=== PATIENT | male | born 1955 | race Two or more races ===

== ENCOUNTER 2020-05-24 09:14 | Outpatient (REF) | payer MEDICARE, OTHER, SELFPAY | END 2020-05-24 09:15 | disposition home or self-care (01) | LOC: HO.LAB 09:14 | PROVIDERS: Visit Provider Internal Medicine | DX: Z20.822 Contact with and (suspected) exposure to COVID-19 (principal) | CPT/HCPCS: 36415; C9803; U0003 ==

== ENCOUNTER 2020-09-05 08:54 | Outpatient (REF) | payer MEDICARE, OTHER, SELFPAY ==
--- NOTE | ~2020-09-05 | XR_ITS ---
EXAMINATION: XR HAND, RIGHT XR HAND, LEFT CLINICAL INFORMATION: Right and left hand pain. COMPARISON: Left wrist radiographs dated 02/14/2017 TECHNIQUE: AP, oblique, and lateral views of the right and left hand. FINDINGS: Right hand: No acute fracture or dislocation. Normal carpal alignment. Mild joint space narrowing with tiny marginal osteophytes scattered throughout the metacarpophalangeal and interphalangeal joints. No osseous erosion. No abnormal soft tissue calcification. Left hand: No acute fracture or dislocation. Normal carpal alignment. Mild joint space narrowing with tiny marginal osteophytes scattered throughout the metacarpophalangeal and interphalangeal joints. No osseous erosion. No abnormal soft tissue calcification. XR/XR hand LT min 3V IMPRESSION: Right hand: Mild degenerative arthritis scattered throughout the metacarpophalangeal and interphalangeal joints. Left hand: Mild degenerative arthritis scattered throughout the metacarpophalangeal and interphalangeal joints.
--- NOTE | ~2020-09-05 | XR_ITS ---
EXAMINATION: XR HAND, RIGHT XR HAND, LEFT CLINICAL INFORMATION: Right and left hand pain. COMPARISON: Left wrist radiographs dated 02/14/2017 TECHNIQUE: AP, oblique, and lateral views of the right and left hand. FINDINGS: Right hand: No acute fracture or dislocation. Normal carpal alignment. Mild joint space narrowing with tiny marginal osteophytes scattered throughout the metacarpophalangeal and interphalangeal joints. No osseous erosion. No abnormal soft tissue calcification. Left hand: No acute fracture or dislocation. Normal carpal alignment. Mild joint space narrowing with tiny marginal osteophytes scattered throughout the metacarpophalangeal and interphalangeal joints. No osseous erosion. No abnormal soft tissue calcification. XR/XR hand RT min 3V IMPRESSION: Right hand: Mild degenerative arthritis scattered throughout the metacarpophalangeal and interphalangeal joints. Left hand: Mild degenerative arthritis scattered throughout the metacarpophalangeal and interphalangeal joints.
== END 2020-09-05 08:55 | disposition home or self-care (01) ==
LOC: HO.XRAY 08:54
PROVIDERS: PCP Family Medicine; Visit Provider Family Medicine
DX: M79.641 Pain in right hand (principal); M79.642 Pain in left hand
CPT/HCPCS: 73130

== ENCOUNTER 2021-05-08 10:24 | Outpatient (REF) | payer MEDICARE, OTHER, SELFPAY | END 2021-05-08 10:25 | disposition home or self-care (01) | LOC: HO.LAB 10:24 | PROVIDERS: Visit Provider Internal Medicine | DX: Z20.822 Contact with and (suspected) exposure to COVID-19 (principal) | CPT/HCPCS: C9803; U0003; U0005 ==

== ENCOUNTER 2021-05-15 08:57 | Outpatient (REF) | payer MEDICARE, OTHER, SELFPAY | END 2021-05-15 08:58 | disposition home or self-care (01) | LOC: HO.LAB 08:57 | PROVIDERS: Visit Provider Internal Medicine | DX: Z20.822 Contact with and (suspected) exposure to COVID-19 (principal) | CPT/HCPCS: C9803; U0003; U0005 ==

== ENCOUNTER 2021-05-30 08:48 | Outpatient (REF) | payer MEDICARE, OTHER, SELFPAY ==
[2021-05-30 10:24] LABS: Binax Internal Control QC Valid; Binax Now Covid-19 Ag Negative (Negative)
== END 2021-05-30 08:49 | disposition home or self-care (01) ==
LOC: HO.LAB 08:48
PROVIDERS: Visit Provider Internal Medicine
DX: Z20.822 Contact with and (suspected) exposure to COVID-19 (principal)
CPT/HCPCS: C9803

== ENCOUNTER 2021-09-12 15:10 | Outpatient (REF) | payer MEDICARE, OTHER, SELFPAY ==
[2021-09-12 17:16] LABS: Prostate Specific Antigen 6.73 ng/mL (<0.05-4.0)
== END 2021-09-12 15:11 | disposition home or self-care (01) ==
LOC: HO.LAB 15:10
PROVIDERS: PCP Family Medicine; Visit Provider Urology
DX: N40.1 Benign prostatic hyperplasia with lower urinary tract symptoms (principal); N42.31 Prostatic intraepithelial neoplasia; N13.8 Other obstructive and reflux uropathy; R97.20 Elevated prostate specific antigen [PSA]; Z12.5 Encounter for screening for malignant neoplasm of prostate
CPT/HCPCS: 36415; 84153; 99212

== ENCOUNTER 2021-10-26 12:38 | Outpatient (REF) | payer MEDICARE, OTHER, SELFPAY ==
[2021-10-26 13:11] LABS: COVID-19 Test Negative (Negative)
== END 2021-10-26 12:39 | disposition home or self-care (01) ==
LOC: HO.LAB 12:38
PROVIDERS: Visit Provider Internal Medicine
DX: Z20.822 Contact with and (suspected) exposure to COVID-19 (principal)
CPT/HCPCS: 87635; C9803

== ENCOUNTER 2022-01-08 09:13 | Outpatient (REF) | payer MEDICARE, OTHER, SELFPAY | END 2022-01-08 09:14 | disposition home or self-care (01) | LOC: HO.LAB 09:13 | PROVIDERS: PCP Family Medicine; Visit Provider Urology | DX: Z12.5 Encounter for screening for malignant neoplasm of prostate (principal); R97.20 Elevated prostate specific antigen [PSA] | CPT/HCPCS: 36415; 84153 ==

== ENCOUNTER → 2022-01-15 08:17 | Outpatient (BNVA) | payer MEDICARE, OTHER, SELFPAY | PROVIDERS: PCP Family Medicine; Visit Provider Urology | DX: R97.20 Elevated prostate specific antigen [PSA] (principal); N40.1 Benign prostatic hyperplasia with lower urinary tract symptoms; N13.8 Other obstructive and reflux uropathy | CPT/HCPCS: 51798; 99212 ==

== ENCOUNTER 2022-07-05 08:48 | Outpatient (REF) | payer MEDICARE, MEDICAID, SELFPAY ==
[2022-07-05 10:04] LABS: Prostate Specific Antigen 3.06 ng/mL (<0.05-4.0)
== END 2022-07-05 08:49 | disposition home or self-care (01) ==
LOC: HO.LAB 08:48
PROVIDERS: PCP Family Medicine; Visit Provider Urology
DX: Z12.5 Encounter for screening for malignant neoplasm of prostate (principal); N40.1 Benign prostatic hyperplasia with lower urinary tract symptoms; N13.8 Other obstructive and reflux uropathy
CPT/HCPCS: 36415; 84153

== ENCOUNTER → 2022-07-24 08:30 | Outpatient (BNVA) | payer MEDICARE, MEDICAID, SELFPAY | PROVIDERS: PCP Family Medicine; Visit Provider Urology | DX: R97.20 Elevated prostate specific antigen [PSA] (principal); N40.1 Benign prostatic hyperplasia with lower urinary tract symptoms; N13.8 Other obstructive and reflux uropathy; Z79.899 Other long term (current) drug therapy | CPT/HCPCS: 51798; 99212 ==

== ENCOUNTER 2022-11-11 11:43 | Outpatient (REF) | payer MEDICARE, MEDICAID, SELFPAY ==
--- NOTE | ~2022-11-11 | XR_ITS ---
EXAMINATION: XR KNEE, RIGHT CLINICAL INFORMATION: Pain of 6 days' duration, without injury. COMPARISON: None available. TECHNIQUE: AP, lateral, tunnel, and sunrise views of the right knee. FINDINGS: Bony alignment and mineralization are normal. The lateral, medial and patellofemoral joint space compartments are well-maintained. No fracture or dislocation is seen. There is a moderately large joint effusion. No foreign body is seen. XR/XR knee RT 4V IMPRESSION: 1. No fracture or dislocation is seen. 2. There is a moderately large joint effusion.
== END 2022-11-11 11:44 | disposition home or self-care (01) ==
LOC: HO.HHCX 11:43
PROVIDERS: Visit Provider Emergency Medicine
DX: M25.561 Pain in right knee (principal)
CPT/HCPCS: 73564

== ENCOUNTER 2022-12-25 07:50 | Outpatient (AMB) | payer MEDICARE, MEDICAID, SELFPAY ==
--- NOTE | 2022-12-25 08:13 | MHC.OFFVIS ---
Intake Vital Signs 12/25/22 08:17 Height 5 ft 6 in Weight 140 lb BMI 22.6 Handedness Right Intake Visit Reasons: New Patient - Right Knee Pain Intake Note: Andrew is a 67 year old male who presents today as a new patient for a evaluation for his right knee pain. The patient describes his pain as sharp in nature. He injured his knee several years ago. He twisted his knee and had acute onset of pain. Since that time his symptoms have gotten worse in spite of continued non operative treatments. He has done physical therapy which aggravated his pain. He has also tried Tylenol, Aleve and topical patches which gave him minimal relief. He has had injections in the past which gave him no relief. The patient states that his right knee will give out several times per day. The patient also reports similar symptoms in his left knee which are less severe. Allergies tamsulosin Allergy (Unknown, Verified 12/25/22 08:18) low B/P Medication List - Last Reconciled 12/25/22 by Ulisses Singh MD acetaminophen 500 - 1,000 mg PO Q8H PRN doxazosin 4 mg PO BEDTIME 30 days finasteride 5 mg PO DAILY 90 days lorazepam 0.5 mg PO DAILY PRN pravastatin 20 mg PO DAILY PFSH Medical History BPH loc w urin obs/LUTS Cognitive impairment Depression with anxiety Dyslipidemia Elevated blood pressure reading in office with diagnosis of hypertension Elevated PSA High grade prostatic intraepithelial neoplasia Impaired fasting glucose Leukopenia Prostate cancer Tremor Surgical History History of surgery Social History (Updated 01/14/22 @ 14:38 by ANA MARIA Trevizo) Alcohol intake: current Patient Tobacco Use Status: Former Tobacco user Current occupational status: retired Current occupation: right hand dominant Physical Exam Const Other: Well-nourished well-developed very friendly male awake alert and oriented x3 in no acute distress Extrem Other: Bilateral lower extremity examination shows good capillary refill, no skin lesions noted, normal sensation light touch Right knee examination shows a minimal effusion, minimal crepitus with range of motion, tenderness along his medial joint line, positive Jayla's test, no instability Results Reviewed Results Reviewed: X-rays of the patient's right knee taken on 11/11/2022 show mild diffuse joint space narrowing, no acute bony abnormalities Assessment & Plan Assessment & Plan (1) Right knee pain: Code(s): M25.561 - Pain in right knee Plan Mr. Houser presents with progressively worsening right knee pain and mechanical symptoms most likely due to a medial meniscus tear. Thus, I will send the patient for an MRI of his right knee for further evaluation. If he does have a significant meniscus tear I will recommend arthroscopic surgery to optimize his future functional level. I will see him back once the imaging study is completed. He will continue with his activity modifications in the meantime. Feel free to call me at any time should questions regarding his orthopedic management arise. Thank you very much for asking me to see this very friendly gentleman. I spent 22 minutes in reviewing the patient's records and imaging studies, seeing the patient and documenting in the medical record. Coding Level of Care Code New Pt Level 2 (25075) Diagnoses Right knee pain M25.561
[2022-12-25 08:17] VITALS: BMI 22.6
== END 2022-12-25 08:28 | disposition home or self-care (01) ==
PROVIDERS: PCP Family Medicine; Visit Provider Orthopaedic Surgery
DX: M25.561 Pain in right knee (principal)
CPT/HCPCS: 99202

== ENCOUNTER → 2022-12-25 07:50 | Outpatient (BNVA) | payer MEDICARE, MEDICAID, SELFPAY | PROVIDERS: PCP Family Medicine; Visit Provider Orthopaedic Surgery | DX: M25.561 Pain in right knee (principal) | CPT/HCPCS: 99202 ==

== ENCOUNTER 2023-02-18 17:50 | Outpatient (REF) | payer MEDICARE, MEDICAID, SELFPAY ==
--- NOTE | ~2023-02-18 | MR_ITS ---
EXAMINATION: MR KNEE WITHOUT CONTRAST, RIGHT CLINICAL INFORMATION: Right knee pain. COMPARISON: Radiographs 11/11/2022. TECHNIQUE: MRI of the knee without contrast was performed using routine sequences on a high-field scanner. FINDINGS: MENISCI: Medial Meniscus: Ill-defined inner margin and undersurface tearing of the posterior horn and body. A portion of the meniscal body undersurface is displaced into the meniscotibial recess. Lateral Meniscus: Ill-defined undersurface tearing at the root of the posterior horn. Otherwise intact. LIGAMENTS: Cruciate: Intact. Collateral: Intact. EXTENSOR MECHANISM: Intact. ARTICULAR CARTILAGE/BONE: Patellofemoral Compartment: Partial-thickness cartilage loss and surface irregularity of the central/medial trochlea and minimal surface irregularity along the median ridge and medial facet of the patella. Medial Compartment: Cartilage thinning throughout the weightbearing aspect with small marginal osteophytes. Lateral Compartment: Normal. JOINT FLUID AND BURSAE: Moderate joint effusion and mild diffuse synovitis. MR/MR knee RT wo con IMPRESSION: 1. Ill-defined inner margin/undersurface tearing of the posterior horn and body of the medial meniscus. 2. Ill-defined undersurface tearing at the root of the posterior horn of the lateral meniscus. 3. Mild patellofemoral and medial compartment osteoarthritis. Moderate joint effusion.
== END 2023-02-18 17:51 | disposition home or self-care (01) ==
LOC: HO.MRI 17:50
PROVIDERS: PCP Family Medicine; Visit Provider Orthopaedic Surgery
DX: S83.206A Unspecified tear of unspecified meniscus, current injury, right knee, initial encounter (principal)
CPT/HCPCS: 73721

== ENCOUNTER 2023-02-27 08:00 | Outpatient (AMB) | payer MEDICARE, MEDICAID, SELFPAY ==
--- NOTE | 2023-02-27 08:05 | A.OFFVIS_ITS ---
Intake Vital Signs 02/27/23 08:08 Height 5 ft 6 in Weight 140 lb BMI 22.6 Intake Visit Reasons: OV- MRI Review right knee pain Intake Note: Andrew is a 67 year old male who presents today for his right knee pain. The patient describes his pain as sharp in nature. He injured his knee several years ago. He twisted his knee and had acute onset of pain. Since that time his symptoms have gotten worse in spite of continued non operative treatments. He has done physical therapy which aggravated his pain. He has also tried Tylenol, Aleve and topical patches which gave him minimal relief. He has had injections in the past which gave him no relief. The patient states that his right knee will give out several times per day. Allergies tamsulosin Allergy (Unknown, Verified 02/27/23 08:08) low B/P Medication List - Last Reconciled 02/27/23 by Ulisses Singh MD acetaminophen 500 - 1,000 mg PO Q8H PRN doxazosin 4 mg PO BEDTIME 30 days finasteride 5 mg PO DAILY 90 days lorazepam 0.5 mg PO DAILY PRN pravastatin 20 mg PO DAILY PFSH Medical History BPH loc w urin obs/LUTS Cognitive impairment Depression with anxiety Dyslipidemia Elevated blood pressure reading in office with diagnosis of hypertension Elevated PSA High grade prostatic intraepithelial neoplasia Impaired fasting glucose Leukopenia Prostate cancer Tremor Surgical History History of surgery Social History Alcohol intake: current Patient Tobacco Use Status: Former Tobacco user Current occupational status: retired Current occupation: right hand dominant Physical Exam Vital Signs: BMI result Body Mass Index 22.6 Const Other: Well-nourished well-developed very friendly male awake alert and oriented x3 in no acute distress Extrem Other: Bilateral lower extremity examination shows good capillary refill, no skin lesions noted, normal sensation light touch Right knee examination shows a mild effusion, minimal crepitus with range of motion, tenderness along his medial joint line, positive Jayla's test, no instability Results Reviewed Results Reviewed: MRI of the patient's right knee shows mild diffuse degenerative changes as well as a tear of his medial meniscus, no acute bony abnormalities Assessment & Plan Assessment & Plan (1) Right knee pain: Code(s): M25.561 - Pain in right knee Plan Mr. Houser presents with right knee pain and mechanical symptoms due to early degenerative joint disease as well as a tear of his medial meniscus. I had a lengthy discussion with the patient regarding treatment options. He wishes to h old off on surgery for as long as possible. I agree with this plan. I did have the patient fitted for a knee brace. I do find that the knee brace is a medical necessity to help with his instability to prevent falls and further injury. The patient will follow up me on an as-needed basis should his symptoms not plateau at an unacceptable level. Feel free to call me at any time her questions reg arding his orthopedic management arise. I spent 22 minutes in reviewing the patient's records and imaging studies, seeing the patient and documenting in the medical record. Coding Level of Care Code Est Pt Level 2 (24389) Diagnoses Right knee pain M25.561
[2023-02-27 08:08] VITALS: BMI 22.6
== END 2023-02-27 08:34 | disposition home or self-care (01) ==
PROVIDERS: PCP Family Medicine; Visit Provider Orthopaedic Surgery
DX: M25.561 Pain in right knee (principal)
CPT/HCPCS: 99212

== ENCOUNTER → 2023-02-27 08:00 | Outpatient (BNVA) | payer MEDICARE, MEDICAID, SELFPAY | PROVIDERS: PCP Family Medicine; Visit Provider Orthopaedic Surgery | DX: M25.561 Pain in right knee (principal) | CPT/HCPCS: 99212 ==

== ENCOUNTER 2023-04-22 07:54 | Outpatient (AMB) | payer MEDICARE, MEDICAID, SELFPAY ==
--- NOTE | 2023-04-22 07:59 | MHC.OFFVIS ---
Intake Intake Visit Reasons: Pre-Rt Knee Intake Note: Andrew is a 67 year old male who presents today for his right knee pain and giving way. The patient describes his pain as sharp in nature. He injured his knee several years ago. He twisted his knee and had acute onset of pain. Since that time his symptoms have gotten worse in spite of continued non operative treatments. He has done physical therapy which aggravated his pain. He has also tried Tylenol, Aleve and topical patches which gave him minimal relief. He has had injections in the past which gave him no relief. The patient states that his right knee will give out several times per day. Allergies tamsulosin Allergy (Unknown, Verified 04/22/23 08:00) low B/P Medication List - Last Reconciled 04/22/23 by Ulisses Singh MD acetaminophen 500 - 1,000 mg PO Q8H PRN doxazosin 4 mg PO BEDTIME 30 days finasteride 5 mg PO DAILY 90 days lorazepam 0.5 mg PO DAILY PRN oxycodone 5 mg PO Q6H PRN pravastatin 20 mg PO DAILY PFSH Medical History Depression with anxiety Dyslipidemia Cognitive impairment Tremor High grade prostatic intraepithelial neoplasia Leukopenia Impaired fasting glucose Prostate cancer Elevated blood pressure reading in office with diagnosis of hypertension BPH loc w urin obs/LUTS Elevated PSA Surgical History History of surgery Social History Alcohol intake: current Patient Tobacco Use Status: Former Tobacco user Current occupational status: retired Current occupation: right hand dominant Physical Exam Const Other: Well-nourished well-developed very friendly male awake alert and oriented x3 in no acute distress Lungs - clear to auscultation bilaterally with symmetric expansion Cardiovascular exam - regular rate and rhythm Abdominal exam - soft nontender nondistended Extrem Other: Bilateral lower extremity examination shows good capillary refill, no skin lesions noted, normal sensation light touch The right knee examination shows a minimal effusion, minimal crepitus with range of motion, tenderness along his medial joint line, positive Jayla's test, no instability Results Reviewed Results Reviewed: Standing full weight-bearing x-rays of the patient's right knee show minimal joint space narrowing, no acute bony abnormalities The MRI of the patient's right knee shows minimal diffuse degenerative changes, a tear of the medial meniscus, no acute bony abnormalities Assessment & Plan Assessment & Plan (1) Tear of medial meniscus of right knee: Code(s): S83.241A - Other tear of medial meniscus, current injury, right knee, initial encounter Plan Mr. Houser presents with progressively worsening right knee pain and mechanical symptoms due to a tear of his medial meniscus. Had a lengthy discussion with regarding the treatment options. The risks and benefits of right knee arthroscopic surgery were discussed at length with the patient. The patient wishes to proceed with surgery. He does understand that he may not get 100% relief of his symptoms the pending on the severity of his degenerative changes. Surgery will most likely involve right knee diagnostic arthroscopy with arthroscopic partial medial meniscectomy. The patient was given a prescription for oxycodone at his preoperative appointment. I will see him back 2-3 weeks following his surgery for his 1st postoperative appointment. The patient will follow-up as instructed. Feel free to call me at any time should questions regarding his orthopedic management arise. I spent 22 minutes in reviewing the patient's records and imaging studies, seeing the patient and documenting in the medical record. Medications: New oxycodone Partial Fill upon patient request. 5 mg PO Q6H PRN 20 tabs 0RF pain Coding Level of Care Code Est Pt Level 2 (28716) Diagnoses Tear of medial meniscus of right knee S83.241A
== END 2023-04-22 08:22 | disposition home or self-care (01) ==
PROVIDERS: PCP Family Medicine; Visit Provider Orthopaedic Surgery
DX: S83.241A Other tear of medial meniscus, current injury, right knee, initial encounter (principal)
CPT/HCPCS: 99212

== ENCOUNTER → 2023-04-22 07:54 | Outpatient (BNVA) | payer MEDICARE, MEDICAID, SELFPAY | PROVIDERS: PCP Family Medicine; Visit Provider Orthopaedic Surgery | DX: S83.241A Other tear of medial meniscus, current injury, right knee, initial encounter (principal) | CPT/HCPCS: 99212 ==

== ENCOUNTER 2023-05-09 07:49 | Day surgery (SDC) | payer MEDICARE, MEDICAID, SELFPAY ==
--- NOTE | 2023-05-08 12:02 | P.CONAN_ITS ---
Documented by User: Casandra Ramon NP 05/08/23 12:02 HPI - Anesthesia Eval Consult details Narrative: 67yo M for Right Knee Arthroscopy, partial medial meniscectomy, possible lateral meniscectomy PMFSH Active Problems Active Problems: All Active Problems (Updated 04/22/23 @ 08:20 by Ulisses Singh MD) Tear of medial meniscus of right knee (Acute) Right knee pain (Acute) BPH w urinary obs/LUTS (Acute) Elevated PSA (Acute) Past Medical History Medical History Depression with anxiety Dyslipidemia Cognitive impairment Tremor High grade prostatic intraepithelial neoplasia Leukopenia Impaired fasting glucose Prostate cancer Elevated blood pressure reading in office with diagnosis of hypertension BPH loc w urin obs/LUTS Elevated PSA Surgical History Surgical History History of surgery Social History Social History Alcohol intake: current Patient Tobacco Use Status: Former Tobacco user Advance Directives: No Advance Directives Information Provided: Yes Current occupational status: retired Current occupation: right hand dominant Meds Allergies Allergy/AdvReac Type Severity Reaction Status Date / Time tamsulosin Allergy Unknown low B/P Verified 04/22/23 08:00 Active Medications: Current Medications Cefazolin Sodium/Dextrose (Ancef) 2 gm in 50 mls @ 100 mls/hr IV PREOP ONE Stop: 05/09/23 05:30 Home Medications Medication Instructions Recorded Confirmed Last Taken Type acetaminophen 500 mg tablet 500 - 1,000 mg PO Q8H PRN severe 01/14/22 04/22/23 Unknown History pain pravastatin 20 mg tablet 20 mg PO DAILY 01/14/22 04/22/23 Unknown History lorazepam 0.5 mg tablet 0.5 mg PO DAILY PRN 07/24/22 04/22/23 Unknown History Assessment and Plan Assessment Anesthesia Assessment: Chart Reviewed Documented by User: Mert Bravo MD 05/09/23 08:18 [facility] Past Medical History Medical History Depression with anxiety Dyslipidemia Cognitive impairment Tremor High grade prostatic intraepithelial neoplasia Leukopenia Impaired fasting glucose Prostate cancer Elevated blood pressure reading in office with diagnosis of hypertension BPH loc w urin obs/LUTS Elevated PSA Family History Family history of problems with anesthesia: No Surgical History Surgical History History of surgery History of Problems with Anesthesia: No Social History Social History Alcohol intake: current Patient Tobacco Use Status: Former Tobacco user Advance Directives: No Advance Directives Information Provided: Yes Current occupational status: retired Current occupation: right hand dominant Meds Allergies Allergy/AdvReac Type Severity Reaction Status Date / Time tamsulosin Allergy Unknown low B/P Verified 04/22/23 08:00 Home Medications Medication Instructions Recorded Confirmed Last Taken Type acetaminophen 500 mg tablet 500 - 1,000 mg PO Q8H PRN severe 01/14/22 04/22/23 Unknown History pain pravastatin 20 mg tablet 20 mg PO DAILY 01/14/22 04/22/23 Unknown History lorazepam 0.5 mg tablet 0.5 mg PO DAILY PRN 07/24/22 04/22/23 Unknown History Exam Airway Mallampati Class: II TM Dist: >3cm Neck ROM: Full Heart: rrr Lungs: cta Assessment and Plan Assessment Anesthesia Assessment: Anesthesia Plan Discussed Final Anesthetic Review Family History of Problems with Anesthesia: No History of Problems with Anesthesia: No NPO: Yes ASA Class: III Final Preanesthetic Review: No Changes in Pt Med Stat, Meds/Allgs Chart Reviewed, Consent Obtained/Reviewed and Anes Risks/Benef Reviewed Patient Risk: Intermediate Procedure Risk: Intermediate Anesthetic Plan Anesthetic Plan: GA and Agree w/ Assess. and Plan Disposition: Standard PACU
[2023-05-09] VITALS (13 sets, daily range): BP systolic 111–152; BP diastolic 59–81; PULSE 48–70; RESP 16; TEMP 36.4–36.8; O2SAT 98–100; BMI 31.1
[2023-05-09] MEDS: Lactated Ringers 1,000 ML 100 ML IVCONT (08:42)
--- NOTE | 2023-05-09 10:09 | PC.NURSE ---
heart rate dropped to 48 asymptomatic. pulanita aware. no new oders
--- NOTE | 2023-05-09 11:26 | P.BOP_ITS ---
Brief Operative Note Date of Service: 05/09/23 Pre-op diagnosis: Right knee medial meniscus tear Post-op diagnosis: other (Right knee medial meniscus tear, right knee lateral meniscus tear) Procedure: Right knee diagnostic arthroscopy with arthroscopic partial medial and lateral meniscectomies Implants: none Surgeon: Ulisses Singh MD Anesthesia: GLMA Was an Service Counter Cashier used for this Procedure?: No Estimated blood loss (mL): 10 Pathology: none sent Condition: stable Disposition: PACU
--- NOTE | 2023-05-09 11:27 | W.PM.OPN ---
Operative Note Operative Note Date of Service: 05/09/23 Narrative: After the patient was identified as Andrew Houser and his right knee was initialed by myself they were brought to the operating room where general anesthesia was induced by the anesthesiologist in routine fashion. The patient was given 2 g of IV Ancef for infection prophylaxis. A formal time-out was completed. The patient's right lower extremity was prepped and draped in sterile fashion. Marcaine with epinephrine was injected into the planned incision sites as well as their right knee joint. A # 11 scalpel blade was used to make an anterolateral portal 1 cm proximal to the joint line and 1 cm lateral to the patellar tendon. Blunt trocar technique was used into the suprapatellar pouch with the knee in extension. Diagnostic arthroscopy showed multiple bands of thickened plica which would be excised at the end of the procedure. There were no loose bodies or abnormalities found in either the medial or lateral gutters. There were diffuse grade 2 degenerative changes of the undersurface of the patella as well as grades 1 and 2 degenerative changes of the trochlear groove. The patient's knee was flexed to 45 degrees and a valgus force was placed upon it. The medial compartment was entered. An anteromedial portal was made 1 cm proximal to the joint line and 1 cm medial to the patellar tendon. Probing of the medial meniscus showed a radial tear of the posterior horn. A partial medial meniscectomy was performed using the arthroscopic shaver. Following the partial meniscectomy the remainder of the meniscus tissue was stable. There were diffuse grades 1 and 2 degenerative changes of the medial femoral condyle as well as diffuse grade 1 degenerative changes of the medial tibial plateau. The articular surfaces of the medial tibial plateau and medial femoral condyle were already smooth so no chondroplasty was indicated. The patient's knee was then placed into a neutral position. There was no injury to the anterior cruciate ligament. The patient's knee was then placed into the figure of 4 position and the lateral compartment was entered. There were minimal degenerative changes of the lateral femoral condyle and lateral tibial plateau. There was a radial tear of the anterior horn of the lateral meniscus. Thus, a partial lateral meniscectomy was performed using the arthroscopic shaver. Following the partial meniscectomy the remainder of the meniscus tissue was stable. The patient's knee was once again brought into extension and the suprapatellar pouch was entered. The arthroscopic shaver and the ArthroCare Wand were used to excise the thickened bands of plica. The undersurface of the patella was then made smooth using the arthroscopic shaver. The articular surface of the trochlear groove was already smooth so no chondroplasty was indicated. The knee joint was irrigated and then drained. All arthroscopic instruments were removed. The 2 portals were closed with 3-0 nylon interrupted suture. The knee joint was injected with Marcaine. Dry sterile dressing and Ryan bandages were placed over the patient's knee. The patient was woken and expand the operating room. They were transferred to the recovery room in stable condition.
[2023-05-09] MEDS: fentaNYL citrate/PF 100 MCG/2 ML VIAL 25 MCG IVPUSH ×3 (11:29→12:20)
[2023-05-09] MEDS: cefTRIAXone sodium 1 GM in 0.9 % Sodium Chloride 50 ML IV (11:44)
[2023-05-09] MEDS: oxyCODONE HCl Immed Release 5 MG TABLET PO (12:23)
== END 2023-05-09 12:58 | disposition home or self-care (01) ==
PROVIDERS: PCP Family Medicine; Visit Provider Orthopaedic Surgery
PROC: (CPT 29870; principal; 2023-05-09 09:50)
DX: S83.241A Other tear of medial meniscus, current injury, right knee, initial encounter (principal); S83.281A Other tear of lateral meniscus, current injury, right knee, initial encounter; M23.51 Chronic instability of knee, right knee; M17.11 Unilateral primary osteoarthritis, right knee; M67.51 Plica syndrome, right knee; X50.1XXA Overexertion from prolonged static or awkward postures, initial encounter; Y93.9 Activity, unspecified; Y92.9 Unspecified place or not applicable; Y99.9 Unspecified external cause status; E78.5 Hyperlipidemia, unspecified; I10 Essential (primary) hypertension; R73.01 Impaired fasting glucose; C61 Malignant neoplasm of prostate; N42.31 Prostatic intraepithelial neoplasia; D72.819 Decreased white blood cell count, unspecified; R25.1 Tremor, unspecified; R41.9 Unspecified symptoms and signs involving cognitive functions and awareness; F41.8 Other specified anxiety disorders; Z79.899 Other long term (current) drug therapy; Z88.8 Allergy status to other drugs, medicaments and biological substances; Z87.891 Personal history of nicotine dependence
CPT/HCPCS: 29880; J0131; J0171; J0690; J0696; J1100; J1885; J2405; J2704; J2795; J3010

== ENCOUNTER → 2023-05-09 07:49 | Outpatient (BNV) | payer MEDICARE, MEDICAID, SELFPAY | PROVIDERS: PCP Family Medicine; Visit Provider Orthopaedic Surgery | DX: S83.241A Other tear of medial meniscus, current injury, right knee, initial encounter (principal) | CPT/HCPCS: 29880 ==

== ENCOUNTER 2023-05-22 13:19 | Outpatient (AMB) | payer MEDICARE, MEDICAID, SELFPAY ==
--- NOTE | 2023-05-22 13:22 | MHC.OFFVIS ---
Intake Intake Visit Reasons: PO-Rt Knee 05/09/23 Intake Note: Andrew is a 67 yr old male, He is here today with a walker he states he has been having dizzy spells since the surgery. Still having a lot of pain and states that he has been taking Tylenol to get through the pain. The patient recently ran out of Percocet. He states that he did twist his right knee when he tried to jump getting out of the shower. He denies any fevers or chills. Allergies tamsulosin Allergy (Unknown, Verified 05/22/23 13:26) low B/P ibuprofen Allergy (Mild, Uncoded 05/22/23 13:26) Swelling Medication List - Last Reconciled 05/22/23 by Ulisses Singh MD acetaminophen 500 - 1,000 mg PO Q8H PRN doxazosin 4 mg PO BEDTIME 30 days finasteride 5 mg PO DAILY 90 days lorazepam 0.5 mg PO DAILY PRN oxycodone 5 mg PO Q6H PRN pravastatin 20 mg PO DAILY PFSH Medical History Depression with anxiety Dyslipidemia Cognitive impairment Tremor High grade prostatic intraepithelial neoplasia Leukopenia Impaired fasting glucose Prostate cancer Elevated blood pressure reading in office with diagnosis of hypertension BPH loc w urin obs/LUTS Elevated PSA Surgical History (Updated 05/22/23 @ 13:28 by ANA MARIA Rodriguez) Hx of right knee surgery History of surgery Social History Alcohol intake: current Patient Tobacco Use Status: Former Tobacco user Current occupational status: retired Current occupation: right hand dominant Physical Exam Extrem Other: Physical examination of the patient's right knee shows that the surgical incisions are healing well, no erythema, range of motion from -3 degrees to 110 degrees, no instability Assessment & Plan Assessment & Plan (1) Right knee pain: Code(s): M25.561 - Pain in right knee Plan: Mr. Houser is doing fairly well after undergoing right knee arthroscopic surgery on 05/09/2023. His sutures were removed and Steri-Strips placed over his incisions. Activity modifications were discussed at length with the patient. I did refill his prescription for Percocet. He will contact me prior to his follow-up appointment in 4-6 weeks should any questions or concerns arise. Feel free to call me at any time should questions regarding his orthopedic management arise. Medications: Refilled oxycodone Partial Fill upon patient request. 5 mg PO Q6H PRN 20 tabs 0RF pain Coding Level of Care Code Global (01475) Diagnoses Right knee pain M25.561
== END 2023-05-22 13:48 | disposition home or self-care (01) ==
PROVIDERS: PCP Family Medicine; Visit Provider Orthopaedic Surgery
DX: M25.561 Pain in right knee (principal)
CPT/HCPCS: 99024

== ENCOUNTER → 2023-05-22 13:19 | Outpatient (BNVA) | payer MEDICARE, MEDICAID, SELFPAY | PROVIDERS: PCP Family Medicine; Visit Provider Orthopaedic Surgery | DX: Z47.89 Encounter for other orthopedic aftercare (principal); M25.561 Pain in right knee | CPT/HCPCS: 99212 ==

== ENCOUNTER 2023-07-03 09:01 | Outpatient (AMB) | payer MEDICARE, MEDICAID, SELFPAY ==
--- NOTE | 2023-07-03 09:14 | A.OFFVIS_ITS ---
Intake Vital Signs 07/03/23 09:21 Height 5 ft 6 in Weight 180 lb BMI 29.0 Intake Visit Reasons: PO-Rt Knee 05/09/23-follow up Intake Note: * Andrew is a 67 year old male who presents for a post operative appointment s/p his Right knee on 05/09/2023. He reports continued mild to moderate discomfort in his knee. He denies any fevers or chills. He would like to go to formal physical therapy. Allergies tamsulosin Allergy (Unknown, Verified 07/03/23 09:25) low B/P ibuprofen Allergy (Mild, Uncoded 05/22/23 13:26) Swelling Medication List - Last Reconciled 07/03/23 by Ulisses Singh MD acetaminophen 500 - 1,000 mg PO Q8H PRN doxazosin 4 mg PO BEDTIME 30 days finasteride 5 mg PO DAILY 90 days lorazepam 0.5 mg PO DAILY PRN oxycodone 5 mg PO Q6H PRN pravastatin 20 mg PO DAILY PFSH Medical History Depression with anxiety Dyslipidemia Cognitive impairment Tremor High grade prostatic intraepithelial neoplasia Leukopenia Impaired fasting glucose Prostate cancer Elevated blood pressure reading in office with diagnosis of hypertension BPH loc w urin obs/LUTS Elevated PSA Surgical History Hx of right knee surgery History of surgery Social History Alcohol intake: current Patient Tobacco Use Status: Former Tobacco user Current occupational status: retired Current occupation: right hand dominant Physical Exam Vital Signs: BMI result Body Mass Index 29.0 Const Other: Well-nourished well-developed very friendly male awake alert and oriented x3 in no acute distress Extrem Other: Bilateral lower extremity examination shows good capillary refill, no skin lesions noted, normal sensation light touch Right knee examination shows that the surgical incisions are well healed, no erythema, range of motion from -3 degrees to 115 degrees with minimal discomfort, minimal crepitus with range of motion Assessment & Plan Assessment & Plan (1) Right knee pain: Code(s): M25.561 - Pain in right knee Plan Mr. Houser continues to do fairly well after undergoing right knee arthroscopic surgery on 05/09/2023. He does have residual discomfort due to degenerative joint disease. I had a lengthy discussion with the patient regarding the treatment options. We will hold off on a cortisone injection at this time. I did give him a prescription to go to formal physical therapy. Will contact me prior to his follow-up appointment in 2 months should any questions or concerns arise. Feel free to call me at any time should questions regarding his orthopedic management arise. I spent 22 minutes in reviewing the patient's records and imaging studies, seeing the patient and documenting in the medical record. Orders: Orders PT Evaluation and Treatment Today M25.561 - Pain in right knee Coding Level of Care Code Est Pt Level 2 (88868) Diagnoses Right knee pain M25.561
[2023-07-03 09:21] VITALS: BMI 29.0
== END 2023-07-03 09:49 | disposition home or self-care (01) ==
PROVIDERS: PCP Family Medicine; Visit Provider Orthopaedic Surgery
DX: M25.561 Pain in right knee (principal)
CPT/HCPCS: 99024

== ENCOUNTER → 2023-07-03 09:01 | Outpatient (BNVA) | payer MEDICARE, MEDICAID, SELFPAY | PROVIDERS: PCP Family Medicine; Visit Provider Orthopaedic Surgery | DX: M25.561 Pain in right knee (principal) | CPT/HCPCS: 99212 ==

== ENCOUNTER 2023-08-20 09:27 | Outpatient (REF) | payer MEDICARE, MEDICAID, SELFPAY ==
[2023-08-20 11:35] LABS: Estimated Average Glucose 117 mg/dL; Hemoglobin A1c % 5.7 % (<6.0)
[2023-08-20 12:10] LABS: Alanine Aminotransferase 24 U/L (0-40); Albumin Level 4.1 g/dL (3.5-5.0); Alkaline Phosphatase 56 U/L (39-117); Anion Gap 9 (12-20); Aspartate Amino Transferase 17 U/L (5-37); Bilirubin Total 0.3 mg/dL (0.0-1.0); Blood Urea Nitrogen 12 mg/dL (9-16); Calcium 9.2 mg/dL (8.4-10.2); Carbon Dioxide 27 mmol/L (22-29); Chloride 109 mmol/L (96-108); Cholesterol 192 mg/dL (<200); Estimated Glomerular Filt Rate > 60; Glucose Random 115 mg/dL (60-115); HDL Cholesterol 57 mg/dL (>40); LDL Cholesterol Calculated 124 mg/dL (<100); Potassium 3.9 mmol/L (3.3-5.1); Sodium 141 mmol/L (135-145); Total Protein 7.2 g/dL (6.5-8.0); Triglycerides 58 mg/dL (<150)
[2023-08-20 12:16] LABS: TSH reflex Free T4 0.61 uIU/mL (0.32-4.0)
[2023-08-20 12:19] LABS: Prostate Specific Antigen 4.24 ng/mL (<0.05-4.0)
[2023-08-20 12:47] LABS: Reflex LDLD? No
== END 2023-08-20 09:28 | disposition home or self-care (01) ==
LOC: HO.HHCL 09:27
PROVIDERS: Visit Provider Family Medicine
DX: N42.31 Prostatic intraepithelial neoplasia (principal); C61 Malignant neoplasm of prostate; I10 Essential (primary) hypertension; E78.5 Hyperlipidemia, unspecified; R73.01 Impaired fasting glucose; Z12.5 Encounter for screening for malignant neoplasm of prostate
CPT/HCPCS: 36415; 80053; 80061; 83036; 84153; 84443

== ENCOUNTER 2024-02-04 09:47 | Outpatient (REF) | payer MEDICARE, MEDICAID, SELFPAY ==
--- NOTE | ~2024-02-04 | XR_ITS ---
EXAMINATION: XR CHEST CLINICAL INFORMATION: Shortness of breath. COMPARISON: None available. TECHNIQUE: 2 views of the chest were obtained. FINDINGS: Lungs clear. No pleural effusions. Heart and pulmonary vessels normal. Spondylitic changes in the thoracic spine. XR/XR chest 2V IMPRESSION: No active disease. Electronically signed by: Vlad Bourgeois MD 02/04/2024 10:57 AM EDT
== END 2024-02-04 09:48 | disposition home or self-care (01) ==
LOC: HO.HHCX 09:47
PROVIDERS: Visit Provider Internal Medicine
DX: U07.1 COVID-19 (principal); R06.02 Shortness of breath
CPT/HCPCS: 71046

== ENCOUNTER 2024-02-04 10:47 | Emergency (ER) | payer MEDICARE, MEDICAID, SELFPAY ==
[2024-02-04 11:25] VITALS: BP 124/77; PULSE 98; RESP 20; TEMP 37.2; O2SAT 97; BMI 31.3
--- NOTE | 2024-02-04 11:25 | ED.GENADULT ---
HPI - General Adult General Chief complaint: Upper Respiratory Symptoms Stated complaint: Covid+ Time Seen by Provider: 02/04/24 11:28 Source: patient Mode of arrival: ambulatory Limitations: no limitations History of Present Illness ED Provider: cristi PHELAN narrative: Patient is a 68-year-old male presenting to the emergency department from [facility]. He was seen there this morning for 2 days of cough/shortness of breath. He was diagnosed with Covid, had a chest x-ray, and was prescribed Paxlovid and Tylenol. He states he was advised to come to the ED for further evaluation. He has been taking Tylenol at home for fevers. Denies any abdominal pain, nausea, vomiting, diarrhea. MD complaint: cough Onset (ago): day(s) Associated symptoms: fever/chills Treatments prior to arrival: other Related Data Home Medications ?Medication ?Instructions ?Recorded ?Confirmed acetaminophen 500 mg tablet 500 - 1,000 mg PO Q8H PRN severe 01/14/22 07/03/23 pain pravastatin 20 mg tablet 20 mg PO DAILY 01/14/22 07/03/23 lorazepam 0.5 mg tablet 0.5 mg PO DAILY PRN 07/24/22 07/03/23 Previous Rx's ?Medication ?Instructions ?Recorded finasteride 5 mg tablet 5 mg PO DAILY 90 days #90 tabs 07/24/22 doxazosin 4 mg tablet 4 mg PO BEDTIME 30 days #30 tabs 09/18/22 oxycodone 5 mg tablet 5 mg PO DAILY PRN pain #7 tabs 08/08/23 albuterol sulfate 90 mcg/actuation 2 puff inhalation Q4-6H PRN 02/04/24 aerosol inhaler shortness of breath or wheezing #6.7 grams benzonatate 100 mg capsule 100 mg PO TID PRN cough #20 caps 02/04/24 Allergies Allergy/AdvReac Type Severity Reaction Status Date / Time tamsulosin Allergy Unknown low B/P Verified 02/04/24 11:29 ibuprofen Allergy Mild Swelling Uncoded 02/04/24 11:29 Review of Systems Review of Systems: As per HPI. Yes all other systems are reviewed and are negative Constitutional: Constitutional: Reports as per HPI [facility] Past Medical History Medical History Depression with anxiety Dyslipidemia Cognitive impairment Tremor High grade prostatic intraepithelial neoplasia Leukopenia Impaired fasting glucose Prostate cancer Elevated blood pressure reading in office with diagnosis of hypertension BPH loc w urin obs/LUTS Elevated PSA Surgical History Hx of right knee surgery History of surgery Social History Social History Alcohol intake: current Patient Tobacco Use Status: Former Tobacco user Current occupational status: retired Current occupation: right hand dominant Physical Exam ED Vital Signs: Vital signs have been reviewed and appear to be correct. Blood pressure normal. Heart rate normal. Respiratory rate normal. Temperature normal. Oxygen saturation normal. Const General: cooperative, healthy appearing and no acute distress Orientation/consciousness: oriented to person, oriented to place, oriented to time and patient oriented x3 Limitations: no limitations HENMT Head: Yes normocephalic and Yes atraumatic Ears: external ears normal General nose exam: Normal external nose present Face and sinus: Yes face symmetric Mouth: oropharynx normal and moist mucous membranes Throat: Yes uvula midline Eyes Pupils: Equal, round and reactive pupils present Neck Neck: Yes normal visual inspection and Yes supple Resp Effort & Inspection: normal respiratory effort and able to speak in complete sentences Auscultation: clear to auscultation bilaterally Cardio Rate: regular rate Rhythm: regular rhythm Heart sounds: S1 normal heart sound present and S2 normal heart sound present GI Palpation (GI): Soft to palpation and nontender Auscultation: normoactive bowel sounds General: Yes no CVA tenderness Back/Spine/Pelvis Back: no CVA tenderness Skin General skin exam: elasticity normal and turgor normal Neuro General: oriented to person, oriented to place, oriented to time, patient oriented x3, moves all extremities, no focal motor deficits and CN's II-XI intact bilaterally Cranial nerves: Yes Equal, round and reactive pupils present Cognition (Neuro): normal cognition Extrem General: Yes full ROM, Yes no pedal edema and Yes no calf tenderness Psych Mental Status: mental status grossly normal Affect: normal affect Thought process: Normal thought process present Medical Decision Making Medical Decision Making MDM Narrative: Patient is a 68-year-old male presenting to the emergency department from [facility]. On exam patient is awake, A+Ox3, VS WNL, afebrile, normal neurological exam without focal deficits, physical exam findings as above. Given reported symptoms and physical exam findings, initial differential includes Covid, bronchitis, pneumonia. No evidence of pneumonia on CXR obtained at [facility]. My interpretation is in agreement with the radiologist's interpretation. Lungs clear on exam, patient in no distress and speaking easily in full sentences. Discussed with patient how he should be taking the Paxlovid, Tylenol, and will send prescriptions for benzonatate and albuterol inhaler. Discussed return and isolation precautions. Follow up with PCP. Patient verbalized understanding of and agreement with plan. Differential Diagnosis Differential Diagnoses: The differential diagnosis associated with the presentation includes As per MDM Independent Interpretation I performed an independent interpretation of an: Plain X-Ray Interpretation: No evidence of pneumonia on chest xray. Radiology Impression Discussion of test interpretation with radiology: I have reviewed the radiologist's reading. Radiologist Impression: FINDINGS: Lungs clear. No pleural effusions. Heart and pulmonary vessels normal. Spondylitic changes in the thoracic spine. XR/XR chest 2V IMPRESSION: No active disease. External Record Review External record reviewed: Inpatient record, Office record and Outpatient record Prescription Management I considered prescription management with: Other Discharge Plan Discharge Clinical Impression: COVID-19 Patient Disposition: Home, Self-Care Instructions: COVID-19 (Coronavirus Disease 2019) (ED) Additional Instructions: You were evaluated in the emergency department today for shortness of breath, cough, fever. Your COVID test was resulted as positive at [facility] this morning You should continue to isolate at home for another 4 days. You should continue to wear mask for 5 days after that. You were prescribed Paxlovid at [facility] today, please take that as prescribed. You are being prescribed a cough medication and inhaler here, use these as prescribed. Return to the emergency department with worsening shortness of breath, chest pain, fever that does not improve with Tylenol or ibuprofen, persistent vomiting, or any other concerning symptoms. You should follow-up with your primary care provider. Prescriptions: New albuterol sulfate 90 mcg/actuation HFA aerosol inhaler 2 puff inhalation Q4-6H PRN (Reason: shortness of breath or wheezing) Qty: 6.7 0RF benzonatate 100 mg capsule 100 mg PO TID PRN (Reason: cough) Qty: 20 0RF No Action doxazosin 4 mg tablet 4 mg PO BEDTIME 30 Days Qty: 30 1RF oxycodone 5 mg tablet 5 mg PO DAILY PRN (Reason: pain) Qty: 7 0RF Rx Instructions: Partial Fill upon patient request. pravastatin 20 mg tablet 20 mg PO DAILY acetaminophen 500 mg tablet 500 - 1,000 mg PO Q8H PRN (Reason: severe pain) lorazepam 0.5 mg tablet 0.5 mg PO DAILY PRN finasteride 5 mg tablet 5 mg PO DAILY 90 Days Qty: 90 1RF Print Language: Prydeinig
[2024-02-04 11:49] VITALS: BP 124/77; PULSE 98; RESP 20; TEMP 37.2; O2SAT 97
== END 2024-02-04 11:50 | disposition home or self-care (01) ==
PROVIDERS: Emergency Provider Emergency Medicine; PCP Family Medicine
DX: U07.1 COVID-19 (principal); R05.9 Cough, unspecified; Z79.899 Other long term (current) drug therapy
CPT/HCPCS: 71046; 99282; 99283

== ENCOUNTER 2024-02-09 08:47 | Emergency (ER) | payer MEDICARE, MEDICAID, SELFPAY ==
--- NOTE | ~2024-02-09 | CT_ITS ---
EXAMINATION: CT ABDOMEN AND PELVIS WITHOUT AND WITH CONTRAST CLINICAL INFORMATION: positive OBS COMPARISON: None available. TECHNIQUE: Multidetector volumetric imaging was performed of the abdomen and pelvis before and after the IV administration of 85 mL of Omnipaque 350 intravenous contrast. Sagittal and coronal reformatted images were obtained on the technologist's workstation. Maximum intensity projections were generated. This CT examination was performed using dose optimization techniques as appropriate, variously including the following: *Automated exposure control *Adjustment of mA and/or kV according to patient size (this includes techniques or standardized protocols for targeted exams where dose is matched to indication/reason for exam; i.e. extremities or head) *Use of iterative reconstruction technique DLP: 1567 mGy-cm FINDINGS: LUNG BASES: There is a hiatal hernia. Small fat-containing posteromedial right diaphragmatic hernia. There may be a smaller similar lesion at the posterior dome of the left hemidiaphragm. No bowel content. LIVER, GALLBLADDER, AND BILIARY TREE: There are multiple sharply circumscribed varying sized low attenuating liver lesions. No suspicious features. I suspect cysts. No suspicious focal liver lesion. No opaque gallstone. The gallbladder is mildly distended. There is no definite biliary dilation. PANCREAS: No suspicious abnormality. SPLEEN: Within normal limits ADRENAL GLANDS: Normal KIDNEYS AND URETERS: There is no dilation of the urinary collecting system on either side. The nephrograms are symmetric. There are some small circumscribed low attenuating renal masses which are too small to fully characterize but likely represent cysts. These do not require specific imaging follow-up. BLADDER: No suspicious focal lesion GASTROINTESTINAL TRACT: There is no evidence of active GI tract bleeding. No localized bowel wall thickening. There is a small hiatal hernia. There is a diverticulum involving the second portion of the duodenum. ABDOMINAL WALL: Fat protrudes into the umbilicus. There is fat protruding into the inguinal canal bilaterally. LYMPH NODES: There are no measurably enlarged abdominal or pelvic lymph nodes. VASCULAR: There is no abdominal aortic aneurysm. There is arterial calcification. The portal vein enhances. PELVIC VISCERA: The prostate is enlarged. The prostate indents the bladder. OSSEOUS STRUCTURES: No suspicious focal lesion CT/CT gi bleed abd pel wo/w IVcon IMPRESSION: No evidence of active GI tract bleeding. Hiatal hernia. Diverticula involving the medial aspect of the second portion of the duodenum. Fleischner guidelines were followed. Electronically signed by: Deejay Pineda MD 02/09/2024 05:58 PM EDT RP
[2024-02-09 09:14] VITALS: BP 140/80; PULSE 82; RESP 18; TEMP 37.2; O2SAT 99; BMI 31.2
[2024-02-09 09:34] LABS: MANUAL DIFF FLAG NO
[2024-02-09 09:39] LABS: Basophils Percent Auto 0.4 % (0-2); Eosinophils Absolute Auto 0.2 X10*3/uL (0.0-0.4); Eosinophils Percent Auto 2.8 % (0-4); Hematocrit 40.7 % (42.0-52.0); Hemoglobin 13.6 g/dl (14.0-18.0); Imm Gran Abs Auto 0.07 X10*3/uL (0.00-0.03); Lymphocytes Absolute Auto 1.8 X10*3/uL (1.2-4.9); Lymphocytes Percent Auto 25.8 % (20-40); Mean Corpuscular HGB Conc 33.4 g/dl (31.0-36.0); Mean Corpuscular Hemoglobin 28.8 pg (27.0-33.0); Mean Corpuscular Volume 86.2 fL (80.0-98.0); Mean Platelet Volume 9.8 fL (9.4-12.4); Monocytes Absolute Auto 0.5 X10*3/uL (0.1-1.2); Monocytes Percent Auto 7.4 % (2-11); Neutrophils Absolute Auto 4.3 x10*3/uL (2.0-8.3); Neutrophils Percent Auto 62.6 % (45-73); Platelet Count 228 X10*3/uL (160-400); Red Blood Count 4.72 X10*6/uL (4.60-5.80); Red Cell Distribution Width 14.6 % (11.0-16.0); White Blood Count 6.9 X10*3/uL (4.8-10.8)
[2024-02-09 09:48] LABS: Alanine Aminotransferase 19 U/L (0-40); Albumin Level 4.3 g/dL (3.5-5.0); Alkaline Phosphatase 63 U/L (39-117); Anion Gap 11 (12-20); Aspartate Amino Transferase 14 U/L (5-37); Bilirubin Total 0.3 mg/dL (0.0-1.0); Blood Urea Nitrogen 12 mg/dL (9-16); Calcium 9.8 mg/dL (8.4-10.2); Carbon Dioxide 27 mmol/L (22-29); Chloride 108 mmol/L (96-108); Estimated Glomerular Filt Rate > 60; Glucose Random 109 mg/dL (60-115); Lipase 28 U/L (8-78); Potassium 4.8 mmol/L (3.3-5.1); Sodium 141 mmol/L (135-145); Total Protein 7.7 g/dL (6.5-8.0)
--- NOTE | 2024-02-09 11:22 | ED_ITS ---
HPI - General Adult General Chief complaint: Abdominal Pain Stated complaint: covid + blood in stools Time Seen by Provider: 02/09/24 13:43 Source: patient Mode of arrival: ambulatory Limitations: no limitations History of Present Illness ED Provider: MARGOT STARK PA-C HPI narrative: 68 year old male past medical history significant for BPH presents to the ED today for evaluation bright red blood per rectum x 24 hours. Patient reports passing bowel movement yesterday with noted bright red blood in the toilet bowl and on toilet paper. Had another episode this morning, prompting him to come to the ED for further evaluation. Not on anticoagulation. No rectal pain. Patient reports testing positive for COVID approximately 1 week ago. He was prescribed Paxlovid for this by his PCP. Finished this yesterday. Reports continued headaches and myalgias. Admits to recent loose stools secondary to consuming primarily soup this last week. Admits to history of hemorrhoids requiring surgery over 10 years ago. Denies nausea, vomiting, constipation, melena, flank pain, abdominal pain, nausea or vomiting, dysuria, hematuria, fatigue. Related Data Home Medications ?Medication ?Instructions ?Recorded ?Confirmed acetaminophen 500 mg tablet 500 - 1,000 mg PO Q8H PRN severe 01/14/22 07/03/23 pain pravastatin 20 mg tablet 20 mg PO DAILY 01/14/22 07/03/23 lorazepam 0.5 mg tablet 0.5 mg PO DAILY PRN 07/24/22 07/03/23 Previous Rx's ?Medication ?Instructions ?Recorded finasteride 5 mg tablet 5 mg PO DAILY 90 days #90 tabs 07/24/22 doxazosin 4 mg tablet 4 mg PO BEDTIME 30 days #30 tabs 09/18/22 oxycodone 5 mg tablet 5 mg PO DAILY PRN pain #7 tabs 08/08/23 albuterol sulfate 90 mcg/actuation 2 puff inhalation Q4-6H PRN 02/04/24 aerosol inhaler shortness of breath or wheezing #6.7 grams benzonatate 100 mg capsule 100 mg PO TID PRN cough #20 caps 02/04/24 Allergies Allergy/AdvReac Type Severity Reaction Status Date / Time tamsulosin Allergy Unknown low B/P Verified 02/09/24 09:18 ibuprofen Allergy Mild Swelling Uncoded 02/09/24 09:18 Review of Systems 2 Review of Systems: Constitutional: No fever, chills, fatigue, night sweats, weight changes ENT/Mouth: No ear pain, hearing loss, nasal congestion, sinus pain, rhinorrhea, sore throat Eyes: No eye pain, swelling, redness, vision changes, discharge Cardio: No chest pain, palpitations, ZAIDI, orthopnea, peripheral edema Pulm: No SOB, cough, sputum, wheezing, dyspnea, hemoptysis GI: No nausea, vomiting, hematemesis, abdominal pain, diarrhea, constipation, hematochezia, melena, +BRBPR : No irregular bleeding, dysuria, frequency, urgency, hesitancy, hematuria, flank pain, urinary flow changes, urinary incontinence or retention MSK: No back pain, neck pain, joint pain, myalgias Skin: No lesions, rashes Neuro: No weakness, numbness, paresthesias, LOC, dizziness, headache Psych: No anxiety/panic, depression, SI/HI, AH/VH All other systems reviewed and are negative. [facility] Past Medical History Attestation statement: The following information was validated with the patient. Source: old records reviewed and nursing notes reviewed Medical History Depression with anxiety Dyslipidemia Cognitive impairment Tremor High grade prostatic intraepithelial neoplasia Leukopenia Impaired fasting glucose Prostate cancer Elevated blood pressure reading in office with diagnosis of hypertension BPH loc w urin obs/LUTS Elevated PSA Surgical History Hx of right knee surgery History of surgery Social History Social History Alcohol intake: current Patient Tobacco Use Status: Former Tobacco user Advance Directives: No Advance Directives Information Provided: No Current occupational status: retired Current occupation: right hand dominant Physical Exam ED Vital Signs: Vital Signs - 24 hr 02/09/24 09:14 02/09/24 11:23 Temperature 98.9 F 98.4 F Pulse Rate 82 93 Respiratory Rate 18 18 Blood Pressure 140/80 H 134/86 Pulse Oximetry 99 99 Oxygen Delivery Method Room Air Room Air BMI result Body Mass Index 31.2 Patient initially hypertensive, now resolved. Vitals otherwise WNL General: Well appearing, in no acute distress. Skin: Warm, dry, intact. No rashes or lesions. Head: Normocephalic, atraumatic. EENT: Hearing is intact b/l. Conjunctiva clear. Sclera is anicteric. PERRLA. EOM intact. Moist mucous membranes.? Neck: Supple without LAD. FROM. Trachea midline.? Cardiac: Chest wall symmetric. RRR. Lungs: Normal respiratory effort without accessory muscle use Abdomen: Soft, non-tender, non-distended. No rebound tenderness or guarding. Positive BS x4. 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 Normal rectal sphincter tone. No external masses or lesions. No external hemorrhoids. No palpable internal hemorrhoids. Palpable soft stool in rectal vault. Stool is normal in appearance. Guac positive. Back: No midline spinous or paraspinal tenderness. No step off deformity. Ext: Upper and lower extremities atraumatic, without tenderness, deformity, swelling or erythema. Full ROM throughout Neuro: AOx3. Normal speech. Ambulating with steady gait. Course Course Course Narrative: RME performed by Za Little PA-C. Patient is a 68 year old assigned male at presenting to the emergency department with bright red blood in his stool. Patient states that he was COVID-19 positive last week, took Paxlovid, and is now having bright red blood in his stool with tissue in his stool. Detailed physical exam and review of systems are deferred to the emergency room clinician. Labs, EKG, and swabs ordered. Patient placed back in the waiting room pending room availability and results. Reevaluation(s) Reevaluation #1: 1426 -- CBC without leukocytosis or left shift. Normocytic anemia, H&H improved when compared to priors. Chemistry without acute electrolyte abnormality requiring intervention. No MI. Normal liver function. Lipase WNL, pancreatitis unlikely. He has tested negative for COVID. OBS pending. 1451 -- OBS positive. I do not appreciate any external internal hemorrhoids on HEATHER. Will obtain CT abdomen/pelvis with and without con to assess for etiology of bleed. 1820 -- CTA in hiatal hernia. There is also diverticula involving the medial aspect of the 2nd portion of the duodenum, likely etiology of the patient's symptoms. No active GI bleed. Discussed all workup results with patient advised to stick to a bland diet this week. Will provide referral to GI. Patient has remained stable throughout ED visit today. Discussed worrisome signs and symptoms and when to return to the ED. All questions answered at this time. Patient is agreeable with disposition and stable for discharge. Medications Administered Discontinued Medications Generic Name Dose Route Start Last Admin Trade Name Michele PRN Reason Stop Dose Admin Sodium Chloride 1,000 mls @ 999 mls/hr 02/09/24 15:30 02/09/24 17:50 Ns IV 02/09/24 16:30 Infused .Q1H1M HENNA Infusion Iohexol 100 ml 02/09/24 16:14 02/09/24 16:15 Iohexol 350 Mg/Ml 100 Ml Infus..Btl IV 02/09/24 16:15 85 ml ONCE ONE Administration Medical Decision Making Medical Decision Making [facility] Narrative: 68 year old male past medical history significant for BPH presents to the ED today for evaluation bright red blood per rectum times 24 hours. Patient initially hypertensive to 140/80, now normotensive. Vitals otherwise WNL He is nontoxic-appearing and in no acute distress. Abdomen is soft, nondistended, nontender to palpation, normoactive bowel sounds x4. On HEATHER, no external hemorrhoids. No overlying skin changes. palpable soft stool in the rectal vault with normal rectal sphincter tone. No palpable internal hemorrhoid. No mariely blood. Guiac positive. Differential diagnosis includes viral syndrome/ covid, gastroenteritis, diverticulosis, external vs internal hemorrhoids. Basic labs and covid test ordered from triage. Will add on OBS. Plan for re- evaluation. Differential Diagnosis Differential Diagnoses: The differential diagnosis associated with the presentation includes as above. Admission/Observation Not indicated Lab Data [facility] Lab Attestation statement: I reviewed the patient's lab results. as above. 02/09/24 09:30 02/09/24 09:30 Labs: Lab Results 02/09/24 02/09/24 02/09/24 Range/Units 09:30 11:43 14:26 WBC 6.9 (4.8-10.8) X10*3/uL RBC 4.72 (4.60-5.80) X10*6/uL Hgb 13.6 L (14.0-18.0) g/dl Hct 40.7 L (42.0-52.0) % MCV 86.2 (80.0-98.0) fL MCH 28.8 (27.0-33.0) pg MCHC 33.4 (31.0-36.0) g/dl RDW 14.6 (11.0-16.0) % Plt Count 228 (160-400) X10*3/uL MPV 9.8 (9.4-12.4) fL Immature Gran % (Auto) 1.0 H (0.0-0.4) % Neut % (Auto) 62.6 (45-73) % Lymph % (Auto) 25.8 (20-40) % [place] % (Auto) 7.4 (2-11) % Eos % (Auto) 2.8 (0-4) % Baso % (Auto) 0.4 (0-2) % Lymph # (Auto) 1.8 (1.2-4.9) X10*3/uL [place] # (Auto) 0.5 (0.1-1.2) X10*3/uL Eos # (Auto) 0.2 (0.0-0.4) X10*3/uL Baso # (Auto) 0.0 (0.0-0.2) X10*3/uL Abs Immat Gran (auto) 0.07 H (0.00-0.03) X10*3/uL Absolute Neuts (auto) 4.3 (2.0-8.3) x10*3/uL Absolute Nucleated RBC 0.000 (0.0-0.012) X10*3/uL Nucleated RBC % (auto) 0.0 (0.0-0.2) /100WBC Sodium 141 (135-145) mmol/L Potassium 4.8 D (3.3-5.1) mmol/L Chloride 108 (96-108) mmol/L Carbon Dioxide 27 (22-29) mmol/L Anion Gap 11 L (12-20) BUN 12 (9-16) mg/dL Creatinine 0.84 (0.5-1.4) mg/dL Estim Creat Clear Calc 86.0 Estimated GFR > 60 Random Glucose 109 (60-115) mg/dL Calcium 9.8 D (8.4-10.2) mg/dL Total Bilirubin 0.3 (0.0-1.0) mg/dL AST 14 (5-37) U/L ALT 19 (0-40) U/L Alkaline Phosphatase 63 (39-117) U/L Total Protein 7.7 (6.5-8.0) g/dL Albumin 4.3 (3.5-5.0) g/dL Lipase 28 (8-78) U/L Stool Occult Blood POSITIVE (NEGATIVE) COVID-19 (AZUL) Negative (Negative) COVID-19 Clin Com See Note Independent Interpretation I performed an independent interpretation of an: CT Scan Interpretation: CT abdomen/ pelvis without obvious extravazation, agree with radiologist's interpretation. Radiology Impression Discussion of test interpretation with radiology: I have reviewed the radiologist's reading. Radiologist Impression: EXAMINATION: CT ABDOMEN AND PELVIS WITHOUT AND WITH CONTRAST CLINICAL INFORMATION: positive OBS COMPARISON: None available. TECHNIQUE: Multidetector volumetric imaging was performed of the abdomen and pelvis before and after the IV administration of 85 mL of Omnipaque 350 intravenous contrast. Sagittal and coronal reformatted images were obtained on the technologist's workstation. Maximum intensity projections were generated. This CT examination was performed using dose optimization techniques as appropriate, variously including the following: *Automated exposure control *Adjustment of mA and/or kV according to patient size (this includes techniques or standardized protocols for targeted exams where dose is matched to indication/reason for exam; i.e. extremities or head) *Use of iterative reconstruction technique DLP: 1567 mGy-cm FINDINGS: LUNG BASES: There is a hiatal hernia. Small fat-containing posteromedial right diaphragmatic hernia. There may be a smaller similar lesion at the posterior dome of the left hemidiaphragm. No bowel content. LIVER, GALLBLADDER, AND BILIARY TREE: There are multiple sharply circumscribed varying sized low attenuating liver lesions. No suspicious features. I suspect cysts. No suspicious focal liver lesion. No opaque gallstone. The gallbladder is mildly distended. There is no definite biliary dilation. PANCREAS: No suspicious abnormality. SPLEEN: Within normal limits ADRENAL GLANDS: Normal KIDNEYS AND URETERS: There is no dilation of the urinary collecting system on either side. The nephrograms are symmetric. There are some small circumscribed low attenuating renal masses which are too small to fully characterize but likely represent cysts. These do not require specific imaging follow-up. BLADDER: No suspicious focal lesion GASTROINTESTINAL TRACT: There is no evidence of active GI tract bleeding. No localized bowel wall thickening. There is a small hiatal hernia. There is a diverticulum involving the second portion of the duodenum. ABDOMINAL WALL: Fat protrudes into the umbilicus. There is fat protruding into the inguinal canal bilaterally. LYMPH NODES: There are no measurably enlarged abdominal or pelvic lymph nodes. VASCULAR: There is no abdominal aortic aneurysm. There is arterial calcification. The portal vein enhances. PELVIC VISCERA: The prostate is enlarged. The prostate indents the bladder. OSSEOUS STRUCTURES: No suspicious focal lesion CT/CT gi bleed abd pel wo/w IVcon IMPRESSION: No evidence of active GI tract bleeding. Hiatal hernia. Diverticula involving the medial aspect of the second portion of the duodenum. Fleischner guidelines were followed. Electronically signed by: Deejay Pineda MD 02/09/2024 05:58 PM EDT External Record Review External record reviewed: Inpatient record Social Determinants Patient?s care significantly limited by Social Determinants of Health including: Other Social Determinant of Health Critical Care Time Critical Care Time Critical Care Time: No Discharge Plan Discharge Clinical Impression: Duodenal diverticulum Patient Disposition: Home, Self-Care Instructions: Rectal Bleeding (ED), Diverticulitis Diet (ED) Additional Instructions: Your blood work today is reassuring. You tested negative for COVID. The CT scan of your abdomen does not reveal evidence of acute GI bleed. As discussed, there are findings of a hiatal hernia and diverticula (likely the cause of your bloody stool). Trying stick to a bland diet over the next week. Follow up with your primary care provider. You have also been provided with a referral to a gastrointestinal doctor. Call them to establish care. They will not call you. Return with new or worsening symptoms. In the case of an emergency call 911. Prescriptions: No Action doxazosin 4 mg tablet 4 mg PO BEDTIME 30 Days Qty: 30 1RF oxycodone 5 mg tablet 5 mg PO DAILY PRN (Reason: pain) Qty: 7 0RF Rx Instructions: Partial Fill upon patient request. albuterol sulfate 90 mcg/actuation HFA aerosol inhaler 2 puff inhalation Q4-6H PRN (Reason: shortness of breath or wheezing) Qty: 6.7 0RF benzonatate 100 mg capsule 100 mg PO TID PRN (Reason: cough) Qty: 20 0RF pravastatin 20 mg tablet 20 mg PO DAILY acetaminophen 500 mg tablet 500 - 1,000 mg PO Q8H PRN (Reason: severe pain) lorazepam 0.5 mg tablet 0.5 mg PO DAILY PRN finasteride 5 mg tablet 5 mg PO DAILY 90 Days Qty: 90 1RF Referrals: Jennifer Sanchez MD [Primary Care Provider] - Discharge Date/Time: 02/09/24 18:26 Print Language: Belarusian
[2024-02-09 11:23] VITALS: BP 134/86; PULSE 93; RESP 18; TEMP 36.9; O2SAT 99
--- NOTE | 2024-02-09 11:26 | ECG_ITS ---
Test Reason : irreg heart rate Blood Pressure : / mmHG Vent. Rate : 070 BPM Atrial Rate : 070 BPM P-R Int : 162 ms QRS Dur : 080 ms QT Int : 360 ms P-R-T Axes : 053 020 067 degrees QTc Int : 388 ms Normal sinus rhythm Normal ECG When compared with ECG of 31-DEC-2004 10:19, Heart rate has increased Referred By: Za Little Electronically Signed By:MARVIN MERCADO
[2024-02-09 12:15] LABS: COVID-19 Test Negative (Negative); IDNOW Serial# 152EDE1D
[2024-02-09 14:34] LABS: OBS Int Ctl Valid YES; OBS1 POSITIVE (NEGATIVE)
[2024-02-09] MEDS: 0.9 % Sodium Chloride 1,000 ML 999 ML IV (15:21)
[2024-02-09] MEDS: iohexoL 350 MG/ML 100 ML INFUS..BTL IV (16:15)
--- NOTE | 2024-02-09 16:25 | PC.NURSE ---
Delay in fluids due to pt going to CT scan at 1350
[2024-02-09 18:26] VITALS: BP 134/86; PULSE 93; RESP 18; TEMP 36.9; O2SAT 99
== END 2024-02-09 18:26 | disposition home or self-care (01) ==
PROVIDERS: Physician Assistant Medical; Emergency Provider Emergency Medicine Emergency Medical Services; PCP Family Medicine
DX: K57.10 Diverticulosis of small intestine without perforation or abscess without bleeding (principal); R51.9 Headache, unspecified; Z79.899 Other long term (current) drug therapy; Z85.46 Personal history of malignant neoplasm of prostate
CPT/HCPCS: 36415; 74178; 80053; 82272; 83690; 85025; 87635; 93005; 99284; Q9967

== ENCOUNTER 2024-02-20 11:43 | Outpatient (REF) | payer MEDICARE, MEDICAID, SELFPAY ==
[2024-02-20 12:59] LABS: MANUAL DIFF FLAG NO
[2024-02-20 13:13] LABS: Basophils Percent Auto 0.5 % (0-2); Eosinophils Absolute Auto 0.1 X10*3/uL (0.0-0.4); Eosinophils Percent Auto 1.9 % (0-4); Hematocrit 37.7 % (42.0-52.0); Hemoglobin 12.7 g/dl (14.0-18.0); Imm Gran Abs Auto 0.03 X10*3/uL (0.00-0.03); Imm Gran Pct Auto 0.5 % (0.0-0.4); Lymphocytes Absolute Auto 1.4 X10*3/uL (1.2-4.9); Lymphocytes Percent Auto 24.6 % (20-40); Mean Corpuscular HGB Conc 33.7 g/dl (31.0-36.0); Mean Corpuscular Hemoglobin 28.4 pg (27.0-33.0); Mean Corpuscular Volume 84.3 fL (80.0-98.0); Mean Platelet Volume 10.6 fL (9.4-12.4); Monocytes Absolute Auto 0.5 X10*3/uL (0.1-1.2); Monocytes Percent Auto 8.2 % (2-11); Neutrophils Absolute Auto 3.7 x10*3/uL (2.0-8.3); Neutrophils Percent Auto 64.3 % (45-73); Platelet Count 259 X10*3/uL (160-400); Red Blood Count 4.47 X10*6/uL (4.60-5.80); Red Cell Distribution Width 14.4 % (11.0-16.0); White Blood Count 5.7 X10*3/uL (4.8-10.8)
== END 2024-02-20 11:44 | disposition home or self-care (01) ==
LOC: HO.HHCL 11:43
PROVIDERS: Visit Provider Nurse Practitioner Family
DX: K62.5 Hemorrhage of anus and rectum (principal)
CPT/HCPCS: 36415; 85025

== ENCOUNTER → 2024-06-03 19:00 | Outpatient (BNV) | payer MEDICARE, MEDICAID, SELFPAY | PROVIDERS: PCP Family Medicine; Visit Provider Internal Medicine | DX: G47.33 Obstructive sleep apnea (adult) (pediatric) (principal); G47.61 Periodic limb movement disorder | CPT/HCPCS: 95810 ==

== ENCOUNTER → 2024-06-03 19:30 | Outpatient (REF) | payer MEDICARE, MEDICAID, SELFPAY | LOC: HO.SL 19:30 | PROVIDERS: PCP Family Medicine; Visit Provider Family Medicine | DX: I10 Essential (primary) hypertension (principal); G47.9 Sleep disorder, unspecified | CPT/HCPCS: 95810 ==

== ENCOUNTER 2024-06-08 09:12 | Outpatient (AMB) | payer MEDICARE, MEDICAID, SELFPAY ==
--- NOTE | 2024-06-08 09:15 | A.OFFVIS_ITS ---
Intake Visit Reasons: elevated PSA/BPH(Last Seen 2021) Intake Note: Patient is present for ELEVATED PS/BPH Urology Medication:FINASTERIDE Antibiotic Allergy:TAMSULOSIN Blood Thinner:NONE TODAY'S PVR:22ML'S [employer] Required: No Allergies tamsulosin Allergy (Unknown, Verified 06/08/24 09:16) low B/P ibuprofen Allergy (Mild, Uncoded 06/08/24 09:16) Swelling HPI Comments Details: Andrew is a pleasant male. He is a patient of . Seen for the following urologic conditions - lower urinary tract symptoms - elevated PSA Variable PSA Prior PIN on biopsy PSA 09/07 6.7, 01/07 3.1, 08/08 3.1, 09/09 4.2 Repeat PSA and prostate MRI in 2-4 months Prior negative biopsy HEATHER 1+ prostate Noticing feeling of urgency Refill on finasteride and doxazosin 4 mg Lower urinary tract symptoms Initial symptoms Longstanding weakness of stream Prior medication includes doxazosin 2 mg PSA historically in range around 4 - 07/08 5.0 Prostate biopsy previously negative x2 have demonstrated PIN PFSH Medical History (Updated 06/08/24 @ 10:08 by Mars Baeza MD) Depression with anxiety Dyslipidemia Cognitive impairment Tremor High grade prostatic intraepithelial neoplasia Leukopenia Impaired fasting glucose Prostate cancer Elevated blood pressure reading in office with diagnosis of hypertension BPH loc w urin obs/LUTS Elevated PSA Surgical History Hx of right knee surgery History of surgery Social History Alcohol intake: current Patient Tobacco Use Status: Former Tobacco user Current occupational status: retired Current occupation: right hand dominant Review of Systems Const Denies chills and Denies fever(s) Card Reports no additional complaints and Denies syncope Resp Denies cough GI Denies abdominal pain and Denies heartburn Reports as per HPI and Denies change in libido Neuro Denies syncope Psych Denies change in libido Endo Denies change in libido Physical Exam Const General: cooperative, healthy appearing, comfortable and no acute distress Orientation/consciousness: patient oriented x3 HEENT Face and sinus: Yes normal facial exam Mouth: moist mucous membranes Neck Neck: Yes normal visual inspection, Yes full ROM and Yes trachea midline Chest Chest palpation & inspection: normal inspection of the chest Resp Effort & Inspection: normal respiratory effort, able to speak in complete sentences and no respiratory distress GI Inspection: Yes normal to inspection Rectal Exam - Male: Yes normal sphincter tone and Yes prostate normal Male General Exam: Yes normal external exam Penis: normal penis and circumcised Meatus: meatus normal Scrotum: scrotum normal Testes: Testes normal Back/Spine/Pelvis Cervical Spine: normal cervical lordosis Thoracic/Lumbar Spine: thoracic and lumbar spine normal to inspection Skin General skin exam: no rashes or lesions noted Neuro General: patient oriented x3, gait normal, tone normal and moves all extremities Extrem General: Yes normal to inspection and Yes capillary refill normal Office Procedures Post Void Residual Post Residual Void Post Void Residual (PVR): 22 [id number]-Piip Void Residual by ultrasound Results AMB Urinalysis, Automated UA Leukoctes 0 Priscilla/uL Last Edit by EVELIA Wellington on 06/08/24 09:48 UA Nitrite Negative Last Edit by EVELIA Wellington on 06/08/24 09:48 UA Urobilinogen 0.2 mg/dL Last Edit by EVELIA Wellington on 06/08/24 09:4 8 UA Protein 0 mg/dL Last Edit by EVELIA Wellington on 06/08/24 09:48 UA pH 6.0 Last Edit by EVELIA Wellington on 06/08/24 09:48 UA Blood 0 Hua/uL Last Edit by EVELIA Wellington on 06/08/24 09:48 UA Specific Floweree 1.020 Last Edit by EVELIA Wellington on 06/08/24 09: 48 UA Ketone Negative Last Edit by EVELIA Wellington on 06/08/24 09:48 UA Bilirubin 0 mg/dL Last Edit by EVELIA Wellington on 06/08/24 09:48 UA Glucose 0 mg/dL Last Edit by EVELIA Wellington on 06/08/24 09:48 Results Reviewed Results Reviewed: Laboratory Last Values Urine pH (Auto) 6.0 06/08/24 09:47 Specific Floweree (Auto) 1.020 06/08/24 09:47 Urine Protein (Auto) 0 mg/dL 06/08/24 09:47 Glucose (UA)(Auto) 0 mg/dL 06/08/24 09:47 Urine Ketones (Auto) Negative 06/08/24 09:47 Urine Blood (Auto) 0 Hua/uL 06/08/24 09:47 Urine Nitrite (Auto) Negative 06/08/24 09:47 Urine Bilirubin (Auto) 0 mg/dL 06/08/24 09:47 Urine Urobilinogen (Auto) 0.2 mg/dL 06/08/24 09:47 Leukocyte Esterase (Auto) 0 Priscilla/uL 06/08/24 09:47 Assessment & Plan Assessment & Plan (1) Elevated PSA: Code(s): R97.20 - Elevated prostate specific antigen [PSA] Category: Medical (2) BPH w urinary obs/LUTS: Code(s): N40.1 - Benign prostatic hyperplasia with lower urinary tract symptoms; N13.8 - Other obstructive and reflux uropathy Category: Medical (3) High grade prostatic intraepithelial neoplasia: Code(s): N42.31 - Prostatic intraepithelial neoplasia Category: Medical Plan Four month follow-up imaging Orders: Orders Prostate Specific Antigen 4 Months R97.20 - Elevated prostate specific antigen [PSA] MR Prostate wo/w con 2 Months R97.20 - Elevated prostate specific antigen [PSA] AMB Urinalysis Automated Today Z13.9 - Encounter for screening, unspecified Patient Instructions: Imaging studies, laboratory and physical exam results were discussed and reviewed in detail. No major barriers to patient understanding were identified. An opportunity to ask questions regarding the treatment plan was provided. All questions were answered. The patient expressed understanding and agreement with the above treatment plan. The patient is aware they should contact our office by phone for worsening of their current condition or the appearance of new urologic symptoms. Compliance is encouraged with any medications and followup testing that is ordered. It is a privilege to participate in the urologic care of your patient. If you have any questions or concerns regarding treatment for the above conditions, or other urologic issues, please do not hesitate to contact me. The office telephone contact is [phone]. This note is constructed using voice recognition software. While every effort has been made to ensure accuracy instrument maintenance supervisor errors may have been included. Yours sincerely, Dr Mars Baeza MD, [facility] - Urology Providers of Expert, Compassionate Care for the Genitourinary System Coding Level of Care Code Est Pt Level 4 (08692) Diagnoses Elevated PSA R97.20 BPH w urinary obs/LUTS N40.1; N13.8 High grade prostatic intraepithelial neoplasia N42.31 CPT Codes Post Residual Void - PVR CPT Code: 71043-Xuia Void Residual by ultrasound ([id number])
== END 2024-06-08 10:17 | disposition home or self-care (01) ==
PROVIDERS: PCP Family Medicine; Visit Provider Urology
DX: R97.20 Elevated prostate specific antigen [PSA] (principal); N40.1 Benign prostatic hyperplasia with lower urinary tract symptoms; N13.8 Other obstructive and reflux uropathy; N42.31 Prostatic intraepithelial neoplasia; Z13.9 Encounter for screening, unspecified
CPT/HCPCS: 99214

== ENCOUNTER → 2024-06-08 09:12 | Outpatient (BNVA) | payer MEDICARE, MEDICAID, SELFPAY | PROVIDERS: PCP Family Medicine; Visit Provider Urology | DX: N40.1 Benign prostatic hyperplasia with lower urinary tract symptoms (principal); N13.8 Other obstructive and reflux uropathy; R97.20 Elevated prostate specific antigen [PSA]; N42.31 Prostatic intraepithelial neoplasia | CPT/HCPCS: 51798; 81003; 99212 ==

== ENCOUNTER 2024-06-09 10:44 | Outpatient (REF) | payer MEDICARE, MEDICAID, SELFPAY ==
--- OUTSIDE RECORDS SUMMARY | 2024-06-09 11:59 | XMS_ITS | Clinical Summary ---
Author Organization [employer] Address [address] [facility] 7[address] [place] [address] Care Team Providers Care Emt P Name Role Phone Jennifer Sanchez MD Primary Care Provider [phone] Allergies Active Allergy Reactions Criticality Noted Date Comments Tamsulosin 03/15/2016 Other reaction(s): low blood pressure Medications cyclobenzaprin e (Flexeril) 10 MG tablet TAKE 1 TABLET BY MOUTH ONCE DAILY NEEDED FOR MUSCLE SPASMS 15 tablet 3 Active naproxen (Naprosyn) 500 MG tablet TAKE 1 TABLET BY MOUTH TWICE DAILY NEEDED MILD PAIN 40 tablet 1 3 Active finasteride (Proscar) 5 MG tablet TAKE 1 TABLET BY MOUTH ONCE DAILY IN THE MORNING 90 tablet 1 4 Active Acetaminophen Extra Strength 500 MG tabletIndicati ons:COVID-19 Take 1,000 mg by mouth every 8 (eight) hours if needed (take 2 tablets q 8hrs as needed). 30 tablet 4 Active doxazosin (Cardura) 4 MG tablet TAKE 1 TABLET BY MOUTH EVERY DAY AT BEDTIME 90 tablet 1 4 Active pravastatin (Pravachol) 20 MG tablet TAKE 1 TABLET BY MOUTH ONCE DAILY 90 tablet 3 4 Active cetirizine (ZyrTEC) 10 MG tablet Take 1 tablet (10 mg) by mouth Once per day. 90 tablet 3 4 03/23/20 25 Active LORazepam (Ativan) 0.5 MG tabletIndicati ons:Depression with anxiety TAKE 1 TABLET BY MOUTH EVERY DAY NEEDED 30 tablet 12/30/202 4 Active LORazepam (Ativan) 0.5 MG tabletIndicati ons:Depression with anxiety TAKE 1 TABLET BY MOUTH EVERY DAY NEEDED 30 tablet 4 05/17/20 24 Discontinued Active Problems Problem Noted Date Diagnosed Date Sensorineural hearing loss (SNHL) of both ears 1 05/28/2023 Allergic rhinitis 03/28/2024 Assessment & Plan (03/28/2024 7:07 PM EST): - start cetirizine - consider adding nasal spray Enlarged prostate 02/20/2024 Assessment & Plan (03/13/2024 9:25 AM EDT): Referral to urology Bright red blood per rectum 02/19/2024 Assessment & Plan (03/13/2024 9:25 AM EDT): Referral to GI Asymptomatic, trend cbc Avoid nsaids Encouraged fiber and hydration Duodenal diverticulum 02/17/2024 Tear of medial meniscus of right knee 02/17/2024 Assessment & Plan (03/28/2024 7:12 PM EST): - s/p arthroscopic repair in Apr 2023 Right knee pain 04/15/2023 Assessment & Plan (05/02/2023 1:22 PM EST): - tear of posterior horn of medial and lateral menisci - upcoming knee surgery - follow recommendation per ortho Benign prostatic hyperplasia with urinary obstru ction 10/03/2022 Assessment & Plan (10/03/2022 11:03 AM EDT): Seen by Urologist on 07/24/22 -Increased Doxazosin to 4mg daily -Continue Finasteride -f/u as scheduled, if insurance is accepted; If insurance is not accepted, will refer back to previous Urologist at [facility] Elevated PSA 10/03/2022 Assessment & Plan (05/02/2023 1:20 PM EST): - 07/05/22 PSA 3.06 Assessment & Plan (10/09/2022 6:35 PM EDT): - 07/05/22 PSA 3.06 Essential hypertension 06/13/2022 Assessment & Plan (03/28/2024 7:10 PM EST): -Goal BP < 150/90 per JNC-8 and < 130 per ACC/AHA guideline (Treatment threshold >= 130/80) -Treatment Hx: previously on tamsulosin for BPH, which caused hypotension and was switched to doxazosin only -Continue working on lifestyle modifications -Continue Doxazosin 4 mg daily -Follow up in 3-6 mo, sooner if any problem arises Assessment & Plan (08/19/2023 5:24 PM EDT): -Goal BP < 150/90 per JNC-8 and < 130 per ACC/AHA guideline (Treatment threshold >= 130/80) -Treatment Hx: previously on tamsulosin for BPH, which caused hypotension and was switched to doxazosin only -Continue working on lifestyle modifications -Continue Doxazosin 4 mg daily -Follow up in 3-6 mo, sooner if any problem arises Assessment & Plan (05/02/2023 1:19 PM EST): -Goal BP < 150/90 per JNC-8 and < 130 per ACC/AHA guideline (Treatment threshold >= 130/80) -Treatment Hx: previously on tamsulosin for BPH, which caused hypotension and was switched to doxazosin only -Continue working on lifestyle modifications -Continue Doxazosin 4 mg daily -Follow up in 3-6 mo, sooner if any problem arises Assessment & Plan (10/09/2022 6:32 PM EDT): -Goal BP < 150/90 per JNC-8 and < 130 per ACC/AHA guideline (Treatment threshold >= 130/80) -Treatment Hx: previously on tamsulosin for BPH, which caused hypotension and was switched to doxazosin only -Continue working on lifestyle modifications -Continue Doxazosin 4 mg daily -Follow up in 3-6 mo, sooner if any problem arises Assessment & Plan (06/13/2022 4:40 AM EST): -Goal BP < 150/90 per JNC-8 and < 130 per ACC/AHA guideline (Treatment threshold >= 130/80) -Treatment Hx: previously on tamsulosin for BPH, which caused hypotension and was switched to doxazosin only -Continue working on lifestyle modifications -Continue current medications: Doxazosin 2 mg daily -Follow up in 3-6 mo, sooner if any problem arises Gait instability 06/13/2022 Assessment & Plan (10/03/2022 1:11 PM EDT): Pt reports he did not receive walker in February 2022 or August 2022. -Will Rx Walker with wheels + seat again Assessment & Plan (06/13/2022 9:38 AM EST): Pt reports he did not receive walker in February 2022. -Will Rx Walker with wheels + seat again Mild cognitive disorder 03/21/2016 Tremor 03/21/2016 Assessment & Plan (06/13/2022 4:43 AM EST): -Possibly due to his anxiety and chronic dependence of Ativan. -labs on 09/20/21 - TSH 1.07 [nml] -Characteristics of tremor is not classified for Parkingsons Disease -Will monitor at this time Dyslipidemia 12/26/2015 Assessment & Plan (03/28/2024 7:14 PM EST): - current medication: pravastatin 20 mg qhs - last lipid profile: August 2023 - continue working on lifestyle modification - consider intensifying treatment Assessment & Plan (05/02/2023 1:23 PM EST): - current medication: pravastatin 20 mg qhs - last lipid profile: 10/03/22 TC 190; TG 76; HDL 56; LDL 117 - continue working on lifestyle modification - consider intensifying treatment High grade prostatic intraepithelial neoplasia 0 07/04/2015 Assessment & Plan (03/28/2024 7:10 PM EST): - Seen by new Urologist, Dr. Baeza on 07/24/22. - s/p Prostate biopsy in Feb 2015-> High-grade PIN - s/p KARY volumetric and prostate Bx in October 2015 -> High-grade PIN - PSA 3.06 on 07/05/22 - continue Doxazosin 4mg daily. - continue Finasteride 5mg daily. - he was referred back to [facility] urology; advised to call the office and ask about next appt Assessment & Plan (08/19/2023 5:23 PM EDT): - Seen by j[facility] UrologistDr. Baeza on 07/24/22. - s/p Prostate biopsy in Feb 2015-> High-grade PIN - s/p KARY volumetric and prostate Bx in October 2015 -> High-grade PIN - PSA 3.06 on 07/05/22 - continue Doxazosin 4mg daily. - continue Finasteride 5mg daily. - he was referred back to [facility] urology; advised to call the office and ask about next appt Assessment & Plan (05/02/2023 1:20 PM EST): - Seen by jada UrologistDr. Baeza on 07/24/22. - s/p Prostate biopsy in Feb 2015-> High-grade PIN - s/p KARY volumetric and prostate Bx in October 2015 -> High-grade PIN - PSA 3.06 on 07/05/22 - continue Doxazosin 4mg daily. - continue Finasteride 5mg daily. - he was referred back to [facility] urology; advised to call the office and ask about next appt Assessment & Plan (10/09/2022 6:34 PM EDT): - Seen by jada UrologDr. Aryan liu on 07/24/22. - s/p Prostate biopsy in Feb 2015-> High-grade PIN - s/p KARY volumetric and prostate Bx in October 2015 -> High-grade PIN - PSA 3.06 on 07/05/22 - continue Doxazosin 4mg daily. - continue Finasteride 5mg daily. - due to his insurance coverage, will refer to a provider within his insurance network. Assessment & Plan (06/13/2022 4:42 AM EST): - Seen by jada UrologDr. Aryan liu on 01/14/22. - s/p Prostate biopsy in Feb 2015-> High-grade PIN - s/p KARY volumetric and prostate Bx in October 2015 -> High-grade PIN - PSA 3.10 on 01/08/22 - continue Doxazosin 2mg daily. - continue Finasteride 5mg daily. - continue following treatment plan by Dr. Baeza Depression with anxiety 07/04/2015 Assessment & Plan (03/28/2024 7:14 PM EST): -continue judicious use of Lorazepam. Assessment & Plan (05/02/2023 1:23 PM EST): -continue judicious use of Lorazepam. -continue Trazadone. Assessment & Plan (06/13/2022 4:44 AM EST): -continue judicious use of Lorazepam. -continue Trazadone. Chronic low back pain 12/15/2014 Assessment & Plan (03/28/2024 7:14 PM EST): -MRI in 06/2015 showed Lumbar Spinal Stenosis w/ nerve impengment. -Pt is currently taking Naprosyn and Tylenol, as needed -Pt is also Rx Flexeril -Cont judicious use of medications -Rx walker with wheels + seat Assessment & Plan (05/02/2023 1:24 PM EST): -MRI in 06/2015 showed Lumbar Spinal Stenosis w/ nerve impengment. -Pt is currently taking Naprosyn and Tylenol, as needed -Pt is also Rx Flexeril -Cont judicious use of medications -Rx walker with wheels + seat Assessment & Plan (10/09/2022 6:36 PM EDT): -MRI in 06/2015 showed Lumbar Spinal Stenosis w/ nerve impengment. -Pt is currently taking Naprosyn and Tylenol, as needed -Pt is also Rx Flexeril -Cont judicious use of medications -Rx walker with wheels + seat Assessment & Plan (06/13/2022 4:44 AM EST): -MRI in 06/2015 showed Lumbar Spinal Stenosis w/ nerve impengment. -Pt is currently taking Naprosyn and Tylenol, as needed -Pt is also Rx Flexeril -Cont judicious use of medications -Rx walker with wheels + seat Impaired fasting glucose 08/12/2012 Assessment & Plan (03/28/2024 7:13 PM EST): A1C 5.7% in August 2023 Continue working on life modifications Assessment & Plan (08/19/2023 5:24 PM EDT): 10/03/22 A1C 5.8% Continue working on life modifications Assessment & Plan (05/02/2023 1:24 PM EST): 10/03/22 A1C 5.8% Continue working on life modifications Assessment & Plan (10/03/2022 1:09 PM EDT): Continue working on life modifications Leukopenia 08/12/2012 Resolved Problems Problem Noted Date Diagnosed Date Resolved Date COVID-19 02/04/2024 03/23/2024 Assessment & Plan (02/04/2024 10:25 AM EDT): Drink plenty of fluids and rest Quarantine as per CDC guidelines Paxlovid prescribed today medication interactions where reviewed with pharmacy and patient Nurse will call him for follow up check up CXR ordered today I decided to refer patient to the emergency room, case presented to [facility] Encounters Date Type Department Care Team Description 06/09/2024 10:00 AM EST Immunization [facility] [address] [place] [id number] Caterina Allen, RN Encounter for immunization 06/09/2024 Travel 06/03/2024 Telephone [facility] [address] [place] [address] Laura Shields NP 05/17/2024 Refill [facility] [address] [place] [address] Jennifer Sanchez MD Depression with anxiety 03/23/2024 3:00 PM EST Office Visit [address] [address] Jennifer Sanchez MD Essential hypertension (Primary Dx); High grade prostatic intraepithelial neoplasia; Chronic pain of right knee; Tear of medial meniscus of right knee, unspecified tear type, unspecified whether old or current tear, sequela; Impaired fasting glucose; Dyslipidemia; Depression with anxiety; Chronic low back pain, unspecified back pain laterality, unspecified whether sciatica present; Encounter for immunization; Sleep disturbance; Sensorineural hearing loss (SNHL) of both ears; Allergic rhinitis, unspecified seasonality, unspecified trigger; Dietary counseling; Exercise counseling; Class 1 obesity due to excess calories with serious comorbidity and body mass index (BMI) of 30.0 to 30.9 in adult 03/23/2024 Travel 03/11/2024 Refill [facility] [address] [place], [place] [phone] Dorota Maxwell MD Depression with anxiety 03/11/2024 Refill [facility] [address] [place], [place] [phone] Jennifer Sanchez MD from Last 3 Months Immunizations Name Administration Dates Next Due Hep B, adult 09/19/2010,11/24/2008,10/20/2008 Influenza High-dose Quadriva lent Preservative Free 04/15/2023,02/19/2022,03/15/2021,03/16 Influenza injectable quadriv alent IIV4 with preservative 03/30/2018,02/12/2017,03/21/2016,03/29 Influenza injectable quadriv alent preservative free 03/22/2019,07/14/2014 Influenza, High Dose Seasona l, Preservative Free 03/23/2024 Moderna Covid-19 Vaccine 6+ Bivalent 06/13/2022 Pfizer Covid-19 Vaccine 12+ 06/09/2024, Pneumococcal Conjugate PCV 13 03/16/2020 Pneumococcal Polysaccharide PPSV23 02/19/2022, TD (adult), 2 Lf tetanus tox oid, preservative free, adsorbed 03/15/2021,01/30/2000 Tdap 01/17/2010 Zoster, Recombinant 12/07/2019,07/22/2019 Social History Tobacco Use Types Packs/Day Years Used Date Smoking Tobacco: Never Passive Smoke Exposure: Never Smokeless Tobacco: Never Tobacco Cessation:Counseling Given: Not Answered Alcohol Use Standard Drinks/Week Comments Never 0 (1 standard drink = 0.6 oz pur e alcohol) Depression Answer Date Recorded Patient Health Questionnaire-9 Score 0 06/13/2022 Housing Stability Answer Date Recorded What is your housing situation today? I have loki ruth 03/24/[address] you li ve. Do you have problems with any of the following? None of the above 03/24/2023 Food Insecurity Answer Date Recorded Within the past 12 months, y ou worried that your food would run out before you got money to buy more: Never True 03/24/2023 Within the past 12 months,th e food you bought just didn't last and you didn't have enough money to get more: Never True 10/2022 Transportation Answer Date Recorded In the past 12 months, has l ack of transportation kept you from medical appts, meetings, work or from getting things needed for daily living? No 03/24/2023 Utilities Answer Date Recorded In the past 12 months, has t he electric, gas, oil or water company threatened to shut off services in your home? No 03/24/2023 Depression Answer Date Recorded Patient Health Questionnaire-2 Score 0 06/13/2022 Sex and Gender Information Value Date Recorded Sex Assigned at Male 03/18/2022 10:15 AM EDT Legal Sex Male 10:15 AM EDT Gender Identity Male 03/18/2022 10:15 AM EDT Sexual Orientation Choose not to disclose 2021 10:15 AM EDT Last Filed Vital Signs Vital Sign Reading Time Taken Comments Blood Pressure 127/76 03/23/2024 2:50 PM EST Pulse 88 03/23/2024 2:50 PM EST Temperature 36.4 ??C (97.5 ??F) 03/23/2024 2:50 PM ES T Respiratory Rate 28 03/23/2024 2:50 PM EST Oxygen Saturation 98% 03/23/2024 2:50 PM EST Inhaled Oxygen Concentration - - Weight 91.3 kg (201 lb 6 oz) 03/23/2024 2:50 PM EST Height 172.7 cm (5' 8 ) 03/23/2024 2:50 PM EST Body Mass Index 30.62 03/23/2024 2:50 PM EST Plan of Treatment Health Maintenance Due Date Last Done Comments CT Colonography 1954 FIT DNA/Cologuard 1954 FIT 1954 FOBT 1954 Sigmoidoscopy 1954 Alcohol/Substance Use Screening 1966 Depression Screening 06/13/2023 06/13/2022, 06/13/19 23 SDOH Screening 08/10/2024 08/11/2023 Diabetes: Hemoglobin A1C 08/19/2024 024, 10/03/2022, 09/20/2021, Additional history exists Colonoscopy 02/03/2025 02/04/2020 Colorectal Cancer Screening 02/03/2025 Tobacco Screening 03/23/2025 03/23/2024 Lipid Panel 08/19/2028 08/20/2023, 09/16, 09/20/2021, Additional history exists RSV Patients and Patients Aged 60 years or older (1 - 1-dose 75+ series) 2029 DTaP/Tdap/Td Vaccines (3 - Td or Tdap) 03/15/2031 03/15/2021, 01/17/2010, 01/30/2000 Hepatitis B Vaccines Completed 09/19/2010, 11/24/2008, 10/20/2008 Hepatitis C Screening Completed 07/13/2019 Zoster Vaccines Completed 12/07/2019, 07/22/2019 Pneumococcal Vaccine: 65+ Years Completed 02/19/2022, 03/16/2020, 09/21/2015 Influenza Vaccine Completed 03/23/2024, , 02/19/2022, Additional history exists COVID-19 Vaccine Completed 06/09/2024, 07/2023, 06/13/2022, Additional history exists HIB Vaccines Aged Out No longer eligi ble based on patient's age to complete this topic HPV Vaccines Aged Out No longer eligi ble based on patient's age to complete this topic Hepatitis A Vaccines Aged Out No long er eligible based on patient's age to complete this topic IPV Vaccines Aged Out No longer eligi ble based on patient's age to complete this topic Meningococcal Vaccine Aged Out No mark leonard eligible based on patient's age to complete this topic RSV under 20 months Aged Out No longe r eligible based on patient's age to complete this topic Rotavirus Vaccines Aged Out No longer eligible based on patient's age to complete this topic Procedures Procedure Name Priority Date/Time Associated Diagnosis Comments HEMOGLOBIN A1C Routine 08/20/2023 9:30 AM EDT Impaired fasting glucose LIPID PANEL WITH REFLEX TO DIRECT LDL Routine 08/20/2023 9:30 AM EDT Dyslipidemia HM COLONOSCOPY Routine 02/04/2020 ZZZ HISTORICAL HEPATITIS C ANTIBODY RFLX Routine 07/13/2019 10:35 AM EST from Last 3 Months or Most Recently Relevant to Health Maintenance Results * (ABNORMAL) Lipid Panel with Reflex to Direct LDL (08/20/2023 9:30 AM EDT) Triglycerides 58 <150 mg/dL [facility] Comment:Desirable Triglyceri de: less than 150 mg/dLBorderline High Triglyceride 150-199 mg/dLHigh Triglyceride: 200-499 mg/dLVery High Triglyceride: greater than or equal to 5OO mg/dL Cholesterol 192 <200 mg/dL [facility] Comment:Desirable Cholestero l: less than 200 mg/dLBorderline High Cholesterol: 200-239 mg/dLHigh Cholesterol: greater than 239 mg/dL LDL Cholesterol Calculated 124(H) <100 mg/dL [facility] Comment:Desirable LDL: less than 100 mg/dLNear Optimal/Above Optimal LDL: 110- 129 mg/dLBorderline High LDL: 130-159 mg/dLHigh LDL: 160-189 mg/dLVery High LDL: greater than or equal to 190 mg/dL HDL Cholesterol 57 >40 mg/dL [facility] Comment:Desirable HDL: great er than 40 mg/dL Note: This HDL assay may give artificially low results in patients with liver disease. Blood 08/20/2023 9:30 AM EDT 08/20/2023 11:17 AM EDT us Jennifer Sakurai MD LAB BLOOD ORDERABLES Final Resul t Performing Organization Address [facility] [address]/ZIP Co de Phone Number [facility] [address] [place] [phone] * Hemoglobin A1c (08/20/2023 9:30 AM EDT) Hemoglobin A1c 5.7 <6.0 % [facility] Comment:Hemoglobin A1C Refer ence Range Adults: 4.8 - 6.0 % Non diabetic: < 6.0 % Goal: < 7.0 %Additional Action Suggested: > 8.0 %Note: Hemoglobin A1c results are invalid for patients with abnormal amounts of HbF. Blood transfusions may impact the HbA1c concentration in the patient sample. Estimated Average Glucose 117 mg/dL [facility] Comment:eAG = Estimated ave rage glucose which is %A1C expressed asaverage glucose, using the formula of the Y1R-SwuytdoWbuwyhi Glucose study (ADAG), Diabetes Care, Vol.31,#8,Dec. 2007 Blood Venous blood specimen / Unknown 08/20/2023 9:30 AM EDT 08/20/2023 11:17 AM EDT Jennifer Sanchez MD LAB BLOOD ORDERABLES Final Resul t Performing Organization Address [facility] [address]/[facility] Co de Phone Number [facility] [address] [place] [phone] * Hm Colonoscopy (02/04/2020) Pathologist [facility] Colonoscopy Normal Normal 02/04/2020 [facility] HEALTH MAINTENANCE Edited Result - Final * HEPATITIS C ANTIBODY RFLX (07/13/2019 10:35 AM EST) Pathologist [facility] HEPATITIS C ANTIBODY NONREACTIVE NONREACTIVE [facility] Comment: Antibodies to HCV not detected; does not exclude early acute HCV infection. 07/13/2019 10:3 5 AM EST us Jennifer Sanchez MD HISTORICAL/NON ORDERABLE LABS Fi nal Result [facility] [address] from Last 3 Months or Most Recently Relevant to Health Maintenance Insurance [facility] MEDICARE Care Teams Emt P Relationship Specialty Start Date End Date Jennifer Sanchez MD [address] [place] [address] PCP - General Family Medicine 12/03/13
--- OUTSIDE RECORDS SUMMARY | 2024-06-09 11:59 | XMS_ITS | Encounter Summary ---
Author Organization [employer] Address [address] [facility] [address] [place] [address] Care Team Providers Care Asset Protection Officer Name Role Phone Jennifer Sanchez MD Primary Care Provider [phone] Encounter Details Date Type Department Care Team (Latest Contact Info) Description 06/09/2024 Travel Social History Tobacco Use Types Packs/Day Years Used Date Smoking Tobacco: Never Passive Smoke Exposure: Never Smokeless Tobacco: Never Alcohol Use Standard Drinks/Week Comments Never 0 [...] not to disclose 2021 10:15 AM EDT documented as of this encounter Plan of Treatment Not on file documented as of this encounter Visit Diagnoses Not on filedocumented in this encounter Additional Health Concerns Assessment Noted Time PHQ-9 Depression Total Score: 0 06/13/19 23 9:11 AM EST documented as of this encounter Care Teams Asset Protection Officer Relationship Specialty Start Date End Date Jennifer Sanchez MD [address] [place] [address] PCP - General Family Medicine 12/03/13 documented as of this encounter
--- OUTSIDE RECORDS SUMMARY | 2024-06-09 11:59 | XMS_ITS | Encounter Summary ---
Author Organization [employer] Address [address] [facility] 7t [place] [address] Care Team Providers Care Industrial Ecology Technician Name Role Phone Jennifer Sanchez MD Primary Care Provider [phone] Reason for Visit * Reason Comments Med Refill Encounter Details Date Type Department Care Team ([facility] st Contact Info) Description 05/17/[address] [facility] [address] [place], [place] [phone] Jennifer Sanchez MD [address] [place], [place] [phone] Depression with anxiety Social History Tobacco Use Types Packs/Day Years [...] documented as of this encounter Visit Diagnoses Diagnosis Depression with anxiety Dysthymic disorder documented in this encounter Additional Health Concerns Assessment Noted Time PHQ-9 Depression Total Score: 0 06/13/19 23 9:11 AM EST documented as of this encounter Care Teams Industrial Ecology Technician Relationship Specialty Start Date End Date Jennifer Sanchez MD [address] [place] [phone] PCP - General Family Medicine 12/03/13 documented as of this encounter
--- OUTSIDE RECORDS SUMMARY | 2024-06-09 11:59 | XMS_ITS | Encounter Summary ---
Author Organization [employer] Address [address] [facility] 7[address] [place] [address] Care Team Providers Care Department Store Door Greeter Name Role Phone Jennifer Sanchez MD Primary Care Provider [phone] Encounter Details Date Type Department Care Team (Late st Contact Info) Description 06/03/2024 Telephone [facility] [address] [place], [place] [phone] Laura Shields NP [address] [place], [place] [phone] Social History Tobacco Use Types Packs/Day Years [...] documented as of this encounter Care Teams Department Store Door Greeter Relationship Specialty Start Date End Date Jennifer Sanchez MD [address] [place] [address] PCP - General Family Medicine 12/03/13 documented as of this encounter
--- OUTSIDE RECORDS SUMMARY | 2024-06-09 11:59 | XMS_ITS | Encounter Summary ---
Author Organization [employer] Address [address] [facility] [address] [place] [address] Care Team Providers Care Hide And Skin Colerer Name Role Phone Jennifer Sanchez MD Primary Care Provider [phone] Encounter Details Date Type Department Care Team (Late st Contact Info) Description 06/09/2024 10:00 AM EST Immunization [facility] MED[facility]INE [address] [place], [place] [phone] Caterina Allen RN Encounter for immunization Social History Tobacco Use Types Packs/Day Years [...] AM EDT documented as of this encounter Progress Notes * Caterina Allen RN - 06/09/2024 10:00 AM EST Subjective Patient ID: Andrew Houser is a 68 y.o. male who presents for COVID19 Vaccine. Pt here for COVID19 Vaccine. Per record and patient reporting indicate that patient has no allergies that contraindicate today's vaccinations. Vaccine administered in [facility]. Pt tolerated well, pt will stay for observation for 15minutes post vaccination for observation by nurse. documented in this encounter Plan of Treatment Not on file documented as of this encounter Visit Diagnoses Diagnosis Encounter for immunization documented in this encounter Additional Health Concerns Assessment Noted Time PHQ-9 Depression Total Score: 0 06/13/19 23 9:11 AM EST documented as of this encounter Care Teams Hide And Skin Colerer Relationship Specialty Start Date End Date Jennifer Sanchez MD [address] [place] [phone] PCP - General Family Medicine 12/03/13 documented as of this encounter
[2024-06-09 12:36] LABS: Estimated Average Glucose 126 mg/dL; Hemoglobin A1C 138.9858 umol/L; Total Hemoglobin (HGBA1C) 3334.5958 umol/L
[2024-06-09 13:32] LABS: Alanine Aminotransferase 27 U/L (0-40); Albumin Level 4.2 g/dL (3.5-5.0); Alkaline Phosphatase 58 U/L (39-117); Anion Gap 8 (12-20); Aspartate Amino Transferase 23 U/L (5-37); Bilirubin Total 0.3 mg/dL (0.0-1.0); Blood Urea Nitrogen 13 mg/dL (9-16); Calcium 9.5 mg/dL (8.4-10.2); Carbon Dioxide 25 mmol/L (22-29); Chloride 111 mmol/L (96-108); Cholesterol 175 mg/dL (<200); Estimated Glomerular Filt Rate > 60; Glucose Random 97 mg/dL (60-115); HDL Cholesterol 51 mg/dL (>40); LDL Cholesterol Calculated 111 mg/dL (<100); Sodium 140 mmol/L (135-145); Total Protein 7.3 g/dL (6.5-8.0); Triglycerides 68 mg/dL (<150)
[2024-06-09 13:40] LABS: TSH reflex Free T4 0.54 uIU/mL (0.32-4.0)
[2024-06-09 14:19] LABS: Reflex LDLD? No
== END 2024-06-09 10:45 | disposition home or self-care (01) ==
LOC: HO.LAB 10:44
PROVIDERS: Family Medicine; Visit Provider Urology
DX: I10 Essential (primary) hypertension (principal); E78.5 Hyperlipidemia, unspecified; R73.01 Impaired fasting glucose
CPT/HCPCS: 36415; 80053; 80061; 83036; 84443

== ENCOUNTER 2024-07-02 09:21 | Outpatient (REF) | payer MEDICARE, MEDICAID, SELFPAY ==
--- OUTSIDE RECORDS SUMMARY | 2024-07-02 09:46 | XMS_ITS | Encounter Summary ---
Author Organization [employer] Address 75 [facility] [address] 7t [place] [address] Care Team Providers Care House Builder Name Role Phone Jennifer Sanchez MD Primary Care Provider [phone] Encounter Details Date Type Department Care Team (Late st Contact Info) Description 06/03/2024 Telephone [facility] MEDICINE [address] [place], [place] [phone] Laura Shields NP [address] [place], [place] [phone] Social History Tobacco Use Types Packs/Day Years [...] documented as of this encounter Care Teams House Builder Relationship Specialty Start Date End Date Jennifer Sanchez MD [address] [place] [address] PCP - General Family Medicine 12/03/13 documented as of this encounter
--- OUTSIDE RECORDS SUMMARY | 2024-07-02 09:46 | XMS_ITS | Encounter Summary ---
Author Organization [employer] Address [address] [facility] [address] [place] [address] Care Team Providers Care Operations Intern Name Role Phone Jennifer Sanchez MD Primary Care Provider [phone] Encounter Details Date Type Department Care Team (Late st Contact Info) Description 06/09/2024 10:00 AM EST Immunization [facility] [address] [place], [place] [phone] Caterina Allen RN Encounter for immunization Social [...] that contraindicate today's vaccinations. Vaccine administered in [facility]. Pt tolerated well, pt will [...] documented as of this encounter Care Teams Operations Intern Relationship Specialty Start Date End Date Jennifer Sanchez MD [address] [place] [phone] PCP - General Family Medicine 12/03/13 documented as of this encounter
--- OUTSIDE RECORDS SUMMARY | 2024-07-02 09:46 | XMS_ITS | Clinical Summary ---
Author Organization [email or web address] Address 75 [facility] 7t [place] [address] Care Team Providers Care Jump Roll Operator Name Role Phone Jennifer Sanchez MD Primary Care Provider [phone] Allergies Active Allergy Reactions Criticality Noted Date Comments Tamsulosin 03/15/2016 Other reaction(s): low blood pressure Medications cyclobenzaprine (Flexeril) 10 MG tablet TAKE 1 TABLET BY MOUTH ONCE DAILY NEEDED FOR MUSCLE SPASMS 15 tablet 01/07/2023 Active naproxen (Naprosyn) 500 MG tablet TAKE 1 TABLET BY MOUTH TWICE DAILY NEEDED MILD PAIN 40 tablet 1 04/03/2023 Active finasteride (Proscar) 5 MG tablet TAKE 1 TABLET BY MOUTH ONCE DAILY IN THE MORNING 90 tablet 1 10/06/2023 Active Acetaminophen Extra Strength 500 MG tabletIndicatio ns:COVID-19 Take 1,000 mg by mouth every 8 (eight) hours if needed (take 2 tablets q 8hrs as needed). 30 tablet 02/04/2024 Active doxazosin (Cardura) 4 MG tablet TAKE 1 TABLET BY MOUTH EVERY DAY AT BEDTIME 90 tablet 1 02/12/2024 Active pravastatin (Pravachol) 20 MG tablet TAKE 1 TABLET BY MOUTH ONCE DAILY 90 tablet 3 03/11/2024 Active cetirizine (ZyrTEC) 10 MG tablet Take 1 tablet (10 mg) by mouth Once per day. 90 tablet 3 03/23/2024 Active LORazepam (Ativan) 0.5 MG tabletIndicatio ns:Depression with anxiety TAKE 1 TABLET BY MOUTH EVERY DAY NEEDED 30 tablet 05/17/2024 Active Active Problems Problem Noted Date Diagnosed Date [...] will refer back to previous Urologist at [facility] Elevated PSA 10/03/2022 Assessment & Plan (05/02/2023 [...] daily. - he was referred back to [facility] urology; advised to call the office [...] daily. - he was referred back to [facility] urology; advised to call the office [...] daily. - he was referred back to [facility] urology; advised to call the office and ask about next appt Assessment & Plan (10/09/2022 6:34 PM EDT): - Seen by jada UrologistDr. [...] 4:42 AM EST): - Seen by jada UrologistDr. Baeza on 01/14/22. - s/p Prostate biopsy in [...] to the emergency room, case presented to [facility] emergency room Encounters Date Type Department Care Team Description 06/10/2024 Telephone [facility] [address] [place] [phone] Jennifer Sanchez MD Results 06/09/2024 10:00 AM EST Immunization [facility] [address] [place] [address] Caterina Allen, KATTY Encounter for immunization 06/09/2024 Travel 06/03/2024 Telephone [facility] [address] [place], [place] [phone] Laura Shields NP 05/17/2024 Refill [facility] [address] [place] [address] [phone] Jennifer Sanchez MD Depression with anxiety from Last 3 Months Immunizations Name Administration Dates Next Due Hep B, adult 09/19/2010,11/24/2008,10/20/2008 Influenza High-dose Quadriva lent Preservative Free 04/15/2023,02/19/2022,03/15/2021,03/16 Influenza injectable quadriv alent IIV4 with preservative 03/30/2018,02/12/2017,03/21/2016,03/29 Influenza injectable quadriv alent preservative free 03/22/2019,07/14/2014 Influenza, High Dose Seasona l, Preservative Free 03/23/2024 Moderna Covid-19 Vaccine 6+ Bivalent 06/13/2022 Pfizer Covid-19 Vaccine 12+ 06/09/2024, 4 Pneumococcal Conjugate PCV 13 03/16/2020 Pneumococcal Polysaccharide [...] is your housing situation today? I have lokistella ruth 03/24/[address] you [...] 06/13/2022, 06/13/19 23 SDOH Screening 08/10/2024 08/11/2023 Colonoscopy 02/03/2025 02/04/2020 Colorectal Cancer Screening 02/03/2025 Tobacco Screening 03/23/2025 03/23/2024 Diabetes: Hemoglobin A1C 06/09/2025 025, 08/20/2023, 10/03/2022, Additional history exists Lipid Panel 06/09/2029 06/09/2024, 04/0 07/2023, 10/03/2022, Additional history exists RSV Patients and Patients Aged 60 years or older (1 - 1-dose 75+ series) 2029 DTaP/Tdap/Td Vaccines (3 - Td or Tdap) 03/15/2031 03/15/2021, 01/17/2010, 01/30/2000 Hepatitis B Vaccines Completed 09/19/2010, 11/24/2008, 10/20/2008 Hepatitis C Screening Completed 07/13/2019 Zoster Vaccines Completed 12/07/2019, 07/22/2019 Pneumococcal Vaccine: 50+ Years Completed 02/19/2022, 03/16/2020, 09/21/2015 Influenza Vaccine [...] Procedure Name Priority Date/Time Associated Diagnosis Comments LIPID PANEL WITH REFLEX TO DIRECT LDL Routine 06/09/2024 11:00 AM EST Dyslipidemia COMPREHENSIVE METABOLIC PANEL Routine 06/09/2024 11:00 AM EST Essential hypertension Dyslipidemia HEMOGLOBIN A1C Routine 06/09/2024 11:00 AM EST Impaired fasting glucose TSH W/REFLEX TO FT4 Routine 06/09/2024 1 1:00 AM EST Essential hypertension HM COLONOSCOPY Routine 02/04/2020 ZZZ HISTORICAL HEPATITIS C ANTIBODY RFLX Routine 07/13/2019 10:35 AM EST from Last 3 Months or Most Recently Relevant to Health Maintenance Results * TSH with Reflex to Free T4 (06/09/2024 11:00 AM EST) TSH reflex Free T4 0.54 0.32 - 4.0 uIU/mL [facility] Blood 06/09/2024 11:0 0 AM EST 06/09/2024 11:05 AM EST Jennifer Sanchez MD LAB BLOOD ORDERABLES Final Resul t Performing Organization Address [facility] Co de Phone Number [facility] [address] [place] [phone] * (ABNORMAL) Lipid Panel with Reflex to Direct LDL (06/09/2024 11:00 AM EST) Triglycerides 68 <150 mg/dL [facility] Comment:Desirable Triglyceri de: less than 150 mg/dLBorderline High Triglyceride 150-199 mg/dLHigh Triglyceride: 200-499 mg/dLVery High Triglyceride: greater than or equal to 5OO mg/dL Cholesterol 175 <200 mg/dL [facility] Comment:Desirable Cholestero l: less than 200 mg/dLBorderline High Cholesterol: 200-239 mg/dLHigh Cholesterol: greater than 239 mg/dL LDL Cholesterol Calculated 111(H) <100 mg/dL [facility] Comment:Desirable LDL: less than 100 mg/dLNear Optimal/Above Optimal LDL: 110- 129 mg/dLBorderline High LDL: 130-159 mg/dLHigh LDL: 160-189 mg/dLVery High LDL: greater than or equal to 190 mg/dL HDL Cholesterol 51 >40 mg/dL [facility] Comment:Desirable HDL: great er than 40 mg/dL Note: This HDL assay may give artificially low results in patients with liver disease. Blood 06/09/2024 11:0 0 AM EST 06/09/2024 11:05 AM EST us Jennifer Sanchez MD LAB BLOOD ORDERABLES Final Resul t Performing Organization Address [facility]/ZIP Co de Phone Number [facility] [address] [place] [phone] * Hemoglobin A1c (06/09/2024 11:00 AM EST) Hemoglobin A1c 6.0 <6.0 % [facility] Comment:Hemoglobin A1C Refer ence Range Adults: 4.8 - 6.0 % Non diabetic: < 6.0 % Goal: < 7.0 %Additional Action Suggested: > 8.0 %Note: Hemoglobin A1c results are invalid for patients with abnormal amounts of HbF. Blood transfusions may impact the HbA1c concentration in the patient sample. Estimated Average Glucose 126 mg/dL [facility] Comment:eAG = Estimated ave rage glucose which is %A1C expressed asaverage glucose, using the formula of the [id number] Glucose study (ADAG), Diabetes Care, Vol.31,#8,Dec. 2007 Blood Venous blood specimen / Unknown 06/09/2024 11:00 AM EST 06/09/2024 11:05 AM EST us Jennifer Sanchez MD LAB BLOOD ORDERABLES Final Resul t [facility] [address] [place] [phone] * (ABNORMAL) Comprehensive Metabolic Panel (06/09/2024 11:00 AM EST) Sodium 140 135 - 145 mmol/L [facility] Potassium 4.0 3.3 - 5.1 mmol/L [facility] Chloride 111(H) 96 - 108 mmol/L [facility] Carbon Dioxide 25 22 - 29 mmol/L [facility] Anion Gap 8(L) 12 - 20 [facility] Urea Nitrogen (BUN) 13 9 - 16 mg/dL [facility] Creatinine, Serum 0.80 0.5 - 1.4 mg/dL [facility] Estimated Glomerular Filt Rate >60 [facility] Comment:Chronic Kidney Disea se: Estimated GFR < 60 mL/min/[id number] Kidney Disease: Estimated GFR < 15 mL/min/1.73m2 Glucose 97 60 - 115 mg/dL [facility] Calcium 9.5 8.4 - 10.2 mg/dL [facility] Bilirubin, Total 0.3 0.0 - 1.0 mg/dL [facility] Aspartate Amino Transferase 23 5 - 37 U/L [facility] Alanine Aminotransferase 27 0 - 40 U/L [facility] Total Protein 7.3 6.5 - 8.0 g/dL [facility] Albumin Level 4.2 3.5 - 5.0 g/dL [facility] Alkaline Phosphatase 58 39 - 117 U/L [facility] Blood Venous blood specimen / Unknown 06/09/2024 11:00 AM EST 06/09/2024 11:05 AM EST Jennifer Sanchez MD LAB BLOOD ORDERABLES Final Resul t Performing Organization Address City/[facility] Co de Phone Number [facility] [address] [place] [phone] * Hm Colonoscopy (02/04/2020) Colonoscopy Normal Normal 02/04/2020 [facility] HEALTH MAINTENANCE Edited Result - Final * HEPATITIS C ANTIBODY RFLX (07/13/2019 10:35 AM EST) HEPATITIS C ANTIBODY NONREACTIVE NONREACTIVE [facility] Comment: Antibodies to HCV not detected; does not exclude early acute HCV infection. 07/13/2019 10:3 5 AM EST Jennifer Sanchez MD HISTORICAL/NON ORDERABLE LABS Fi nal Result Performing Organization Address City/[facility]/ZIP Co de Phone Number [facility] [address] [place] [address], from Last 3 Months or Most Recently Relevant to Health Maintenance Insurance [employer] [employer] Care Teams Jump Roll Operator Relationship Specialty Start Date End Date Jennifer Sanchez MD [address] [place] [phone] PCP - General Family Medicine 12/03/13
--- OUTSIDE RECORDS SUMMARY | 2024-07-02 09:46 | XMS_ITS | Encounter Summary ---
Author Organization [employer] Address 75 [facility] 7t [place] [address] Care Team Providers Care Tooth Cutter Spur Name Role Phone Jennifer Sanchez MD Primary Care Provider [phone] Encounter Details Date Type Department Care Team [...] documented as of this encounter Care Teams Tooth Cutter Spur Relationship Specialty Start Date End Date Jennifer Sanchez MD [address] [place] [address] PCP - General Family Medicine 12/03/13 documented as of this encounter
--- OUTSIDE RECORDS SUMMARY | 2024-07-02 09:46 | XMS_ITS | Encounter Summary ---
Author Organization [employer] Address 75 [facility] [address]t [place] [address] Care Team Providers Care Hearings Reporter Name Role Phone Jennifer Sanchez MD Primary Care Provider [phone] Reason for Visit * Reason Onset Date Comments Results 06/10/2024 Encounter Details Date Type Department Care Team ([facility] st Contact Info) Description 06/10/2024 Telephone [facility] [address] [place], [place] [phone] Jennifer Sanchez MD [address] [place], [place] [phone] Results Social History Tobacco Use Types Packs/Day Years [...] AM EDT documented as of this encounter Miscellaneous Notes * Telephone Encounter - Idalmis Sandoval - 06/10/2024 9:09 AM EST Stable lab test sent out on 06/10/2024. documented in this encounter Plan of Treatment Not on file documented as of this encounter Visit Diagnoses Not on filedocumented in this encounter Additional Health Concerns Assessment Noted Time PHQ-9 Depression Total Score: 0 06/13/19 9:11 AM EST documented as of this encounter Care Teams Hearings Reporter Relationship Specialty Start Date End Date Jennifer Sanchez MD [address] [place] [address] PCP - General Family Medicine 12/03/13 documented as of this encounter
== END 2024-07-02 09:22 | disposition home or self-care (01) ==
LOC: HO.LAB 09:21
PROVIDERS: PCP Family Medicine; Visit Provider Urology
DX: R97.20 Elevated prostate specific antigen [PSA] (principal); Z12.5 Encounter for screening for malignant neoplasm of prostate
CPT/HCPCS: 36415; 84153

== ENCOUNTER 2024-07-21 14:36 | Outpatient (AMB) | payer MEDICARE, MEDICAID, SELFPAY ==
--- NOTE | 2024-07-21 14:49 | A.OFFVIS_ITS ---
Vital Signs 07/21/24 15:06 Height 5 ft 6 in Weight 209 lb 14.081 oz BMI 33.9 BP 138/78 Blood Pressure Location Rt brachial Position Sitting Pulse 90 Pulse Source Pulse Oximeter Pulse Oximetry (%) 98 Oxygen Delivery Method Room Air Intake Visit Reasons: Duodenal Diverticulum, BRB per rectum Intake Note: NEW PATIENT for hematochezia initial eval. Seen in [facility] ED. Prior hx of colo/egd? 2004 + 2012 via [facility]. Chief Complaint; Pt denies any concerns currently. Pt and PCP were theorizing that the sx could have been a result of a possible medication interaction (paxlovid + pravastatin). Pt states that cessation of medication administration and sx occurred at approx. the same time. Earth Science Technical Officer Required: No Accompanied by: Self / Same As Patient Allergies ibuprofen Allergy (Unknown, Verified 07/21/24 14:50) Swelling tamsulosin Allergy (Unknown, Verified 07/21/24 14:50) low B/P HPI HPI Duodenal Diverticulum, BRB per rectum: Details: 68-year-old male will past medical history of BPH, hyperlipidemia is here today for initial consultation. Patient was seen in the ER back in January of 2024. Patient reported 2 days of bright red blood in his stool after bowel movement. Patient reports that he was moving his bowels normally, however he was diagnosed with COVID was put on paxlovid, at that time was eating only soups. Patient s tates that he was having diarrhea then constipation. No abnormal finding seen, diverticular disease in sigmoid colon without diverticulitis. Patient reports that he had no symptoms since. Patient had hemorrhoidectomy more than 10 years ago. Last colonoscopy was done at [facility] over 10 years ago. Patient denies any abdominal pain or discomfort. Reports that he is moving his bowels without any issues. No history of sleep apnea, however he does report that he needs to repeat that test. Sent for testing and inconclusive. Patient reports that when he was going for surgery last year he has a result of bradycardia, however he was asymptomatic that. Patient reports shortness of breath with and without exertion. Denies any chest pain, presyncope, syncope, edema. Never had seen foreign agent before. Patient reports that the shortness of breath is getting worse. Patient denies any family history of CRC. [facility] Medical History Depression with anxiety Dyslipidemia Cognitive impairment Tremor High grade prostatic intraepithelial neoplasia Leukopenia Impaired fasting glucose Prostate cancer Elevated blood pressure reading in office with diagnosis of hypertension BPH loc w urin obs/LUTS Elevated PSA Surgical History Hx of right knee surgery History of surgery Social History Alcohol intake: current Patient Tobacco Use Status: Former Tobacco user Current occupational status: retired Current occupation: right hand dominant Review of Systems Const Denies weight gain and Denies weight loss ENT Reports no additional complaints, Denies dysphagia and Denies odynophagia Card Reports no additional complaints Resp Reports no additional complaints GI Denies abdominal pain, Denies belching, Denies melena, Denies bloating, Denies change in bowel habits, Denies dysphagia, Denies excessive flatus, Denies dyspepsia, Denies heartburn, Denies diarrhea, Denies loose stools, Denies nausea, Denies odynophagia and Denies vomiting Reports no additional complaints Musc Reports no additional complaints Neuro Reports no additional complaints Psych Reports no additional complaints Endo Reports no additional complaints Physical Exam Vital Signs: Last Vital Signs Pulse 90 07/21/24 15:06 BP 138/78 07/21/24 15:06 Pulse Ox 98 07/21/24 15:06 Oxygen Delivery Method Room Air 07/21/24 15:06 BMI result Body Mass Index 33.9 Const General: healthy appearing, no acute distress and well developed Nutritional Appearance: well nourished Orientation/consciousness: patient oriented x3 Resp Effort & Inspection: normal respiratory effort, able to speak in complete sentences, no tracheal deviation and symmetric chest movement Auscultation: clear to auscultation bilaterally Cardio Rate: regular rate GI Inspection: Yes normal to inspection and No distended Palpation (GI): Soft to palpation, not firm, nontender and No hepatosplenomegaly present Auscultation: normal bowel sounds General: Yes no CVA tenderness Back/Spine/Pelvis Back: no CVA tenderness Skin General skin exam: elasticity normal, turgor normal and dry skin Neuro General: patient oriented x3 Psych Appearance: grossly normal Mental Status: mental status grossly normal Assessment & Plan Assessment & Plan (1) Bright red blood per rectum: Code(s): K62.5 - Hemorrhage of anus and rectum (2) Screen for colon cancer: Code(s): Z12.11 - Encounter for screening for malignant neoplasm of colon Plan Patient reports recent worsening shortness of breath. We will send him for evaluation before going for procedure. Patient reports previously bradycardia before going for his knee surgery in 2022. No presyncope or syncope. Shortness of breath happens with and without exertion. Patient does not know if he truly is constipated are not states that he is moving his bowels does not know if he feels like he empties them completely. He will call our office and pay closer attention to that. I will see patient in 3 months, sooner on as needed basis we will discuss going for procedure then. Patient denies any epigastric pain or discomfort. He is agreeable to this plan and verbalizes understanding of ins tructions. He was given the opportunity to ask questions and all questions answered. Thank you for allowing me to participate in his care Orders: Referrals Cardiology Referral R00.1 - Bradycardia, unspecified, R06.02 - Shortness of breath, Z01.810 - Encounter for preprocedural cardiovascular examination Coding Level of Care Code New Pt Level 3 (65352) Diagnoses Bright red blood per rectum K62.5 Screen for colon cancer Z12.11 Time Spent (min) 40 Comment 30 minutes spent with patient and additional 10 minute spent reviewing his records
[2024-07-21 15:06] VITALS: BP 138/78; PULSE 90; O2SAT 98; BMI 33.9
--- OUTSIDE RECORDS SUMMARY | 2024-07-21 17:36 | XMS_ITS | Encounter Summary ---
Author Organization [employer] Address [address] [facility] [address] [place] [address] Care Team Providers Care Frame Fixer Name Role Phone Jennifer Sanchez MD Primary Care Provider [phone] Reason for Visit * Reason Onset Date Comments arsenio recall 07/02/2024 Encounter Details Date Type Department Care Team (Late st Contact Info) Description 07/02/2024 Telephone [facility] [address] [place], [place] [phone] Purnima Michael MA august recall Social History Tobacco Use Types Packs/Day Years [...] the past 12 months, has t he [email or web address], gas, oil or water [employer] threatened to shut off services in your [...] encounter Miscellaneous Notes * Telephone Encounter - Purnima Michael MA - 07/02/2024 10:01 AM EST ..T/C- Pill Coater Left Voice Mail to return call to schedule an appointment. Recall letter sent. Appointment: Office Visit Note:RV prostate BP. Month: August With: Daniel Please schedule appointment if Patient calls Back. documented in this encounter Plan of Treatment Upcoming Encounters Date Type Department Care Team (Late st Contact Info) Description 09/16/2024 10:30 AM EDT Office Visit [facility] [address] [place] [address] Jennifer Sanchez MD [address] [place] [address] documented as of this encounter Visit Diagnoses Not on filedocumented in this encounter Additional Health Concerns Assessment Noted Time PHQ-9 Depression Total Score: 0 06/13/19 23 9:11 AM EST documented as of this encounter Care Teams Frame Fixer Relationship Specialty Start Date End Date Jennifer Sanchez MD [address] [place] [address] PCP - General Family Medicine 12/03/13 documented as of this encounter
--- OUTSIDE RECORDS SUMMARY | 2024-07-21 17:36 | XMS_ITS | Clinical Summary ---
Author Organization [employer] Address [address] [facility] 7[address] [place] [address] Care Team Providers Care Associate Theatre Professor Name Role Phone Jennifer Sanchez MD Primary Care Provider [phone] Allergies Active Allergy Reactions Criticality Noted Date [...] will refer back to previous Urologist at [facility] Elevated PSA 10/03/2022 Assessment & [...] daily. - he was referred back to [facility] urology; advised to call the office [...] daily. - he was referred back to [facility] urology; advised to call the office [...] daily. - he was referred back to [facility] urology; advised to call the office [...] to the emergency room, case presented to [facility] emergency room Encounters Date Type Department Care Team Description 07/02/2024 Telephone [facility] [address] [place] [address] Purnima Michael [place] august06/10/2024 Telephone [facility] [address] [place] [address] Jennifer Sanchez MD Results 06/09/2024 10:00 AM EST Immunization [facility] [place] [address] Caterina Allen RN Encounter for immunization 06/09/2024 Travel 06/03/[address] [facility] [place] [address] Laura Shields NP 05/17/2024 Refill [facility] [address] [place] [address] Jennifer Sanchez MD Depression with anxiety from [...] 03/23/2024 2:50 PM EST Plan of Treatment Upcoming Encounters Date Type Department Care Team (Late st Contact Info) Description 09/16/2024 10:30 AM EDT Office Visit [facility] [address] [place] [address] Jennifer Sanchez MD [address] [place] [address] Health Maintenance Due Date Last Done Comments [...] Procedure Name Priority Date/Time Associated Diagnosis Comments PSA, TOTAL Routine 07/02/2024 9:33 AM EST LIPID PANEL WITH REFLEX TO DIRECT LDL [...] Relevant to Health Maintenance Results * (ABNORMAL) PSA,Total (07/02/2024 9:33 AM EST) Prostate Specific Antigen 7.20(H) <0.05 - 4.0 ng/mL [facility] Comment:PSA methodology: Erwin Sullivan i ChemiluminescentMicroparticle Immunoassay (CMIA) 07/02/2024 9:33 AM EST 07/02/2024 9:33 AM EST us Generic External Data Provider LAB BLOOD ORDERAB LES Final Result Performing Organization Address City/[facility]/ZIP Co de Phone Number [facility] [address] [place] [phone] * TSH with Reflex to Free T4 (06/09/2024 11:00 AM EST) TSH reflex Free T4 0.54 0.32 - 4.0 uIU/mL [facility] Blood 06/09/2024 11:0 0 AM EST 06/09/2024 11:05 AM EST us Jennifer Sanchez MD LAB BLOOD ORDERABLES Final Resul t Performing Organization Address City/[facility]/ZIP Co de Phone Number [facility] [address] [place] [phone] * (ABNORMAL) Lipid Panel with Reflex to Direct LDL (06/09/2024 11:00 AM EST) Triglycerides 68 <150 mg/dL [facility] Comment:Desirable Triglyceri de: less than 150 mg/dLBorderline High Triglyceride 150-199 mg/dLHigh Triglyceride: 200-499 mg/dLVery High Triglyceride: greater than or equal to 5OO mg/dL Cholesterol 175 <200 mg/dL [facility] Comment:Desirable Cholestero l: less than 200 mg/dLBorderline High Cholesterol: 200-239 mg/dLHigh Cholesterol: greater than 239 mg/dL LDL Cholesterol Calculated 111(H) <100 mg/dL [facility] Comment:Desirable LDL: less than 100 mg/dLNear Optimal/Above Optimal LDL: 110- 129 mg/dLBorderline High LDL: 130-159 mg/dLHigh LDL: 160-189 mg/dLVery High LDL: greater than or equal to 190 mg/dL HDL Cholesterol 51 >40 mg/dL [facility] Comment:Desirable HDL: great er than 40 mg/dL Note: This HDL assay may give artificially low results in patients with liver disease. Blood 06/09/2024 11:0 0 AM EST 06/09/2024 11:05 AM EST us Jennifer Sanchez MD LAB BLOOD ORDERABLES Final Resul t [facility] [address] [place] [phone] * Hemoglobin A1c (06/09/2024 11:00 AM EST) Hemoglobin A1c 6.0 <6.0 % [facility] Comment:Hemoglobin A1C Refer ence Range Adults: 4.8 - 6.0 % Non diabetic: < 6.0 % Goal: < 7.0 %Additional Action Suggested: > 8.0 %Note: Hemoglobin A1c results are invalid for patients with abnormal amounts of HbF. Blood transfusions may impact the HbA1c concentration in the patient sample. Estimated Average Glucose 126 mg/dL [facility] Comment:eAG = Estimated ave rage glucose which is %A1C expressed asaverage glucose, using the formula of the Z3Q-IyqxiunXbjimsi Glucose study (ADAG), Diabetes Care, Vol.31,#8,Dec. 2007 Blood Venous blood specimen / Unknown 06/09/2024 11:00 AM EST 06/09/2024 11:05 AM EST us Jennifer Sanchez MD LAB BLOOD ORDERABLES Final Resul t [facility] [address] [place] [phone] * (ABNORMAL) Comprehensive Metabolic Panel (06/09/2024 11:00 AM EST) Sodium 140 135 - 145 mmol/L [facility] Potassium 4.0 3.3 - 5.1 mmol/L [facility] Chloride 111(H) 96 - 108 mmol/L [facility] Carbon Dioxide 25 22 - 29 mmol/L [facility] Anion Gap 8(L) 12 - 20 [facility] Urea Nitrogen (BUN) 13 9 - 16 mg/dL [facility] Creatinine, Serum 0.80 0.5 - 1.4 mg/dL [facility] Estimated Glomerular Filt Rate >60 [facility] Comment:Chronic Kidney Disea se: Estimated GFR < 60 mL/min/[id number] Kidney Disease: Estimated GFR < 15 mL/min/1.73m2 Glucose 97 60 - 115 mg/dL [facility] Calcium 9.5 8.4 - 10.2 mg/dL [facility] Bilirubin, Total 0.3 0.0 - 1.0 mg/dL [facility] Aspartate Amino Transferase 23 5 - 37 U/L [facility] Alanine Aminotransferase 27 0 - 40 U/L [facility] Total Protein 7.3 6.5 - 8.0 g/dL [facility] Albumin Level 4.2 3.5 - 5.0 g/dL [facility] Alkaline Phosphatase 58 39 - 117 U/L [facility] Blood Venous blood specimen / Unknown 06/09/2024 11:00 AM EST 06/09/2024 11:05 AM EST Jennifer Sanchez MD LAB BLOOD ORDERABLES Final Resul t Performing Organization Address [facility]/ZIP Co de Phone Number [facility] [address] [place] [phone] * Hm Colonoscopy (02/04/2020) Colonoscopy Normal Normal 02/04/2020 [facility] HEALTH MAINTENANCE Edited Result - Final * HEPATITIS C ANTIBODY RFLX (07/13/2019 10:35 AM EST) HEPATITIS C ANTIBODY NONREACTIVE NONREACTIVE [facility] Comment: Antibodies to HCV not detected; does not exclude early acute HCV infection. 07/13/2019 10:3 5 AM EST Jennifer Sanchez MD HISTORICAL/NON ORDERABLE LABS Fi nal Result [facility] [address] from Last 3 Months or Most Recently Relevant to Health Maintenance Insurance [facility] MEDICARE Care Teams Associate Theatre Professor Relationship Specialty Start Date End Date Jennifer Sanchez MD [address] [place] [phone] PCP - General Family Medicine 12/03/13
== END 2024-07-21 15:28 | disposition home or self-care (01) ==
PROVIDERS: PCP Family Medicine; Visit Provider Nurse Practitioner Family
DX: K62.5 Hemorrhage of anus and rectum (principal)
CPT/HCPCS: 99203

== ENCOUNTER → 2024-07-21 14:36 | Outpatient (BNVA) | payer MEDICARE, MEDICAID, SELFPAY | PROVIDERS: PCP Family Medicine; Visit Provider Nurse Practitioner Family | DX: K62.5 Hemorrhage of anus and rectum (principal); E78.5 Hyperlipidemia, unspecified; R00.1 Bradycardia, unspecified; R06.02 Shortness of breath; N40.0 Benign prostatic hyperplasia without lower urinary tract symptoms | CPT/HCPCS: 99202 ==

== ENCOUNTER → 2024-08-06 08:03 | Outpatient (BNV) | payer MEDICARE, MEDICAID, SELFPAY | PROVIDERS: PCP Family Medicine; Visit Provider Radiology Diagnostic Radiology | DX: R97.20 Elevated prostate specific antigen [PSA] (principal) | CPT/HCPCS: 72197 ==

== ENCOUNTER 2024-08-06 08:36 | Outpatient (REF) | payer MEDICARE, MEDICAID, SELFPAY ==
--- NOTE | ~2024-08-06 | MR_ITS ---
EXAMINATION: MR PROSTATE WITHOUT THEN WITH IV CONTRAST HISTORY: R97.20 - Elevated prostate specific antigen [PSA] TECHNIQUE: 1.5T body coil survey of the pelvis was performed. Phase array coil imaging of the prostate was performed in multiplanar high resolution axial, coronal, sagittal fast spin echo T2 and axial T1 weighted imaging sequences. Axial diffusion imaging at intermediate and high field performed with ADC mapping. Next, 9 mL Gadavist was given by intravenous infusion, and dynamic axial imaging performed. COMPARISON: There are no prior studies for comparison. CLINICAL DATA: Most recent PSA: 7.20 ng/mL on 07/02/2024 PSA Density: 0.11 ng/mL squared Prostate Biopsy: None reported, but the medical record describes a history of high-grade prostatic intraepithelial neoplasia. FINDINGS: Prostate size: 5.7 x 5.5 x 4.0 cm. Calculated prostate volume is 65.2 mL. Hemorrhage: None. Transitional Zone: There is moderate heterogeneous nodular hypertrophy of the transitional zone. Peripheral Zone: There is an 11 mm area of interest in the left posteromedial peripheral zone in the mid gland to apex (series 7, images 18-20 and series 9/10, images 14-16) with imaging characteristics as follows: Lesion #1: DWI PI-RADS v2.1 score: 4 T2 PI-RADS v2.1 score: 4 DCE PI-RADS v2.1 score: + Overall PI-RADS v2.1 score: 4 Capsular contact: None Extracapsular extension: None Seminal vesicle invasion: None Neurovascular bundle involvement: None Seminal Vesicles/Ejaculatory Ducts: Symmetric and normal in signal and caliber. Pelvic Lymph Nodes: No obturator or internal iliac lymph nodes meeting size criteria for adenopathy. Marrow Signal: Normal marrow signal and enhancement without focal lesion identified. MR/MR Prostate wo/w con IMPRESSION: Focus of abnormal signal intensity in the left posteromedial peripheral zone in the mid gland to apex as described, highly suspicious for clinically significant prostate carcinoma. PI-RADS 4: High (clinically significant cancer is likely to be present) PI-RADS Assessment Categories PI-RADS 1: Very low (clinically significant cancer is highly unlikely to be present) PI-RADS 2: Low (clinically significant cancer is unlikely to be present) PI-RADS 3: Intermediate (the presence of clinically significant cancer is equivocal) PI-RADS 4: High (clinically significant cancer is likely to be present) PI-RADS 5: Very high (clinically significant cancer is highly likely to be present) [employer]. MR Prostate Imaging Reporting and Data System version 2.1. [email or web address] Electronically signed by: Vern Alcocer MD 08/06/2024 10:52 AM EDT
--- OUTSIDE RECORDS SUMMARY | 2024-08-06 08:52 | XMS_ITS | Encounter Summary ---
Author Organization [employer] Address [address] [facility] 7t [place] [address] Care Team Providers Care Project Control Manager Name Role Phone Jennifer Sanchez MD Primary Care Provider [phone] Encounter Details Date Type Department Care Team ([facility] st Contact Info) Description 07/30/2024 Population Health Risk Score [facility] () Department [address] [phone] Provider, Population Health Generic Social History Tobacco Use Types Packs/Day Years [...] as of this encounter Plan of Treatment Upcoming Encounters Date Type Department Care Team (Late st Contact Info) Description 09/16/2024 10:30 AM EDT Office Visit [facility] [address] [place] [address] Jennifer Sanchez MD [address] [place] [address] documented as of this encounter Visit Diagnoses Not on filedocumented in this encounter Additional Health Concerns Assessment Noted Time PHQ-9 Depression Total Score: 0 06/13/19 23 9:11 AM EST documented as of this encounter Care Teams Project Control Manager Relationship Specialty Start Date End Date Jennifer Sanchez MD [address] [place] [address] PCP - General Family Medicine 12/03/13 documented as of this encounter
--- OUTSIDE RECORDS SUMMARY | 2024-08-06 08:52 | XMS_ITS | Clinical Summary ---
Author Organization [employer] Address [address] [facility] 7t [place] [address] Care Team Providers Care Water Pumping Station Engineer Name Role Phone Jennifer Sanchez MD Primary Care Provider [phone] Allergies Active Allergy Reactions Criticality Noted Date [...] will refer back to previous Urologist at [facility] Elevated PSA 10/03/2022 Assessment & Plan [...] daily. - he was referred back to [facility] urology; advised to call the office [...] daily. - he was referred back to [facility] urology; advised to call the office [...] daily. - he was referred back to [facility] urology; advised to call the office [...] to the emergency room, case presented to [facility] [place] room Encounters Date Type Department Care Team Description 07/30/2024 Population Health Risk Score [facility] () Department [address] [place] [phone] Provider, Population Health Generic 07/02/2024 Telephone [facility] [address] [place] [address] Purnima Michael [place] august recall 06/10/2024 Telephone [facility] [address] [place] [address] Jennifer Sanchez MD Results 06/09/2024 10:00 AM EST Immunization [facility] [address] [facility] [place] [address] Caterina Allen RN Encounter for immunization 06/09/2024 Travel 06/03/2024 Telephone [facility] [address] [facility] [address] Laura Shields NP 05/17/2024 Refill [facility] [address] [facility] [place] [address] Jennifer Sanchez MD Depression with anxiety from [...] Description 09/16/2024 10:30 AM EDT Office Visit [facility] [address] [place] [address] Jennifer Sanchez MD [address] [place] [address] Health Maintenance Due Date Last Done Comments [...] Specific Antigen 7.20(H) <0.05 - 4.0 ng/mL [facility] Comment:PSA methodology: Erwin Sullivan i ChemiluminescentMicroparticle Immunoassay (CMIA) 07/02/2024 9:33 AM EST 07/02/2024 9:33 AM EST us Generic External Data Provider LAB BLOOD ORDERAB LES Final Result Performing Organization Address [facility] Co de Phone Number [facility] [address] [place] [address] [phone] * TSH with Reflex to Free T4 (06/09/2024 11:00 AM EST) TSH reflex Free T4 0.54 0.32 - 4.0 uIU/mL [facility] Blood 06/09/2024 11:0 0 AM EST 06/09/2024 11:05 AM EST us Jennifer Sanchez MD LAB BLOOD ORDERABLES Final Resul t Performing Organization Address City/[facility]/ZIP Co de Phone Number [facility] [address] [place] [phone] * (ABNORMAL) Lipid Panel with Reflex to Direct LDL (06/09/2024 11:00 AM EST) Triglycerides 68 <150 mg/dL [facility] Comment:Desirable Triglyceri de: less than 150 mg/dLBorderline High Triglyceride 150-199 mg/dLHigh Triglyceride: 200-499 mg/dLVery High Triglyceride: greater than or equal to 5OO mg/dL Cholesterol 175 <200 mg/dL [facility] Comment:Desirable Cholestero l: less than 200 mg/dLBorderline High Cholesterol: 200-239 mg/dLHigh Cholesterol: greater than 239 mg/dL LDL Cholesterol Calculated 111(H) <100 mg/dL [facility] Comment:Desirable LDL: less than 100 mg/dLNear Optimal/Above Optimal LDL: 110- 129 mg/dLBorderline High LDL: 130-159 mg/dLHigh LDL: 160-189 mg/dLVery High LDL: greater than or equal to 190 mg/dL HDL Cholesterol 51 >40 mg/dL [facility] Comment:Desirable HDL: great er than 40 mg/dL Note: This HDL assay may give artificially low results in patients with liver disease. Blood 06/09/2024 11:0 0 AM EST 06/09/2024 11:05 AM EST us Jennifer Sanchez MD LAB BLOOD ORDERABLES Final Resul t [facility] [address] [place] [phone] * Hemoglobin A1c (06/09/2024 11:00 AM EST) Hemoglobin A1c 6.0 <6.0 % [facility] Comment:Hemoglobin A1C Refer ence Range Adults: 4.8 - 6.0 % Non diabetic: < 6.0 % Goal: < 7.0 %Additional Action Suggested: > 8.0 %Note: Hemoglobin A1c results are invalid for patients with abnormal amounts of HbF. Blood transfusions may impact the HbA1c concentration in the patient sample. Estimated Average Glucose 126 mg/dL [facility] Comment:eAG = Estimated ave rage glucose which is %A1C expressed asaverage glucose, using the formula of the U2D-UobzycrXfequop Glucose study (ADAG), Diabetes Care, Vol.31,#8,Dec. 2007 Blood Venous blood specimen / Unknown 06/09/2024 11:00 AM EST 06/09/2024 11:05 AM EST us Jennifer Sanchez MD LAB BLOOD ORDERABLES Final Resul t [facility] [address] [place] [phone] [phone] * (ABNORMAL) Comprehensive Metabolic Panel (06/09/2024 11:00 AM EST) Sodium 140 135 - 145 mmol/L [facility] Potassium 4.0 3.3 - 5.1 mmol/L [facility] Chloride 111(H) 96 - 108 mmol/L [facility] Carbon Dioxide 25 22 - 29 mmol/L [facility] Anion Gap 8(L) 12 - 20 [facility] Urea Nitrogen (BUN) 13 9 - 16 mg/dL [facility] Creatinine, Serum 0.80 0.5 - 1.4 mg/dL [facility] Estimated Glomerular Filt Rate >60 [facility] Comment:Chronic Kidney Disea se: Estimated GFR < 60 mL/min/1.13i1Bdydee Kidney Disease: Estimated GFR < 15 mL/min/1.73m2 Glucose 97 60 - 115 mg/dL [facility] Calcium 9.5 8.4 - 10.2 mg/dL [facility] Bilirubin, Total 0.3 0.0 - 1.0 mg/dL [facility] Aspartate Amino Transferase 23 5 - 37 U/L [facility] Alanine Aminotransferase 27 0 - 40 U/L [facility] Total Protein 7.3 6.5 - 8.0 g/dL [facility] Albumin Level 4.2 3.5 - 5.0 g/dL [facility] Alkaline Phosphatase 58 39 - 117 U/L [facility] Blood Venous blood specimen / Unknown 06/09/2024 11:00 AM EST 06/09/2024 11:05 AM EST Jennifer Sanchez MD LAB BLOOD ORDERABLES Final Resul t Performing Organization Address [facility]/ZIP Co de Phone Number [facility] [address] [place] [phone] * Hm Colonoscopy (02/04/2020) Colonoscopy Normal Normal 02/04/2020 [facility] HEALTH MAINTENANCE Edited Result - Final * HEPATITIS C ANTIBODY RFLX (07/13/2019 10:35 AM EST) HEPATITIS C ANTIBODY NONREACTIVE NONREACTIVE [facility] Comment: Antibodies to HCV not detected; does not exclude early acute HCV infection. 07/13/2019 10:3 5 AM EST Jennifer Sanchez MD HISTORICAL/NON ORDERABLE LABS Fi nal Result Performing Organization Address City/[facility]/ZIP Co de Phone Number [facility] [address] [place] [address], from Last 3 Months or Most Recently Relevant to Health Maintenance Insurance [address] [place] [id number] [facility] MEDICARE Care Teams Water Pumping Station Engineer Relationship Specialty Start Date End Date Jennifer Sanchez MD [address] [place] [phone] PCP - General Family Medicine 12/03/13
[2024-08-06] MEDS: gadobutroL 10 ML VIAL IVPUSH (09:54)
== END 2024-08-06 08:37 | disposition home or self-care (01) ==
LOC: HO.MRI 08:36
PROVIDERS: PCP Family Medicine; Visit Provider Urology
DX: R97.20 Elevated prostate specific antigen [PSA] (principal)
CPT/HCPCS: 72197; A9585

== ENCOUNTER 2024-09-07 08:10 | Outpatient (AMB) | payer MEDICARE, MEDICAID, SELFPAY ==
[2024-09-07 08:16] VITALS: BP 128/80; PULSE 70; O2SAT 98; BMI 34.1
--- NOTE | 2024-09-07 08:16 | MHC.OFFVIS ---
Vital Signs 09/07/24 08:16 Height 5 ft 6 in Weight 211 lb BMI 34.1 BP 128/80 Blood Pressure Location Rt brachial Position Sitting Pulse 70 Pulse Source Pulse Oximeter Pulse Oximetry (%) 98 Oxygen Delivery Method Room Air Intake Visit Reasons: Lower Abdomen pain & Red blood rectum Intake Note: ESTABLISHED PATIENT for mgmt of chronic abd pain and rectal bleeding. Chief Complaint; C/O bloating, abd pain B/L LQ, rectal pain with episode of BRB per rectum, dysphagia also reported. Pt denies any heartburn/reflux but does report that certain foods give him problems. No additional sx or concerns at this time. Head Of Measurement & Insights Required: No Accompanied by: Self / Same As Patient Allergies ibuprofen Allergy (Unknown, Verified 09/07/24 08:16) Swelling tamsulosin Allergy (Unknown, Verified 09/07/24 08:16) low B/P HPI HPI Lower Abdomen pain & Red blood rectum: Details: LAST VISIT: Office Visit (Signed) - 07/21/24 14:49 Bright red blood per rectum Screen for colon cancer Plan Patient reports recent worsening shortness of breath. We will send him for evaluation before going for procedure. Patient reports previously bradycardia before going for his knee surgery in 2022. No presyncope or syncope. Shortness of breath happens with and without exertion. Patient does not know if he truly is constipated are not states that he is moving his bowels does not know if he feels like he empties them completely. He will call our office and pay closer attention to that. I will see patient in 3 months, sooner on as needed basis we will discuss going for procedure then. Patient denies any epigastric pain or discomfort. He is agreeable to this plan and verbalizes understanding of instructions. He was given the opportunity to ask questions and all questions answered. ? Thank you for allowing me to participate in his care Orders Referrals Cardiology Referral R00.1, R06.02, Z01.810 TODAY'S VISIT Patient is here today for requested visit. Patient reports that he has not paying more attention to his bowels and feels like he does not pay them completely. He reports that he goes, however after bowel movement he feels like he did not emptying his bowels well. Denies any melena, hematochezia. Does report occasional rectal burning and sometimes pain. Urge to go with bowel movement, however sometimes only gas. No cardiology appointment scheduled yet we will inquire about that and send patient over to make 1. Patient denies any nausea or vomiting. Denies any dyspepsia, dysphagia or odynophagia. [facility] Medical History Depression with anxiety Dyslipidemia Cognitive impairment Tremor High grade prostatic intraepithelial neoplasia Leukopenia Impaired fasting glucose Prostate cancer Elevated blood pressure reading in office with diagnosis of hypertension BPH loc w urin obs/LUTS Elevated PSA Surgical History Hx of right knee surgery History of surgery Social History Alcohol intake: current Patient Tobacco Use Status: Former Tobacco user Current occupational status: retired Current occupation: right hand dominant Review of Systems Const Denies weight gain and Denies weight loss ENT Reports no additional complaints, Denies dysphagia and Denies odynophagia Card Reports no additional complaints Resp Reports no additional complaints GI Denies abdominal pain, Denies belching, Denies melena, Reports bloating, Denies change in bowel habits, Reports constipation, Denies dysphagia, Denies excessive flatus, Denies dyspepsia, Denies heartburn, Denies diarrhea, Denies loose stools, Denies nausea, Denies odynophagia and Denies vomiting Reports no additional complaints Musc Reports no additional complaints Neuro Reports no additional complaints Psych Reports no additional complaints Endo Reports no additional complaints Physical Exam Vital Signs: Last Vital Signs Pulse 70 09/07/24 08:16 BP 128/80 09/07/24 08:16 Pulse Ox 98 09/07/24 08:16 Oxygen Delivery Method Room Air 09/07/24 08:16 BMI result Body Mass Index 34.1 Const General: healthy appearing, no acute distress and well developed Nutritional Appearance: well nourished Orientation/consciousness: patient oriented x3 Resp Effort & Inspection: normal respiratory effort, able to speak in complete sentences, no tracheal deviation and symmetric chest movement Auscultation: clear to auscultation bilaterally Cardio Rate: regular rate GI Inspection: Yes normal to inspection and No distended Palpation (GI): Soft to palpation, not firm, nontender and No hepatosplenomegaly present Auscultation: normal bowel sounds General: Yes no CVA tenderness Back/Spine/Pelvis Back: no CVA tenderness Skin General skin exam: elasticity normal, turgor normal and dry skin Neuro General: patient oriented x3 Psych Appearance: grossly normal Mental Status: mental status grossly normal Assessment & Plan Assessment & Plan (1) Bright red blood per rectum: Code(s): K62.5 - Hemorrhage of anus and rectum (2) Constipation: Code(s): K59.00 - Constipation, unspecified Qualifiers: Constipation type: slow transit constipation Qualified Code(s): K59.01 - Slow transit constipation (3) Hemorrhoid: Code(s): K64.9 - Unspecified hemorrhoids Qualifiers: Hemorrhoid type: unspecified Qualified Code(s): K64.9 - Unspecified hemorrhoids Plan Patient will increase fluid intake and activity to promote better bowel motility. Continue taking fiber. Patient will start taking senna daily. Sitz baths with Epsom salts recommended to help with rectal itch and discomfort. Patient may use Proctosol as needed. Follow-up in 3 months. Patient will be walked over to Cardiology to schedule appointment with them. Patient was told by his urologist that he will not have a procedure until he was cleared by the Cardiology Department. Patient is agreeable to current plan of care and verbalizes understanding of instructions. He was given the opportunity to ask questions and all questions answered. Thank you for allowing me to participate in his care Medications: New hydrocortisone 2.5% (Proctosol HC) 1 appl FL BID-QID PRN 30 grams 2RF hemorrhoids K64.9 - Unspecified hemorrhoids sennosides (Natural Senna Laxative) 17.2 mg (2 x 8.6 mg) PO BEDTIME 60 tabs 3RF constipation K59.00 - Constipation, unspecified Coding Level of Care Code Est Pt Level 3 (56646) Diagnoses Bright red blood per rectum K62.5 Slow transit constipation K59.01 Constipation type: slow transit constipation Hemorrhoids, unspecified hemorrhoid type K64.9 Hemorrhoid type: unspecified Time Spent (min) 25 Comment 15 minutes spent with patient and additional 10 minutes spent reviewing his records
--- OUTSIDE RECORDS SUMMARY | 2024-09-07 08:22 | XMS_ITS | Clinical Summary ---
Author Organization [employer] Address [address] [place] [address] Care Team Providers Care Raveler Name Role Phone Jennifer Sanchez MD Primary Care Provider [phone] Allergies Active Allergy Reactions Criticality Noted Date Comments Tamsulosin 03/15/2016 Other reaction(s): low blood pressure Medications cyclobenzaprin e (Flexeril) 10 MG tablet TAKE 1 TABLET BY MOUTH ONCE DAILY NEEDED FOR MUSCLE SPASMS 15 tablet 3 Active naproxen (Naprosyn) 500 MG tablet TAKE 1 TABLET BY MOUTH TWICE DAILY NEEDED MILD PAIN 40 tablet 1 3 Active Acetaminophen Extra Strength 500 MG tabletIndicati ons:COVID-19 Take 1,000 mg by mouth every 8 (eight) hours if needed (take 2 tablets q 8hrs as needed). 30 tablet 4 Active pravastatin (Pravachol) 20 MG tablet TAKE 1 TABLET BY MOUTH ONCE DAILY 90 tablet 3 4 Active cetirizine (ZyrTEC) 10 MG tablet Take 1 tablet (10 mg) by mouth Once per day. 90 tablet 3 4 03/23/20 25 Active LORazepam (Ativan) 0.5 MG tabletIndicati ons:Depression with anxiety TAKE 1 TABLET BY MOUTH EVERY DAY NEEDED 30 tablet 4 Active finasteride (Proscar) 5 MG tablet TAKE 1 TABLET BY MOUTH ONCE DAILY IN THE MORNING 90 tablet 1 5 Active doxazosin (Cardura) 4 MG tablet TAKE 1 TABLET BY MOUTH AT BEDTIME 90 tablet 5 Active finasteride (Proscar) 5 MG tablet TAKE 1 TABLET BY MOUTH ONCE DAILY IN THE MORNING 90 tablet 1 4 08/10/19 25 Discontinued doxazosin (Cardura) 4 MG tablet TAKE 1 TABLET BY MOUTH EVERY DAY AT BEDTIME 90 tablet 1 4 09/01/19 25 Discontinued Active Problems Problem Noted Date Diagnosed [...] will refer back to previous Urologist at [facility] Elevated PSA 10/03/2022 Assessment & Plan [...] daily. - he was referred back to [facility] urology; advised to call the office and ask about next appt Assessment & Plan (08/19/2023 5:23 PM EDT): - Seen by new Urologist, Dr. Baeza on 07/24/22. - s/p Prostate biopsy in Feb 2015-> High-grade PIN - s/p KARY volumetric and prostate Bx in October 2015 -> High-grade PIN - PSA 3.06 on 07/05/22 - continue Doxazosin 4mg daily. - continue Finasteride 5mg daily. - he was referred back to [facility] urology; advised to call the office and ask about next appt Assessment & Plan (05/02/2023 1:20 PM EST): - Seen by new UrologistDr. Baeza on 07/24/22. - s/p Prostate biopsy in Feb 2015-> High-grade PIN - s/p KARY volumetric and prostate Bx in October 2015 -> High-grade PIN - PSA 3.06 on 07/05/22 - continue Doxazosin 4mg daily. - continue Finasteride 5mg daily. - he was referred back to [facility] urology; advised to call the office and ask about next appt Assessment & Plan (10/09/2022 6:34 PM EDT): - Seen by new UrologistDr. Baeza on 07/24/22. - s/p Prostate [...] (06/13/2022 4:42 AM EST): - Seen by new Urologist, Dr. Baeza on 01/14/22. - s/p Prostate biopsy [...] to the emergency room, case presented to [facility] emergency room Encounters Date Type Department Care Team Description 09/03/2024 Patient Outreach [facility] [address] [place] [address] Jennifer Sanchez MD Pre-visit Planning (SDOH unable to reach LVM ) 08/31/2024 Refill [facility] [address] [place] [address] Jennifer Sanchez MD 08/08/2024 Refill [facility] [address] [place] [address] Jennifer Sanchez MD 08/06/2024 Orders Only [facility] External Provider, [facility] 07/30/2024 Population Health Risk Score [facility] ([facility]) Department [address] [place] [address] [phone] Provider, Population Health Generic 07/02/2024 Telephone [facility] [address] [place], [place] [phone] Purnima Michael [place] august recall 06/10/2024 Telephone [facility] [address] [place] [address] Jennifer Sanchez MD Results 06/09/2024 10:00 AM EST Immunization [facility] [address] [place], [place] [phone] Caterina Allen RN Encounter for immunization 06/09/2024 Travel from Last 3 Months Immunizations Name Administration [...] Description 09/16/2024 10:30 AM EDT Office Visit [facility] [address] [facility] [place] [address] Jennifer Sanchez MD [address] [facility] [place] [address] Health Maintenance Due Date Last Done Comments [...] Procedure Name Priority Date/Time Associated Diagnosis Comments MR PROSTATE W AND WO CONTRAST Routine 08/06/2024 9:00 AM EDT PSA, TOTAL Routine 07/02/2024 9:33 AM EST [...] Recently Relevant to Health Maintenance Results * MR Prostate w and w/o Contrast (08/06/2024 9:00 AM EDT) Anatomical Region Laterality Modality Magnetic Resonan ce 08/06/2024 9:00 AM EDT Narrative 08/06/2024 10:55 AM EDT ? [facility] ?[address] ?[place] [address] ? Magnetic Resonance Report ? Signed ? Patient: Houser,Akil ?MR#: [id number] ? : 1955 ?Acct:[id number] ? Age/Sex: 68 / M ?ADM Date: 03/21/25 ? Loc: HO.MRI ? Attending Dr: Mars Baeza MD ? Ordering Physician: Mars Baeza MD ?? Date of Service: 08/06/24 ?? Procedure(s): MR Prostate wo/w con ?? Accession Number(s): [id number] ? cc: Mars Baeza MD; Jennifer Sanchez MD ? EXAMINATION: ??MR PROSTATE WITHOUT THEN WITH IV CONTRAST ? HISTORY: ?? R97.20 - Elevated prostate specific antigen [PSA] ? TECHNIQUE: ?? 1.5T body coil survey of the pelvis was performed. Phase ?? array coil imaging of the prostate was performed in multiplanar high ?? resolution axial, coronal, sagittal fast spin echo T2 and axial T1 ?? weighted imaging sequences. Axial diffusion imaging at intermediate and ?? high field performed with ADC mapping. ??Next, 9 mL Gadavist was given ?? by intravenous infusion, and dynamic axial imaging performed. ? COMPARISON: There are no prior studies for comparison. ? CLINICAL DATA: ? Most recent PSA: ??7.20 ng/mL on 07/02/2024 ?? PSA Density: 0.11 ng/mL squared ? Prostate Biopsy: ??None reported, but the medical record describes a ?? history of high-grade prostatic intraepithelial neoplasia. ? FINDINGS: ?? Prostate size: 5.7 x 5.5 x 4.0 cm. Calculated prostate volume is 65.2 ?? mL. ? Hemorrhage: ??None. ? Transitional Zone: ? There is moderate heterogeneous nodular hypertrophy of the transitional ?? zone. ? Peripheral Zone: ?? There is an 11 mm area of interest in the left posteromedial peripheral ?? zone in the mid gland to apex (series 7, images 18-20 and series 9/10, ?? images 14-16) with imaging characteristics as follows: ? Lesion #1: ?? DWI PI-RADS v2.1 score: ??4 ?? T2 PI-RADS v2.1 score: ??4 ?? DCE PI-RADS v2.1 score: ??+ ?? Overall PI-RADS v2.1 score: ??4 ?? Capsular contact: ??None ?? Extracapsular extension: ??None ?? Seminal vesicle invasion: ??None ?? Neurovascular bundle involvement: ??None ? Seminal Vesicles/Ejaculatory Ducts: ??Symmetric and normal in signal and ?? caliber. ? Pelvic Lymph Nodes: ??No obturator or internal iliac lymph nodes meeting ?? size criteria for adenopathy. ? Marrow Signal: ??Normal marrow signal and enhancement without focal ?? lesion identified. ? MR/MR Prostate wo/w con ?? IMPRESSION: ?? Focus of abnormal signal intensity in the left posteromedial peripheral ?? zone in the mid gland to apex as described, highly suspicious for ?? clinically significant prostate carcinoma. ? PI-RADS 4: High (clinically significant cancer is likely to be present) ? PI-RADS Assessment Categories ?? PI-RADS 1: ??Very low (clinically significant cancer is highly unlikely ?? to be present) ?? PI-RADS 2: ??Low (clinically significant cancer is unlikely to be ?? present) ?? PI-RADS 3: ??Intermediate (the presence of clinically significant cancer ?? is equivocal) ?? PI-RADS 4: ??High (clinically significant cancer is likely to be present) ?? PI-RADS 5: ??Very high (clinically significant cancer is highly likely ?? to be present) ? [employer]. MR Prostate Imaging Reporting and Data ?? System version 2.1. http://www.acr.org/Quality-Safety/Resources/PIRADS/ ? Electronically signed by: ??Vern Alcocer MD ??08/06/2024 10:52 AM EDT ? Dictated By: ?Vern Alcocer MD ? Signed By: ?<Electronically signed by Vern Alcocer MD in OV> ?08/06/24 1052 ? DD/ 0900 ? TD/TT: 08/06/24 0936 ? Skein Mercerizing Machine Operator: ? Procedure Note Main Esp[facility] - 08/06/[address] [address] Magnetic Resonance Report Signed Patient: Andrew Houser AMR#: [id number] : 5Acct:[id number] Age/Sex: 68 / MADM Date: 08/06/24 Loc: HO.MRI Attending Dr: Mars Baeza MD Ordering Physician: Mars Baeza MD Date of Service: 08/06/24 Procedure(s): MR Prostate wo/w con Accession Number(s): [id number] cc: Mars Baeza MD; Jennifer Sanchez MD EXAMINATION: MR PROSTATE WITHOUT THEN WITH IV CONTRAST HISTORY: R97.20 - Elevated prostate specific antigen [PSA] TECHNIQUE: 1.5T body coil survey of the pelvis was performed. Phase array coil imaging of the prostate was performed in multiplanar high resolution axial, coronal, sagittal fast spin echo T2 and axial T1 weighted imaging sequences. Axial diffusion imaging at intermediate and high field performed with ADC mapping. Next, 9 mL Gadavist was given by intravenous infusion, and dynamic axial imaging performed. COMPARISON: There are no prior studies for comparison. CLINICAL DATA: Most recent PSA: 7.20 ng/mL on 07/02/2024 PSA Density: 0.11 ng/mL squared Prostate Biopsy: None reported, but the medical record describes a history of high-grade prostatic intraepithelial neoplasia. FINDINGS: Prostate size: 5.7 x 5.5 x 4.0 cm. Calculated prostate volume is 65.2 mL. Hemorrhage: None. Transitional Zone: There is moderate heterogeneous nodular hypertrophy of the transitional zone. Peripheral Zone: There is an 11 mm area of interest in the left posteromedial peripheral zone in the mid gland to apex (series 7, images 18-20 and series 9/10, images 14-16) with imaging characteristics as follows: Lesion #1: DWI PI-RADS v2.1 score: 4 T2 PI-RADS v2.1 score: 4 DCE PI-RADS v2.1 score: + Overall PI-RADS v2.1 score: 4 Capsular contact: None Extracapsular extension: None Seminal vesicle invasion: None Neurovascular bundle involvement: None Seminal Vesicles/Ejaculatory Ducts: Symmetric and normal in signal and caliber. Pelvic Lymph Nodes: No obturator or internal iliac lymph nodes meeting size criteria for adenopathy. Marrow Signal: Normal marrow signal and enhancement without focal lesion identified. MR/MR Prostate wo/w con IMPRESSION: Focus of abnormal signal intensity in the left posteromedial peripheral zone in the mid gland to apex as described, highly suspicious for clinically significant prostate carcinoma. PI-RADS 4: High (clinically significant cancer is likely to be present) PI-RADS Assessment Categories PI-RADS 1: Very low (clinically significant cancer is highly unlikely to be present) PI-RADS 2: Low (clinically significant cancer is unlikely to be present) PI-RADS 3: Intermediate (the presence of clinically significant cancer is equivocal) PI-RADS 4: High (clinically significant cancer is likely to be present) PI-RADS 5: Very high (clinically significant cancer is highly likely to be present) [employer]. MR Prostate Imaging Reporting and Data System version 2.1. http://www.acr.org/Quality-Safety/Resources/PIRADS/ Electronically signed by: Vern Alcocer MD 08/06/2024 10:52 AM EDT Dictated By: Vern Alcocer MD Signed By: <Electronically signed by Vern Alcocer MD in OV> 08/06/24 1052 DD/ 0900 TD/TT: 08/06/24 0936 Skein Mercerizing Machine Operator: [facility] External Provider IMG MRI PROCEDURES Final Result * (ABNORMAL) PSA,Total (07/02/2024 9:33 AM EST) Prostate Specific Antigen 7.20(H) <0.05 - 4.0 ng/mL [facility] Comment:PSA methodology: Erwin Sullivan i ChemiluminescentMicroparticle Immunoassay (CMIA) 07/02/2024 9:33 AM EST 07/02/2024 9:33 AM EST Generic External Data Provider LAB BLOOD ORDERAB LES Final Result [facility] [address] [place] [phone] * TSH with Reflex to Free T4 (06/09/2024 11:00 AM EST) TSH reflex Free T4 0.54 0.32 - 4.0 uIU/mL [facility] Blood 06/09/2024 11:0 0 AM EST 06/09/2024 11:05 AM EST us Jennifer Sanchez MD LAB BLOOD ORDERABLES Final Resul t Performing Organization Address [facility] Co de Phone Number [facility] [address] [place] [phone] * (ABNORMAL) Lipid Panel with Reflex to Direct LDL (06/09/2024 11:00 AM EST) Triglycerides 68 <150 mg/dL [facility] Comment:Desirable Triglyceri de: less than 150 mg/dLBorderline High Triglyceride 150-199 mg/dLHigh Triglyceride: 200-499 mg/dLVery High Triglyceride: greater than or equal to 5OO mg/dL Cholesterol 175 <200 mg/dL [facility] Comment:Desirable Cholestero l: less than 200 mg/dLBorderline High Cholesterol: 200-239 mg/dLHigh Cholesterol: greater than 239 mg/dL LDL Cholesterol Calculated 111(H) <100 mg/dL [facility] Comment:Desirable LDL: less than 100 mg/dLNear Optimal/Above Optimal LDL: 110- 129 mg/dLBorderline High LDL: 130-159 mg/dLHigh LDL: 160-189 mg/dLVery High LDL: greater than or equal to 190 mg/dL HDL Cholesterol 51 >40 mg/dL [facility] Comment:Desirable HDL: great er than 40 mg/dL Note: This HDL assay may give artificially low results in patients with liver disease. Blood 06/09/2024 11:0 0 AM EST 06/09/2024 11:05 AM EST us Jennifer Sanchez MD LAB BLOOD ORDERABLES Final Resul t Performing Organization Address [facility]/ZIP Co de Phone Number [facility] [address] [place] [address] [phone] * Hemoglobin A1c (06/09/2024 11:00 AM EST) Hemoglobin A1c 6.0 <6.0 % [facility] Comment:Hemoglobin A1C Refer ence Range Adults: 4.8 - 6.0 % Non diabetic: < 6.0 % Goal: < 7.0 %Additional Action Suggested: > 8.0 %Note: Hemoglobin A1c results are invalid for patients with abnormal amounts of HbF. Blood transfusions may impact the HbA1c concentration in the patient sample. Estimated Average Glucose 126 mg/dL [facility] Comment:eAG = Estimated ave rage glucose which is %A1C expressed asaverage glucose, using the formula of the T8Y-EfvxzmfOaqjwwo Glucose study (ADAG), Diabetes Care, Vol.31,#8,Dec. 2007 Blood Venous blood specimen / Unknown 06/09/2024 11:00 AM EST 06/09/2024 11:05 AM EST us Jennifer Sanchez MD LAB BLOOD ORDERABLES Final Resul t [facility] [address] [place] [address] [phone] * (ABNORMAL) Comprehensive Metabolic Panel (06/09/2024 11:00 AM EST) Sodium 140 135 - 145 mmol/L [facility] Potassium 4.0 3.3 - 5.1 mmol/L [facility] Chloride 111(H) 96 - 108 mmol/L [facility] Carbon Dioxide 25 22 - 29 mmol/L [facility] Anion Gap 8(L) 12 - 20 [facility] Urea Nitrogen (BUN) 13 9 - 16 mg/dL [facility] Creatinine, Serum 0.80 0.5 - 1.4 mg/dL [facility] Estimated Glomerular Filt Rate >60 [facility] Comment:Chronic Kidney Disea se: Estimated GFR < 60 mL/min/1.42s8Uwexry Kidney Disease: Estimated GFR < 15 mL/min/1.73m2 Glucose 97 60 - 115 mg/dL [facility] Calcium 9.5 8.4 - 10.2 mg/dL [facility] Bilirubin, Total 0.3 0.0 - 1.0 mg/dL [facility] Aspartate Amino Transferase 23 5 - 37 U/L [facility] Alanine Aminotransferase 27 0 - 40 U/L [facility] Total Protein 7.3 6.5 - 8.0 g/dL [facility] Albumin Level 4.2 3.5 - 5.0 g/dL [facility] Alkaline Phosphatase 58 39 - 117 U/L [facility] Blood Venous blood specimen / Unknown 06/09/2024 11:00 AM EST 06/09/2024 11:05 AM EST Jennifer Sanchez MD LAB BLOOD ORDERABLES Final Resul t Performing Organization Address [facility]/ZIP Co de Phone Number [facility] [address] [place] [address] [phone] * Hm Colonoscopy (02/04/2020) Colonoscopy Normal Normal 02/04/2020 [facility] HEALTH MAINTENANCE Edited Result - Final * HEPATITIS C ANTIBODY RFLX (07/13/2019 10:35 AM EST) HEPATITIS C ANTIBODY NONREACTIVE NONREACTIVE [facility] Comment: Antibodies to HCV not detected; does not exclude early acute HCV infection. 07/13/2019 10:3 5 AM EST Jennifer Sanchez MD HISTORICAL/NON ORDERABLE LABS Fi nal Result [facility] [address] from Last 3 Months or Most Recently Relevant to Health Maintenance Insurance [address] [place] [id number] [facility] Care Teams Raveler Relationship Specialty Start Date End Date Jennifer Sanchez MD [address] [place] [phone] PCP - General Family Medicine 12/03/13
--- OUTSIDE RECORDS SUMMARY | 2024-09-07 08:22 | XMS_ITS | Encounter Summary ---
Author Organization [employer] Address [address] [place] [address] Care Team Providers Care Artistic Associate Name Role Phone Jennifer Sanchez MD Primary Care Provider [phone] Reason for Visit * Reason Comments Pre-visit Planning SDOH unable to reach LVM Encounter Details Date Type Department Care Team (Late st Contact Info) Description 09/03/2024 Patient Outreach [facility] [address] [place], [place] [phone] Jennifer Sanchez MD [address] [place], [place] [phone] Pre-visit Planning (SDOH unable to reach LVM ) Social History Tobacco Use Types Packs/Day Years Used Date Smoking Tobacco: Never Passive Smoke Exposure: Never Smokeless Tobacco: Never Alcohol Use Standard Drinks/Week Comments Never 0 (1 standard drink = 0.6 oz pur e alcohol) Depression Answer Date Recorded Patient Health Questionnaire-9 Score 0 06/13/2022 Housing Stability Answer Date Recorded What is your housing situation today? I have lkoi ruth 03/24/[address] you [...] as of this encounter Progress Notes * Neli Dias - 09/03/2024 2:48 PM EDT CC Neli Arrieta placed outbound call to patient to complete pre-visit planning. No answer at this time. Patient name and were not confirmed. CC left voicemail requesting return call. Direct contactinformation provided. documented in this encounter Plan of Treatment Upcoming Encounters Date Type Department Care Team (Late st Contact Info) Description 09/16/2024 10:30 AM EDT Office Visit [facility] [address] [place] [phone] Jennifer Sanchez MD [address] [place] [address] documented as of this encounter Visit Diagnoses Not on filedocumented in this encounter Additional Health Concerns Assessment Noted Time PHQ-9 Depression Total Score: 0 06/13/19 23 9:11 AM EST documented as of this encounter Care Teams Artistic Associate Relationship Specialty Start Date End Date Jennifer Sanchez MD [address] [place] [phone] PCP - General Family Medicine 12/03/13 documented as of this encounter
== END 2024-09-07 08:44 | disposition home or self-care (01) ==
LOC: HO.HGI 08:11
PROVIDERS: PCP Family Medicine; Visit Provider Nurse Practitioner Family
DX: K62.5 Hemorrhage of anus and rectum (principal); K59.01 Slow transit constipation; K64.9 Unspecified hemorrhoids
CPT/HCPCS: 99213

== ENCOUNTER → 2024-09-07 08:10 | Outpatient (BNVA) | payer MEDICARE, MEDICAID, SELFPAY | PROVIDERS: PCP Family Medicine; Visit Provider Nurse Practitioner Family | DX: K62.5 Hemorrhage of anus and rectum (principal); K64.9 Unspecified hemorrhoids; K59.01 Slow transit constipation | CPT/HCPCS: 99212 ==

== ENCOUNTER 2024-09-20 14:07 | Outpatient (AMB) | payer MEDICARE, MEDICAID, SELFPAY ==
[2024-09-20 14:22] VITALS: BP 120/72; PULSE 81; BMI 33.3
--- NOTE | 2024-09-20 14:22 | MHC.OFFVIS ---
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 Setup Operator Required: No Allergies ibuprofen Allergy (Unknown, Verified 09/20/24 14:24) Swelling tamsulosin Allergy (Unknown, Verified 09/20/24 14:24) low B/P Medication List - Last Reconciled 09/20/24 by ALEXANDR IslasC doxazosin 4 mg PO BEDTIME 30 days finasteride 5 mg PO DAILY 90 days hydrocortisone 2.5% (Proctosol HC) 1 appl NJ BID-QID PRN lorazepam 0.5 mg PO DAILY PRN pravastatin 20 mg PO DAILY sennosides (Natural Senna Laxative) 17.2 mg (2 x 8.6 mg) PO BEDTIME HPI HPI 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 He is now in need of colonoscopy and was referred to cardiology for preop clearance. Today he presents for cardiology consultation. He has not had any prior cardiac evaluation. He tells me on the day of his orthopedic surgery that they almost canceled the surgery because they said his heart rate was slow. They monitored it for awhile and were able to proceed. He has never had any known heart problems otherwise. He has no chest discomfort at rest or with activity. He denies any shortness of breath, PND, orthopnea or edema. He has no heart palpitations, lightheadedness, presyncope, syncope, falls. He reports good activity tolerance. He smokes marijuana on the weekends. He has social alcohol user. He does not smoke tobacco. He believes his cholesterol is mildly elevated. His paternal aunt had an NH in her 40s. Otherwise no family history of heart disease. He reports longevity in his family with several members reaching over 100 years. [facility] Medical History (Updated 09/20/24 @ 14:57 by Stacy Ayers, [employer]PARER-[employer]) Depression with anxiety Dyslipidemia Cognitive impairment Tremor High grade prostatic intraepithelial neoplasia Leukopenia Impaired fasting glucose Prostate cancer Elevated blood pressure reading in office with diagnosis of hypertension BPH loc w urin obs/LUTS Elevated PSA Surgical History Hx of right knee surgery History of surgery Social History Alcohol intake: current Patient Tobacco Use Status: Former Tobacco user Current occupational status: retired Current occupation: right hand dominant Review of Systems Const All systems reviewed & are unremarkable except as noted in HPI and below ENT Denies dizziness Card Details: slow heart at time of knee surgery Denies chest pain, Denies chest pain at rest, Denies chest pain with activity, Denies rapid heart rate, Denies pedal edema, Denies edema, Denies leg edema, Denies lightheadedness, Denies palpitations, Denies dyspnea, Denies dyspnea on exertion and Denies orthopnea Resp Denies cough, Denies dyspnea and Denies dyspnea on exertion GI Denies hematochezia and Denies change in stool character Musc Denies abnormal gait, Denies limited range of motion, Denies muscle cramps, Denies muscle weakness, Denies numbness, Denies radiating pain into limb, Denies stiffness and Denies tingling Neuro Denies abnormal gait, Denies dizziness, Denies numbness and Denies tingling Endo Denies palpitations Physical Exam Vital Signs: Last Vital Signs Pulse 81 09/20/24 14:22 BP 120/72 09/20/24 14:22 BMI result Body Mass Index 33.3 Const General: cooperative, healthy appearing, comfortable and no acute distress Orientation/consciousness: patient oriented x3 Neck Neck: Yes normal visual inspection and Yes no JVD Resp Effort & Inspection: normal respiratory effort Auscultation: clear to auscultation bilaterally, no rales, no rhonchi and no wheezes Cardio Rate: regular rate Rhythm: regular rhythm Heart sounds: S1 normal heart sound present, S2 normal heart sound present, no gallops, no murmurs and no rubs Neuro General: patient oriented x3 Extrem General: Yes normal to inspection, No no pedal edema and No calf tenderness Psych Appearance: grossly normal Mental Status: mental status grossly normal Speech and movement: Normal speech and movement present Office Procedures EKG Details: Today, read by me, normal sinus rhythm, rate 81, Qtc 408ms [id number], Complete Assessment & Plan Assessment & Plan (1) Sinus bradycardia: Code(s): R00.1 - Bradycardia, unspecified Category: Medical Plan: Sinus bradycardia noted prior to orthopedic surgery 04/2023. He has no history of presyncope, syncope and reports good activity tolerance. EKG done today shows normal sinus rhythm, normal NJ, QRS and QTC intervals, rate 81. Will check Holter monitor to assess average heart rates and for any significant bradycardia or pauses. Will check echocardiogram to assess for any structural heart disease. (2) Preop cardiovascular exam: Code(s): Z01.810 - Encounter for preprocedural cardiovascular examination Category: Medical Plan: Preop for colonoscopy. Holter and echocardiogram ordered. This note will be updated once results are available. Plan Time spent on chart review, documentation, interview and assessment Orders: Orders ECG 3 day holter monitor Today R00.1 - Bradycardia, unspecified, Z01.810 - Encounter for preprocedural cardiovascular examination CA echo transthoracic complete Today R00.1 - Bradycardia, unspecified, Z01.810 - Encounter for preprocedural cardiovascular examination Coding Level of Care Code New Pt Level 4 (40575) Complex EM visit Add On G2211 Diagnoses Sinus bradycardia R00.1 Preop cardiovascular exam Z01.810 CPT Codes EKG - CPT: 96131-[id number], Complete ([id number]) Time Spent (min) 30
--- OUTSIDE RECORDS SUMMARY | 2024-09-20 15:41 | XMS_ITS | Clinical Summary ---
Author Organization [employer] Address [address] [facility] [address] [place] [address] Care Team Providers Care Management Coordinator Name Role Phone Jennifer Sanchez MD Primary Care Provider [phone] Allergies Active Allergy Reactions Criticality Noted Date Comments Tamsulosin 03/15/2016 Other reaction(s): low blood pressure Medications cyclobenzaprin e (Flexeril) 10 MG tablet TAKE 1 TABLET BY MOUTH ONCE DAILY NEEDED FOR MUSCLE SPASMS 15 tablet 01/08/20 23 Active naproxen (Naprosyn) 500 MG tablet TAKE 1 TABLET BY MOUTH TWICE DAILY NEEDED MILD PAIN 40 tablet 1 04/03/20 23 Active Acetaminophen Extra Strength 500 MG tabletIndicati ons:COVID-19 Take 1,000 mg by mouth every 8 (eight) hours if needed (take 2 tablets q 8hrs as needed). 30 tablet 02/04/20 24 Active cetirizine (ZyrTEC) 10 MG tablet Take 1 tablet (10 mg) by mouth Once per day. 90 tablet 3 03/23/20 24 025 Active LORazepam (Ativan) 0.5 MG tabletIndicati ons:Depression with anxiety TAKE 1 TABLET BY MOUTH EVERY DAY NEEDED 30 tablet 05/17/20 24 Active finasteride (Proscar) 5 MG tablet TAKE 1 TABLET BY MOUTH ONCE DAILY IN THE MORNING 90 tablet 1 08/10/19 25 Active doxazosin (Cardura) 4 MG tablet TAKE 1 TABLET BY MOUTH AT BEDTIME 90 tablet 09/01/19 25 Active pravastatin (Pravachol) 40 MG tablet Take 1 tablet (40 mg) by mouth Once per day. 90 tablet 3 09/17/19 Active doxazosin (Cardura) 4 MG tablet TAKE 1 TABLET BY MOUTH EVERY DAY AT BEDTIME 90 tablet 1 02/12/20 24 025 Discontinued pravastatin (Pravachol) 20 MG tablet TAKE 1 TABLET BY MOUTH ONCE DAILY 90 tablet 3 03/11/20 24 025 Discontinued(Re order (will not trigger notification to Pharmacy)) Active Problems Problem Noted Date Diagnosed Date Health care maintenance 09/15/2024 Assessment & Plan (09/15/2024 5:24 PM EDT): - physical exam on 09/16/24 - cancer screening: --Colonoscopy --Prostate: Dx prostate cancer -IZ up to date -Bone health: continue weight-bearing exercise Sensorineural hearing loss (SNHL) of both ears 1 05/28/2023 Allergic rhinitis 03/28/2024 Assessment & Plan (09/17/2024 1:50 AM EDT): - start cetirizine - consider adding nasal spray Assessment & Plan (03/28/2024 7:07 PM EST): - start cetirizine - consider adding nasal spray Enlarged prostate 02/20/2024 Assessment & Plan (03/13/2024 9:25 AM EDT): Referral to urology Bright red blood per rectum 02/19/2024 Assessment & Plan (09/19/2024 10:21 PM EDT): Following with [facility], last seen on 09/07/24. Dx hemorrhoids. Rx hydrocortisone suppository and senna. Having preop by chain machine operator prior to scheduling colonoscopy Assessment & Plan (03/13/2024 9:25 AM EDT): Referral to GI Asymptomatic, trend cbc Avoid nsaids Encouraged fiber and hydration Duodenal diverticulum 02/17/2024 Tear of medial meniscus of right knee 02/17/2024 Assessment & Plan (09/17/2024 1:48 AM EDT): - s/p arthroscopic repair in Apr 2023 Assessment & Plan (03/28/2024 7:12 PM EST): - s/p arthroscopic repair in Apr 2023 Right knee pain 04/15/2023 Assessment & Plan (09/17/2024 1:48 AM EDT): - tear of posterior horn of medial and lateral menisci - upcoming knee surgery - follow recommendation per ortho Assessment & Plan (05/02/2023 1:22 PM EST): [...] will refer back to previous Urologist at [facility] Elevated PSA 10/03/2022 Assessment & Plan (05/02/2023 1:20 PM EST): - 07/05/22 PSA 3.06 Assessment & Plan (10/09/2022 6:35 PM EDT): - 07/05/22 PSA 3.06 Essential hypertension 06/13/2022 Assessment & Plan (09/17/2024 1:47 AM EDT): -Goal BP < 150/90 per JNC-8 and < 130 per ACC/AHA guideline (Treatment threshold >= 130/80) -Treatment Hx: previously on tamsulosin for BPH, which caused hypotension and was switched to doxazosin only -Continue working on lifestyle modifications -Continue Doxazosin 4 mg daily -Follow up in 3-6 mo, sooner if any problem arises Assessment & Plan (03/28/2024 7:10 PM EST): [...] arises Gait instability 06/13/2022 Assessment & Plan (09/17/2024 1:50 AM EDT): Pt reports he did not receive walker in February 2022 or August 2022. -Will Rx Walker with wheels + seat again Assessment & Plan (10/03/2022 1:11 PM EDT): Pt reports he did not receive walker in February 2022 or August 2022. -Will Rx Walker with wheels + seat again Assessment & Plan (06/13/2022 9:38 AM EST): Pt reports he did not receive walker in February 2022. -Will Rx Walker with wheels + seat again Mild cognitive disorder 03/21/2016 Tremor 03/21/2016 Assessment & Plan (09/17/2024 1:49 AM EDT): -Possibly due to his anxiety and chronic dependence of Ativan. -labs on 09/20/21 - TSH 1.07 [nml] -Characteristics of tremor is not classified for Parkingsons Disease -Will monitor at this time Assessment & Plan (06/13/2022 4:43 AM EST): -Possibly due to his anxiety and chronic dependence of Ativan. -labs on 09/20/21 - TSH 1.07 [nml] -Characteristics of tremor is not classified for Parkingsons Disease -Will monitor at this time Dyslipidemia 12/26/2015 Assessment & Plan (09/19/2024 10:22 PM EDT): - current medication: pravastatin 20 mg at bedtime, increase to 40 mg qhs - last lipid profile: 06/09/2024 TRIG 68; CHOL 175; LDL 111; HDL 51 - continue working on lifestyle modification - consider intensifying treatment Assessment & Plan (03/28/2024 7:14 PM EST): [...] intraepithelial neoplasia 0 07/04/2015 Assessment & Plan (09/19/2024 10:20 PM EDT): - Currently following with [facility]rologist, Dr. Baeza, last seen on 06/08/24 - Previously following with [facility] - s/p Prostate biopsy in Feb 2015-> High-grade PIN - s/p KARY volumetric and prostate Bx in October 2015 -> High-grade PIN - continue Doxazosin 4mg daily. - continue Finasteride 5mg daily. - having pre-op evaluation by chain machine operator for both colonoscopy and urology procedure Assessment & Plan (03/28/2024 7:10 PM EST): - Seen by new Urologist, Dr. Baeza on 07/24/22. - s/p Prostate biopsy in Feb 2015-> High-grade PIN - s/p KARY volumetric and prostate Bx in October 2015 -> High-grade PIN - PSA 3.06 on 07/05/22 - continue Doxazosin 4mg daily. - continue Finasteride 5mg daily. - he was referred back to [facility] urology; advised to call the office and ask about next appt Assessment & Plan (08/19/2023 5:23 PM EDT): - Seen by new UrologistDr. Baeza on 07/24/22. - s/p Prostate biopsy in Feb 2015-> High-grade PIN - s/p KARY volumetric and prostate Bx in October 2015 -> High-grade PIN - PSA 3.06 on 07/05/22 - continue Doxazosin 4mg daily. - continue Finasteride 5mg daily. - he was referred back to [facility] urology; advised to call the office and ask about next appt Assessment & Plan (05/02/2023 1:20 PM EST): - Seen by new Urologist, Dr. Baeza on 07/24/22. - s/p Prostate biopsy in Feb 2015-> High-grade PIN - s/p KARY volumetric and prostate Bx in October 2015 -> High-grade PIN - PSA 3.06 on 07/05/22 - continue Doxazosin 4mg daily. - continue Finasteride 5mg daily. - he was referred back to [facility] urology; advised to call the office and ask about next appt Assessment & Plan (10/09/2022 6:34 PM EDT): - Seen by new Urologist, [...] Depression with anxiety 07/04/2015 Assessment & Plan (09/17/2024 1:49 AM EDT): -continue judicious use of Lorazepam. Assessment & Plan (03/28/2024 7:14 PM EST): -continue judicious use of Lorazepam. Assessment & Plan (05/02/2023 1:23 PM EST): -continue judicious use of Lorazepam. -continue Trazadone. Assessment & Plan (06/13/2022 4:44 AM EST): -continue judicious use of Lorazepam. -continue Trazadone. Chronic low back pain 12/15/2014 Assessment & Plan (09/17/2024 1:48 AM EDT): -MRI in 06/2015 showed Lumbar Spinal Stenosis w/ nerve impengment. -Pt is currently taking Naprosyn and Tylenol, as needed -Pt is also Rx Flexeril -Cont judicious use of medications -Rx walker with wheels + seat Assessment & Plan (03/28/2024 7:14 PM EST): [...] medications -Rx walker with wheels + seat Prediabetes 08/12/2012 Assessment & Plan (09/19/2024 10:23 PM EDT): A1C 6.0% in 06/09/2024 Continue working on life modifications Consider starting metformin Assessment & Plan (03/28/2024 7:13 PM EST): A1C 5.7% in August 2023 Continue working on life modifications Assessment & Plan (08/19/2023 5:24 PM EDT): 10/03/22 A1C 5.8% Continue working on life modifications Assessment & Plan (05/02/2023 1:24 PM EST): 10/03/22 A1C 5.8% Continue working on life modifications Assessment & Plan (10/03/2022 1:09 PM EDT): Continue working on life modifications Resolved Problems Problem Noted Date Diagnosed Date [...] to the emergency room, case presented to [facility] emergency room Leukopenia 08/12/2012 09/15/2024 Encounters Date Type Department Care Team Description 09/16/2024 10:30 AM EDT Office Visit [facility] [address] [place] [phone] Jennifer Sanchez MD Health care maintenance (Primary Dx); Sensorineural hearing loss (SNHL) of both ears; Mild cognitive disorder; Essential hypertension; Bright red blood per rectum; Duodenal diverticulum; High grade prostatic intraepithelial neoplasia; Tear of medial meniscus of right knee, unspecified tear type, unspecified whether old or current tear, sequela; Chronic pain of right knee; Prediabetes; Allergic rhinitis, unspecified seasonality, unspecified trigger; Chronic low back pain, unspecified back pain laterality, unspecified whether sciatica present; Depression with anxiety; Dyslipidemia; Gait instability; Tremor; Anemia, unspecified type; Impacted cerumen of left ear; Dietary counseling; Exercise counseling; Class 1 obesity due to excess calories with serious comorbidity and body mass index (BMI) of 31.0 to 31.9 in adult; Poor vision 09/16/2024 Travel 09/14/2024 Telephone [facility] [address] [place] [address] Jacquelyn Lang MA CHART PREP 09/03/2024 Patient Outreach [facility] [address] [place] [address] Jennifer Sanchez MD Pre-visit Planning (SDOH unable to reach LVM ) 08/31/2024 Refill [facility] [address] [place], [place] [phone] Jennifer Sanchez MD 08/08/2024 Refill [facility] [address] [place] [address] Jennifre Sanchez MD 08/06/2024 Orders Only [facility] External Provider, [facility] 07/30/2024 Population Health Risk Score Community [facility] () Department [address] [place] [phone] Provider, Population Health Generic 07/02/2024 Telephone [facility] [address] [place], [place] [phone] Purnima Michael [place] august recall from Last 3 Months Immunizations Name Administration [...] Date Recorded Patient Health Questionnaire-9 Score 0 09/16/2024 Patient Health Questionnaire-9 Score 0 09/16/2024 Last PHQ-9: Questionnaire Data Not on file 0 09/16/2024 Housing Stability Answer Date Recorded What is your housing situation today? I have loki ruth 09/16/[address] you li ve. Do you have problems with any of the following? None of the above 09/16/2024 Food Insecurity Answer Date Recorded Within the past 12 months, y ou worried that your food would run out before you got money to buy more: Never True 09/16/2024 Within the past 12 months,th e food you bought just didn't last and you didn't have enough money to get more: Never True 05/2024 Transportation Answer Date Recorded In the past 12 months, has l ack of transportation kept you from medical appts, meetings, work or from getting things needed for daily living? No 09/16/2024 Utilities Answer Date Recorded In the past 12 months, has t he electric, gas, oil or water company threatened to shut off services in your home? No 09/16/2024 Depression Answer Date Recorded Patient Health Questionnaire-2 Score 0 09/16/2024 Internet Access Answer Date Recorded Internet Access Q1 Yes 09/16/2024 Internet Access Q2 Not on file 09/16/2024 Sex and Gender Information Value Date Recorded Sex Assigned at Male 03/18/2022 10:15 AM EDT Legal Sex Male 10:15 AM EDT Gender Identity Male 03/18/2022 10:15 AM EDT Sexual Orientation Choose not to disclose 2021 10:15 AM EDT Last Filed Vital Signs Vital Sign Reading Time Taken Comments Blood Pressure 124/79 09/16/2024 10:26 AM EDT Pulse 76 09/16/2024 10:26 AM EDT Temperature 35.9 ??C (96.6 ??F) 09/16/2024 10:26 AM E DT Respiratory Rate 17 09/16/2024 10:26 AM EDT Oxygen Saturation 98% 09/16/2024 10:26 AM EDT Inhaled Oxygen Concentration - - Weight 95.4 kg (210 lb 6.4 oz) 09/16/2024 10:26 AM EDT Height 172.7 cm (5' 8 ) 09/16/2024 10:26 AM EDT Body Mass Index 31.99 09/16/2024 10:26 AM EDT Plan of Treatment Health Maintenance Due Date Last Done Comments CT Colonography 1955 FIT DNA/Cologuard 1955 FIT 1955 FOBT 1955 Sigmoidoscopy 1955 Colonoscopy 02/03/2025 02/04/2020 Colorectal Cancer Screening 02/03/2025 Diabetes: Hemoglobin A1C 06/09/2025 025, 08/20/2023, 10/03/2022, Additional history exists Alcohol/Substance Use Screening 09/16/2025 09/16/2024 Depression Screening 09/16/2025 09/16/2024, 09/17/19 25 SDOH Screening 09/16/2025 09/16/2024 Tobacco Screening 09/19/2025 09/19/2024 Lipid Panel 06/09/2029 06/09/2024, 04/0 07/2023, 10/03/2022, [...] Procedure Name Priority Date/Time Associated Diagnosis Comments ID REMOVAL IMPACTED CERUMEN INSTRUMENTATION UNILAT Routine 09/16/2024 11:22 AM EDT Impacted cerumen of left ear MR PROSTATE W AND WO CONTRAST Routine 08/06/2024 9:00 AM EDT PSA, TOTAL Routine 07/02/2024 9:33 AM EST HEMOGLOBIN A1C Routine 06/09/2024 11:00 AM EST Impaired fasting glucose LIPID PANEL WITH REFLEX TO DIRECT LDL Routine 06/09/2024 11:00 AM EST Dyslipidemia HM COLONOSCOPY Routine 02/04/2020 ZZZ HISTORICAL HEPATITIS C ANTIBODY RFLX Routine 07/13/2019 10:35 AM EST from Last 3 Months or Most Recently Relevant to Health Maintenance Results * ID REMOVAL IMPACTED CERUMEN INSTRUMENTATION UNILAT (09/16/2024 11:22 AM EDT) Narrative Jennifer Sanchez MD - 09/16/2024 11:22 AM EDT Jennifer Sanchez MD ? 09/19/2024 10:27 PM Ear Cerumen Removal Date/Time: 09/16/2024 11:22 AM Performed by: Fany Winters RN Authorized by: Jennifer Sanchez MD ?? Consent: ??Consent obtained: ??Verbal ??Consent given by: ??Patient ??Risks, benefits, and alternatives were discussed: yes ?Risks discussed: ??Pain, dizziness and incomplete removal ??Alternatives discussed: ??No treatment Procedure details: ??Location: ??L ear ??Procedure type: curette ?Procedure outcomes: cerumen removed ?? Post-procedure details: ??Inspection: ??Some cerumen remaining and TM intact ??Hearing quality: ??Normal ??Procedure completion: ??Tolerated well, no immediate complications us Jennifer Sanchez MD IN CLINIC/BEDSIDE ORDERABLES Fin al Result * MR Prostate w and w/o Contrast (08/06/2024 9:00 AM EDT) Anatomical Region Laterality Modality Magnetic Resonan ce 08/06/2024 9:00 AM EDT Narrative 08/06/2024 10:55 AM EDT ? [facility] ?[address] ?[place] [address] ? Magnetic Resonance Report ? Signed ? Patient: Andrew Houser ?MR#: [id number] ? : 1955 ?Acct:[id number] ? Age/Sex: 68 / M ?ADM Date: 08/06/24 ? Loc: HO.MRI ? Attending Dr: Mars Baeza MD ? Ordering Physician: Mars Baeza MD ?? Date of Service: 08/06/24 ?? Procedure(s): MR Prostate wo/w con ?? Accession Number(s): [id number] ? cc: Mars Baeza MD; Jennifer Sanchez [...] highly likely ?? to be present) ? [employer]. MR Prostate Imaging Reporting and Data ?? System version 2.1. http://www.acr.org/Quality-Safety/Resources/PIRADS/ ? Electronically signed by: ??Vern Alcocer MD ??08/06/2024 10:52 AM EDT ? Dictated By: ?Vern Alcocer MD ? Signed By: ?<Electronically signed by Vern Alcocer MD in OV> ?08/06/24 1052 ? DD/ 0900 ? TD/TT: 08/06/24 0936 ? Deep Fryer Assembler: ? Procedure Note Main Espinal - 08/06/2024 [place] [address] Magnetic Resonance Report Signed Patient: Andrew Houser [facility]#: [id number] : 5Acct:[id number] Age/Sex: 68 / MADM Date: 08/06/24 Loc: .MRI Attending Dr: Mars Baeza MD Ordering Physician: Mars Baeza MD Date of Service: 08/06/24 Procedure(s): MR Prostate wo/w con Accession Number(s): [id number] cc: Mars Baeza MD; Jennifer Sanchez MD [...] cancer is highly likely to be present) [employer]. MR Prostate Imaging Reporting and Data System version 2.1. http://www.acr.org/Quality-Safety/Resources/PIRADS/ Electronically signed by: Vern Alcocer MD 08/06/2024 10:52 AM EDT Dictated By: Vern Alcocer MD Signed By: <Electronically signed by Vern Alcocer MD in OV> 08/06/24 1052 DD/ 0900 TD/TT: 08/06/24 0936 Deep Fryer Assembler: us [facility] External Provider IMG MRI PROCEDURES Final Result * (ABNORMAL) PSA,Total (07/02/2024 9:33 AM EST) Prostate Specific Antigen 7.20(H) <0.05 - 4.0 ng/mL [facility] Comment:PSA methodology: Erwin joe Alirubity i ChemiluminescentMicroparticle Immunoassay (CMIA) 07/02/2024 9:33 AM EST 07/02/2024 9:33 AM EST Generic External Data Provider LAB BLOOD ORDERAB LES Final Result [facility] [address] [place] [phone] * (ABNORMAL) Lipid Panel with Reflex to Direct LDL (06/09/2024 11:00 AM EST) Triglycerides 68 <150 mg/dL [facility] Comment:Desirable Triglyceri de: less than 150 mg/dLBorderline High Triglyceride 150-199 mg/dLHigh Triglyceride: 200-499 mg/dLVery High Triglyceride: greater than or equal to 5OO mg/dL Cholesterol 175 <200 mg/dL [facility] Comment:Desirable Cholestero l: less than 200 mg/dLBorderline High Cholesterol: 200-239 mg/dLHigh Cholesterol: greater than 239 mg/dL LDL Cholesterol Calculated 111(H) <100 mg/dL [facility] Comment:Desirable LDL: less than 100 mg/dLNear Optimal/Above Optimal LDL: 110- 129 mg/dLBorderline High LDL: 130-159 mg/dLHigh LDL: 160-189 mg/dLVery High LDL: greater than or equal to 190 mg/dL HDL Cholesterol 51 >40 mg/dL [facility] Comment:Desirable HDL: great er than 40 mg/dL Note: This HDL assay may give artificially low results in patients with liver disease. Blood 06/09/2024 11:0 0 AM EST 06/09/2024 11:05 AM EST Jennifer Sanchez MD LAB BLOOD ORDERABLES Final Resul t Performing Organization Address [facility] de Phone Number [facility] [address] [place] [phone] * Hemoglobin A1c (06/09/2024 11:00 AM EST) Hemoglobin A1c 6.0 <6.0 % [facility] Comment:Hemoglobin A1C Refer ence Range Adults: 4.8 - 6.0 % Non diabetic: < 6.0 % Goal: < 7.0 %Additional Action Suggested: > 8.0 %Note: Hemoglobin A1c results are invalid for patients with abnormal amounts of HbF. Blood transfusions may impact the HbA1c concentration in the patient sample. Estimated Average Glucose 126 mg/dL [facility] Comment:eAG = Estimated ave rage glucose which is %A1C expressed asaverage glucose, using the formula of the [id number] Glucose study (ADAG), Diabetes Care, Vol.31,#8,Dec. 2007 Blood Venous blood specimen / Unknown 06/09/2024 11:00 AM EST 06/09/2024 11:05 AM EST Jennifer Sanchez MD LAB BLOOD ORDERABLES Final Resul t Performing Organization Address [facility] Co de Phone Number [facility] [address] [place] [phone] * Hm Colonoscopy (02/04/2020) Colonoscopy Normal Normal 02/04/2020 [facility] HEALTH MAINTENANCE Edited Result - Final * HEPATITIS C ANTIBODY RFLX (07/13/2019 10:35 AM EST) HEPATITIS C ANTIBODY NONREACTIVE NONREACTIVE [facility] Comment: Antibodies to HCV not detected; does not exclude early acute HCV infection. 07/13/2019 10:3 5 AM EST us Jennifer Sanchez MD HISTORICAL/NON ORDERABLE LABS Fi nal Result [facility] [address] from Last 3 Months or Most Recently Relevant to Health Maintenance Insurance [facility] [place] [address] [phone] Care Teams Management Coordinator Relationship Specialty Start Date End Date Jennifer Sanchez MD [address] [place] [address] PCP - General Family Medicine 12/03/13
--- OUTSIDE RECORDS SUMMARY | 2024-09-20 15:41 | XMS_ITS | Encounter Summary ---
Author Organization [employer] Address [address] [facility] [place] [address] Care Team Providers Care Topography Technician Name Role Phone Jennifer Sanchez MD Primary Care Provider [phone] Encounter Details Date Type Department Care Team (Latest Contact Info) Description 09/16/2024 Travel Social History Tobacco Use Types Packs/Day [...] Noted Time PHQ-9 Depression Total Score: 0 09/17/19 25 10:25 AM EDT documented as of this encounter Care Teams Topography Technician Relationship Specialty Start Date End Date Jennifer Sanchez MD [address] [place] [address] PCP - General Family Medicine 12/03/13 documented as of this encounter
--- OUTSIDE RECORDS SUMMARY | 2024-09-20 15:41 | XMS_ITS | Encounter Summary ---
Author Organization [employer] Address [address] [place] [address] Care Team Providers Care [place] Supervisor Name Role Phone Jennifer Sanchez MD Primary Care Provider [phone] Reason for Referral * Consultation (Routine) - Pending Review Specialty Diagnoses / Procedures Referred By Matthew travis Referred To Contact Audiology Diagnoses Sensorineural hearing loss (SNHL) of both ears Jennifer Sanchez MD [address] [place] [address] Phone: tel: fax: Referral ID Status Reason Start Date Expiration Date Visits Requested Visits Authorized [id number] Pending Review Specialty Services Required 09/19/2024 09/19/2025 1 1 * Consultation (Routine) - Authorized Specialty Diagnoses / Procedures Referred By Matthew travis Referred To Contact Optometry Diagnoses Poor vision Jennifer Sanchez MD [address] [place] [address] Phone: tel: fax: [facility] OPTOMETRY [address] [place] [address] Phone: tel: fax: Referral ID Status Reason Start Date Expiration Date Visits Requested Visits Authorized [id number] Authorized Consult and Treat 09/19/2024 09/19/2025 1 1 Encounter Details Date Type Department Care Team (Latest Contact Info) Description 09/16/2024 10:30 AM EDT Office Visit [facility] MEDICINE [address] [place] [address] Jennifer Sanchez MD [address] [place] [address] Health care maintenance (Primary Dx); Sensorineural hearing [...] 31.0 to 31.9 in adult; Poor vision Social History Tobacco Use Types Packs/Day Years [...] AM EDT documented as of this encounter Last Filed Vital Signs Vital Sign Reading [...] Mass Index 31.99 09/16/2024 10:26 AM EDT documented in this encounter Progress Notes * Jennifer Sanchez MD - 09/16/2024 10:30 AM EDT Andrew Houser is a 68 y.o. male who has prostate cancer, hypertension, and prediabetes, and patient presents for physical exam. Subjective Our last encounter was on 03/23/2024 Today: Pt states he believes he has gained weight because he spent most of the winter at home. Pt notes hecooks everything in the oven and believes his high BP is due to eating cookies. Pt reports, while his hemorrhoids make sitting for too long uncomfortable, he does not experience constipation and defecates regularly without issue. Pt confirms he has an appointment in two weeks with his urologist and he notes he does have a difficult time urinating due to his prostate. Pt notes he still has pain around his rectum which is why he wants to see Dr. Baeza because he believes it might have something to do with his prostate. He notes he has been having a difficult time putting on his shoes and socks. Pt states he has not been to the [facility] in some time but would like an appointment. Pt declines to see a dentist. Pt notes he is having trouble hearing and would like to have his hearing tested but in November after he returns from [place]. Pt notes he wakes up at night frequently, and he takes Ativan to help him fall asleep. Pt agrees to increase his pravastatin. Past medical history: Patient Active Problem List Diagnosis Date Noted Health care maintenance 09/15/2024 Sensorineural hearing loss (SNHL) of both ears 03/28/2024 Allergic rhinitis 03/28/2024 Enlarged prostate 02/20/2024 Bright red blood per rectum 02/19/2024 Duodenal diverticulum 02/17/2024 Tear of medial meniscus of right knee 02/17/2024 Right knee pain 04/15/2023 Benign prostatic hyperplasia with urinary obstruction 10/03/2022 Elevated PSA 10/03/2022 Essential hypertension 06/13/2022 Mild cognitive disorder 03/21/2016 Tremor 03/21/2016 Dyslipidemia 12/26/2015 High grade prostatic intraepithelial neoplasia 07/04/2015 Depression with anxiety 07/04/2015 Chronic low back pain 12/15/2014 Prediabetes 08/12/2012 Gait instability 06/13/2022 Past surgical history: History reviewed. No pertinent surgical history. Hospitalizations / major illness: Medications: Current Outpatient Medications Medication Instructions Acetaminophen Extra Strength 1,000 mg, Oral, Every 8 hours PRN cetirizine (ZYRTEC) 10 mg, Oral, Daily cyclobenzaprine (Flexeril) 10 MG tablet TAKE 1 TABLET BY MOUTH ONCE DAILY NEEDED FOR MUSCLE SPASMS doxazosin (CARDURA) 4 mg, Oral, Nightly finasteride (PROSCAR) 5 mg, Oral, Every morning LORazepam (Ativan) 0.5 MG tablet TAKE 1 TABLET BY MOUTH EVERY DAY NEEDED naproxen (Naprosyn) 500 MG tablet TAKE 1 TABLET BY MOUTH TWICE DAILY NEEDED MILD PAIN pravastatin (PRAVACHOL) 40 mg, Oral, Daily Allergy: Allergies Allergen Reactions Tamsulosin Other reaction(s): low blood pressure Family history: No family history on file. Social history: Social History Social History Narrative Not on file Social History Socioeconomic History Marital status: Legally Spouse name: Not on file Number of children: Not on file Years of education: Not on file Highest education level: Not on file Occupational History Not on file Tobacco Use Smoking status: Never Passive exposure: Never Smokeless tobacco: Never Vaping Use Vaping status: Never Used Substance and Sexual Activity Alcohol use: Never Drug use: Not Currently Types: Marijuana Sexual activity: Not on file Other Topics Concern Not on file Social History Narrative Not on file Social Drivers of Health Food Insecurity: Low Risk (09/16/2024) Food Insecurity Within the past 12 months, you worried that your food would run out before you got money to buy more:: Never True Within the past 12 months,the food you bought just didn't last and you didn't have enough money to get more: : Never True Transportation Needs: Low Risk (09/16/2024) Transportation In the past 12 months, has lack of transportation kept you from medical appts, meetings, work or from getting things needed for daily living? : No Intimate Partner Violence: Not on file Housing Stability: Low Risk (09/16/2024) Housing Stability What is your housing situation today?: I have housing Think about the place you live. Do you have problems with any of the following? : None of the above Social History Tobacco Use Smoking status: Never Passive exposure: Never Smokeless tobacco: Never Vaping Use Vaping status: Never Used Substance Use Topics Alcohol use: Never Drug use: Not Currently Types: Marijuana - Occupation / school - Housing - Household members: - Tobacco - Alcohol - Drugs - Sexual history: Safety - Driving - Firearm Immunizations: Dental Care: Cancer screening: Lung Breast Colon Prostate Skin Health Care Proxy MOLST Review of Systems Constitutional: Negative for activity change, appetite change and fever. Respiratory: Negative for shortness of breath. Cardiovascular: Negative for chest pain. Objective Vitals: 09/16/24 1026 BP: 124/79 Pulse: 76 Resp: 17 Temp: 96.6 ??F (35.9 ??C) TempSrc: Temporal SpO2: 98% Weight: 210 lb 6.4 oz (95.4 kg) Height: 5' 8 (1.727 m) Physical Exam Constitutional: General: He is not in acute distress. Appearance: Normal appearance. He is not ill-appearing. HENT: Head: Normocephalic and atraumatic. Mouth/Throat: Mouth: Mucous membranes are moist. Eyes: Extraocular Movements: Extraocular movements intact. Pupils: Pupils are equal, round, and reactive to light. Cardiovascular: Rate and Rhythm: Normal rate and regular rhythm. Heart sounds: No murmur heard. Pulmonary: Effort: Pulmonary effort is normal. No respiratory distress. Breath sounds: Normal breath sounds. No wheezing or rhonchi. Skin: General: Skin is warm. Neurological: Mental Status: He is alert. Mental status is at baseline. Psychiatric: Mood and Affect: Mood normal. Results: Lab Results Component Value Date NA 140 06/09/2024 K 4.0 06/09/2024 CL 111 (H) 06/09/2024 CO2 25 06/09/2024 BUN 13 06/09/2024 CREATININE 0.80 06/09/2024 CRCLCALCPH 86.0 02/09/2024 EGFR >60 06/09/2024 GLUCOSE 97 06/09/2024 TOTALBILIRUB 0.3 06/09/2024 AST 23 06/09/2024 ALT 27 06/09/2024 TOTPROTEIN 7.3 06/09/2024 ALB 4.2 06/09/2024 ALP 58 06/09/2024 Lab Results Component Value Date TRIG 68 06/09/2024 CHOL 175 06/09/2024 LDLCHOLCAL 111 (H) 06/09/2024 HDL 51 06/09/2024 Lab Results Component Value Date HGBA1C 6.0 06/09/2024 Lab Results Component Value Date WBC 5.7 02/20/2024 HGB 12.7 (L) 02/20/2024 HCT 37.7 (L) 02/20/2024 PLT 259 02/20/2024 MCV 84.3 02/20/2024 The 10-year ASCVD risk score (Chari TURNER, et al., 2019) is: 17.2% Values used to calculate the score: Age: 68 years Sex: Male Is Non- : No Diabetic: No Tobacco smoker: No Systolic Blood Pressure: 124 mmHg Is BP treated: Yes HDL Cholesterol: 51 mg/dL Total Cholesterol: 175 mg/dL FIB-4 Calculation: 0.86 at 02/20/2024 11:47 AM Calculated from: SGOT/AST: 14 U/L at 02/09/2024 9:30 AM SGPT/ALT: 19 U/L at 02/09/2024 9:30 AM Platelets: 259 X10*3/uL at 02/20/2024 11:47 AM Age: 68 years Screening and Health Care Maintenance: PHQ-2/9 Score: Patient Health Questionnaire-9 Score: 0 (09/16/2024 10:25 AM) Patient Health Questionnaire-2 Score: 0 (09/16/2024 10:25 AM) Thoughts that you would be better off or hurting yourself in some way: Not at all (09/16/2024 10:25 AM) FAITH-7 Score: FAITH-7 Total Score: 6 (09/16/2024 10:25 AM) Health Maintenance Due Topic Date Due Colorectal Cancer Screening 02/03/2025 Assessment/Plan 1. Health care maintenance (Primary) Assessment & Plan: - physical exam on 09/16/24 - cancer screening: --Colonoscopy --Prostate: Dx prostate cancer -IZ up to date -Bone health: continue weight-bearing exercise 2. Sensorineural hearing loss (SNHL) of both ears - Referral to Audiology; Future - Referral to Audiology 3. Mild cognitive disorder 4. Essential hypertension Assessment & Plan: -Goal BP < 150/90 per JNC-8 and < 130 per ACC/AHA guideline (Treatment threshold >= 130/80) -Treatment Hx: previously on tamsulosin for BPH, which caused hypotension and was switched to doxazosin only -Continue working on lifestyle modifications -Continue Doxazosin 4 mg daily -Follow up in 3-6 mo, sooner if any problem arises Orders: - Albumin, Random Urine W/Creatinine; Future - Albumin, Random Urine W/Creatinine 5. Bright red blood per rectum Assessment & Plan: Following with [facility], last seen on 09/07/24. Dx hemorrhoids. Rx hydrocortisone suppository and senna. Having preop by superintendent prior to scheduling colonoscopy 6. Duodenal diverticulum 7. High grade prostatic intraepithelial neoplasia Assessment & Plan: - Currently following with [facility] Urologist, Dr. Baeza, last seen on 06/08/24 - Previously following with [facility] - s/p Prostate biopsy in Feb 2015-> High-grade PIN - s/p KARY volumetric and prostate Bx in October 2015 -> High-grade PIN - continue Doxazosin 4mg daily. - continue Finasteride 5mg daily. - having pre-op evaluation by superintendent for both colonoscopy and urology procedure 8. Tear of medial meniscus of right knee, unspecified tear type, unspecified whether old or currenttear, sequela Assessment & Plan: - s/p arthroscopic repair in Apr 2023 9. Chronic pain of right knee Assessment & Plan: - tear of posterior horn of medial and lateral menisci - upcoming knee surgery - follow recommendation per ortho 10. Prediabetes Assessment & Plan: A1C 6.0% in 06/09/2024 Continue working on life modifications Consider starting metformin Orders: - Hemoglobin A1c; Future - Hemoglobin A1c 11. Allergic rhinitis, unspecified seasonality, unspecified trigger Assessment & Plan: - start cetirizine - consider adding nasal spray 12. Chronic low back pain, unspecified back pain laterality, unspecified whether sciatica present Assessment & Plan: -MRI in 06/2015 showed Lumbar Spinal Stenosis w/ nerve impengment. -Pt is currently taking Naprosyn and Tylenol, as needed -Pt is also Rx Flexeril -Cont judicious use of medications -Rx walker with wheels + seat 13. Depression with anxiety Assessment & Plan: -continue judicious use of Lorazepam. 14. Dyslipidemia Assessment & Plan: - current medication: pravastatin 20 mg at bedtime, increase to 40 mg qhs - last lipid profile: 06/09/2024 TRIG 68; CHOL 175; LDL 111; HDL 51 - continue working on lifestyle modification - consider intensifying treatment Orders: - Comprehensive Metabolic Panel; Future - Lipid Panel with Reflex to Direct LDL; Future - Comprehensive Metabolic Panel - Lipid Panel with Reflex to Direct LDL 15. Gait instability Assessment & Plan: Pt reports he did not receive walker in February 2022 or August 2022. -Will Rx Walker with wheels + seat again 16. Tremor Assessment & Plan: -Possibly due to his anxiety and chronic dependence of Ativan. -labs on 09/20/21 - TSH 1.07 [nml] -Characteristics of tremor is not classified for Parkingsons Disease -Will monitor at this time 17. Anemia, unspecified type - CBC auto differential; Future - TSH with Reflex to Free T4; Future - Vitamin B12 (Cobalamin) and Folate Panel, Serum; Future - Ferritin; Future - Iron And Total Iron Binding Capacity; Future - Reticulocyte Count; Future - CBC auto differential - TSH with Reflex to Free T4 - Vitamin B12 (Cobalamin) and Folate Panel, Serum - Ferritin - Iron And Total Iron Binding Capacity - Reticulocyte Count 18. Impacted cerumen of left ear - Ear Cerumen Removal 19. Dietary counseling 20. Exercise counseling 21. Class 1 obesity due to excess calories with serious comorbidity and body mass index (BMI) of 31.0 to 31.9 in adult 22. Poor vision - Referral to [facility]; Future Other orders - pravastatin (Pravachol) 40 MG tablet; Take 1 tablet (40 mg) by mouth Once per day. Follow-up: 3 months or sooner if any problem arises. Scribe Attestation: Amaya Goel, am serving as a scribe to document services personally performed by Jennifer Sanchez MD, based on the patient's response to questions by provider and provides statements to me. * Jennifer Sanchez MD - 09/16/2024 10:30 AM EDTAssociated Order(s): Ear Cerumen Removal Post-Procedure Diagnose(s): Impacted cerumen of left ear Patient ID: Andrew Houser is a 68 y.o. male. Ear Cerumen Removal Date/Time: 09/16/2024 11:22 AM Performed by: Fany Winters RN Authorized by: Jennifer Sanchez MD Consent: Consent obtained: Verbal Consent given by: Patient Risks, benefits, and alternatives were discussed: yes Risks discussed: Pain, dizziness and incomplete removal Alternatives discussed: No treatment Procedure details: Location: L ear Procedure type: curette Procedure outcomes: cerumen removed Post-procedure details: Inspection: Some cerumen remaining and TM intact Hearing quality: Normal Procedure completion: Tolerated well, no immediate complications documented in this encounter Miscellaneous Notes * Assessment & Plan Note - Amaya Torres MA - 09/17/2024 1:50 AM EDTAssociated Problem(s): Gait instability Pt reports he did not receive walker in February 2022 or August 2022. -Will Rx Walker with wheels + seat again * Assessment & Plan Note - Amaya Torres MA - 09/17/2024 1:50 AM EDTAssociated Problem(s): Allergic rhinitis - start cetirizine - consider adding nasal spray * Assessment & Plan Note - Amaya Torres MA - 09/17/2024 1:49 AM EDTAssociated Problem(s): Tremor -Possibly due to his anxiety and chronic dependence of Ativan. -labs on 09/20/21 - TSH 1.07 [nml] -Characteristics of tremor is not classified for Parkingsons Disease -Will monitor at this time * Assessment & Plan Note - Amaya Torres MA - 09/17/2024 1:49 AM EDTAssociated Problem(s): Depression with anxiety -continue judicious use of Lorazepam. * Assessment & Plan Note - Amaya Torres MA - 09/17/2024 1:49 AM EDTAssociated Problem(s): Dyslipidemia - current medication: pravastatin 20 mg at bedtime, increase to 40 mg qhs - last lipid profile: 06/09/2024 TRIG 68; CHOL 175; LDL 111; HDL 51 - continue working on lifestyle modification - consider intensifying treatment * Assessment & Plan Note - Amaya Torres MA - 09/17/2024 1:48 AM EDTAssociated Problem(s): Chronic low back pain -MRI in 06/2015 showed Lumbar Spinal Stenosis w/ nerve impengment. -Pt is currently taking Naprosyn and Tylenol, as needed -Pt is also Rx Flexeril -Cont judicious use of medications -Rx walker with wheels + seat * Assessment & Plan Note - Amaya Torres MA - 09/17/2024 1:48 AM EDTAssociated Problem(s): Prediabetes A1C 6.0% in 06/09/2024 Continue working on life modifications Consider starting metformin * Assessment & Plan Note - Amaya Torres MA - 09/17/2024 1:48 AM EDTAssociated Problem(s): Tear of medial meniscus of right knee - s/p arthroscopic repair in Apr 2023 * Assessment & Plan Note - Amaya Torres MA - 09/17/2024 1:48 AM EDTAssociated Problem(s): Right knee pain - tear of posterior horn of medial and lateral menisci - upcoming knee surgery - follow recommendation per ortho * Assessment & Plan Note - Amaya Torres MA - 09/17/2024 1:47 AM EDTAssociated Problem(s): High grade prostatic intraepithelial neoplasia - Currently following with [facility] Urologist, Dr. Baeza, last seen on 06/08/24 - Previously following with [facility] - s/p Prostate biopsy in Feb 2015-> High-grade PIN - s/p KARY volumetric and prostate Bx in October 2015 -> High-grade PIN - continue Doxazosin 4mg daily. - continue Finasteride 5mg daily. - having pre-op evaluation by superintendent for both colonoscopy and urology procedure * Assessment & Plan Note - Amaya Torres MA - 09/17/2024 1:47 AM EDTAssociated Problem(s): Bright red blood per rectum Following with [facility], last seen on 09/07/24. Dx hemorrhoids. Rx hydrocortisone suppository and senna. Having preop by superintendent prior to scheduling colonoscopy * Assessment & Plan Note - Amaya Torres MA - 09/17/2024 1:47 AM EDTAssociated Problem(s): Essential hypertension -Goal BP < 150/90 per JNC-8 and < 130 per ACC/AHA guideline (Treatment threshold >= 130/80) -Treatment Hx: previously on tamsulosin for BPH, which caused hypotension and was switched to doxazosin only -Continue working on lifestyle modifications -Continue Doxazosin 4 mg daily -Follow up in 3-6 mo, sooner if any problem arises * Assessment & Plan Note - Jennifer Sanchez MD - 09/15/2024 5:24 PM EDTAssociated Problem(s): Health care maintenance - physical exam on 09/16/24 - cancer screening: --Colonoscopy --Prostate: Dx prostate cancer -IZ up to date -Bone health: continue weight-bearing exercise documented in this encounter Plan of Treatment Scheduled Orders Name Type Priority Associated Diagnoses Orde r Schedule CBC auto differential Lab Routine Anemia, unspecified type Expected: 09/16/2024 (Approximate), Expires: 09/16/2025 Comprehensive Metabolic Panel Lab Routine Dyslipidemia Expected: 09/16/2024 (Approximate), Expires: 09/16/2025 Lipid Panel with Reflex to Direct LDL Lab Routine Dyslipidemia Expected: 09/16/2024 (Approximate), Expires: 09/16/2025 Hemoglobin A1c Lab Routine Prediabetes Expected: 09/16/2024 (Approximate), Expires: 09/16/2025 TSH with Reflex to Free T4 Lab Routine Anemia, unspecified type Expected: 09/16/2024 (Approximate), Expires: 09/16/2025 Vitamin B12 (Cobalamin) and Folate Panel, Serum Lab Routine Anemia, unspecified type Expected: 09/16/2024 (Approximate), Expires: 09/16/2025 Albumin, Random Urine W/Creatinine Lab Routine Essential hypertension Expected: 09/16/2024 (Approximate), Expires: 09/16/2025 Ferritin Lab Routine Anemia, unspecified type Expected: 09/16/2024 (Approximate), Expires: 09/16/2025 Iron And Total Iron Binding Capacity Lab Routine Anemia, unspecified type Expected: 09/16/2024, Expires: 09/16/2025 Reticulocyte Count Lab Routine Anemia, unspecified type Expected: 09/16/2024, Expires: 09/16/2025 Scheduled Referrals Name Type Priority Associated Diagnoses Orde r Schedule Referral to [facility] Outpatient Referral Routine Poor vision Expected: 09/19/2024 (Approximate), Expires: 09/19/2025 Referral to Audiology Outpatient Referral Routine Sensorineural hearing loss (SNHL) of both ears Expected: 09/19/2024 (Approximate), Expires: 09/19/2025 documented as of this encounter Procedures Procedure Name Priority Date/Time Associated Diagnosis Comments AL REMOVAL IMPACTED CERUMEN INSTRUMENTATION UNILAT Routine 09/16/2024 11:22 AM EDT Impacted cerumen of left ear documented in this encounter Results * AL REMOVAL IMPACTED CERUMEN INSTRUMENTATION UNILAT (09/16/2024 11:22 [...] ??Procedure completion: ??Tolerated well, no immediate complications Jennifer Sanchez MD IN CLINIC/BEDSIDE ORDERABLES Fin al Result documented in this encounter Visit Diagnoses Diagnosis Health care maintenance- Primary Sensorineural hearing loss (SNHL) of both ears Mild cognitive disorder Unspecified persistent mental disorders due to conditions classified elsewhere Essential hypertension Unspecified essential hypertension Bright red blood per rectum Hemorrhage of rectum and anus Duodenal diverticulum High grade prostatic intraepithelial neoplasia Tear of medial meniscus of right knee, unspecified tear type, unspecified whether old or current tear, sequela Chronic pain of right knee Prediabetes Other abnormal glucose Allergic rhinitis, unspecified seasonality, unspecified trigger Chronic low back pain, unspecified back pain laterality, unspecified whether sciatica present Depression with anxiety Dysthymic disorder Dyslipidemia Other and unspecified hyperlipidemia Gait instability Abnormality of gait Tremor Abnormal involuntary movements Anemia, unspecified type Impacted cerumen of left ear Impacted cerumen Dietary counseling Dietary surveillance and counseling Exercise counseling Class 1 obesity due to excess calories with serious comorbidity and body mass index (BMI) of 31.0 to 31.9 in adult Poor vision Unspecified visual loss documented in this encounter Additional Health Concerns Assessment Noted Time PHQ-9 Depression Total Score: 0 09/17/19 25 10:25 AM EDT documented as of this encounter Care Teams [place] Supervisor Relationship Specialty Start Date End Date Jennifer Sanchez MD [address] [place] [address] PCP - General Family Medicine 12/03/13 documented as of this encounter
== END 2024-09-20 14:55 | disposition home or self-care (01) ==
LOC: HO.HCS 14:07
PROVIDERS: PCP Family Medicine; Visit Provider Nurse Practitioner Family
DX: R00.1 Bradycardia, unspecified (principal); Z01.810 Encounter for preprocedural cardiovascular examination
CPT/HCPCS: 93010; 99204; G2211

== ENCOUNTER → 2024-09-20 14:07 | Outpatient (BNVA) | payer MEDICARE, MEDICAID, SELFPAY | PROVIDERS: PCP Family Medicine; Visit Provider Nurse Practitioner Family | DX: Z01.810 Encounter for preprocedural cardiovascular examination (principal); R00.1 Bradycardia, unspecified | CPT/HCPCS: 93005; 99202 ==

== ENCOUNTER 2024-09-30 08:27 | Outpatient (AMB) | payer MEDICARE, MEDICAID, SELFPAY ==
--- NOTE | 2024-09-30 08:43 | MHC.OFFVIS ---
Intake Visit Reasons: 4m/MRI/PSA Intake Note: Pt presents to the office today for a 4 month follow up/MRI/PSA. Urology meds: Doxazosin, finasteride. PVR:0ml Allergies ibuprofen Allergy (Unknown, Verified 09/30/24 08:44) Swelling tamsulosin Allergy (Unknown, Verified 09/30/24 08:44) low B/P HPI Comments Details: Andrew is a pleasant male. He is a patient of . Seen for the following urologic conditions - lower urinary tract symptoms - elevated PSA Variable PSA Prior PIN on biopsy PSA 09/07 6.7, 01/07 3.1, 08/08 3.1, 09/09 4.2, 07/13 7.2 MRI - There is an 11 mm area of interest in the left posteromedial peripheral zone in the mid gland to apex (series 7, images 18-20 and series 9/10, images 14-16) with imaging characteristics as follows PI-RADS 4 Prior negative biopsy HEATHER 1+ prostate Noticing feeling of urgency Refill on finasteride and doxazosin 4 mg Lower urinary tract symptoms Initial symptoms Longstanding weakness of stream Prior medication includes doxazosin 2 mg PSA historically in range around 4 - 07/08 5.0 Prostate biopsy previously negative x2 have demonstrated PIN PFSH Medical History Depression with anxiety Dyslipidemia Cognitive impairment Tremor High grade prostatic intraepithelial neoplasia Leukopenia Impaired fasting glucose Prostate cancer Elevated blood pressure reading in office with diagnosis of hypertension BPH loc w urin obs/LUTS Elevated PSA Surgical History Hx of right knee surgery History of surgery Social History Alcohol intake: current Patient Tobacco Use Status: Former Tobacco user Current occupational status: retired Current occupation: right hand dominant Review of Systems Const Denies chills and Denies fever(s) Card Reports no additional complaints and Denies syncope Resp Denies cough GI Denies abdominal pain and Denies heartburn Reports as per HPI and Denies change in libido Neuro Denies syncope Psych Denies change in libido Endo Denies change in libido Physical Exam Const General: cooperative, healthy appearing, comfortable and no acute distress Orientation/consciousness: patient oriented x3 HEENT Face and sinus: Yes normal facial exam Mouth: moist mucous membranes Neck Neck: Yes normal visual inspection, Yes full ROM and Yes trachea midline Chest Chest palpation & inspection: normal inspection of the chest Resp Effort & Inspection: normal respiratory effort, able to speak in complete sentences and no respiratory distress GI Inspection: Yes normal to inspection Back/Spine/Pelvis Cervical Spine: normal cervical lordosis Thoracic/Lumbar Spine: thoracic and lumbar spine normal to inspection Skin General skin exam: no rashes or lesions noted Neuro General: patient oriented x3, gait normal, tone normal and moves all extremities Extrem General: Yes normal to inspection and Yes capillary refill normal Office Procedures Post Void Residual Post Residual Void Post Void Residual (PVR): 0 [id number]-[id number] Void Residual by ultrasound Results AMB Urinalysis, Automated UA Leukoctes 0 Priscilla/uL Last Edit by Yamile Payton CMA on 09/30/24 08:48 UA Nitrite Negative Last Edit by Yamile Payton CMA on 09/30/24 08:48 UA Urobilinogen 0.2 mg/dL Last Edit by Yaimle Payton CMA on 09/30/24 08:48 UA Protein 0 mg/dL Last Edit by Yamile Payton CMA on 09/30/24 08:48 UA pH 6.0 Last Edit by Yamile Payton CMA on 09/30/24 08:48 UA Blood 0 Hua/uL Last Edit by Yamile Payton CMA on 09/30/24 08:48 UA Specific [place] 1.025 Last Edit by Yamile Payton CMA on 09/30/24 08:48 UA Ketone Negative Last Edit by Yamile Payton CMA on 09/30/24 08:48 UA Bilirubin 1 mg/dL Last Edit by Yamile Payton CMA on 09/30/24 08:48 UA Glucose 0 mg/dL Last Edit by Yamile Payton CMA on 09/30/24 08:48 Results Reviewed Results Reviewed: Laboratory Last Values Urine pH (Auto) 6.0 09/30/24 08:47 Specific [place] (Auto) 1.025 09/30/24 08:47 Urine Protein (Auto) 0 mg/dL 09/30/24 08:47 Glucose (UA)(Auto) 0 mg/dL 09/30/24 08:47 Urine Ketones (Auto) Negative 09/30/24 08:47 Urine Blood (Auto) 0 Hua/uL 09/30/24 08:47 Urine Nitrite (Auto) Negative 09/30/24 08:47 Urine Bilirubin (Auto) 1 mg/dL 09/30/24 08:47 Urine Urobilinogen (Auto) 0.2 mg/dL 09/30/24 08:47 Leukocyte Esterase (Auto) 0 Priscilla/uL 09/30/24 08:47 Assessment & Plan Assessment & Plan (1) Elevated PSA: Code(s): R97.20 - Elevated prostate specific antigen [PSA] Category: Medical Plan Risks, benefits and alternatives to therapy were discussed. These include but are not limited to infection, bleeding, damage to local organs and tissues, need for further interventions. Anesthetic risks regarding cardiac arrhythmia, blood clots, and potential mortality were discussed. The patient understands the typical recovery time and the outpatient nature of the procedure. After consideration of these risks the patient gives full informed consent and they wish to move ahead with the procedure. Targeted prostate biopsy Orders: Orders AMB Urinalysis Automated Today Z13.9 - Encounter for screening, unspecified AMB Post Void Residual by ultrasound Today N13.8 - Other obstructive and reflux uropathy, N40.1 - Benign prostatic hyperplasia with lower urinary tract symptoms Medications: Changed From doxazosin 4 mg PO BEDTIME 30 days 30 tabs 1RF N13.8 - Other obstructive and reflux uropathy, N40.1 - Benign prostatic hyperplasia with lower urinary tract symptoms To doxazosin 4 mg PO BEDTIME 90 days 90 tabs 1RF N13.8 - Other obstructive and reflux uropathy, N40.1 - Benign prostatic hyperplasia with lower urinary tract symptoms Refilled finasteride 5 mg PO DAILY 90 days 90 tabs 1RF N13.8 - Other obstructive and reflux uropathy, N40.1 - Benign prostatic hyperplasia with lower urinary tract symptoms, R33.9 - Retention of urine, unspecified, R97.20 - Elevated prostate specific antigen [PSA] Coding Level of Care Code Est Pt Level 4 (59791) Complex EM visit Add On G2211 Diagnoses Elevated PSA R97.20 CPT Codes Post Residual Void - PVR CPT Code: 62776-Abii Void Residual by ultrasound ([id number])
--- OUTSIDE RECORDS SUMMARY | 2024-09-30 08:46 | XMS_ITS | Clinical Summary ---
Author Organization [employer] Address [address] [facility] [address] [place] [address] Care Team Providers Care Telephone Solicitor Name Role Phone Jennifer Sanchez MD Primary Care Provider [phone] Allergies Active Allergy Reactions Criticality Noted Date [...] Once per day. 90 tablet 3 09/17/19 25 Active pravastatin (Pravachol) 20 MG tablet TAKE [...] Plan (09/19/2024 10:21 PM EDT): Following with [facility], last seen on 09/07/24. Dx hemorrhoids. Rx hydrocortisone suppository and senna. Having preop by hydroelectric station operator prior to scheduling colonoscopy Assessment & [...] [facility] Elevated PSA 10/03/2022 Assessment & Plan (05/02/2023 [...] 10:20 PM EDT): - Currently following with [facility], Dr. Baeza, last seen on 06/08/24 - Previously following with [facility] - s/p Prostate biopsy in Feb 2015-> High-grade PIN - s/p KARY volumetric and prostate Bx in October 2015 -> High-grade PIN - continue Doxazosin 4mg daily. - continue Finasteride 5mg daily. - having pre-op evaluation by hydroelectric station operator for both colonoscopy and urology procedure Assessment & Plan (03/28/2024 7:10 PM EST): - Seen by new UrologistDr. Baeza on 07/24/22. - s/p Prostate biopsy in Feb 2015-> High-grade PIN - s/p KARY volumetric and prostate Bx in October 2015 -> High-grade PIN - PSA 3.06 on 07/05/22 - continue Doxazosin 4mg daily. - continue Finasteride 5mg daily. - he was referred back to [facility] urology; advised to call the office [...] - he was referred back to [facility] urology; advised to call the office [...] - he was referred back to [facility] urology; advised to call the office [...] to the emergency room, case presented to [facility] emergency room Leukopenia 08/12/2012 09/15/2024 Encounters Date Type Department Care Team Description 09/16/2024 10:30 AM EDT Office Visit [address] [address] Jennifer Sanchez MD Health care maintenance (Primary [...] adult; Poor vision 09/16/2024 Travel 09/14/2024 Telephone [facility] [address] [place] [address], [place] [address] Jacquelyn Lang MA CHART PREP 09/03/2024 Patient Outreach [facility] [address] [place] [address] Jennifer Sanchez MD Pre-visit Planning (UTOH unable to reach LVM ) 08/31/2024 Refill [facility] [address] [facility] [place] [address] Jennifer Sanchez MD 08/08/2024 Refill [facility] [address] [place] [address] Jennifer Sanchez MD 08/06/2024 Orders Only [facility] External Provider, [facility] 07/30/2024 Population Health Risk Score [facility] () Department [address] [place] [phone] Provider, Population Health Generic from Last 3 Months Immunizations Immunization Administration Dates Next Due Hep B, adult [...] 09/16/2024 10:26 AM EDT Plan of Treatment Upcoming Encounters Date Type Department Care Team (Late st Contact Info) Description 01/27/2025 1:00 PM EDT Office Visit [facility] OPTOMETRY [address] [place] [address] Adelfo, [place], OD [address] [place] [address] Health Maintenance Due Date Last Done Comments CT Colonography 1955 FIT DNA/Cologuard 1955 FIT 1955 FOBT 1955 Sigmoidoscopy 1955 COVID-19 Vaccine ( season) 2024 06/09/2024, 08/20/2023, 06/13/2022, Additional history exists Colonoscopy 02/03/2025 02/04/2020 Colorectal [...] Completed 03/23/2024, , 02/19/2022, Additional history exists HIB Vaccines Aged Out [...] patient's age to complete this topic Meningococcal B Vaccine Aged Out No l onger eligible based on patient's age to complete [...] Procedure Name Priority Date/Time Associated Diagnosis Comments DE REMOVAL IMPACTED CERUMEN INSTRUMENTATION UNILAT Routine 09/16/2024 11:22 AM EDT Impacted cerumen of left ear MR PROSTATE W AND WO CONTRAST Routine 08/06/2024 9:00 AM EDT HEMOGLOBIN A1C Routine 06/09/2024 11:00 AM EST Impaired fasting glucose LIPID PANEL WITH REFLEX TO DIRECT LDL Routine 06/09/2024 11:00 AM EST Dyslipidemia HM COLONOSCOPY Routine 02/04/2020 ZZZ HISTORICAL HEPATITIS C ANTIBODY RFLX Routine 07/13/2019 10:35 AM EST from Last 3 Months or Most Recently Relevant to Health Maintenance Results * DE REMOVAL IMPACTED CERUMEN INSTRUMENTATION UNILAT (09/16/2024 11:22 [...] EDT Narrative 08/06/2024 10:55 AM EDT ? [facility] ?[address] ?[place] [address] ? Magnetic Resonance Report ? Signed ? Patient: Andrew Houser ?MR#: [id number] ? : 1955 ?Acct:[id number] ? Age/Sex: 68 / M ?ADM Date: 08/06/24 ? Loc: HO.MRI ? Attending Dr: Mars Baeza MD ? Ordering Physician: Mars Baeza MD ?? Date of Service: 08/06/24 ?? Procedure(s): MR Prostate wo/w con ?? Accession Number(s): [id number] ? cc: Mars Baeza MD; Jennifer Sanchez [...] highly likely ?? to be present) ? [employer]. MR Prostate Imaging Reporting and Data ?? System version 2.1. http://www.acr.org/Quality-Safety/Resources/PIRADS/ ? Electronically signed by: ??Vern Alcocer MD ??08/06/2024 10:52 AM EDT ? Dictated By: ?Vern Alcocer MD ? Signed By: ?<Electronically signed by Vern Alcocer MD in OV> ?08/06/24 1052 ? DD/ 0900 ? TD/TT: 08/06/24 0936 ? Salsa Dance Instructor: ? Procedure Note Dongerater, Image - 08/06/2024 [place] [address] Magnetic Resonance Report Signed Patient: Andrew Houser#: [id number] : 5Acct:[id number] Age/Sex: 68 / MADM Date: 08/06/24 Loc: HO.MRI Attending Dr: Mars Baeza MD Ordering Physician: Mars Baeza MD Date of Service: 08/06/24 Procedure(s): MR Prostate wo/w con Accession Number(s): [id number] cc: Mars Baeza MD; Jennifer Sanchez MD [...] cancer is highly likely to be present) [employer]. MR Prostate Imaging Reporting and Data System version 2.1. http://www.acr.org/Quality-Safety/Resources/PIRADS/ Electronically signed by: Vern Alcocer MD 08/06/2024 10:52 AM EDT RP Dictated By: Vern Alcocer MD Signed By: <Electronically signed by Vern Alcocer MD in OV> 08/06/24 1052 DD/ 0900 TD/TT: 08/06/24 0936 Salsa Dance Instructor: [facility] External Provider IMG MRI PROCEDURES Final Result * (ABNORMAL) Lipid Panel with Reflex to Direct LDL (06/09/2024 11:00 AM EST) Triglycerides 68 <150 mg/dL [facility] Comment:Desirable Triglyceri de: less than 150 mg/dLBorderline High Triglyceride 150-199 mg/dLHigh Triglyceride: 200-499 mg/dLVery High Triglyceride: greater than or equal to 5OO mg/dL Cholesterol 175 <200 mg/dL [facility] Comment:Desirable Cholestero l: less than 200 mg/dLBorderline High Cholesterol: 200-239 mg/dLHigh Cholesterol: greater than 239 mg/dL LDL Cholesterol Calculated 111(H) <100 mg/dL [facility] Comment:Desirable LDL: less than 100 mg/dLNear Optimal/Above Optimal LDL: 110- 129 mg/dLBorderline High LDL: 130-159 mg/dLHigh LDL: 160-189 mg/dLVery High LDL: greater than or equal to 190 mg/dL HDL Cholesterol 51 >40 mg/dL [facility] Comment:Desirable HDL: great er than 40 mg/dL Note: This HDL assay may give artificially low results in patients with liver disease. Blood 06/09/2024 11:0 0 AM EST 06/09/2024 11:05 AM EST Jennifer Sanchez MD LAB BLOOD ORDERABLES Final Resul t [facility] [address] [place] [phone] * Hemoglobin A1c (06/09/2024 11:00 AM EST) Hemoglobin A1c 6.0 <6.0 % [facility] Comment:Hemoglobin A1C Refer ence Range Adults: 4.8 - 6.0 % Non diabetic: < 6.0 % Goal: < 7.0 %Additional Action Suggested: > 8.0 %Note: Hemoglobin A1c results are invalid for patients with abnormal amounts of HbF. Blood transfusions may impact the HbA1c concentration in the patient sample. Estimated Average Glucose 126 mg/dL [facility] Comment:eAG = Estimated ave rage glucose which is %A1C expressed asaverage glucose, using the formula of the G1R-OlnuqxbNjgdbxh Glucose study (ADAG), Diabetes Care, Vol.31,#8,Dec. 2007 Blood Venous blood specimen / Unknown 06/09/2024 11:00 AM EST 06/09/2024 11:05 AM EST Jennifer Sanchez MD LAB BLOOD ORDERABLES Final Resul t Performing Organization Address [facility] Co de Phone Number [facility] [address] [place] [address] [phone] * Hm Colonoscopy (02/04/2020) Colonoscopy Normal Normal 02/04/2020 [facility] Endocr[facility]ology [facility] Infertility HEALTH MAINTENANCE Edited Result - Final * HEPATITIS C ANTIBODY RFLX (07/13/2019 10:35 AM EST) HEPATITIS C ANTIBODY NONREACTIVE NONREACTIVE [facility] Comment: Antibodies to HCV not detected; does not exclude early acute HCV infection. 07/13/2019 10:3 5 AM EST Jennifer Sanchez MD HISTORICAL/NON ORDERABLE LABS Fi nal Result Performing Organization Address City/[facility] Co de Phone Number [facility] [address] from Last 3 Months or Most Recently Relevant to Health Maintenance Insurance [facility] [employer] MEDICARE [address] [place] [id number] Care Teams Telephone Solicitor Relationship Specialty Start Date End Date Jennifer Sanchez MD [address] [place] [phone] PCP - General Family Medicine 12/03/13
== END 2024-09-30 09:19 | disposition home or self-care (01) ==
LOC: HO.HUSH 08:27
PROVIDERS: PCP Family Medicine; Visit Provider Urology
DX: R97.20 Elevated prostate specific antigen [PSA] (principal); Z13.9 Encounter for screening, unspecified
CPT/HCPCS: 99214; G2211

== ENCOUNTER → 2024-09-30 08:27 | Outpatient (BNVA) | payer MEDICARE, MEDICAID, SELFPAY | PROVIDERS: PCP Family Medicine; Visit Provider Urology | DX: N40.1 Benign prostatic hyperplasia with lower urinary tract symptoms (principal); N13.8 Other obstructive and reflux uropathy; R33.8 Other retention of urine; R97.20 Elevated prostate specific antigen [PSA] | CPT/HCPCS: 51798; 81003; 99212 ==

== ENCOUNTER → 2024-10-08 13:17 | Outpatient (REF) | payer MEDICARE, MEDICAID, SELFPAY ==
--- OUTSIDE RECORDS SUMMARY | 2024-10-08 13:20 | XMS_ITS | Clinical Summary ---
Author Organization [employer] Address [address] [facility] [address] [place] [address] Care Team Providers Care Box Spring Frame Builder Name Role Phone Jennifer Sanchez MD Primary Care Provider [phone] Allergies Active Allergy Reactions Criticality Noted Date [...] Plan (09/19/2024 10:21 PM EDT): Following with [facility], last seen on 09/07/24. Dx hemorrhoids. Rx hydrocortisone suppository and senna. Having preop by ice house supervisor prior to scheduling colonoscopy Assessment & Plan [...] will refer back to previous Urologist at [facility] Elevated PSA 10/03/2022 Assessment & Plan [...] 10:20 PM EDT): - Currently following with [facility] Urologist, Dr. Baeza, last seen on 06/08/24 - Previously following with [facility] - s/p Prostate biopsy in Feb 2015-> High-grade PIN - s/p KARY volumetric and prostate Bx in October 2015 -> High-grade PIN - continue Doxazosin 4mg daily. - continue Finasteride 5mg daily. - having pre-op evaluation by ice house supervisor for both colonoscopy and urology procedure Assessment [...] daily. - he was referred back to [facility] urology; advised to call the office [...] daily. - he was referred back to [facility] urology; advised to call the office [...] daily. - he was referred back to [facility] urology; advised to call the office [...] to the emergency room, case presented to [facility] emergency room Leukopenia 08/12/2012 09/15/2024 Encounters Date Type Department Care Team Description 09/16/2024 10:30 AM EDT Office Visit [address] [address] Jennifer Sanchez MD Health care maintenance (Primary [...] adult; Poor vision 09/16/2024 Travel 09/14/2024 Telephone [facility] [address] [place] [address] Jacquelyn Lang [place] CHART PREP 09/03/2024 Patient Outreach [facility] [address] [place] [address] Jennifer Sanchez MD Pre-visit Planning (SDOH unable to reach LVM ) 08/31/2024 Refill [facility] [address] [place], [place] [phone] Jennifer Sanchez MD 08/08/2024 Refill [facility] [address] [place] [address] Jennifer Sanchez MD 08/06/2024 Orders Only [facility] External Provider, [facility] 07/30/2024 Population Health Risk Score [facility] () Department [address] [place] [phone] Provider, Population Health Generic from Last 3 [...] Description 01/27/2025 1:00 PM EDT Office Visit [facility] OPTOMETRY [address] [place], [place] [phone] Adelfo, [place], OD [address] [place] [address] Health Maintenance Due Date Last Done Comments [...] Procedure Name Priority Date/Time Associated Diagnosis Comments [place] REMOVAL IMPACTED CERUMEN INSTRUMENTATION UNILAT Routine 09/16/2024 [...] Recently Relevant to Health Maintenance Results * [place] REMOVAL IMPACTED CERUMEN INSTRUMENTATION UNILAT (09/16/2024 11:22 [...] EDT Narrative 08/06/2024 10:55 AM EDT ? [facility] ?[address] ?[place] [address] ? Magnetic Resonance Report ? Signed ? Patient: Andrew Houser ?MR#: [id number] ? : 1955 ?Acct:[id number] ? Age/Sex: 68 / M ?ADM Date: 08/06/24 ? Loc: HO.MRI ? Attending Dr: Mars Baeza MD ? Ordering Physician: Mars Baeza MD ?? Date of Service: 08/06/24 ?? Procedure(s): MR Prostate wo/w con ?? Accession Number(s): [id number] ? cc: Mars Baeza MD; Jennifer Sanchez [...] highly likely ?? to be present) ? [employer]. MR Prostate Imaging Reporting and Data ?? System version 2.1. http://www.acr.org/Quality-Safety/Resources/PIRADS/ ? Electronically signed by: ??Vern Alcocer MD ??08/06/2024 10:52 AM EDT ? Dictated By: ?Vern Alcocer MD ? Signed By: ?<Electronically signed by Vern Alcocer MD in OV> ?08/06/24 1052 ? DD/ 0900 ? TD/TT: 08/06/24 0936 ? Bending Machine Operator: ? Procedure Note Dongerater, Image - 08/06/2024 [place] [address] Magnetic Resonance Report Signed Patient: Andrew Houser#: [id number] : 5Acct:[id number] Age/Sex: 68 / MADM Date: 08/06/24 Loc: .MRI Attending Dr: Mars Baeza MD Ordering Physician: Mars Baeza MD Date of Service: 08/06/24 Procedure(s): MR Prostate wo/w con Accession Number(s): [id number] cc: Mars Baeza MD; Jennifer Sanchez MD [...] cancer is highly likely to be present) [employer]. MR Prostate Imaging Reporting and Data System version 2.1. http://www.acr.org/Quality-Safety/Resources/PIRADS/ Electronically signed by: Vern Alcocer MD 08/06/2024 10:52 AM EDT RP Dictated By: Vern Alcocer MD Signed By: <Electronically signed by Vern Alcocer MD in OV> 08/06/24 1052 DD/ 0900 TD/TT: 08/06/24 0936 Bending Machine Operator: [facility] External Provider IMG MRI PROCEDURES Final [...] 190 mg/dL HDL Cholesterol 51 >40 mg/dL [facility] Comment:Desirable HDL: great er than 40 mg/dL Note: This HDL assay may give artificially low results in patients with liver disease. Blood 06/09/2024 11:0 0 AM EST 06/09/2024 11:05 AM EST Jennifer Sanchez MD LAB BLOOD ORDERABLES Final Resul t [facility] [address] [place] [phone] * Hemoglobin A1c (06/09/2024 11:00 AM [...] asaverage glucose, using the formula of the Y2L-QvcskocNichozc Glucose study (ADAG), Diabetes Care, Vol.31,#8,Aug. 2007 Blood Venous blood specimen / Unknown 06/09/2024 11:00 AM EST 06/09/2024 11:05 AM EST Jennifer Sanchez MD LAB BLOOD ORDERABLES Final Resul t Performing Organization Address City/[facility] Co de Phone Number [facility] [address] [place] [address] [phone] * Hm Colonoscopy (02/04/2020) Colonoscopy Normal Normal 02/04/2020 [facility] HEALTH MAINTENANCE Edited Result - Final * HEPATITIS C ANTIBODY RFLX (07/13/2019 10:35 AM EST) HEPATITIS C ANTIBODY NONREACTIVE NONREACTIVE [facility] Comment: Antibodies to HCV not detected; does not exclude early acute HCV infection. 07/13/2019 10:3 5 AM EST Jennifer Sanchez MD HISTORICAL/NON ORDERABLE LABS Fi nal Result Performing Organization Address City/[facility]/ZIP Co de Phone Number [facility] [address] [place] [address], from Last 3 Months or Most Recently Relevant to Health Maintenance Insurance [facility] COMMONHE[employer] MEDICARE Care Teams Box Spring Frame Builder Relationship Specialty Start Date End Date Jennifer Sanchez MD [address] [place] [phone] PCP - General Family Medicine 12/03/13
--- NOTE | 2024-10-18 14:22 | HM_ITS ---
* Total monitoring time 3 days. * Underlying rhythm is sinus with an average rate of 76/Min. * Rare supraventricular ectopy. * Rare ventricular ectopy. * No significant pauses or high-grade AV blocks. * No patient markers or diary events. MTDD
== END ==
LOC: HO.CARD 13:17
PROVIDERS: PCP Family Medicine; Visit Provider Nurse Practitioner Family
DX: Z01.810 Encounter for preprocedural cardiovascular examination (principal); R00.1 Bradycardia, unspecified
CPT/HCPCS: 93242

== ENCOUNTER → 2024-10-15 07:45 | Outpatient (REF) | payer MEDICARE, MEDICAID, SELFPAY ==
--- NOTE | 2024-10-15 07:54 | CA_ITS ---
Transthoracic Echocardiogram Amended Patient (Last, First, Middle): Andrew Houser A Gender: Male Date of : 1955 Age: 68 Procedure Date: 10/15/2024 Procedure Type: Transthoracic Echocardiogram Location: OP Height: 165.1 cm Weight: 95.26 kg BSA: 2.02 m2 Heart Rate: bpm BP: 110 / 70 mmHg Production Technologist: TO Referring MD: Stacy SORIANO [employer] Head Inspector: Ilir Mckeon MD Symptoms: R00.1 - Bradycardia, unspecified Study Quality: Adequate ECG Rhythm: Sinus Conclusions: - 1. Normal LV ejection fraction of 60 65% 2. Normal cardiac valvular Dopplers with mild mitral calcific changes noted 3. Upper limits of normal ascending aortic size 4. No gross pericardial effusion Findings Left Ventricle Normal left ventricular size, thickness, and systolic function. The visually estimated ejection fraction is between 60-65%. Spectral Doppler is indicative of a normal filling pattern. Peak GLS is -19.7%, within normal limits. Right Ventricle Normal right ventricular cavity size and systolic function. Atria The left atrium is likely dilated. There is no evidence of interatrial shunt. The right atrium is normal in size. Aortic Valve Normal aortic valve structure and function. There is no aortic valve stenosis. There is no aortic valve regurgitation. Mitral Valve Normal mitral valve structure and function. There is mild mitral annular calcification. There is trace mitral valve regurgitation. There is no mitral valve stenosis. Tricuspid Valve Likely normal tricuspid valve structure and function. Tricuspid regurgitation envelope is inadequate for calculation of right ventricular systolic pressure. Normal right atrial pressure. Great Vessels There is no dilatation of the ascending aorta measuring 3.60 cm. Venous The inferior vena cava is normal in size and collapses greater than 50% with inspiration. Pericardium/Pleural There is no evidence of pericardial effusion. Prior Study Comparison No prior study available for comparison. Measurements 2D Linear Measurements IVSd: 1.10 0.6-0.9/0.6-1.0 cm LVIDd: 4.41 3.9-5.3/4.2-5.9 cm LVIDd Index: 2.18 2.4-3.2/2.2-3.1 cm/m2 LVIDs: 2.92 2.0-3.6 cm LVPWd: 0.94 0.7-1.1 cm LA Diam: 4.00 2.7-3.8/3.0-4.0 cm LAIDs Index: 1.98 1.5-2.3 cm/m2 LV Mass: 189.22 67-162/88-224 g LV Mass Index: 93.68 43-95/49-115 g/m2 LVOT Diam: 2.20 3.0+(-)1.3 cm 2D Volumes LA Vol: 27.20 2D Systolic Function EF 4C: 58.10 >55% EF 2C: 63.10 >55% EF BiP: 60.30 >55% Mitral Valve MV Pk E: 0.46 MV PK A: 0.64 MV Decel Time: 286.00 E/A: 0.70 E'Lateral: 8.16 E'Medial: 4.90 E/E' Med: 9.40 E/E' Lat: 5.70 PHT: 84.00 MVA PHT: 2.62 Decel Moore: 1.62 Aortic Valve AoV Pk Bari: 1.39 AoV Mn Bari: 0.85 AoV VTI: 0.27 AoV Pk Grad: 8.00 Aov Mn Grad: 4.00 NIK Cont.VTI: 3.05 LVOT LVOT Pk Bari: 1.16 LVOT Mn Bari: 0.75 LVOT VTI: 0.22 LVOT Pk Grad: 5.00 LVOT Mn Grad: 3.00 LVOT Diam: 2.20 LVOT Area: 3.80 Diastolic Function MV Pk E: 0.46 MV Pk A: 0.64 E/A: 0.70 E'Medial: 4.90 E/E' Med: 9.40 E' Laterial: 8.16 E/E' Lat: 5.70 Right Ventricle TAPSE (mm): 20.80 TVS' Bari: 16.00 Tricuspid Valve RA Press: 3.00 Great Vessels Aorta Sinus of Valsalva: 3.58 2.0-3.[address] Ridge: 3.16 1.7-3.4 cm Ao Asc: 3.60 2.1-3.4 cm Updated in Other Vendor System with Status of Final Ilir Mckeon MD electronically signed on 10/18/2024 3:03:19 PM with status of Final
== END ==
LOC: HO.CARD 07:45
PROVIDERS: PCP Family Medicine; Visit Provider Nurse Practitioner Family
DX: Z01.810 Encounter for preprocedural cardiovascular examination (principal); R00.1 Bradycardia, unspecified
CPT/HCPCS: 93306

== ENCOUNTER → 2024-10-15 07:54 | Outpatient (BNV) | payer MEDICARE, MEDICAID, SELFPAY | PROVIDERS: PCP Family Medicine; Visit Provider Internal Medicine Cardiovascular Disease | DX: I34.81 Nonrheumatic mitral (valve) annulus calcification (principal); R94.31 Abnormal electrocardiogram [ECG] [EKG] | CPT/HCPCS: 93306; 93356 ==

== ENCOUNTER 2024-10-19 13:36 | Outpatient (AMB) | payer MEDICARE, MEDICAID, SELFPAY ==
[2024-10-19 14:06] VITALS: BP 132/60; PULSE 93; BMI 33.3
--- NOTE | 2024-10-19 14:06 | MHC.OFFVIS ---
Vital Signs 10/19/24 14:06 Height 5 ft 6 in Weight 206 lb 5.643 oz BMI 33.3 BP 132/60 Blood Pressure Location Lt brachial Position Sitting Pulse 93 Pulse Source Pulse Oximeter Intake Visit Reasons: 4-6 wk fu after echo/holter Station Captain Required: No Allergies ibuprofen Allergy (Unknown, Verified 10/19/24 14:08) Swelling tamsulosin Allergy (Unknown, Verified 10/19/24 14:08) low B/P Medication List - Last Reconciled 10/19/24 by Stacy Ayers NP-C doxazosin 4 mg PO BEDTIME 90 days finasteride 5 mg PO DAILY 90 days hydrocortisone 2.5% (Proctosol HC) 1 appl ND BID-QID PRN lorazepam 0.5 mg PO DAILY PRN pravastatin 40 mg PO DAILY sennosides (Natural Senna Laxative) 17.2 mg (2 x 8.6 mg) PO BEDTIME HPI HPI 4-6 wk fu after echo/holter: Details: Andrew is a 68-year-old male with reports of sinus bradycardia prior to having orthopedic surgery 04/2023. He is now in need of colonoscopy and was referred to cardiology for preop clearance. Last visit an echocardiogram and Holter monitor were ordered. He knows presents for follow-up. Today he reports he has been doing well overall. He tells me an MRI did show something on his prostate and he will need a biopsy. He is also waiting for the colonoscopy date pending are clearance. He has no chest discomfort at rest or with activity. He denies any shortness of breath, PND, orthopnea or edema. He has no heart palpitations, lightheadedness, presyncope, syncope, falls. He reports good activity tolerance. He smokes marijuana on the weekends. He has social alcohol user. [facility] Medical History Depression with anxiety Dyslipidemia Cognitive impairment Tremor High grade prostatic intraepithelial neoplasia Leukopenia Impaired fasting glucose Prostate cancer Elevated blood pressure reading in office with diagnosis of hypertension BPH loc w urin obs/LUTS Elevated PSA Surgical History Hx of right knee surgery History of surgery Social History Alcohol intake: current Patient Tobacco Use Status: Former Tobacco user Current occupational status: retired Current occupation: right hand dominant Review of Systems Const All systems reviewed & are unremarkable except as noted in HPI and below Card Denies chest pain, Denies chest pain at rest, Denies chest pain with activity, Denies rapid heart rate, Denies irregular heart rhythm, Denies leg edema, Denies lightheadedness, Denies dyspnea, Denies dyspnea on exertion and Denies orthopnea Resp Denies no additional complaints, Denies dyspnea and Denies dyspnea on exertion Musc Denies no additional complaints Physical Exam Vital Signs: Last Vital Signs Pulse 93 10/19/24 14:06 BP 132/60 10/19/24 14:06 BMI result Body Mass Index 33.3 Const General: cooperative, healthy appearing, comfortable and no acute distress Orientation/consciousness: patient oriented x3 Resp Effort & Inspection: normal respiratory effort Auscultation: clear to auscultation bilaterally, no rales, no rhonchi and no wheezes Cardio Rate: regular rate Rhythm: regular rhythm Heart sounds: S1 normal heart sound present, S2 normal heart sound present, no gallops, no murmurs and no rubs Neuro General: patient oriented x3 Psych Appearance: grossly normal Mental Status: mental status grossly normal Speech and movement: Normal speech and movement present Assessment & Plan Assessment & Plan (1) Sinus bradycardia: Code(s): R00.1 - Bradycardia, unspecified Category: Medical Plan: Sinus bradycardia noted prior to orthopedic surgery 04/2023. He has no history of presyncope, syncope and he reports good activity tolerance. EKG done today shows normal sinus rhythm, normal ND, QRS and QTC intervals, rate 81. Holter monitor done 10/18/2024 for 3 days shows sinus rhythm with average heart rate 76, rare SVE and VE. Echocardiogram completed, results are pending. Plan to call him with results. If echocardiogram is normal then no further testing is needed at this time. He has cardiology follow-up can then be p.r.n.. If echocardiogram does show abnormalities then further testing and follow-up will be determined at that time. (2) Preop cardiovascular exam: Code(s): Z01.810 - Encounter for preprocedural cardiovascular examination Category: Medical Plan: Preop for colonoscopy. Holter monitor shows no concerning abnormalities. Echocardiogram result is pending.. This note will be updated once results are available. Plan I discussed the normal results of the EKG and Holter monitor with the patient, providing reassurance regarding his bradycardia history. The importance of the pending echocardiogram was highlighted, with its results being pivotal for determining cardiac fitness for the planned colonscopy and prostate biopsy, possibly requiring further testing if abnormalities are found. I explained that no immediate cardiac concerns were found, and encouraged the patient's use of corrective measures for hypoglycemic events, advising continued vigilance and promptness in addressing symptoms. I emphasized the plan to communicate echocardiogram findings promptly to align with the upcoming diagnostic procedures, particularly focusing on avoiding unnecessary delays. I encouraged lifestyle adjustments regarding weight management and ensured understanding of the necessary precautions during his two-week [place] visit. Patient Instructions: - Await call with echocardiogram results. - Continue carrying sugar or candy for hypoglycemia management. - Maintain awareness of any new cardiovascular symptoms. - Work on weight management and consider increasing physical activity. - Seek medical attention if experiencing unexplained dizziness or fainting. Patient was informed and verbally consented to the use of an ambient scribe for clinic note documentation during this visit. Visit time spent on chart review, interview, assessment, orders, documentation. Coding Level of Care Code Est Pt Level 3 (84317) Complex EM visit Add On G2211 Diagnoses Sinus bradycardia R00.1 Preop cardiovascular exam Z01.810 Time Spent (min) 24
--- OUTSIDE RECORDS SUMMARY | 2024-10-19 15:16 | XMS_ITS | Clinical Summary ---
Author Organization [employer] Address [address] [place] [address] Care Team Providers Care Combatant Diver Qualified Name Role Phone Jennifer Sanchez MD Primary Care Provider [phone] Allergies Active Allergy Reactions Criticality Noted Date Comments Tamsulosin 03/15/2016 Other reaction(s): low blood pressure Medications cyclobenzaprine (Flexeril) 10 MG tablet TAKE 1 TABLET BY MOUTH ONCE DAILY NEEDED FOR MUSCLE SPASMS 15 tablet 01/07/2023 Active naproxen (Naprosyn) 500 MG tablet TAKE 1 TABLET BY MOUTH TWICE DAILY NEEDED MILD PAIN 40 tablet 1 04/03/2023 Active Acetaminophen Extra Strength 500 MG tabletIndicatio ns:COVID-19 Take 1,000 mg by mouth every 8 (eight) hours if needed (take 2 tablets q 8hrs as needed). 30 tablet 02/04/2024 Active cetirizine (ZyrTEC) 10 MG tablet Take 1 tablet (10 mg) by mouth Once per day. 90 tablet 3 03/23/2024 Active LORazepam (Ativan) 0.5 MG tabletIndicatio ns:Depression with anxiety TAKE 1 TABLET BY MOUTH EVERY DAY NEEDED 30 tablet 05/17/2024 Active finasteride (Proscar) 5 MG tablet TAKE 1 TABLET BY MOUTH ONCE DAILY IN THE MORNING 90 tablet 1 08/09/2024 Active doxazosin (Cardura) 4 MG tablet TAKE 1 TABLET BY MOUTH AT BEDTIME 90 tablet 08/31/2024 Active pravastatin (Pravachol) 40 MG tablet Take 1 tablet (40 mg) by mouth Once per day. 90 tablet 3 09/16/2024 Active Active Problems Problem Noted Date Diagnosed [...] Plan (09/19/2024 10:21 PM EDT): Following with [facility], last seen on 09/07/24. Dx hemorrhoids. Rx hydrocortisone suppository and senna. Having preop by park maintainer prior to scheduling colonoscopy Assessment & Plan [...] 10:20 PM EDT): - Currently following with [facility] Urologist, Dr. Baeza, last seen on 06/08/24 - Previously following with [facility] - s/p Prostate biopsy in Feb 2015-> High-grade PIN - s/p KARY volumetric and prostate Bx in October 2015 -> High-grade PIN - continue Doxazosin 4mg daily. - continue Finasteride 5mg daily. - having pre-op evaluation by park maintainer for both colonoscopy and urology procedure Assessment [...] daily. - he was referred back to [facility] urology; advised to call the office [...] daily. - he was referred back to [facility] urology; advised to call the office [...] daily. - he was referred back to [facility] urology; advised to call the office [...] to the emergency room, case presented to [facility] emergency room Leukopenia 08/12/2012 09/15/2024 Encounters Date Type Department Care Team Description 09/16/2024 10:30 AM EDT Office Visit [facility] [address] [place] [id number] Jennifer Sanchez MD Health care maintenance (Primary [...] adult; Poor vision 09/16/2024 Travel 09/14/2024 Telephone [facility] [address] [place] [address] Jacquelyn Lang MA CHART PREP 09/03/2024 Patient Outreach [facility] [address] [facility] [place] [address] Jennifer Sanchez MD Pre-visit Planning (SDOH unable to reach LVM ) 08/31/2024 Refill [facility] [address] [place] [address] Jennifer Sanchez MD 08/08/2024 Refill [facility] [address] [place] [address] Jennifer Sanchez MD 08/06/2024 Orders Only [facility] External Provider, [facility] 07/30/2024 Population Health Risk Score [facility] () Department [address] [place] [phone] Provider, Population Health Generic from Last 3 [...] Description 01/27/2025 1:00 PM EDT Office Visit [facility] [address] [place] [address] Adelf[place], [place], OD [address] [place] [address] Health Maintenance Due Date Last Done Comments [...] Procedure Name Priority Date/Time Associated Diagnosis Comments RI REMOVAL IMPACTED CERUMEN INSTRUMENTATION UNILAT Routine 09/16/2024 [...] Recently Relevant to Health Maintenance Results * RI REMOVAL IMPACTED CERUMEN INSTRUMENTATION UNILAT (09/16/2024 11:22 [...] EDT Narrative 08/06/2024 10:55 AM EDT ? [facility] ?[address] ?[place] [address] ? Magnetic Resonance Report ? Signed ? Patient: Andrew Houser ?MR#: [id number] ? : 1955 ?Acct:[id number] ? Age/Sex: 68 / M ?ADM Date: 08/06/24 ? Loc: HO.MRI ? Attending Dr: Mars Baeza MD ? Ordering Physician: Mars Baeza MD ?? Date of Service: 08/06/24 ?? Procedure(s): MR Prostate wo/w con ?? Accession Number(s): [id number] ? cc: Mars Baeza MD; Jennifer Sanchez [...] highly likely ?? to be present) ? [employer]. MR Prostate Imaging Reporting and Data ?? System version 2.1. [email or web address]://[email or web address].org/Quality-Safety/Resources/PIRADS/ ? Electronically signed by: ??Vern Alcocer MD ??08/06/2024 10:52 AM EDT ?? RP ? Dictated By: ?Vern Alcocer MD ? Signed By: ?<Electronically signed by Vern Alcocer MD in OV> ?08/06/24 105 ? DD/ 0900 ? TD/TT: 08/06/24 0936 ? Solar Sales Representative And Assessor: ? Procedure Note Donotuseinterpreter, Image - 08/06/2024 [place] [id number] Magnetic Resonance Report Signed Patient: Andrew Houser AMR#: [id number] : 5Acct:[id number] Age/Sex: 68 / MADM Date: 08/06/24 Loc: HO.MRI Attending Dr: Mars Baeza MD Ordering Physician: Mars Baeza MD Date of Service: 08/06/24 Procedure(s): MR Prostate wo/w con Accession Number(s): [id number] cc: Mars Baeza MD; Jennifer Sanchez MD [...] cancer is highly likely to be present) [employer]. MR Prostate Imaging Reporting and Data System version 2.1. http://www.acr.org/Quality-Safety/Resources/PIRADS/ Electronically signed by: Vern Alcocer MD 08/06/2024 10:52 AM EDT RP Dictated By: Vern Alcocer MD Signed By: <Electronically signed by Vern Alcocer MD in OV> 08/06/24 1052 DD/ 0900 TD/TT: 08/06/24 0936 Solar Sales Representative And Assessor: [facility] External Provider IMG MRI PROCEDURES Final Result * (ABNORMAL) Lipid Panel with Reflex to Direct LDL (06/09/2024 11:00 AM EST) Triglycerides 68 <150 mg/dL [facility] Comment:Desirable Triglyceri de: less than 150 mg/dLBorderline High Triglyceride 150-199 mg/dLHigh Triglyceride: 200-499 mg/dLVery High Triglyceride: greater than or equal to 5OO mg/dL Cholesterol 175 <200 mg/dL [facility] Comment:Desirable Cholestero l: less than 200 mg/dLBorderline High Cholesterol: 200-239 mg/dLHigh Cholesterol: greater than 239 mg/dL LDL Cholesterol Calculated 111(H) <100 mg/dL [facility] Comment:Desirable LDL: less than 100 mg/dLNear Optimal/Above Optimal LDL: 110- 129 mg/dLBorderline High LDL: 130-159 mg/dLHigh LDL: 160-189 mg/dLVery High LDL: greater than or equal to 190 mg/dL HDL Cholesterol 51 >40 mg/dL [facility] Comment:Desirable HDL: great er than 40 mg/dL Note: This HDL assay may give artificially low results in patients with liver disease. Blood 06/09/2024 11:0 0 AM EST 06/09/2024 11:05 AM EST Jennifer Sanchez MD LAB BLOOD ORDERABLES Final Resul t [facility] [address] [place] [address] [phone] * Hemoglobin A1c (06/09/2024 11:00 AM EST) Hemoglobin A1c 6.0 <6.0 % [facility] Comment:Hemoglobin A1C Refer ence Range Adults: 4.8 - 6.0 % Non diabetic: < 6.0 % Goal: < 7.0 %Additional Action Suggested: > 8.0 %Note: Hemoglobin A1c results are invalid for patients with abnormal amounts of HbF. Blood transfusions may impact the HbA1c concentration in the patient sample. Estimated Average Glucose 126 mg/dL [facility] Comment:eAG = Estimated ave rage glucose which is %A1C expressed asaverage glucose, using the formula of the A1R-WnhlnryGiscbeg Glucose study (ADAG), Diabetes Care, Vol.31,#8,Dec. 2007 Blood Venous blood specimen / Unknown 06/09/2024 11:00 AM EST 06/09/2024 11:05 AM EST Jennifer Sanchez MD LAB BLOOD ORDERABLES Final Resul t Performing Organization Address [facility] Co de Phone Number [facility] [address], [place] [phone] * Hm Colonoscopy (02/04/2020) Colonoscopy Normal Normal 02/04/2020 [facility] HEALTH MAINTENANCE Edited Result - Final * HEPATITIS C ANTIBODY RFLX (07/13/2019 10:35 AM EST) HEPATITIS C ANTIBODY NONREACTIVE NONREACTIVE [facility] Comment: Antibodies to HCV not detected; does not exclude early acute HCV infection. 07/13/2019 10:3 5 AM EST Jennifer Sanchez MD HISTORICAL/NON ORDERABLE LABS Fi nal Result Performing Organization Address City/[facility]/ZIP Co de Phone Number [facility] [address] from Last 3 Months or Most Recently Relevant to Health Maintenance Insurance [address] [place] [id number] [facility] [place] [phone] Care Teams Combatant Diver Qualified Relationship Specialty Start Date End Date Jennifer Sanchez MD [address] [place] [phone] PCP - General Family Medicine 12/03/13
== END 2024-10-19 14:33 | disposition home or self-care (01) ==
LOC: HO.HCS 13:36
PROVIDERS: PCP Family Medicine; Visit Provider Nurse Practitioner Family
DX: R00.1 Bradycardia, unspecified (principal); Z01.810 Encounter for preprocedural cardiovascular examination
CPT/HCPCS: 99213; G2211

== ENCOUNTER → 2024-10-19 13:36 | Outpatient (BNVA) | payer MEDICARE, MEDICAID, SELFPAY | PROVIDERS: PCP Family Medicine; Visit Provider Nurse Practitioner Family | DX: Z01.810 Encounter for preprocedural cardiovascular examination (principal); R00.1 Bradycardia, unspecified | CPT/HCPCS: 99212 ==

== ENCOUNTER 2024-12-01 08:31 | Outpatient (AMB) | payer MEDICARE, MEDICAID, SELFPAY ==
--- OUTSIDE RECORDS SUMMARY | 2024-12-01 08:36 | XMS_ITS | Clinical Summary ---
Author Organization [employer] Address [address] [facility] [address] [place] [address] Care Team Providers Care Stone Dresser Name Role Phone Jennifer Sanchez MD Primary Care Provider [phone] Allergies Active Allergy Reactions Criticality Noted Date [...] 8hrs as needed). 30 tablet 4 Active cetirizine (ZyrTEC) 10 MG tablet Take 1 tablet (10 mg) by mouth Once per day. 90 tablet 3 4 03/23/20 25 Active finasteride (Proscar) 5 MG tablet TAKE 1 TABLET BY MOUTH ONCE DAILY IN THE MORNING 90 tablet 1 5 Active doxazosin (Cardura) 4 MG tablet TAKE 1 TABLET BY MOUTH AT BEDTIME 90 tablet 5 Active pravastatin (Pravachol) 40 MG tablet Take 1 tablet (40 mg) by mouth Once per day. 90 tablet 3 5 Active LORazepam (Ativan) 0.5 MG tabletIndicati ons:Depression with anxiety TAKE 1 TABLET BY MOUTH EVERY DAY NEEDED 30 tablet 5 Active LORazepam (Ativan) 0.5 MG tabletIndicati ons:Depression with anxiety TAKE 1 TABLET BY MOUTH EVERY DAY NEEDED 30 tablet 4 11/26/19 25 Discontinued Active Problems Problem Noted Date [...] Plan (09/19/2024 10:21 PM EDT): Following with [facility] GI, last seen on 09/07/24. Dx hemorrhoids. Rx hydrocortisone suppository and senna. Having preop by pulp bleacher prior to scheduling colonoscopy Assessment & Plan [...] will refer back to previous Urologist at [facility] Elevated PSA 10/03/2022 Assessment & Plan [...] 10:20 PM EDT): - Currently following with [facility] Urologist, Dr. 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 - continue Finasteride 5mg daily. - having pre-op evaluation by pulp bleacher for both colonoscopy and urology procedure Assessment [...] daily. - he was referred back to [facility] urology; advised to call the office and ask about next appt Assessment & Plan (08/19/2023 5:23 PM EDT): - Seen by new UrologistDr. aBeza on 07/24/22. - s/p Prostate biopsy in Feb 2015-> High-grade PIN - s/p KARY volumetric and prostate Bx in October 2015 -> High-grade PIN - PSA 3.06 on 07/05/22 - continue Doxazosin 4mg daily. - continue Finasteride 5mg daily. - he was referred back to [facility] urology; advised to call the [...] daily. - he was referred back to [facility] urology; advised to call the [...] to the emergency room, case presented to [facility] emergency room Leukopenia 08/12/2012 09/15/2024 Encounters Date Type Department Care Team Description 11/24/2024 Refill [facility] [address] [place] [phone] Jennifer Sanchez MD Depression with anxiety 10/27/2024 Telephone [facility] [address] [place] [phone] Jennifer Sanchez MD december09/16/2024 10:30 AM EDT Office Visit [facility] [address] [place] [phone] Jennifer Sanchez MD Health care maintenance (Primary [...] adult; Poor vision 09/16/2024 Travel 09/14/2024 Telephone [facility] [address] [place] [phone] Jacquelyn Lang MA CHART PREP 09/03/2024 Patient Outreach [facility] [address] [place] [address] Jennifer Sanchez MD Pre-visit Planning ([facility] unable to reach [facility] ) from Last 3 Months Immunizations Immunization Administration [...] 76 09/16/2024 10:26 AM EDT Temperature 35.9 C (96.6 F) 09/16/2024 10:26 AM EDT Respiratory Rate 17 09/16/2024 10:26 AM EDT Oxygen Saturation 98% 09/16/2024 10:26 AM EDT Inhaled Oxygen Concentration - - Weight 95.4 kg (210 lb 6.4 oz) 09/16/2024 10:26 AM EDT Height 172.7 cm (5' 8 ) 09/16/2024 10:26 AM EDT Body Mass Index 31.99 09/16/2024 10:26 AM EDT Plan of Treatment Upcoming Encounters Date Type Department Care Team (Late st Contact Info) Description 12/13/2024 10:15 AM EDT Office Visit [facility] [address] [place] [phone] Jennifer Sanchez MD [address] [place] [phone] 01/27/2025 1:00 PM EDT Office Visit [facility] [address] [place] [address] Adelfo, [place], OD [address] [place] [address] Health Maintenance Due Date Last Done Comments CT Colonography 1954 FIT DNA/Cologuard 1954 FIT 1954 FOBT 1955 Sigmoidoscopy 1954 COVID-19 Vaccine ( season) 2024 06/09/2024, 08/20/2023, 06/13/2022, Additional history exists Influenza Vaccine (#1) 2025 , 04/15/2023, 02/19/2022, Additional history exists Colonoscopy 02/03/2025 02/04/2020 Colorectal [...] Vaccine: 50+ Years Completed 02/19/2022, 03/16/2020, 09/21/2015 HIB Vaccines Aged Out No longer eligi [...] Procedure Name Priority Date/Time Associated Diagnosis Comments PA REMOVAL IMPACTED CERUMEN INSTRUMENTATION UNILAT Routine 09/16/2024 11:22 AM EDT Impacted cerumen of left ear HEMOGLOBIN A1C Routine 06/09/2024 11:00 AM EST Impaired fasting glucose LIPID PANEL WITH REFLEX TO DIRECT LDL Routine 06/09/2024 11:00 AM EST Dyslipidemia HM COLONOSCOPY Routine 02/04/2020 ZZZ HISTORICAL HEPATITIS C ANTIBODY RFLX Routine 07/13/2019 10:35 AM EST from Last 3 Months or Most Recently Relevant to Health Maintenance Results * PA REMOVAL IMPACTED CERUMEN INSTRUMENTATION UNILAT (09/16/2024 11:22 AM EDT) Narrative Jennifer Sanchez MD - 09/16/2024 11:22 AM EDT Jennifer Sanchez MD 09/19/2024 10:27 PM Ear Cerumen Removal Date/Time: [...] Procedure completion: Tolerated well, no immediate complications Jennifer Sanchez MD IN CLINIC/BEDSIDE ORDERABLES Fin al Result * (ABNORMAL) Lipid Panel with Reflex to Direct LDL (06/09/2024 11:00 AM EST) Triglycerides 68 <150 mg/dL [facility] Comment:Desirable Triglyceri de: less than 150 mg/dLBorderline High Triglyceride 150-199 mg/dLHigh Triglyceride: 200-499 mg/dLVery High Triglyceride: greater than or equal to 5OO mg/dL Cholesterol 175 <200 mg/dL [facility] Comment:Desirable Cholestero l: less than 200 mg/dLBorderline High Cholesterol: 200-239 mg/dLHigh Cholesterol: greater than 239 mg/dL LDL Cholesterol Calculated 111(H) <100 mg/dL [facility] Comment:Desirable LDL: less than 100 mg/dLNear Optimal/Above Optimal LDL: 110- 129 mg/dLBorderline High LDL: 130-159 mg/dLHigh LDL: 160-189 mg/dLVery High LDL: greater than or equal to 190 mg/dL HDL Cholesterol 51 >40 mg/dL [facility] Comment:Desirable HDL: great er than 40 mg/dL Note: This HDL assay may give artificially low results in patients with liver disease. Blood 06/09/2024 11:0 0 AM EST 06/09/2024 11:05 AM EST Jennifer Sanchez MD LAB BLOOD ORDERABLES Final Resul t [facility] [address] [place] [address] [phone] * Hemoglobin A1c (06/09/2024 11:00 AM EST) Hemoglobin A1c 6.0 <6.0 % [facility] Comment:Hemoglobin A1C Refer ence Range Adults: 4.8 - 6.0 % Non diabetic: < 6.0 % Goal: < 7.0 %Additional Action Suggested: > 8.0 %Note: Hemoglobin A1c results are invalid for patients with abnormal amounts of HbF. Blood transfusions may impact the HbA1c concentration in the patient sample. Estimated Average Glucose 126 mg/dL [facility] Comment:eAG = Estimated ave rage glucose which is %A1C expressed asaverage glucose, using the formula of the P5D-ColuywlUnnclay Glucose study (ADAG), Diabetes Care, Vol.31,#8,Dec. 2007 Blood Venous blood specimen / Unknown 06/09/2024 11:00 AM EST 06/09/2024 11:05 AM EST Jennifer Sanchez MD LAB BLOOD ORDERABLES Final Resul t Performing Organization Address City/[facility]/ZIP Co de Phone Number [facility] [address] [place] [address] [phone] * Hm Colonoscopy (02/04/2020) Pathologist [facility] Colonoscopy Normal Normal 02/04/2020 [facility] HEALTH MAINTENANCE Edited Result - Final * HEPATITIS C ANTIBODY RFLX (07/13/2019 10:35 AM EST) Pathologist [facility] HEPATITIS C ANTIBODY [facility] Comment: Antibodies to HCV not detected; does not exclude early acute HCV infection. 07/13/2019 10:3 5 AM EST Jennifer Sanchez MD HISTORICAL/NON ORDERABLE LABS Fi nal Result [facility] [address] [place] [address], from Last 3 Months or Most Recently Relevant to Health Maintenance Insurance [facility] Care Teams Stone Dresser Relationship Specialty Start Date End Date Jennifer Sanchez MD [address] [place] [phone] PCP - General Family Medicine 12/03/13
--- NOTE | 2024-12-01 08:43 | MHC.OFFVIS ---
Vital Signs 12/01/24 08:44 Height 5 ft 6 in Weight 203 lb BMI 32.8 BP 118/66 Blood Pressure Location Lt brachial Position Sitting Pulse 72 Pulse Oximetry (%) 97 Oxygen Delivery Method Room Air Intake Visit Reasons: 3 mos FUV. CIC. Discuss colo Intake Note: Patient 3 month follow up for CIC and pre Colonoscopy screening. Patient denies any GI issues for today. 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 CIC. Discuss colo: Details: LAST VISIT: Bright red blood per rectum Constipation Hemorrhoid Plan Patient will increase fluid intake and activity to promote better bowel motility. Continue taking fiber. Patient will start taking senna daily. Sitz baths with Epsom salts recommended to help with rectal itch and discomfort. Patient may use Proctosol as needed. Follow-up in 3 months. Patient will be walked over to Cardiology to schedule appointment with them. Patient was told by his urologist that he will not have a procedure until he was cleared by the Cardiology Department. Patient is agreeable to current plan of care and verbalizes understanding of instructions. He was given the opportunity to ask questions and all questions answered. ? Thank you for allowing me to participate in his care New hydrocortisone 2.5% (Proctosol HC) 1 appl NC BID-QID PRN 30 grams 2RF hemorrhoids K64.9 sennosides (Natural Senna Laxative) 17.2 mg (2 x 8.6 mg) PO BEDTIME 60 tabs 3RF constipation K59.00 TODAY'S VISIT: Patient is here today for follow-up and to discuss going for colonoscopy. Patient reports that he is moving his bowels better now. He is taking senna daily. Patient also changed his diet. Drinking fluids. Denies any blood in his stools at this time. Denies melena, hematochezia, unintentional weight loss or ribbon like stools. Denies any issues with anesthesia in the past. No history of sleep apnea. Patient is not on any anticoagulation medication. [facility] Medical History Depression with anxiety Dyslipidemia Cognitive impairment Tremor High grade prostatic intraepithelial neoplasia Leukopenia Impaired fasting glucose Prostate cancer Elevated blood pressure reading in office with diagnosis of hypertension BPH loc w urin obs/LUTS Elevated PSA Surgical History Hx of right knee surgery History of surgery Social History Alcohol intake: current Patient Tobacco Use Status: Former Tobacco user Current occupational status: retired Current occupation: right hand dominant Review of Systems Const Denies weight gain and Denies weight loss ENT Reports no additional complaints, Denies dysphagia and Denies odynophagia Card Reports no additional complaints Resp Reports no additional complaints GI Denies abdominal pain, Denies belching, Denies melena, Reports bloating (Occasional), Denies change in bowel habits, Denies constipation, Denies dysphagia, Denies excessive flatus, Denies dyspepsia, Denies heartburn, Denies diarrhea, Denies loose stools, Denies nausea, Denies odynophagia and Denies vomiting Reports no additional complaints Musc Reports no additional complaints Neuro Reports no additional complaints Psych Reports no additional complaints Endo Reports no additional complaints Physical Exam Vital Signs: Last Vital Signs Pulse 72 12/01/24 08:44 BP 118/66 12/01/24 08:44 Pulse Ox 97 12/01/24 08:44 Oxygen Delivery Method Room Air 12/01/24 08:44 BMI result Body Mass Index 32.8 Const General: healthy appearing, no acute distress and well developed Nutritional Appearance: well nourished Orientation/consciousness: patient oriented x3 Resp Effort & Inspection: normal respiratory effort, able to speak in complete sentences, no tracheal deviation and symmetric chest movement Auscultation: clear to auscultation bilaterally Cardio Rate: regular rate GI Inspection: Yes normal to inspection and No distended Palpation (GI): Soft to palpation, not firm, nontender and No hepatosplenomegaly present Auscultation: normal bowel sounds General: Yes no CVA tenderness Back/Spine/Pelvis Back: no CVA tenderness Skin General skin exam: elasticity normal, turgor normal and dry skin Neuro General: patient oriented x3 Psych Appearance: grossly normal Mental Status: mental status grossly normal Assessment & Plan Assessment & Plan (1) Bright red blood per rectum: Code(s): K62.5 - Hemorrhage of anus and rectum (2) Constipation: Code(s): K59.00 - Constipation, unspecified Qualifiers: Constipation type: slow transit constipation Qualified Code(s): K59.01 - Slow transit constipation (3) Hemorrhoids: Code(s): K64.9 - Unspecified hemorrhoids Qualifiers: Hemorrhoid type: unspecified Qualified Code(s): K64.9 - Unspecified hemorrhoids (4) Encounter for screening for malignant neoplasm of colon: Code(s): Z12.11 - Encounter for screening for malignant neoplasm of colon Plan Patient will continue taking senna. Increase fluid intake and activity to promote better bowel motility. What to expect before during and after procedure discussed with patient. Stressed the importance of good bowel prep and clear liquid diet day before procedure. Denies any trouble with anesthesia in the past. No history of sleep apnea. Not on any anticoagulation medication. Denies any cardiac or respiratory symptoms. I will see him after the procedure, sooner on as needed basis. Patient is agreeable to current plan of care and verbalizes understanding of instructions. He was given the opportunity to ask questions and all questions answered. Thank you for allowing me to participate in his care Medications: New polyethylene glycol 3350 (Miralax) As directed by gastroenterology department at [facility] 238 grams PO ONCE 238 grams 0RF Z12.11 - Encounter for screening for malignant neoplasm of colon bisacodyl (Dulcolax (bisacodyl)) take 4 tabs at noon the day before your colonoscopy 20 mg (4 x 5 mg) PO ONCE 4 tabs 0RF constipation 1 day Z12.11 - Encounter for screening for malignant neoplasm of colon Coding Level of Care Code Est Pt Level 3 (76941) Diagnoses Bright red blood per rectum K62.5 Slow transit constipation K59.01 Constipation type: slow transit constipation Hemorrhoids, unspecified hemorrhoid type K64.9 Hemorrhoid type: unspecified Encounter for screening for malignant neoplasm of colon Z12.11 Time Spent (min) 30 Comment 20 minutes spent with patient and additional 10 minutes spent reviewing his records
[2024-12-01 08:44] VITALS: BP 118/66; PULSE 72; O2SAT 97; BMI 32.8
== END 2024-12-01 09:49 | disposition home or self-care (01) ==
LOC: HO.HGI 08:31
PROVIDERS: PCP Family Medicine; Visit Provider Nurse Practitioner Family
DX: K62.5 Hemorrhage of anus and rectum (principal); K59.01 Slow transit constipation; K64.9 Unspecified hemorrhoids; Z12.11 Encounter for screening for malignant neoplasm of colon
CPT/HCPCS: 99024

== ENCOUNTER → 2024-12-01 08:31 | Outpatient (BNVA) | payer MEDICARE, MEDICAID, SELFPAY | PROVIDERS: PCP Family Medicine; Visit Provider Nurse Practitioner Family | DX: Z12.11 Encounter for screening for malignant neoplasm of colon (principal); K59.01 Slow transit constipation; K64.9 Unspecified hemorrhoids; K62.5 Hemorrhage of anus and rectum | CPT/HCPCS: 99212 ==

== ENCOUNTER 2024-12-27 10:49 | Day surgery (SDC) | payer MEDICARE, MEDICAID, SELFPAY ==
[2024-12-23 13:12] VITALS: BMI 33.2
--- NOTE | 2024-12-24 12:31 | HO.ANESPROP2 ---
Documented by User: Casandra Ramon NP 12/24/24 12:36 HPI - Anesthesia Eval Consult details Narrative: 69yo M for Targeted Prostate Needle Biopsy Cardiac optimized. Follows [facility] Cardiology for hx quoc. PMFSH Active Problems Active Problems: All Active Problems Sinus bradycardia (Acute) Preop cardiovascular exam (Acute) High grade prostatic intraepithelial neoplasia (Acute) COVID-19 (Acute) Tear of medial meniscus of right knee (Acute) Right knee pain (Acute) BPH w urinary obs/LUTS (Acute) Elevated PSA (Acute) Past Medical History Medical History Depression with anxiety Dyslipidemia Cognitive impairment Tremor High grade prostatic intraepithelial neoplasia Leukopenia Impaired fasting glucose Prostate cancer Elevated blood pressure reading in office with diagnosis of hypertension BPH loc w urin obs/LUTS Elevated PSA Family History Family history of problems with anesthesia: No Surgical History Surgical History Hx of right knee surgery History of surgery History of Problems with Anesthesia: No Social History Social History Are you a primary career and transition teacher to a significant other at home: No Do you presently have visiting nurse or other home services: No Alcohol intake: current Patient Tobacco Use Status: Former Tobacco user Substance Use Frequency: Occasionally Have you been hit, kicked, punched, or otherwise hurt by someone within the past year? If so, by whom?: No Are you DNR?: No Advance Directives: No Advance Directives Information Provided: Yes Poor oral hygiene: Yes Current occupational status: retired Current occupation: right hand dominant Meds Allergies Allergy/AdvReac Type Severity Reaction Status Date / Time ibuprofen Allergy Unknown Swelling Verified 12/27/24 11:26 tamsulosin Allergy Unknown low B/P Verified 12/27/24 11:26 Home Medications ?Medication ?Instructions ?Recorded ?Confirmed ?Last Taken ?Type lorazepam 0.5 mg tablet 0.5 mg PO DAILY PRN Anxiety 07/24/22 12/27/24 Unknown History pravastatin 40 mg tablet 40 mg PO DAILY 12/27/24 12/27/24 Unknown History Exam Height,Weight and Vital Signs: Height 5 ft 6 in Weight 93.44 kg Pertinent Lab Results Pertinent Lab Results: Laboratory Tests 02/20/24 06/09/24 11:47 11:00 WBC 5.7 Hgb 12.7 L Hct 37.7 L Plt Count 259 Sodium 140 Potassium 4.0 Chloride 111 H Carbon Dioxide 25 BUN 13 Creatinine 0.80 Narrative Narrative: Echocardiogram 10/15/24 Conclusions: - 1. Normal LV ejection fraction of 60 65% 2. Normal cardiac valvular Dopplers with mild mitral calcific changes noted 3. Upper limits of normal ascending aortic size 4. No gross pericardial effusion EKG 10/2024 normal sinus rhythm, normal NJ, QRS and QTC intervals, rate 81. Holter monitor done 10/18/2024 for 3 days shows sinus rhythm with average heart rate 76, rare SVE and VE. Assessment and Plan Assessment Anesthesia Assessment: Chart Reviewed Final Anesthetic Review Family History of Problems with Anesthesia: No History of Problems with Anesthesia: No Documented by User: Indio Milton MD 12/27/24 12:35 [facility] Past Medical History Medical History Depression with anxiety Dyslipidemia Cognitive impairment Tremor High grade prostatic intraepithelial neoplasia Leukopenia Impaired fasting glucose Prostate cancer Elevated blood pressure reading in office with diagnosis of hypertension BPH loc w urin obs/LUTS Elevated PSA Surgical History Surgical History Hx of right knee surgery History of surgery Social History Social History Are you a primary career and transition teacher to a significant other at home: No Do you presently have visiting nurse or other home services: No Alcohol intake: current Patient Tobacco Use Status: Former Tobacco user Substance Use Frequency: Occasionally Have you been hit, kicked, punched, or otherwise hurt by someone within the past year? If so, by whom?: No Are you DNR?: No Advance Directives: No Advance Directives Information Provided: Yes Poor oral hygiene: Yes Current occupational status: retired Current occupation: right hand dominant Meds Allergies Allergy/AdvReac Type Severity Reaction Status Date / Time ibuprofen Allergy Unknown Swelling Verified 12/27/24 11:26 tamsulosin Allergy Unknown low B/P Verified 12/27/24 11:26 Home Medications ?Medication ?Instructions ?Recorded ?Confirmed ?Last Taken ?Type lorazepam 0.5 mg tablet 0.5 mg PO DAILY PRN Anxiety 07/24/22 12/27/24 Unknown History pravastatin 40 mg tablet 40 mg PO DAILY 12/27/24 12/27/24 Unknown History Exam Airway Mallampati Class: II TM Dist: <=3cm Neck ROM: Full Partial: Upper Heart: ok Lungs: ok Assessment and Plan Assessment Anesthesia Assessment: Anesthesia Plan Discussed Final Anesthetic Review NPO: Yes ASA Class: III Final Preanesthetic Review: No Changes in Pt Med Stat, Meds/Allgs Chart Reviewed, Consent Obtained/Reviewed and Anes Risks/Benef Reviewed Patient Risk: Intermediate Procedure Risk: Low Anesthetic Plan Anesthetic Plan: GA and Agree w/ Assess. and Plan Disposition: Standard PACU
[2024-12-27 11:02] VITALS: BMI 32.0
[2024-12-27] MEDS: Lactated Ringers 1,000 ML 100 ML IVCONT (11:16)
[2024-12-27 11:24] VITALS: BP 131/71; PULSE 70; RESP 18; TEMP 36.8; O2SAT 97
--- NOTE | 2024-12-27 12:13 | MHC.SHP ---
Pre-Procedural Eval Section A - 24 Hr Update-Section A only Date of Service: 12/27/24 The patient is an INPATIENT: No Changes since office visit: No Cold of Flu in the past 2 weeks, No New Medical Problems, No Changes in Medication and No Patient answered all questions The patient has been examined within 24 hours of the surgical procedure. The History & Physical has been completed within 30 days and I have reviewed it.: Yes Section B - Complete if H&P > 30 days Chief Complaint: Elevated prostate specific antigen [PSA] Details of Present Illness: Elevated PSA with suspicious imaging findings Relevant Family History (Specify if Yes): No Relevant Social History: None Present Medications: see Short Stay Collaborative assessment Medical History: No relevant PMH History of Previous Operations: No relevant previous surgery Allergies: Allergies Allergy/AdvReac Type Severity Reaction Status Date / Time ibuprofen Allergy Unknown Swelling Verified 12/27/24 11:26 tamsulosin Allergy Unknown low B/P Verified 12/27/24 11:26 Review of Systems Sugical H&P ROS: Negative: Constitution, Cardiovascular, Respiratory, Neurological, Psychiatric, Hem-Onc, Allergic/Immunologic, Gastrointestinal, Genitourinary, Musculoskeletal, Integumentary, Endocrine and Eyes/Ears/Nose/Throat Exam Surgical H&P Exam: Normal: HEENT, Normal: Heart, Normal: Lungs, Normal: Extremities, Normal: Abdomen, Normal: Skin and Normal: Neurological Plan Diagnosis/Plan: Unchanged (Perineal targeted prostate biopsy MRI ultrasound fusion) I have reviewed the history and physical and performed a pertinent physical examination on my patient. No changes have occurred unless specified. Time Spent With Patient Time: Total time managing care of this patient today ____ minutes.
--- NOTE | 2024-12-27 13:13 | W.PM.OPN ---
Operative Note Operative Note Date of Service: 12/27/24 Narrative: Preoperative diagnosis: Elevated PSA Postoperative diagnosis: Elevated PSA Procedure: 1. transrectal ultrasound-guided pudendal nerve block 2. MRI-US fusion image registration performed 3. transperineal ultrasound-guided prostate biopsy 16 core including targets Surgeon: Dr. Mars Baeza Anesthetic: Sedation plus local Indications for procedure: Elevated PSA - 1.5cm lesion left prostate Mid TZ Procedure: After informed consent was verified, the patient was brought into the procedure area. Patient identity confirmed. Perioperative antibiotics confirmed. Safety pause time out performed. Anesthesia performed per protocol. Scrotum taped out of operative area. Iodine prep used. Perineal injection of local anesthetic. Digital guided prostate pudendal nerve block performed with 10 cc of 1% lidocaine. 5cc each side. Combination 10cc iodine with 50cc gel was mixed and placed in the rectum. Ultrasound probe was placed per rectum. Ultrasound probe stabilized on a prostate stepper with attached grid. [employer] software and hardware platform used for US image acquisition, US 3D model creation and MRI-US fusion image overlay. Ultrasound placement was made with external grid calibration for height and prostate diameter in both the transverse and longitudinal planes. Grid A-C covering right prostate and c-F covering left prostate. Numbers 1.0-2.5 covering posterior prostate and 2.5-4.0 covering anterior prostate. Once grid calibration was confirmed prostate ultrasound data acquisition was performed in the transverse fashion. The US images were registered to create model boundaries. A three dimensional ultrasound model was created using [employer] software. The model was reviewed against acquired US images. The planned needle targeting, based on prior acquisition of MRI imaging, was overlaid on the ultrasound images and targets confirmed through ultrasound review. Adjustments were then made between real time and projected model targeting locations. Based on pre-planning evaluation 16 targets had been identified. These included 3 targets of the PI-RADS 4 left mid TZ identified lesion/s. He tolerated the procedure well. Was transferred to stable condition in the PACU. Printed instructions regarding antibiotic use and common side effects such as low-grade temperature, potential infection and bleeding were given Pathology: 16 core prostate biopsy CPT 53569 Modifier 22 for complexity of procedure execution (Perineal prostate biopsy) CPT code 06827: Transrectal ultrasound; this is a diagnostic test for evaluation of the prostate and surrounding structures, looking for abnormalities or suspicious areas worrisome for cancer CPT code 73025: Ultrasonic guidance for needle placement (eg, biopsy, aspiration, injection, localization device), imaging supervision and interpretation CPT 17519: 3D rendering with interpretation and reporting of computed tomography (CT), MRI, ultrasound, or other tomographic modality with image postprocessing under concurrent supervision; not requiring image postprocessing on an independent workstation
[2024-12-27 13:20] VITALS: BP 131/74; PULSE 72; RESP 20; TEMP 36.1; O2SAT 99
[2024-12-27 13:25] VITALS: BP 136/83; PULSE 74; RESP 20; O2SAT 99
[2024-12-27 13:30] VITALS: BP 140/80; PULSE 70; RESP 20; O2SAT 98
[2024-12-27 13:35] VITALS: BP 144/85; PULSE 73; RESP 20; O2SAT 98
[2024-12-27 13:50] VITALS: BP 133/74; PULSE 74; RESP 18; TEMP 36.1; O2SAT 99
== END 2024-12-27 14:13 | disposition home or self-care (01) ==
PROVIDERS: PCP Family Medicine; Visit Provider Urology
PROC: (CPT 55700; principal; 2024-12-27 12:20)
DX: C61 Malignant neoplasm of prostate (principal); N42.31 Prostatic intraepithelial neoplasia; R97.20 Elevated prostate specific antigen [PSA]; N40.1 Benign prostatic hyperplasia with lower urinary tract symptoms; N13.8 Other obstructive and reflux uropathy; R33.9 Retention of urine, unspecified; I10 Essential (primary) hypertension; F41.8 Other specified anxiety disorders; R41.89 Other symptoms and signs involving cognitive functions and awareness; E78.5 Hyperlipidemia, unspecified; R25.1 Tremor, unspecified; D72.819 Decreased white blood cell count, unspecified; R73.01 Impaired fasting glucose; Z79.899 Other long term (current) drug therapy; Z88.6 Allergy status to analgesic agent; Z98.890 Other specified postprocedural states; Z87.891 Personal history of nicotine dependence
CPT/HCPCS: 55706; 88305; 88344; J2003; J2704; J3010

== ENCOUNTER → 2024-12-27 10:49 | Outpatient (BNV) | payer MEDICARE, MEDICAID, SELFPAY | PROVIDERS: PCP Family Medicine; Visit Provider Urology | DX: R97.20 Elevated prostate specific antigen [PSA] (principal) | CPT/HCPCS: 55706; 76872; 76942 ==

== ENCOUNTER 2025-01-12 13:01 | Outpatient (AMB) | payer MEDICARE, MEDICAID, SELFPAY ==
--- NOTE | 2025-01-12 13:03 | A.OFFVIS_ITS ---
Intake Visit Reasons: Prostate biopsy results Intake Note: Pt presents to the office today for Telehelath for prostate Bx results Urology meds: Doxazosin, finasteride. PVR:0ml Label Sewer Required: Yes Accompanied by: Self / Same As Patient Allergies ibuprofen Allergy (Unknown, Verified 01/12/25 13:04) Swelling tamsulosin Allergy (Unknown, Verified 01/12/25 13:04) low B/P HPI Comments Details: Andrew is a pleasant male. He is a patient of . Seen for the following urologic conditions - lower urinary tract symptoms - elevated PSA Telemedicine Evaluation 15 min Consultation [employer] Video French translation provided by qualified medical assistant cardiology Discussed results Organ confined grade group 3 as secondary with grade group 1 primary Recommend targeted cryotherapy Discussed risks and benefits Will organize Prostate cancer - Grade Group 3 on biopsy limited amount Histologic type: Acinar adenocarcinoma Histologic grade:Bayside score: 3+3=6 (G,J,K); 4+3=7(I) % of pattern 4: 70% (I) Grade group: 1 (G,J,K); 3(I) Tumor quantitation: Number cores positive: 4 Total number of cores: 16 Periprostatic fat inv.: Not identified Seminal vesicle inv.: Not identified Perineural inv.: Not identified LVI: Not identified PSA 09/07 6.7, 01/07 3.1, 08/08 3.1, 09/09 4.2, 07/13 7.2 MRI - There is an 11 mm area of interest in the left posteromedial peripheral zone in the mid gland to apex (series 7, images 18-20 and series 9/10, images 14-16) with imaging characteristics as follows PI-RADS 4 Prior negative biopsy HEATHER 1+ prostate Noticing feeling of urgency Refill on finasteride and doxazosin 4 mg Lower urinary tract symptoms Initial symptoms Longstanding weakness of stream Prior medication includes doxazosin 2 mg PSA historically in range around 4 - 20 5.0 Prostate biopsy previously negative x2 have demonstrated PIN PFSH Medical History (Updated 01/12/25 @ 13:38 by Mars Baeza MD) Depression with anxiety Dyslipidemia Cognitive impairment Tremor High grade prostatic intraepithelial neoplasia Leukopenia Impaired fasting glucose Prostate cancer Elevated blood pressure reading in office with diagnosis of hypertension BPH loc w urin obs/LUTS Elevated PSA Surgical History Hx of right knee surgery History of surgery Social History Are you a primary attending ambulatory care to a significant other at home: No Do you presently have visiting nurse or other home services: No Alcohol intake: current Patient Tobacco Use Status: Former Tobacco user Current occupational status: retired Current occupation: right hand dominant Review of Systems Const All systems reviewed & are unremarkable except as noted in HPI and below Reports no additional complaints Resp Reports no additional complaints GI Reports no additional complaints Reports as per HPI Musc Reports no additional complaints Physical Exam Telemedicine evaluation Appropriate responses Regular breathing rate and rhythm HEENT Head: Yes normal to inspection Ears: hearing grossly normal bilaterally Eyes General: appearance normal, both eyes and all related structures Neck Neck: Yes normal visual inspection Chest Chest palpation & inspection: normal inspection of the chest Resp Effort & Inspection: normal respiratory effort and able to speak in complete sentences Telehealth Telehealth Telehealth Platform: [employer] Location of provider rendering services: practice address Location of patient: address on file Patient Identification confirmed using: Name, : Yes Telehealth method: video Patient verbally consented to treatment: Yes Patient verbally consented to billing insurance company: Yes Patient informed of any privacy concerns related to visit: Yes Minutes spent on Phone/Video with Pt.: 15 Assessment & Plan Assessment & Plan (1) Prostate cancer: Code(s): C61 - Malignant neoplasm of prostate Category: Medical Plan Prostate Cancer Therapy Discussion today focused on treatment options for prostate cancer. The patient has already reviewed educational materials that had been provided to him in printed form. The NCCN criteria for imaging, molecular testing and germ line testing were discussed. The discussion was then focused on therapeutic options which include 1) Deferred therapy/active surveillance. Recommended in the setting of low volume, very low risk and low risk disease. Criteria include 3 cores all less, same side, no core greater than 50% disease. Evaluation may be augmented with imaging such as pelvic MRI and genetic evaluation of biopsy material. Somatic tissue genetic testing such as Prolaris, which focuses on tumor-specific pathogenic variants that may identify an indication for further germline testing and can guide therapeutic decisions in the setting of low risk and low volume disease. - The patient is not a candidate for active surveillance. NCCN Prostate Cancer Guideline 4.2022 PROS-F Page 2 PRINCIPLES OF ACTIVE SURVEILLANCE AND OBSERVATION Confirmatory Testing to Establish Appropriateness of Active Surveillance: - Goals of confirmatory testing are to help facilitate early identification of those patients who may be at a higher risk of future grade reclassification or cancer progression. - Since an initial prostate biopsy may underestimate tumor grade or volume, confirmatory testing is strongly recommended within the first 6 to 12 months of diagnosis for patients who are considering active surveillance. - Options for confirmatory testing include prostate biopsy, mpMRI with calculation of PSA density (and repeat biopsy as indicated), and/or molecular tumor analysis, see Principles of Risk Stratification (PROS-D). - Early confirmatory testing may not be necessary in patients who have had an mpMRI prior to diagnostic biopsy. ?All patients should undergo a confirmatory prostate biopsy within 1?2 years of their diagnostic biopsy 2) Targeted Cryotherapy Ablation. The technique of cryotherapy was described. PSA free progression rates were discussed. Suitable candidates in general have low volume grade group 1 or grade group 2 disease. Typically pelvic MRI with targeted mapping biopsies are required for treatment planning. - The patient is a candidate for image guided targeted cryotherapy ablation. 3) Robotic Prostatectomy. Salient features of the patient's PSA, Bayside score and disease stage were applied to the [facility] nomogram. Relevant rates of extracapsular extension, seminal vesicle involvement oanh involvement with discussed. Pathologic up staging and down staging on final specimen was discussed. Salient features of the procedure, hospitalization and recovery were discussed. - The patient is a candidate for robotic prostatectomy. 4) Radiation therapy was described. IMRT, hyperfractionated therapy, permanent seed implant with all without concomitant androgen deprivation therapy and rectal protection were discussed. There is a small separation regarding cancer control between radiation and prostatectomy at approximately 15 years. There is an evolving preference for hyper fractionated therapy. This gives the same radiation total dose in a reduced number of individual treatment sessions. This approach is associated with higher risks of rectal bleeding. To ameliorate these risks injection of a spacer gel posterior to the prostate has been advocated. This is only indicated in patients without evidence of extracapsular extension posteriorly, and should be considered with caution where disease is primary grade 4. Brachytherapy was described in detail. Typically this is a same day procedure. Therapy is typically well tolerated and gives good control for low-risk prostate cancer and cancer that does not involve neurovascular invasion. - The patient is a candidate for brachytherapy Different risks were described for each therapeutic option. Ranges from the published literature were discussed. Consequent morbidity and treatment to address complications were discussed. These include - robotic prostatectomy - Typically patients are in hospital for one day and miss 4 weeks of work. The importance of preoperative walking and Kegel exercises was stressed. Complications, including but not limited to; acute complications regarding blood loss, transfusion, DVT, ileus, wound infection and potential mortality. Long-term complications such as impotence, UTI, urethral stricture, bladder neck contracture, incontinence. Penile shrinkage and chronic pain were discussed and reviewed. - radiation - IMRT typically this takes 25-40 daily treatments administered on a Friday through Friday sequence. Treatment is normally well tolerated. associated side effects include urge, frequency, dysuria, hematuria, loose bowels and fatigue, particularly toward the end of therapy. These can be ameliorated to some degree with medication. Long-term risks regarding impotence and a small risk of chronic urinary urge and incontinence were discussed - brachytherapy General anesthesia is used. Radioactive seeds are placed. There may be a required planning visit. Risks regarding anesthesia with DVT, PE, infection, urinary retention, urgency, and frequency were discussed. Long-term risks include bladder neck contraction, impotence, urge, potential for secondary cancer of the bladder base The patient has Grade Group primary 1 with 3 pT 1 C prostate cancer disease Based on the patient's age, comorbidities and personal preferences reasonable treatment options include cryotherapy The patient is not a candidate for germline testing in accordance with the NCCN guideline Patient Instructions: This note is constructed using voice recognition software. While every effort has been made to ensure accuracy face burler errors may have been included. Imaging studies, laboratory and physical exam results were discussed and reviewed in detail. No major barriers to patient understanding were identified. An opportunity to ask questions regarding the treatment plan was provided. All questions were answered. The patient expressed understanding and agreement with the above treatment plan. The patient is aware they should contact our office by phone for worsening of their current condition or the appearance of new urologic symptoms. Compliance is encouraged with any medications and followup testing that is ordered. It is a privilege to participate in the urologic care of your patient. If you have any questions or concerns regarding treatment for the above conditions, or other urologic issues, please do not hesitate to contact me. The office telephone contact is [phone]. Sincerely, Dr Mars Baeza MD, [facility] - Urology Compassionate Specialist Care for the Genitourinary System Coding Level of Care Code Tele Est Pt Level 4 (79252) Complex EM visit Add On G2211 Diagnoses Prostate cancer C61
--- OUTSIDE RECORDS SUMMARY | 2025-01-12 13:33 | XMS_ITS | Clinical Summary ---
Author Organization [facility] Address [address] [place] [address] Care Team Providers Care Child Center Assistant Name Role Phone Jennifer Sanchez MD Primary Care Provider Allergies Active Allergy Reactions Criticality Noted Date [...] per day. 90 tablet 3 03/23/2024 Active finasteride (Proscar) 5 MG tablet TAKE 1 TABLET BY MOUTH ONCE DAILY IN THE MORNING 90 tablet 1 08/09/2024 Active doxazosin (Cardura) 4 MG tablet TAKE 1 TABLET BY MOUTH AT BEDTIME 90 tablet 08/31/2024 Active pravastatin (Pravachol) 40 MG tablet Take 1 tablet (40 mg) by mouth Once per day. 90 tablet 3 09/16/2024 Active LORazepam (Ativan) 0.5 MG tabletIndicatio ns:Depression with anxiety TAKE 1 TABLET BY MOUTH EVERY DAY NEEDED 30 tablet 11/25/2024 Active Active Problems Problem Noted Date Diagnosed [...] Plan (09/19/2024 10:21 PM EDT): Following with [facility], last seen on 09/07/24. Dx hemorrhoids. Rx hydrocortisone suppository and senna. Having preop by supreme court justice prior to scheduling colonoscopy Assessment & Plan [...] will refer back to previous Urologist at [facility] Elevated PSA 10/03/2022 Assessment & Plan [...] 10:20 PM EDT): - Currently following with [facility]rologist, Dr. 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 - continue Finasteride 5mg daily. - having pre-op evaluation by supreme court justice for both colonoscopy and urology procedure Assessment [...] daily. - he was referred back to [facility] urology; advised to call the office [...] daily. - he was referred back to [facility] urology; advised to call the office [...] daily. - he was referred back to [facility] urology; advised to call the office [...] to the emergency room, case presented to [facility] emergency room Leukopenia 08/12/2012 09/15/2024 Encounters Date Type Department Care Team Description 12/27/2024 Orders Only GENERIC EXTERNAL DATA DEPARTMENT Provider, Generic External Data 12/13/[address] [phone] Jennifer Sanchez MD 12/10/[address] [address] Jennifer Sanchez MD Chart Prep 12/06/2024 Patient Outreach [address] [address] Jennifer Sanchez MD Pre-visit Planning (SDOH Screening completed on 09/16/2024) 11/24/2024 Refill [facility] [address] [place] [phone] Jennifer Sanchez MD Depression with anxiety 10/27/[address] [address] Jennifer Sanchez MD december recall from Last 3 Months Immunizations Immunization Administration [...] the past 12 months, has t he [employer], gas, oil or water [employer] threatened to shut off services in your [...] Description 01/27/2025 1:00 PM EDT Office Visit [facility] [address] [place] [address] Alexandria Emanuel, OD [address] [place] [address] 02/08/2025 11:15 AM EDT Office Visit [facility] [address] [place] [address] Jennifer Sanchez MD [address] [place] [address] Health Maintenance Due Date Last Done Comments [...] 09/16/2025 09/16/2024 Depression Screening 09/16/2025 09/16/2024, 09/17/19 SDOH Screening 09/16/2025 09/16/2024 Tobacco Screening 09/19/2025 [...] Procedure Name Priority Date/Time Associated Diagnosis Comments HEMATOXYLIN AND EOSIN STAIN Routine 12/27/2024 1:10 PM EDT HEMOGLOBIN A1C Routine 06/09/2024 11:00 AM EST Impaired fasting glucose LIPID PANEL WITH REFLEX TO DIRECT LDL Routine 06/09/2024 11:00 AM EST Dyslipidemia HM COLONOSCOPY Routine 02/04/2020 ZZZ HISTORICAL HEPATITIS C ANTIBODY RFLX Routine 07/13/2019 10:35 AM EST from Last 3 Months or Most Recently Relevant to Health Maintenance Results * Hematoxylin and Eosin Stain (12/27/2024 1:10 PM EDT) 12/27/2024 1:10 PM EDT 12/27/2024 1:40 PM EDT [facility] - 12/30/2024 9:45 AM EDT ----- ------- Name: Andrew Houser Age/Sex: 69/M : 1955 Unit#: [id number] Attend Dr: Mars Baeza MD Re12/27/24 Status: [facility] Disch: ----- ------- SPEC : [id number] RECD: 12/27/24 STATUS: VINNY HERMAN NUM: [id number] ELIDA: 12/27/24 [facility] DR: Mars Baeza MD ENTERED: 12/27/24 SP TYPE: Surgical OTHR DR: Jennifer Sanchez MD ORDERED: HE Stain/48, Multiplex IHC, PIN4, Prostate biopsy Diagnosis A. Prostate, F 2.5, core biopsy: Benign prostatic tissue. B. Prostate, e 3.0, core biopsy: Benign prostatic tissue. C. Prostate, e 2.0, core biopsy: Benign prostatic tissue. D. Prostate, e 1.5, core biopsy: Benign prostatic tissue. E. Prostate, E 3.5, core biopsy: Benign prostatic tissue. F. Prostate, E 2.5, core biopsy: Benign prostatic tissue. G. 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 H. Prostate, d 4.0, core biopsy: Benign prostatic tissue. I. Prostate, d 1.5, core biopsy: Prostatic adenocarcinoma, Shannon score 4+3=7 (grade group 3), involving 60% of the tissue core. J. Prostate, c 1.5, core biopsy: Prostatic adenocarcinoma, Shannon score 3+3=6 (grade group 1), involving <1% of the tissue core. K. Prostate, C 4.0, core biopsy: Prostatic adenocarcinoma, Shannon score 3+3=6 (grade group 1), involving 7% of the tissue core, discontinuous foci. L. Prostate, C 3.0, core biopsy: Benign prostatic tissue. M. Prostate, C 2.0, core biopsy: Benign prostatic tissue. N. Prostate, b 2.5, core biopsy: Benign prostatic tissue. O. Prostate, b 1.5, core biopsy: Benign prostatic tissue. P. Prostate, B 2.0, core biopsy: Benign prostatic tissue. Data synopsis - Prostate needle biopsy Histologic type: Acinar adenocarcinoma Histologic grade: Shannon score: 3+3=6 (G,J,K); 4+3=7(I) % of pattern 4: 70% (I) % of pattern 5: Not identified Grade group: 1 (G,J,K); 3(I) Tumor quantitation: Number cores positive: 4 Total number of cores: 16 % of tissue involved: See above for details Periprostatic fat inv.: Not identified Seminal vesicle inv.: Not identified Perineural inv.: Not identified LVI: Not identified CONTINUED ON NEXT PAGE ----- ------- Name: Andrew Houser Age/Sex: 69/M : 1955 Unit#: [id number] Attend Dr: Mars Baeza MD Re12/27/24 Status: [facility] Disch: ----- ------- SPEC : [id number] RECD: 12/27/24 STATUS: VINNY HERMAN NUM: [id number] ELIDA: 12/27/24 [facility] DR: Mars Baeza MD ENTERED: 12/27/24 SP TYPE: Surgical OTHR DR: Jennifer Sanchez MD ORDERED: HE Stain/48, Multiplex IHC, PIN4, Prostate biopsy Clinical History Elevated PSA Microscopic Description Microscopic sections reviewed. The immunostain for PIN4 in specimen K supports malignant prostatic glands as discontinuous foci. Material Received A. F 2.5 B. e 3.0 C. e 2.0 D. e 1.5 E. E 3.5 F. E 2.5 G. E 1.5 H. d 4.0 I. d 1.5 J. c 1.5 K. C 4.0 L. C 3.0 M. C 2.0 N. b 2.5 O. b 1.5 P. B 2.0 Gross Description Received in sixteen parts. Part A: Received in formalin labeled F 2.5 is a 1.5 cm in length thin and delicate ordaz- white cylindrical thread of tissue, submitted in toto in a cassette labeled A. Part B: Received in formalin labeled e 3.0 are two irregular shards and thin and delicate cylindrical threads of ordaz-white tissue measuring 0.15 and 0.9 cm, submitted in toto in a cassette labeled B. Part C: Received in formalin labeled e 2.0 are two irregular shards and thin and delicate cylindrical threads of ordaz-white tissue measuring 0.1 and 0.8 cm, submitted in toto in a cassette labeled C. Part D: Received in formalin labeled e 1.5 is a 1.9 cm in length thin and delicate ordaz- CONTINUED ON NEXT PAGE ----- ------- Name: Andrew Houser Age/Sex: 69/M : 1955 Unit#: [id number] Attend Dr: Mars Baeza MD Re12/27/24 Status: [facility] Disch: ----- ------- SPEC : [id number] RECD: 12/27/24-1339 STATUS: VINNY HERMAN NUM: [id number] ELIDA: 12/27/24-131 [facility] DR: Mars Baeza MD ENTERED: 12/27/24 SP TYPE: Surgical OTHR DR: Jennifer Sanchez MD ORDERED: HE Stain/48, Multiplex IHC, PIN4, Prostate biopsy Gross Description (Continued) white cylindrical thread of ordaz-white tissue, submitted in toto in a cassette labeled D. Part E: Received in formalin labeled E 3.5 is a 1.5 cm in length thin and delicate ordaz- white cylindrical thread of tissue, submitted in toto in a cassette labeled E. Part F: Received in formalin labeled E 2.5 are two thin and delicate, ordaz-white cylindrical threads of tissue measuring 0.5 and 1.0 cm in length, submitted in toto in a cassette labeled F. Part G: Received in formalin labeled E 1.5 is a 1.7 cm in length thin and delicate ordaz- white cylindrical thread of tissue, submitted in toto in a cassette labeled G. Part H: Received in formalin labeled d 4.0 is a 2.0 cm in length thin and delicate ordaz- white cylindrical thread of tissue, submitted in toto in a cassette labeled H. Part I: Received in formalin labeled d 1.5 is a 2.2 cm in length thin and delicate ordaz- white cylindrical thread of tissue, submitted in toto in a cassette labeled I. Part J: Received in formalin labeled c 1.5 are two thin and delicate cylindrical threads of tissue measuring 0.3 and 1.5 cm in length, submitted in toto in a cassette labeled J. Part K: Received in formalin labeled C 4.0 is a 1.2 cm in length thin and delicate ordaz- white cylindrical thread of tissue, submitted in toto in a cassette labeled K. Part L: Received in formalin labeled C 3.0 is a 1.8 cm in length thin and delicate ordaz- white cylindrical thread of tissue, submitted in toto in a cassette labeled L. Part M: Received in formalin labeled C 2.0 is a 1.8 cm in length thin and delicate ordaz- white cylindrical thread of tissue, submitted in toto in a cassette labeled M. Part N: Received in formalin labeled b 2.5 is a 1.5 cm in length thin and delicate ordaz- white cylindrical thread of tissue, submitted in toto in a cassette labeled N. Part O: Received in formalin labeled b 1.5 is a 0.8 cm in length thin and delicate ordaz- white cylindrical thread of tissue, submitted in toto in a cassette labeled O. Part P: Received in formalin labeled B 2.0 is a 1.2 cm in length thin and delicate ordaz- white cylindrical thread of tissue, submitted in toto in a cassette labeled P. CEDS This case was reviewed intradepartmentally. Special stains ordered and performed: Immunostain for K1. CONTINUED ON NEXT PAGE ----- ------- Name: Andrew Houser Age/Sex: 69/M : 1955 Unit#: [id number] Attend Dr: Mars Baeza MD Re12/27/24 Status: [facility] Disch: ----- ------- SPEC : [id number] RECD: 12/27/24 STATUS: VINNY RE NUM: [id number] ELIDA: 12/27/24 [facility] DR: Mars Baeza MD ENTERED: 12/27/24 SP TYPE: Surgical OTHR DR: Jennifer Sanchez MD ORDERED: HE Stain/48, Multiplex IHC, PIN4, Prostate biopsy IHC S/NG Disclaimer NOTE: Unless otherwise stated, all tissue is formalin-fixed and paraffin-embedded. Some or all of the immunohistochemical tests reported herein may have been developed and their performance characteristics determined by [facility]. They have not been cleared or approved by the U.S. Food and Drug Administration (FDA). However, the FDA has determined that such clearance or approval is not necessary. This laboratory is certified under the Clinical Laboratory Improvement Amendments of 1988 (CLIA) as qualified to perform high complexity clinical laboratory testing. Copies To: Mars Baeza MD [facility] [address] [place] [address] Jennifer Sanchez MD [facility] [address] [place] [address] ----- ------- Signed (signature on file) Suzie Garcia MD 12/30/24 0945 ----- ------- END OF REPORT us Generic External Data Provider LAB BLOOD ORDERAB LES Final Result [facility] [address] [place] [address] [phone] * (ABNORMAL) Lipid Panel with Reflex to Direct LDL (06/09/2024 11:00 AM EST) Triglycerides 68 <150 mg/dL [facility] Comment:Desirable Triglyceri de: less than 150 mg/dLBorderline High Triglyceride 150-199 mg/dLHigh Triglyceride: 200-499 mg/dLVery High Triglyceride: greater than or equal to 5OO mg/dL Cholesterol 175 <200 mg/dL [facility] Comment:Desirable Cholestero l: less than 200 mg/dLBorderline High Cholesterol: 200-239 mg/dLHigh Cholesterol: greater than 239 mg/dL LDL Cholesterol Calculated 111(H) <100 mg/dL [facility] Comment:Desirable LDL: less than 100 mg/dLNear Optimal/Above Optimal LDL: 110- 129 mg/dLBorderline High LDL: 130-159 mg/dLHigh LDL: 160-189 mg/dLVery High LDL: greater than or equal to 190 mg/dL HDL Cholesterol 51 >40 mg/dL [facility] Comment:Desirable HDL: great er than 40 mg/dL Note: This HDL assay may give artificially low results in patients with liver disease. Blood 06/09/2024 11:0 0 AM EST 06/09/2024 11:05 AM EST us Jennifer Sanchez MD LAB BLOOD ORDERABLES Final Resul t [facility] [address] [place] [phone] * Hemoglobin A1c (06/09/2024 11:00 AM EST) Hemoglobin A1c 6.0 <6.0 % [facility] Comment:Hemoglobin A1C Refer ence Range Adults: 4.8 - 6.0 % Non diabetic: < 6.0 % Goal: < 7.0 %Additional Action Suggested: > 8.0 %Note: Hemoglobin A1c results are invalid for patients with abnormal amounts of HbF. Blood transfusions may impact the HbA1c concentration in the patient sample. Estimated Average Glucose 126 mg/dL [facility] Comment:eAG = Estimated ave rage glucose which is %A1C expressed asaverage glucose, using the formula of the R2O-EvdmebzFrklbib Glucose study (ADAG), Diabetes Care, Vol.31,#8,Dec. 2007 Blood Venous blood specimen / Unknown 06/09/2024 11:00 AM EST 06/09/2024 11:05 AM EST Jennifer Sanchez MD LAB BLOOD ORDERABLES Final Resul t Performing Organization Address City/[facility]/ZIP Co de Phone Number [facility] [address] [place] [phone] [phone] * Hm Colonoscopy (02/04/2020) Colonoscopy Normal Normal 02/04/2020 [facility] HEALTH MAINTENANCE [...] [facility] [address] from Last 3 Months or Most Recently Relevant to Health Maintenance Insurance [address] [place] [id number] [facility] [place] [phone] Care Teams Child Center Assistant Relationship Specialty Start Date End Date Jennifer Sanchez MD [address] [place] [phone] PCP - General Family Medicine 12/03/13
== END 2025-01-12 17:19 | disposition home or self-care (01) ==
LOC: HO.HUSH 13:01
PROVIDERS: PCP Family Medicine; Visit Provider Urology
DX: C61 Malignant neoplasm of prostate (principal)
CPT/HCPCS: 99214; G2211

== ENCOUNTER 2025-01-18 06:28 | Emergency (ER) | payer MEDICARE, MEDICAID, SELFPAY ==
--- NOTE | ~2025-01-18 | CT_ITS ---
EXAMINATION: CT ABDOMEN AND PELVIS WITH CONTRAST CLINICAL INFORMATION: Right lower quadrant pain. Right inguinal pain. Status post prostatic biopsy, recent. COMPARISON: February 09, 2024. TECHNIQUE: Multidetector volumetric images were obtained from the superior aspect of the liver through the pubic symphysis following administration 85 mL of Omnipaque 350 intravenous contrast. Sagittal and coronal reformatted images were obtained on the technologist's workstation. Oral contrast: No This CT examination was performed using dose optimization techniques as appropriate, variously including the following: *Automated exposure control *Adjustment of mA and/or kV according to patient size (this includes techniques or standardized protocols for targeted exams where dose is matched to indication/reason for exam; i.e. extremities or head) *Use of iterative reconstruction technique. DLP: 658 mg centimeter. FINDINGS: Patient's motion artifact. LUNG BASES: No acute airspace disease. LIVER, GALLBLADDER, AND BILIARY TREE: Liver measures 16 cm. There are multifocal well-defined lobulated and round low density lesions, the largest measures 22 mm in maximum dimension and likely fluid density. Main portal vein and intrahepatic portion of the IVC are patent. Gallbladder is contracted. No pericholecystic fluid collection or gallbladder wall thickening. No intrahepatic or extrahepatic biliary ductal dilatation. PANCREAS: No focal mass. No peripancreatic fluid collection. Less than 2 mm low densities throughout the body tail. No main pancreatic ductal dilatation. SPLEEN: Centimeter. Punctate calcification. No focal mass. ADRENAL GLANDS: No nodular lesions. KIDNEYS AND URETERS: No hydronephrosis. No gross nephrolithiasis. Subcentimeter cyst, left kidney. Normal enhancement pattern of the renal parenchyma. No gross focal mass. Cortical defect in the posterior midportion left kidney BLADDER: Fluid-filled with slight between the anterior left wall towards the left inguinal canal. GASTROINTESTINAL TRACT: Collapsed appearance of the left hemicolon and transverse colon with questionable wall thickening. Scattered diverticula, left hemicolon. Gas and fluid-filled nondistended small bowel loops. There is a group of small bowel loops towards the right inguinal canal and lateral to the epigastric vessels. No intestinal obstruction pattern.. No pneumatosis intestinalis. No ascites. No pneumoperitoneum. No peripheral enhancing fluid collection, peritoneal cavity. There is a 2 cm gasfield diverticulum, second portion of the duodenum. Small hiatal hernia. The appendix is short and normal. ABDOMINAL WALL: Right inguinal hernia containing a loop of nondilated distal small bowel loops. Fat-containing left inguinal hernia and a trace of anterior left lateral wall of the bladder. Fat-containing umbilical hernia, small. LYMPH NODES: No specific prominent retroperitoneum. VASCULAR: Mixed plaques in the distal abdominal aorta wall and iliac arteries without gross aneurysm or dissection. PELVIC VISCERA: 6.4 cm heterogeneously enlarged prostate gland protruding upon the urinary bladder floor. OSSEOUS STRUCTURES: Spondylosis, L4-5 and L5-S1 with pronounced lordosis. No gross acute fracture or listhesis. No lytic or blastic lesions. CT/CT abdomen pelvis w IV con IMPRESSION: Right inguinal hernia containing a group both nondilated distal small bowel loops. Fat-containing left inguinal hernia with a trace portion of anterior left lateral bladder wall. Fat-containing umbilical hernia. Diverticular disease, left hemicolon. 6.4 cm heterogeneously enlarged prostate gland. Consider benign prostate hyperplasia versus malignancy. Stable hepatic cysts. Fleischner guidelines were followed. Electronically signed by: Matt Fisher MD 01/18/2025 09:17 AM EDT
[2025-01-18 06:42] VITALS: BP 162/77; PULSE 85; RESP 18; TEMP 36.9; O2SAT 99; BMI 28.7
--- OUTSIDE RECORDS SUMMARY | 2025-01-18 06:51 | XMS_ITS | Clinical Summary ---
Author Organization [employer] Address [address] [facility] [address] [place] [address] Care Team Providers Care Plant Care Worker Name Role Phone Jennifer Sanchze MD Primary Care Provider [phone] Allergies Active Allergy Reactions Criticality Noted Date [...] Plan (09/19/2024 10:21 PM EDT): Following with [facility] GI, last seen on 09/07/24. Dx hemorrhoids. Rx hydrocortisone suppository and senna. Having preop by polymerization engineer prior to scheduling colonoscopy Assessment & Plan [...] 10:20 PM EDT): - Currently following with [facility] Urologist, Dr. 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 - continue Finasteride 5mg daily. - having pre-op evaluation by polymerization engineer for both colonoscopy and urology procedure Assessment [...] daily. - he was referred back to [facility] urology; advised to call the office and [...] daily. - he was referred back to [facility] urology; advised to call the office and [...] daily. - he was referred back to [facility] urology; advised to call the office and [...] to the emergency room, case presented to [facility] emergency room Leukopenia 08/12/2012 09/15/2024 Encounters Date Type Department Care Team Description 12/27/2024 Orders Only GENERIC EXTERNAL DATA DEPARTMENT Provider, Generic External Data 12/13/[address] [address] Jennifer Sanchez MD 12/10/[address] [address] Jennifer Sanchez MD Chart Prep 12/06/2024 Patient Outreach [address] [address] Jennifer Sanchez MD Pre-visit Planning (SDOH Screening completed on 09/16/2024) 11/24/2024 Refill [facility] MEDICINE [address] [place] [phone] Jennifer Sanchez MD Depression with anxiety 10/27/[address] [address] Jennifer Sanchez MD december recall from Last [...] the past 12 months, has t he [employer], gas, oil or water [employer] threatened to shut off services in your [...] Description 01/27/2025 1:00 PM EDT Office Visit [facility] OPTOMETRY [address] [place] [address] Alexandria Emanuel, OD [address] [place] [address] 02/08/2025 11:15 AM EDT Office Visit [facility] MEDICINE [address] [place] [address] Jennifer Sanchez MD [address] [place] [address] Health Maintenance Due Date Last Done Comments [...] 1:10 PM EDT 12/27/2024 1:40 PM EDT [facility] LABS - 12/30/2024 9:45 AM EDT ----- ------- Name: Andrew Houser Age/Sex: 69/M : 1955 Unit#: [id number] Attend Dr: Mars Baeza MD Re12/27/24 Status: [facility] Location: [facility] Disch: ----- ------- SPEC : [id number] RECD: 12/27/24 STATUS: VINNY HERMAN NUM: [id number] ELIDA: 12/27/24 [facility] [address]: Mars Baeza MD ENTERED: 12/27/24 SP [...] Prostate, d 1.5, core biopsy: Prostatic adenocarcinoma, [place] score 4+3=7 (grade group 3), involving 60% of the tissue core. J. Prostate, c 1.5, core biopsy: Prostatic adenocarcinoma, Shannon score 3+3=6 (grade group 1), involving <1% of the tissue core. K. Prostate, C 4.0, core biopsy: Prostatic adenocarcinoma, [place] score 3+3=6 (grade group 1), involving 7% [...] biopsy Histologic type: Acinar adenocarcinoma Histologic grade: [place] score: 3+3=6 (G,J,K); 4+3=7(I) % of pattern [...] Andrew Houser Age/Sex: 69/M : 1955 Unit#: [id number] Attend Dr: Mars Baeza MD Re12/27/24 Status: [facility] Location: [facility] Disch: ----- ------- SPEC : [id number] RECD: 12/27/24 STATUS: VINNY HERMAN NUM: [id number] ELIDA: 12/27/24 [facility] DR: Mars Baeza MD ENTERED: 12/27/24 SP [...] Andrew Houser Age/Sex: 69/M : 1955 Unit#: [id number] Attend Dr: Mars Baeza MD Re12/27/24 Status: [facility] Location: [facility] Disch: ----- ------- SPEC : [id number] RECD: 12/27/24-1339 STATUS: VINNY HERMAN NUM: [id number] ELIDA: 12/27/24-131 [facility] DR: Mars Baeza MD ENTERED: 12/27/24 SP [...] Andrew Houser Age/Sex: 69/M : 1955 Unit#: [id number] Attend Dr: Mars Baeza MD Re12/27/24 Status: [facility] Location: [facility] Disch: ----- ------- SPEC : [id number] RECD: 12/27/24 STATUS: VINNY RE NUM: [id number] ELIDA: 12/27/24 [facility] [address]: Mars Baeza MD ENTERED: 12/27/24 SP TYPE: Surgical OTHR DR: Jennifer Sanchez MD ORDERED: HE Stain/48, Multiplex IHC, PIN4, Prostate biopsy IHC S/NG Disclaimer NOTE: Unless otherwise stated, all tissue is formalin-fixed and paraffin-embedded. Some or all of the immunohistochemical tests reported herein may have been developed and their performance characteristics determined by [facility]. They have not been cleared or approved by the U.S. Food and Drug Administration (FDA). However, the FDA has determined that such clearance or approval is not necessary. This laboratory is certified under the Clinical Laboratory Improvement Amendments of 1988 (CLIA) as qualified to perform high complexity clinical laboratory testing. Copies To: Mars Baeza MD [facility] Urology Services [address] [place] [address] Jennifer Sanchez MD [facility] [address] [place] [address] ----- ------- Signed (signature on file) Suzie Garcia MD 12/30/24 0945 ----- ------- END OF REPORT us Generic External Data Provider LAB BLOOD ORDERAB LES Final Result [facility] [address] [place] [address] [phone] * (ABNORMAL) Lipid Panel with Reflex to Direct LDL (06/09/2024 11:00 AM EST) Triglycerides 68 <150 mg/dL [facility] Comment:Desirable Triglyceri de: less than 150 mg/dLBorderline High Triglyceride 150-199 mg/dLHigh Triglyceride: 200-499 mg/dLVery High Triglyceride: greater than or equal to 5OO mg/dL Cholesterol 175 <200 mg/dL [facility] Comment:Desirable Cholestero l: less than 200 mg/dLBorderline High Cholesterol: 200-239 mg/dLHigh Cholesterol: greater than 239 mg/dL LDL Cholesterol Calculated 111(H) <100 mg/dL [facility] Comment:Desirable LDL: less than 100 mg/dLNear Optimal/Above Optimal LDL: 110- 129 mg/dLBorderline High LDL: 130-159 mg/dLHigh LDL: 160-189 mg/dLVery High LDL: greater than or equal to 190 mg/dL HDL Cholesterol 51 >40 mg/dL [facility] Comment:Desirable HDL: great er than 40 mg/dL Note: This HDL assay may give artificially low results in patients with liver disease. Blood 06/09/2024 11:0 0 AM EST 06/09/2024 11:05 AM EST us Jennifer Sanchez MD LAB BLOOD ORDERABLES Final Resul t [facility] [address] [place] [phone] * Hemoglobin A1c (06/09/2024 11:00 AM EST) Hemoglobin A1c 6.0 <6.0 % [facility] Comment:Hemoglobin A1C Refer ence Range Adults: 4.8 - 6.0 % Non diabetic: < 6.0 % Goal: < 7.0 %Additional Action Suggested: > 8.0 %Note: Hemoglobin A1c results are invalid for patients with abnormal amounts of HbF. Blood transfusions may impact the HbA1c concentration in the patient sample. Estimated Average Glucose 126 mg/dL [facility] Comment:eAG = Estimated ave rage glucose which is %A1C expressed asaverage glucose, using the formula of the Q3N-FczjahfSwfwrsc Glucose study (ADAG), Diabetes Care, Vol.31,#8,Dec. 2007 Blood Venous blood specimen / Unknown 06/09/2024 11:00 AM EST 06/09/2024 11:05 AM EST Jennifer Sanchez MD LAB BLOOD ORDERABLES Final Resul t Performing Organization Address City/[facility]/ZIP Co de Phone Number [facility] [address] [place] [address] [phone] * Hm Colonoscopy (02/04/2020) Colonoscopy Normal Normal 02/04/2020 [facility] HEALTH MAINTENANCE Edited Result - Final * HEPATITIS C ANTIBODY RFLX (07/13/2019 10:35 AM EST) HEPATITIS C ANTIBODY NONREACTIVE NONREACTIVE [facility] Comment: Antibodies to HCV not detected; does not exclude early acute HCV infection. 07/13/2019 10:3 5 AM EST Jennifer Sanchez MD HISTORICAL/NON ORDERABLE LABS Fi nal Result [facility] [address] from Last 3 Months or Most Recently Relevant to Health Maintenance Insurance [address] [place] [id number] [facility] [place] [phone] Care Teams Plant Care Worker Relationship Specialty Start Date End Date Jennifer Sanchez MD [address] [place] [phone] PCP - General Family Medicine 12/03/13
--- NOTE | 2025-01-18 06:58 | ED_ITS ---
HPI - General Adult General Chief complaint: General Medical Stated complaint: leg pain + back pain Time Seen by Provider: 01/18/25 06:57 Source: patient and RN notes reviewed Mode of arrival: ambulatory Limitations: no limitations History of Present Illness ED Provider: Judy Jay PA-C HPI narrative: This is a 89-ef[age]-male, with a hx of BPH, who presents to the ER with complaints of right inner groin pain which started about 1 week ago. Patient states that he recently had a prostate biopsy 2 weeks ago and states that the biopsy went well, however does report that it came back positive for cancer. He states that approximately 1 week ago he developed right inner groin pain which is constant and waxes and wanes in severity, stating that it is sharp in nature. Patient reports that the pain also goes into his right flank and into his right buttock. He denies any fevers, chills, chest pain, shortness of breath, abdominal pain, nausea, vomiting or diarrhea. No urinary changes or symptoms. No changes in bowel habits. Denies taking any medications prior to his arrival. No other complaints or concerns at this time. MD complaint: Right inner groin pain Onset (ago): week(s) Radiation: back Quality: stabbing Pain Consistency: constant Relieving factors: none Exacerbating factors: none Associated symptoms: denies other symptoms Treatments prior to arrival: none Related Data Home Medications ?Medication ?Instructions ?Recorded ?Confirmed lorazepam 0.5 mg tablet 0.5 mg PO DAILY PRN Anxiety 07/24/22 12/27/24 pravastatin 40 mg tablet 40 mg PO DAILY 12/27/2412/17 Previous Rx's ?Medication ?Instructions ?Recorded doxazosin 4 mg tablet 4 mg PO BEDTIME 90 days #90 tabs 09/30/24 finasteride 5 mg tablet 5 mg PO DAILY 90 days #90 ta bs 09/30/24 cefuroxime axetil 500 mg tablet 500 mg PO BID 7 days # 14 tabs 01/18/25 Allergies Allergy/AdvReac Type Severity Reaction Status Date / Time ibuprofen Allergy Unknown Swelling Verified 01/18/25 06:46 tamsulosin Allergy Unknown low B/P Verified 01/18/25 06:46 Review of Systems 2 Review of Systems: Yes all other systems are reviewed and are negative Constitutional: Constitutional: Reports as per HPI [facility] Past Medical History Medical History (Updated 01/18/25 @ 11:23 by Oliver Kimble MD) Depression with anxiety Dyslipidemia Cognitive impairment Tremor High grade prostatic intraepithelial neoplasia Leukopenia Impaired fasting glucose Prostate cancer Elevated blood pressure reading in office with diagnosis of hypertension BPH loc w urin obs/LUTS Elevated PSA Surgical History Hx of right knee surgery History of surgery Social History Social History Are you a primary direct care provider to a significant other at home: No Do you presently have visiting nurse or other home services: No Alcohol intake: current Patient Tobacco Use Status: Former Tobacco user Current occupational status: retired Current occupation: right hand dominant Physical Exam ED Vital Signs: Vital Signs - 24 hr 01/18/25 06:42 01/18/25 07:28 01/18/25 08:00 Temperature 98.4 F 98.4 F Pulse Rate 85 61 60 Respiratory Rate 18 15 Blood Pressure 162/77 H 119/68 127/70 Pulse Oximetry 99 98 100 Oxygen Delivery Method Room Air Room Air Room Air 01/18/25 10:00 01/18/25 11:29 Temperature 98.2 F 98.2 F Pulse Rate 76 76 Respiratory Rate 16 16 Blood Pressure 119/57 L 119/57 L Pulse Oximetry 99 99 Oxygen Delivery Method Room Air Room Air BMI result Body Mass Index 28.7 Const General: cooperative, comfortable and no acute distress Orientation/consciousness: patient oriented x3 Limitations: no limitations [facility] Head: Yes normal to inspection, Yes normocephalic and Yes atraumatic Ears: hearing grossly normal bilaterally General nose exam: Normal external nose present Face and sinus: Yes normal facial exam Mouth: Normal oral and palatal mucosa present, oropharynx normal and moist mucous membranes Throat: Yes posterior oropharynx normal Eyes General: appearance normal, both eyes and all related structures Eyelids: Yes eyelids normal Conjunctivae: conjunctivae normal Sclerae: sclerae normal Pupils: Equal, round and reactive pupils present EOM: EOMs intact bilaterally Neck Neck: Yes normal visual inspection, Yes full ROM and Yes no lymphadenopathy Lymphatic: no lymphadenopathy noted Chest Chest palpation & inspection: normal inspection of the chest Resp Effort & Inspection: normal respiratory effort and able to speak in complete sentences Auscultation: clear to auscultation bilaterally, no crackles, no rales, no rhonchi and no wheezes Cardio Rate: regular rate Rhythm: regular rhythm Heart sounds: S1 normal heart sound present and S2 normal heart sound present GI Inspection: Yes normal to inspection Other: examination performed with nurse present at all times. Patient does have tenderness palpation in the right inguinal region, no palpable defects, no palpable hernias appreciated. Exquisite tenderness to palpation in this area. Pain does not extend into the scrotum. No overlying scrotal erythema or edema. Mild tenderness palpation in the right lower quadrant, no rebound or guarding. Pain mildly extends into the right flank. Penis: normal penis and uncircumcised Skin General skin exam: no rashes or lesions noted Trauma: no lacerations or abrasions Wounds: no wounds Neuro General: patient oriented x3 and moves all extremities Cranial nerves: Yes Equal, round and reactive pupils present Extrem General: Yes normal to inspection Right upper extremity: normal to inspection Left upper extremity: normal to inspection Right lower extremity: normal to inspection Left lower extremity: normal to inspection Medications Administered Discontinued Medications Generic Name Dose Route Start Last Admin Trade Name Freq PRN Reason Stop Dose Admin Ceftriaxone Sodium 1 gm 01/18/25 11:08 01/18/25 11:24 Ceftriaxone Sodium 1 Gm Vial IVPUSH 01/18/25 11:09 1 gm ONCE ONE Administration Acetaminophen 1,000 mg in 100 mls @ 400 mls/hr 01/18/25 07:11 01/18/25 07:41 Ofirmev IV 01/18/25 07:25 Infused ONCE ONE Infusion Iohexol 100 ml 01/18/25 08:53 01/18/25 08:54 Iohexol 350 Mg/Ml 100 Ml Infus..Btl IV 01/18/25 08:54 85 ml ONCE ONE Administration Medical Decision Making Medical Decision Making MDM Narrative: This is a 69-year-old male who presents emergency department for evaluation of right inner groin pain which started about 1 week ago. Of note, he did have a prostate biopsy approximately 2 weeks ago. On arrival, blood pressure elevated at 162/77, all other vital signs within normal limits. He denies any fevers or chills. Patient has tenderness palpation in the right inguinal region, no palpable abnormalities. Differential diagnoses include renal colic, obstructive pathology, UTI, appendicitis, abscess, lumbar radiculopathy, hernia Plan: Labs, UA, IV Tylenol, CT abdomen and pelvis with IV contrast. 10:19 AM 01/18/2025 (Judy Jay PA-C): CT scan returns, revealing right inguinal hernia containing a group both nondilated distal small bowel loops. Discussed case with Moves you go, he will review the CAT scan and see him. Urine does appear to be infected, will give dose of IV ceftriaxone. He is afebrile, not tachycardic, vital signs within normal limits. We will continue to closely monitor. Tylenol has given him some pain relief 11:18 AM 01/18/2025 (Judy Jay PA-C): Dr. Kimble assessed patient, reviewed CT scan, recommending he can go home, and follow-up with the office. Will discharged on antibiotics to cover for urinary tract infection. Patient's pain is much better, well controlled with single dose of IV Tylenol. Given strict return precautions. He understands and agrees with plan. Patient stable for discharge. Differential Diagnosis Differential Diagnoses: The differential diagnosis associated with the presentation includes See above Lab Data [facility] Lab Attestation statement: I reviewed the patient's lab results. See MDM and course 01/18/25 07:03 01/18/25 07:03 Labs: Lab Results 01/18/25 01/18/25 Range/Units 07:03 08:32 WBC 4.9 (4.8-10.8) X10*3/uL RBC 4.18 L (4.60-5.80) X10*6/uL Hgb 12.1 L (14.0-18.0) g/dl Hct 34.9 L (42.0-52.0) % MCV 83.5 (80.0-98.0) fL MCH 28.9 (27.0-33.0) pg MCHC 34.7 (31.0-36.0) g/dl RDW 14.6 (11.0-16.0) % Plt Count 207 (160-400) X10*3/uL MPV 10.4 (9.4-12.4) fL Immature Gran % (Auto) 0.6 H (0.0-0.4) % Neut % (Auto) 50.4 (45-73) % Lymph % (Auto) 32.8 (20-40) % [place] % (Auto) 10.9 (2-11) % Eos % (Auto) 4.7 H (0-4) % Baso % (Auto) 0.6 (0-2) % Lymph # (Auto) 1.6 (1.2-4.9) X10*3/uL [place] # (Auto) 0.5 (0.1-1.2) X10*3/uL Eos # (Auto) 0.2 (0.0-0.4) X10*3/uL Baso # (Auto) 0.0 (0.0-0.2) X10*3/uL Abs Immat Gran (auto) 0.03 (0.00-0.03) X10*3/uL Absolute Neuts (auto) 2.5 (2.0-8.3) x10*3/uL Absolute Nucleated RBC 0.000 (0.0-0.012) X10*3/uL Nucleated RBC % (auto) 0.0 (0.0-0.2) /100WBC Sodium 140 (135-145) mmol/L Potassium 3.8 (3.3-5.1) mmol/L Chloride 107 (96-108) mmol/L Carbon Dioxide 24 (22-29) mmol/L Anion Gap 13 (12-20) BUN 14 (9-16) mg/dL Creatinine 0.79 (0.5-1.4) mg/dL Estim Creat Clear Calc 95.5 Estimated GFR > 60 Random Glucose 115 (60-115) mg/dL Calcium 8.8 D (8.4-10.2) mg/dL Total Bilirubin 0.2 (0.0-1.0) mg/dL AST 19 (5-37) U/L ALT 22 (0-40) U/L Alkaline Phosphatase 62 (39-117) U/L Total Protein 7.0 (6.5-8.0) g/dL Albumin 4.2 (3.5-5.0) g/dL Urine Color Yellow Urine Appearance Clear Urine pH 6.0 (5.0-9.0) Ur Specific [place] 1.015 (1.005-1.025) Urine Protein 30 (1+) H (Neg-Trace) mg/dL Urine Glucose (UA) Negative (Negative) mg/dL Urine Ketones Negative (Negative) mg/dL Urine Blood Moderate (2+) H (Negative) Urine Nitrite Negative (Negative) Ur Leukocyte Esterase Large (3+) H (Negative) Urine RBC 3-5 H (0-2) /HPF Urine WBC >50 H (0-5) /HPF Ur Squamous Epith Cells 0-2 (0-2) /HPF Urine Bacteria None Seen (None Seen) Hyaline Casts 0-2 (0-2) /LPF Radiology Impression Discussion of test interpretation with radiology: I have reviewed the radiologist's reading. Radiologist Impression: CT/CT abdomen pelvis w IV con IMPRESSION: Right inguinal hernia containing a group both nondilated distal small bowel loops. Fat-containing left inguinal hernia with a trace portion of anterior left lateral bladder wall. Fat-containing umbilical hernia. Diverticular disease, left hemicolon. 6.4 cm heterogeneously enlarged prostate gland. Consider benign prostate hyperplasia versus malignancy. Stable hepatic cysts. Fleischner guidelines were followed. Electronically signed by: Matt Fisher MD 01/18/2025 09:17 AM EDT Critical Care Time Critical Care Time Critical Care Time: Yes Total Critical Care Time: 34 Attestation: I have personally provided critical care time exclusive of time spent on separately billable procedures. Time includes review of lab data, radiology results, discussion with consultants, and monitoring for potential decompensation. Intervention performed as documented. Discharge Plan Discharge Clinical Impression: Inguinal hernia, Acute UTI Patient Disposition: Home, Self-Care Instructions: Urinary Tract Infection in Men (ED), Inguinal Hernia (ED) Additional Instructions: You were seen in the emergency department in your found to have a hernia. This could be the source of your pain therefore the surgeon, Dr. Kimble saw you in the ED. He is recommending you follow up with their office, call today to make an appointment. You also may be having pain stemming from your back. Gentle stretching, heat or ice, massage can help. Tylenol as needed for pain. You also have evidence of a urinary tract infection, we gave you a dose of antibiotics here in the emergency room, please start this later on today. If any new or worsening symptoms occur including but not limited to worsening pain, fevers, nausea, vomiting, please seek emergent care. Prescriptions: New cefuroxime axetil 500 mg tablet 500 mg PO BID 7 Days Qty: 14 0RF No Action pravastatin 40 mg tablet 40 mg PO DAILY lorazepam 0.5 mg tablet 0.5 mg PO DAILY PRN (Reason: Anxiety) finasteride 5 mg tablet 5 mg PO DAILY 90 Days Qty: 90 1RF doxazosin 4 mg tablet 4 mg PO BEDTIME 90 Days Qty: 90 1RF Referrals: [facility] General Surgeons [Provider Group, General Surgery] Interventions: Admission Worksheet (ED) Last Done: 01/18/25 11:15 ED Discharge Assessment Last Done: 01/18/25 11:29 Discharge Date/Time: 01/18/25 11:33 Print Language: Beninese
--- NOTE | 2025-01-18 07:07 | PC.NURSE ---
Pt seen by provider- connected to 1/2 monitor- VSS pain right groin radiating to back. No N/V/D, no difficulty with voiding. Pt having severe spasms. IV initiated. Labs drawn.
[2025-01-18 07:14] LABS: MANUAL DIFF FLAG NO
[2025-01-18 07:19] LABS: Hematocrit 34.9 % (42.0-52.0); Hemoglobin 12.1 g/dl (14.0-18.0); Imm Gran Abs Auto 0.03 X10*3/uL (0.00-0.03); Imm Gran Pct Auto 0.6 % (0.0-0.4); Lymphocytes Absolute Auto 1.6 X10*3/uL (1.2-4.9); Mean Corpuscular HGB Conc 34.7 g/dl (31.0-36.0); Mean Corpuscular Hemoglobin 28.9 pg (27.0-33.0); Mean Corpuscular Volume 83.5 fL (80.0-98.0); NRBC Abs Auto 0.000 X10*3/uL (0.0-0.012); NRBC Pct Auto 0.0 /100WBC (0.0-0.2); Platelet Count 207 X10*3/uL (160-400); Red Blood Count 4.18 X10*6/uL (4.60-5.80); White Blood Count 4.9 X10*3/uL (4.8-10.8)
[2025-01-18 07:28] VITALS: BP 119/68; PULSE 61; O2SAT 98
[2025-01-18 07:37] LABS: Alanine Aminotransferase 22 U/L (0-40); Albumin Level 4.2 g/dL (3.5-5.0); Alkaline Phosphatase 62 U/L (39-117); Anion Gap 13 (12-20); Aspartate Amino Transferase 19 U/L (5-37); Blood Urea Nitrogen 14 mg/dL (9-16); Calcium 8.8 mg/dL (8.4-10.2); Carbon Dioxide 24 mmol/L (22-29); Chloride 107 mmol/L (96-108); Creatinine Clr Calc Pharmacy 95.5; Estimated Glomerular Filt Rate > 60; Potassium 3.8 mmol/L (3.3-5.1); Sodium 140 mmol/L (135-145); Total Protein 7.0 g/dL (6.5-8.0)
[2025-01-18 08:00] VITALS: BP 127/70; PULSE 60; RESP 15; TEMP 36.9; O2SAT 100
[2025-01-18 08:40] LABS: Appearance Urine Clear; Glucose Urine UA Negative (Negative); PH 6.0 (5.0-9.0); Specific Gravity - Urine 1.015 (1.005-1.025); UMIC TRIGGER UACC YES
[2025-01-18 08:51] LABS: UACC Culture Trigger YES
[2025-01-18] MEDS: iohexoL 350 MG/ML 100 ML INFUS..BTL IV (08:54)
[2025-01-18 10:00] VITALS: BP 119/57; PULSE 76; RESP 16; TEMP 36.8; O2SAT 99
--- NOTE | 2025-01-18 11:18 | P.CONGS_ITS ---
History of Present Illness Consult details Consult date: 01/18/25 Requesting physician: Judy Jay Narrative: 69-year-old male patient presenting with complaints of right groin pain. The pain began approximately 2 weeks ago and he initially thought it was due to a recent prostate biopsy. The pain became quite severe and he subsequently presented for further evaluation in the emergency department. In the emergency department he was noted to be tender in the right groin with no definite palpable mass. CT abdomen and pelvis however revealed a right inguinal hernia containing a loop of nonobstructed small bowel as well as a fat containing left inguinal hernia. Denies any current symptoms in the left groin but does occasionally have episodes of slight discomfort on the left. He denies nausea, vomiting, fever, chills, diarrhea or constipation. Surgical consultation was requested for management of this right inguinal hernia. Review of Systems 2 Review of Systems: Yes all other systems are reviewed and are negative [facility] Past Medical History Medical History (Updated 01/18/25 @ 11:23 by Oliver Kimble MD) Depression with anxiety Dyslipidemia Cognitive impairment Tremor High grade prostatic intraepithelial neoplasia Leukopenia Impaired fasting glucose Prostate cancer Elevated blood pressure reading in office with diagnosis of hypertension BPH loc w urin obs/LUTS Elevated PSA Surgical History Surgical History Hx of right knee surgery History of surgery Social History Social History Are you a primary pet care worker to a significant other at home: No Do you presently have visiting nurse or other home services: No Alcohol intake: current Patient Tobacco Use Status: Former Tobacco user Advance Directives: No Advance Directives Information Provided: Yes Current occupational status: retired Current occupation: right hand dominant Meds Allergies Allergy/AdvReac Type Severity Reaction Status Date / Time ibuprofen Allergy Unknown Swelling Verified 01/18/25 06:46 tamsulosin Allergy Unknown low B/P Verified 01/18/25 06:46 Home Medications ?Medication ?Instructions ?Recorded ?Confirmed ?Last Taken ?Type lorazepam 0.5 mg tablet 0.5 mg PO DAILY PRN Anxiety 07/24/22 12/27/24 Unknown History pravastatin 40 mg tablet 40 mg PO DAILY 12/27/2412/17 Unknown History Physical Exam 2 Vital Signs: Vital Signs: Last Vital Signs Temp 98.2 F 01/18/25 10:00 Pulse 76 01/18/25 10:00 Resp 16 01/18/25 10:00 BP 119/57 L 01/18/25 10:00 Pulse Ox 99 01/18/25 10:00 O2 Del Method Room Air 01/18/25 10:00 BMI result Body Mass Index 28.7 Const: General: cooperative and no acute distress Nutritional Appearance: w ell nourished Orientation/consciousness: patient oriented x3 Limitations: no limitations HEENT: Head: Yes normocephalic and Yes atraumatic Ears: hearing grossly normal bilaterally Resp: Effort & Inspection: normal respiratory effort, no audible wheezes, no cough and no respiratory distress Cardio: Jugular venous distension: no JVD GI: Other: Soft and nondistended, nontender to palpation. No rebound, guarding or rigidity. Normal bowel sounds. Examination of the right groin reveals some slight tenderness to deep palpation but no definite hernias palpable. Slight fullness noted with Valsalva maneuvers suggestive of a reducible right inguinal hernia. No left inguinal hernias palpable. Inspection: Yes normal to inspection Skin: Other: Warm, dry, no rash Neuro: General: patient oriented x3 Extrem: General: Yes no clubbing, cyanosis or edema Results Labs 01/18/25 07:03 01/18/25 07:03 Labs: Abnormal lab results 01/18/25 01/18/25 Range/Units 07:03 08:32 RBC 4.18 L (4.60-5.80) X10*6/uL Hgb 12.1 L (14.0-18.0) g/dl Hct 34.9 L (42.0-52.0) % Immature Gran % (Auto) 0.6 H (0.0-0.4) % Eos % (Auto) 4.7 H (0-4) % Urine Protein 30 (1+) H (Neg-Trace) mg/dL Urine Blood Moderate (2+) H (Negative) Ur Leukocyte Esterase Large (3+) H (Negative) Urine RBC 3-5 H (0-2) /HPF Urine WBC >50 H (0-5) /HPF Short CBC 01/18/25 Range/Units 07:03 WBC 4.9 (4.8-10.8) X10*3/uL Hgb 12.1 L (14.0-18.0) g/dl Hct 34.9 L (42.0-52.0) % Plt Count 207 (160-400) X10*3/uL BMP 01/18/25 07:03 Sodium 140 Potassium 3.8 Chloride 107 Carbon Dioxide 24 BUN 14 Creatinine 0.79 Calcium 8.8 D Liver Function 01/18/25 Range/Units 07:03 Total Bilirubin 0.2 (0.0-1.0) mg/dL AST 19 (5-37) U/L ALT 22 (0-40) U/L Alkaline Phosphatase 62 (39-117) U/L Albumin 4.2 (3.5-5.0) g/dL Urine 01/18/25 Range/Units 08:32 Urine Color Yellow Urine Appearance Clear Urine pH 6.0 (5.0-9.0) Ur Specific [place] 1.015 (1.005-1.025) Urine Protein 30 (1+) H (Neg-Trace) mg/dL Urine Glucose (UA) Negative (Negative) mg/dL All other labs normal. Assessment and Plan (1) Reducible right inguinal hernia: Status: Acute Plan 69-year-old male patient presenting with a symptomatic right inguinal hernia which on examination is reduced while in the supine position. CT abdomen and pelvis does confirm a right inguinal hernia containing a loop of small bowel which is nonobstructed. A fat containing left inguinal hernias noted as well. He reports that he had a left inguinal hernia repair when he was 18 while in the service in [place]. The patient can be discharged from the emergency department and follow up in our office to make arrangements for repair of this reducible right inguinal hernia. The patient expressed understanding and agrees with the plan. Procedures Date of Service Date of Service: 01/18/25
[2025-01-18 11:29] VITALS: BP 119/57; PULSE 76; RESP 16; TEMP 36.8; O2SAT 99
== END 2025-01-18 11:33 | disposition home or self-care (01) ==
PROVIDERS: Emergency Provider Emergency Medicine; PCP Family Medicine
DX: K40.90 Unilateral inguinal hernia, without obstruction or gangrene, not specified as recurrent (principal); N39.0 Urinary tract infection, site not specified; R10.30 Lower abdominal pain, unspecified; C61 Malignant neoplasm of prostate
CPT/HCPCS: 36415; 74177; 80053; 81001; 85025; 87086; 96374; 96375; 99285; J0131; J0696; Q9967

== ENCOUNTER → 2025-01-18 06:48 | Outpatient (BNV) | payer MEDICARE, MEDICAID, SELFPAY | PROVIDERS: Emergency Provider Emergency Medicine; PCP Family Medicine; Visit Provider Surgery | DX: K40.90 Unilateral inguinal hernia, without obstruction or gangrene, not specified as recurrent (principal) | CPT/HCPCS: 99284 ==

== ENCOUNTER → 2025-01-18 07:11 | Outpatient (BNV) | payer MEDICARE, MEDICAID, SELFPAY | PROVIDERS: Emergency Provider Emergency Medicine; PCP Family Medicine; Visit Provider Radiology Diagnostic Radiology | DX: K40.90 Unilateral inguinal hernia, without obstruction or gangrene, not specified as recurrent (principal) | CPT/HCPCS: 74177 ==

== ENCOUNTER 2025-02-15 09:57 | Outpatient (AMB) | payer MEDICARE, MEDICAID, SELFPAY ==
--- NOTE | 2025-02-15 10:10 | A.OFFVIS_ITS ---
Vital Signs 02/15/25 10:11 Height 5 ft 5 in Weight 202 lb BMI 33.6 BP 132/66 Blood Pressure Location Rt brachial Position Sitting Pulse 66 Intake Visit Reasons: Rt inguinal hernia Intake Note: Patient seen at [facility] for right inner groin pain. Here to discuss bilateral inguinal hernia repair. Patient c/o: on and off pain on rt groin area. At times pain when walking. Left groin tenderness, soreness. Reports hx of left inguinal hernia repair about 30yrs ago. Imaging: Abdomen pelvis CT~ 01-18-2025 Cheese Cutter Required: No Accompanied by: Self / Same As Patient Allergies ibuprofen Allergy (Unknown, Verified 02/15/25 10:13) Swelling tamsulosin Allergy (Unknown, Verified 02/15/25 10:13) low B/P HPI Comments Details: 69-year-old male patient presenting with complaints of right groin pain. Patient was previously evaluated in the emergency department on 01/18/2025 in the right inguinal hernia confirmed. Since his discharge from the emergency department he continues to have pain in the right groin in his small amount in the left groin as well. He previously underwent a repair of the left inguinal hernia when he was 18 years old while in the service in [facility]. A CT abdomen and pelvis confirmed a larger right inguinal hernia and a smaller left inguinal hernia containing fat. He was recently diagnosed with prostate cancer in is awaiting a surgical procedure Dr. Baeza on March 14. He denies nausea, vomiting, fever, chills, diarrhea or constipation. Surgical consultation was requested for management of this right inguinal hernia. REPLACED BY [facility] Medical History Depression with anxiety Dyslipidemia Cognitive impairment Tremor High grade prostatic intraepithelial neoplasia Leukopenia Impaired fasting glucose Prostate cancer Elevated blood pressure reading in office with diagnosis of hypertension BPH loc w urin obs/LUTS Elevated PSA Surgical History Hx of right knee surgery History of surgery Social History Are you a primary career information specialist to a significant other at home: No Do you presently have visiting nurse or other home services: No Alcohol intake: current Patient Tobacco Use Status: Former Tobacco user Current occupational status: retired Current occupation: right hand dominant Review of Systems Const All systems reviewed & are unremarkable except as noted in HPI and below Physical Exam Vital Signs: Last Vital Signs Pulse 66 02/15/25 10:11 BP 132/66 02/15/25 10:11 BMI result Body Mass Index 33.6 Last Vital Signs Temp 98.2 F 01/18/25 10:00 Pulse 76 01/18/25 10:00 Resp 16 01/18/25 10:00 BP 119/57 L 01/18/25 10:00 Pulse Ox 99 01/18/25 10:00 O2 Del Method Room Air 01/18/25 10:00 BMI result Body Mass Index 28.7 Const General: cooperative and no acute distress Nutritional Appearance: well nourished Orientation/consciousness: patient oriented x3 Limitations: no limitations HEENT Head: Yes normocephalic and Yes atraumatic Ears: hearing grossly normal bilaterally Resp Effort & Inspection: normal respiratory effort, no audible wheezes, no cough and no respiratory distress Cardio Jugular venous distension: no JVD GI Other: Soft and nondistended, nontender to palpation. No rebound, guarding or rigidity. Normal bowel sounds. Examination of the right groin reveals some slight tenderness to deep palpation but no definite hernias palpable. Slight fullness noted with Valsalva maneuvers suggestive of a reducible right inguinal hernia. No left inguinal hernias palpable. Inspection: Yes normal to inspection Skin Other: Warm, dry, no rash Neuro General: patient oriented x3 Extrem General: Yes no clubbing, cyanosis or edema Assessment & Plan Assessment & Plan (1) Reducible right inguinal hernia: Code(s): K40.90 - Unilateral inguinal hernia, without obstruction or gangrene, not specified as recurrent Category: Medical (2) Recurrent left inguinal hernia: Code(s): K40.91 - Unilateral inguinal hernia, without obstruction or gangrene, recurrent Category: Medical Plan 69-year-old male patient with complaints of left groin pain found in the emergency department on 01/18/2025 to have bilateral inguinal hernias. He is now having symptoms in both sides right greater than left in his requesting repair of the bilateral inguinal hernias. I reviewed the procedure, risks and alternatives in detail and he consents to repair of bilateral inguinal hernias with mesh. He has an upcoming prostate surgery prostate cancer scheduled for 03/14/[address] Baeza. He is hoping to have the hernia surgery before prostate surgery. Coding Level of Care Code Est Pt Level 4 (37818) Diagnoses Reducible right inguinal hernia K40.90 Recurrent left inguinal hernia K40.91
[2025-02-15 10:11] VITALS: BP 132/66; PULSE 66; BMI 33.6
--- OUTSIDE RECORDS SUMMARY | 2025-02-15 10:56 | XMS_ITS | Clinical Summary ---
Author Organization [employer] Address [address] [facility] [address] [place] [address] Care Team Providers Care Automobile Body Repairer Name Role Phone Jennifer Sanchez MD Primary Care Provider [phone] Allergies Active Allergy Reactions Criticality Noted Date Comments Ibuprofen Swelling Low 02/09/2024 Tamsulosin 03/15/2016 Other reaction(s): low blood pressure Medications finasteride (Proscar) 5 MG tablet TAKE 1 [...] EVERY DAY NEEDED 30 tablet 5 Active cefuroxime (Ceftin) 500 MG tablet Take 1 tablet by mouth 2 times daily. 5 Active senna (Senokot) 8.6 MG tablet TAKE 2 TABLETS BY MOUTH EVERY DAY AT BEDTIME NEEDED FOR CONSTIPATION 5 Active cyclobenzaprin e (Flexeril) 10 MG tablet TAKE 1 TABLET BY MOUTH ONCE DAILY NEEDED FOR MUSCLE SPASMS 15 tablet 3 025 Discontin ued(Thera py completed ) naproxen (Naprosyn) 500 MG tablet TAKE 1 TABLET BY MOUTH TWICE DAILY NEEDED MILD PAIN 40 tablet 1 3 025 Discontin ued(Thera py completed ) Acetaminophen Extra Strength 500 MG tabletIndicati ons:COVID-19 Take 1,000 mg by mouth every 8 (eight) hours if needed (take 2 tablets q 8hrs as needed). 30 tablet 4 025 Discontin ued(Thera py completed ) cetirizine (ZyrTEC) 10 MG tablet Take 1 tablet (10 mg) by mouth Once per day. 90 tablet 3 4 025 Discontin ued(Thera py completed ) Active Problems Problem Noted Date Diagnosed Date [...] Plan (09/19/2024 10:21 PM EDT): Following with [facility], last seen on 09/07/24. Dx hemorrhoids. Rx hydrocortisone suppository and senna. Having preop by train announcer prior to scheduling colonoscopy Assessment & Plan [...] will refer back to previous Urologist at [facility] Elevated PSA 10/03/2022 Assessment & Plan (05/02/2023 [...] 10:20 PM EDT): - Currently following with [facility], Dr. 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 - continue Finasteride 5mg daily. 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 GENERAL referral (Per PCP request) 02/08/2025 11:15 AM EDT Office Visit [address] [address] Jennifer Sanchez MD Colon cancer screening (Primary Dx); Encounter for immunization 02/08/2025 Travel 02/07/[address] [address] Jennifer Sanchez MD chart prep 02/01/2025 Patient Outreach [address] [address] Jennifer Sanchez MD Pre-visit Planning (SDOH screening completed on 09/16/2024) 01/27/2025 1:00 PM EDT Office Visit [facility] [address] [place] [address] Adelfo, [place], OD Combined forms of age-related cataract of both eyes (Primary Dx); Presbyopia 01/27/2025 Travel 01/18/2025 Orders Only GENERIC EXTERNAL DATA DEPARTMENT Provider, Generic External Data 12/27/2024 Orders Only GENERIC EXTERNAL DATA DEPARTMENT Provider, Generic External Data 12/13/2024 Telephone [facility] [address] [place] [address] Jennifer Sanchez MD 12/10/2024 Telephone [facility] [address] [place] [address] Jennifer Sanchez MD Chart Prep 12/06/2024 Patient Outreach [facility] [address] [place] [address] Jennifer Sanchez MD Pre-visit Planning (SDOH Screening completed on 09/16/2024) 11/24/2024 Refill [facility] [address] [place] [address] Jennifer Sanchez MD Depression with anxiety from Last 3 Months Immunizations Immunization Administration Dates Next Due Hep B, adult 09/19/2010,11/24/2008,10/20/2008 Influenza High-dose Quadriva lent Preservative Free 04/15/2023,02/19/2022,03/15/2021,03/16 Influenza injectable quadriv alent IIV4 with preservative 03/30/2018,02/12/2017,03/21/2016,03/29 Influenza injectable quadriv alent preservative free 03/22/2019,07/14/2014 Influenza, High Dose Seasona l, Preservative Free 02/08/2025,03/23/2024 Moderna Covid-19 Vaccine 6+ Bivalent 06/13/2022 Pfizer [...] Sign Reading Time Taken Comments Blood Pressure 130/80 02/08/2025 11:12 AM EDT Pulse 65 02/08/2025 11:12 AM EDT Temperature 37.1 C (98.7 F) 02/08/2025 11:12 AM EDT Respiratory Rate 20 02/08/2025 11:12 AM EDT Oxygen Saturation 98% 02/08/2025 11:12 AM EDT Inhaled Oxygen Concentration - - Weight 92.8 kg (204 lb 9.6 oz) 02/08/2025 11:12 AM EDT Height 165.1 cm (5' 5 ) 02/08/2025 11:12 AM EDT Body Mass Index 34.05 02/08/2025 11:12 AM EDT Plan of Treatment Health Maintenance Due Date Last Done Comments CT Colonography 1955 FIT DNA/Cologuard 1955 FIT 1955 FOBT 1955 Sigmoidoscopy 1955 COVID-19 Vaccine ( season) 2025 06/09/2024, 08/20/2023, 06/13/2022, Additional history exists Colonoscopy 02/03/2025 02/04/2020 Colorectal Cancer Screening 02/03/2025 Diabetes: Hemoglobin A1C 06/09/2025 025, 08/20/2023, 10/03/2022, Additional history exists Alcohol/Substance Use Screening 09/16/2025 09/16/2024 Depression Screening 09/16/2025 09/16/2024, 09/17/19 25 SDOH Screening 09/16/2025 09/16/2024 Tobacco Screening 02/08/2026 02/08/2025 Lipid Panel 06/09/2029 06/09/2024, 04/0 07/2023, 10/03/2022, [...] Completed 02/19/2022, 03/16/2020, 09/21/2015 Influenza Vaccine Completed 02/08/2025, , 04/15/2023, Additional history exists HIB Vaccines Aged Out [...] Procedure Name Priority Date/Time Associated Diagnosis Comments URINALYSIS, COMPLETE, WITH REFLEX TO CULTURE Routine 01/18/2025 8:[address] ABDOMEN PELVIS W CONTRAST Routine 01/18/2025 7:44 AM EDT COMPREHENSIVE METABOLIC PANEL Routine 01/18/2025 7:03 AM EDT CBC WITH AUTO DIFFERENTIAL Routine 01/18/2025 7:03 AM EDT CULTURE, URINE, ROUTINE Routine 01/18/2025 12:00 AM EDT HEMATOXYLIN AND EOSIN STAIN Routine 12/27/2024 1:10 PM EDT HEMOGLOBIN A1C Routine 06/09/2024 11:00 AM EST Impaired fasting glucose LIPID PANEL WITH REFLEX TO DIRECT LDL Routine 06/09/2024 11:00 AM EST Dyslipidemia HM COLONOSCOPY Routine 02/04/2020 ZZZ HISTORICAL HEPATITIS C ANTIBODY RFLX Routine 07/13/2019 10:35 AM EST from Last 3 Months or Most Recently Relevant to Health Maintenance Results * (ABNORMAL) Urinalysis, Complete, with Reflex to Culture (01/18/2025 8:32 AM EDT) Color Urine Yellow [facility] Appearance Urine Clear [facility] PH 6.0 5.0 - 9.0 [facility] Glucose Urine UA Negative Negative mg/dL [facility] Urine Blood Moderate (2+)(A) Negative [facility] Specific [place] - Urine 1.015 1.005 - 1.025 [facility] Urine Protein 30 (1+)(A) Neg-Trace mg/dL [facility] Urine Ketones Negative Negative mg/dL [facility] Nitrite Urine Negative Negative [facility] Leukocyte Esterase Urine Large (3+)(A) Negative [facility] RBC Urine 3-5(A) 0 - 2 /HPF [facility] Urine WBC >50(A) 0 - 5 /HPF [facility] Urine Squamous Epithelial Cell 0-2 0 - 2 /HPF [facility] Urine Bacteria None Seen None Seen [facility] Hyaline Casts, Urine 0-2 0 - 2 /LPF [facility] 01/18/2025 8:32 AM EDT 01/18/2025 8:37 AM EDT Narrative [facility] - 01/18/2025 8:52 AM EDT Urine, Clean Catch us Generic External Data Provider LAB URINE ORDERAB LES Final Result [facility] [address] [place] [phone] * CT Abdomen Pelvis w/ Contrast (01/18/2025 7:44 AM EDT) Anatomical Region Laterality Modality Body, Pelvis, Abdomen Computed T omography 01/18/2025 7:44 AM EDT Narrative 01/18/2025 9:21 AM EDT [address] [address] [address] Scan Report Signed Patient: Andrew Houser MR#: [id number] : 1955 Acct:[id number] Age/Sex: 69 / M ADM Date: 01/18/25 Loc: HO.ED Attending Dr: Ordering Physician: Judy Jay Date of Service: 01/18/25 Procedure(s): CT abdomen pelvis w IV con Accession Number(s): [id number] cc: Jennifer Sanchez MD; Judy Jay Report Number: [id number]: Total DLP = 658.00 mGy-cm EXAMINATION: CT ABDOMEN AND PELVIS WITH CONTRAST CLINICAL INFORMATION: Right lower quadrant pain. Right inguinal pain. Status post prostatic biopsy, recent. COMPARISON: February 09, 2024. TECHNIQUE: Multidetector volumetric images were obtained from the superior aspect of the liver through the pubic symphysis following administration 85 mL of Omnipaque 350 intravenous contrast. Sagittal and coronal reformatted images were obtained on the technologist's workstation. Oral contrast: No This CT examination was performed using dose optimization techniques as appropriate, variously including the following: *Automated exposure control *Adjustment of mA and/or kV according to patient size (this includes techniques or standardized protocols for targeted exams where dose is matched to indication/reason for exam; i.e. extremities or head) *Use of iterative reconstruction technique. DLP: 658 mg centimeter. FINDINGS: Patient's motion artifact. LUNG BASES: No acute airspace disease. LIVER, GALLBLADDER, AND BILIARY TREE: Liver measures 16 cm. There are multifocal well-defined lobulated and round low density lesions, the largest measures 22 mm in maximum dimension and likely fluid density. Main portal vein and intrahepatic portion of the IVC are patent. Gallbladder is contracted. No pericholecystic fluid collection or gallbladder wall thickening. No intrahepatic or extrahepatic biliary ductal dilatation. PANCREAS: No focal mass. No peripancreatic fluid collection. Less than 2 mm low densities throughout the body tail. No main pancreatic ductal dilatation. SPLEEN: Centimeter. Punctate calcification. No focal mass. ADRENAL GLANDS: No nodular lesions. KIDNEYS AND URETERS: No hydronephrosis. No gross nephrolithiasis. Subcentimeter cyst, left kidney. Normal enhancement pattern of the renal parenchyma. No gross focal mass. Cortical defect in the posterior midportion left kidney BLADDER: Fluid-filled with slight between the anterior left wall towards the left inguinal canal. GASTROINTESTINAL TRACT: Collapsed appearance of the left hemicolon and transverse colon with questionable wall thickening. Scattered diverticula, left hemicolon. Gas and fluid-filled nondistended small bowel loops. There is a group of small bowel loops towards the right inguinal canal and lateral to the epigastric vessels. No intestinal obstruction pattern.. No pneumatosis intestinalis. No ascites. No pneumoperitoneum. No peripheral enhancing fluid collection, peritoneal cavity. There is a 2 cm gasfield diverticulum, second portion of the duodenum. Small hiatal hernia. The appendix is short and normal. ABDOMINAL WALL: Right inguinal hernia containing a loop of nondilated distal small bowel loops. Fat-containing left inguinal hernia and a trace of anterior left lateral wall of the bladder. Fat-containing umbilical hernia, small. LYMPH NODES: No specific prominent retroperitoneum. VASCULAR: Mixed plaques in the distal abdominal aorta wall and iliac arteries without gross aneurysm or dissection. PELVIC VISCERA: 6.4 cm heterogeneously enlarged prostate gland protruding upon the urinary bladder floor. OSSEOUS STRUCTURES: Spondylosis, L4-5 and L5-S1 with pronounced lordosis. No gross acute fracture or listhesis. No lytic or blastic lesions. CT/CT abdomen pelvis w IV con IMPRESSION: Right inguinal hernia containing a group both nondilated distal small bowel loops. Fat-containing left inguinal hernia with a trace portion of anterior left lateral bladder wall. Fat-containing umbilical hernia. Diverticular disease, left hemicolon. 6.4 cm heterogeneously enlarged prostate gland. Consider benign prostate hyperplasia versus malignancy. Stable hepatic cysts. Fleischner guidelines were followed. Electronically signed by: Matt Fisher MD 01/18/2025 09:17 AM EDT Dictated By: Matt Moyer MD Signed By: <Electronically signed by Matt Norris MD in OV> 01/18/25 0917 DD/ 0744 TD/TT: 01/18/25 0857 Electrical High Tension Tester: Procedure Note Donotuseinterpreter, Image - 01/18/[address] [address] [address] Scan Report Signed Patient: Andrew Houser AMR#: [id number] : 5Acct:[id number] Age/Sex: 69 / MADM Date: 01/18/25 Loc: HO.ED Attending Dr: Ordering Physician: Judy Jay Date of Service: 01/18/25 Procedure(s): CT abdomen pelvis w IV con Accession Number(s): [id number] cc: Jennifer Sanchez MD; Judy Jay Report Number: [id number]: Total DLP = 658.00 mGy-cm EXAMINATION: CT ABDOMEN AND PELVIS WITH CONTRAST CLINICAL INFORMATION: Right lower quadrant pain. Right inguinal pain. Status post prostatic biopsy, recent. COMPARISON: February 09, 2024. TECHNIQUE: Multidetector volumetric images were obtained from the superior aspect of the liver through the pubic symphysis following administration 85 mL of Omnipaque 350 intravenous contrast. Sagittal and coronal reformatted images were obtained on the technologist's workstation. Oral contrast: No This CT examination was performed using dose optimization techniques as appropriate, variously including the following: *Automated exposure control *Adjustment of mA and/or kV according to patient size (this includes techniques or standardized protocols for targeted exams where dose is matched to indication/reason for exam; i.e. extremities or head) *Use of iterative reconstruction technique. DLP: 658 mg centimeter. FINDINGS: Patient's motion artifact. LUNG BASES: No acute airspace disease. LIVER, GALLBLADDER, AND BILIARY TREE: Liver measures 16 cm. There are multifocal well-defined lobulated and round low density lesions, the largest measures 22 mm in maximum dimension and likely fluid density. Main portal vein and intrahepatic portion of the IVC are patent. Gallbladder is contracted. No pericholecystic fluid collection or gallbladder wall thickening. No intrahepatic or extrahepatic biliary ductal dilatation. PANCREAS: No focal mass. No peripancreatic fluid collection. Less than 2 mm low densities throughout the body tail. No main pancreatic ductal dilatation. SPLEEN: Centimeter. Punctate calcification. No focal mass. ADRENAL GLANDS: No nodular lesions. KIDNEYS AND URETERS: No hydronephrosis. No gross nephrolithiasis. Subcentimeter cyst, left kidney. Normal enhancement pattern of the renal parenchyma. No gross focal mass. Cortical defect in the posterior midportion left kidney BLADDER: Fluid-filled with slight between the anterior left wall towards the left inguinal canal. GASTROINTESTINAL TRACT: Collapsed appearance of the left hemicolon and transverse colon with questionable wall thickening. Scattered diverticula, left hemicolon. Gas and fluid-filled nondistended small bowel loops. There is a group of small bowel loops towards the right inguinal canal and lateral to the epigastric vessels. No intestinal obstruction pattern.. No pneumatosis intestinalis. No ascites. No pneumoperitoneum. No peripheral enhancing fluid collection, peritoneal cavity. There is a 2 cm gasfield diverticulum, second portion of the duodenum. Small hiatal hernia. The appendix is short and normal. ABDOMINAL WALL: Right inguinal hernia containing a loop of nondilated distal small bowel loops. Fat-containing left inguinal hernia and a trace of anterior left lateral wall of the bladder. Fat-containing umbilical hernia, small. LYMPH NODES: No specific prominent retroperitoneum. VASCULAR: Mixed plaques in the distal abdominal aorta wall and iliac arteries without gross aneurysm or dissection. PELVIC VISCERA: 6.4 cm heterogeneously enlarged prostate gland protruding upon the urinary bladder floor. OSSEOUS STRUCTURES: Spondylosis, L4-5 and L5-S1 with pronounced lordosis. No gross acute fracture or listhesis. No lytic or blastic lesions. CT/CT abdomen pelvis w IV con IMPRESSION: Right inguinal hernia containing a group both nondilated distal small bowel loops. Fat-containing left inguinal hernia with a trace portion of anterior left lateral bladder wall. Fat-containing umbilical hernia. Diverticular disease, left hemicolon. 6.4 cm heterogeneously enlarged prostate gland. Consider benign prostate hyperplasia versus malignancy. Stable hepatic cysts. Fleischner guidelines were followed. Electronically signed by: Matt iFsher MD 01/18/2025 09:17 AM EDT Dictated By: Matt Moyer MD Signed By: <Electronically signed by Matt Norris MDin OV> 01/18/25 0917 DD/ 0744 TD/TT: 01/18/25 0857 Electrical High Tension Tester: [facility] External Provider IMG CT PROCEDURES Edited Result - Final * (ABNORMAL) CBC auto differential (01/18/2025 7:03 AM EDT) White Blood Count 4.9 4.8 - 10.8 X10*3/uL [facility] Red Blood Count 4.18(L) 4.60 - 5.80 X10*6/uL [facility] Hemoglobin 12.1(L) 14.0 - 18.0 g/dl [facility] Hematocrit 34.9(L) 42.0 - 52.0 % [facility] Mean Corpuscular Volume 83.5 80.0 - 98.0 fL [facility] Mean Corpuscular Hemoglobin 28.9 27.0 - 33.0 pg [facility] Mean Corpuscular HGB Conc 34.7 31.0 - 36.0 g/dl [facility] Red Cell Distribution Width 14.6 11.0 - 16.0 % [facility] Platelet Count 207 160 - 400 X10*3/uL [facility] Mean Platelet Volume 10.4 9.4 - 12.4 fL [facility] Neutrophils Percent Auto 50.4 45 - 73 % [facility] Imm Gran Pct Auto 0.6(H) 0.0 - 0.4 % [facility] Lymphocytes Percent Auto 32.8 20 - 40 % [facility] Monocytes Percent Auto 10.9 2 - 11 % [facility] Eosinophils Percent Auto 4.7(H) 0 - 4 % [facility] Basophils Percent Auto 0.6 0 - 2 % [facility] NRBC Pct Auto 0.0 0.0 - 0.2 /100WBC [facility] Neutrophils Absolute Auto 2.5 2.0 - 8.3 x10*3/uL [facility] Imm Gran Abs Auto 0.03 0.00 - 0.03 X10*3/uL [facility] Lymphocytes Absolute Auto 1.6 1.2 - 4.9 X10*3/uL [facility] Monocytes Absolute Auto 0.5 0.1 - 1.2 X10*3/uL [facility] Eosinophils Absolute Auto 0.2 0.0 - 0.4 X10*3/uL [facility] Basophils Absolute Auto 0.0 0.0 - 0.2 X10*3/uL [facility] NRBC Abs Auto 0.000 0.0 - 0.012 X10*3/uL [facility] 01/18/2025 7:03 AM EDT 01/18/2025 7:12 AM EDT us Generic External Data Provider LAB BLOOD ORDERAB LES Final Result [facility] [address] [place] [phone] * Comprehensive Metabolic Panel (01/18/2025 7:03 AM EDT) Sodium 140 135 - 145 mmol/L [facility] Potassium 3.8 3.3 - 5.1 mmol/L [facility] Chloride 107 96 - 108 mmol/L [facility] Carbon Dioxide 24 22 - 29 mmol/L [facility] Anion Gap 13 12 - 20 [facility] Urea Nitrogen (BUN) 14 9 - 16 mg/dL [facility] Creatinine, Serum 0.79 0.5 - 1.4 mg/dL [facility] Creatinine Clr Calc Pharmacy 95.5 [facility] Comment:eGFR (calculated fro m the MDRD study equation) and eCrCl(calculated from the Cockcroft-Gault equation) are based ondifferent parameters and may not yield comparable results.If eCrCl result is absurd, please check patient'sheight/weight. Estimated Glomerular Filt Rate >60 [facility] Comment:Chronic Kidney Disea se: Estimated GFR < 60 mL/min/[id number] Kidney Disease: Estimated GFR < 15 mL/min/1.73m2 Glucose 115 60 - 115 mg/dL [facility] Calcium 8.8 8.4 - 10.2 mg/dL [facility] Bilirubin, Total 0.2 0.0 - 1.0 mg/dL [facility] Aspartate Amino Transferase 19 5 - 37 U/L [facility] Alanine Aminotransferase 22 0 - 40 U/L [facility] Total Protein 7.0 6.5 - 8.0 g/dL [facility] Albumin Level 4.2 3.5 - 5.0 g/dL [facility] Alkaline Phosphatase 62 39 - 117 U/L [facility] 01/18/2025 7:03 AM EDT 01/18/2025 7:12 AM EDT Generic External Data Provider LAB BLOOD ORDERAB LES Final Result Performing Organization Address [facility]/ZIP Co de Phone Number [facility] [address] [place] [phone] * Culture, Urine, Routine (01/18/2025 12:00 AM EDT) Urine Urine specimen obtained by clean catch procedure / Unknown 01/18/2025 01/18/2025 Comment:[facility] - 01/19/2025 10:48 AM EDT Urine Culture No growth. Specimen Source: Urine clean catch Generic External Data Provider LAB MICROBIOLOGY - GENERAL ORDERABLES Final Result Performing Organization Address City/[facility]/ZIP Co de Phone Number [facility] [address] [place] [phone] * Hematoxylin and Eosin Stain (12/27/2024 1:10 PM EDT) 12/27/2024 1:10 PM EDT 12/27/2024 1:40 PM EDT [facility] - 12/30/2024 9:45 AM EDT ----- ------- Name: Andrew Houser Age/Sex: 69/M : 1955 [id number] Unit#: [id number] Attend Dr: Mars Baeza MD Re12/27/24 Status: [facility] Location: [facility] Disch: ----- ------- SPEC : [id number] RECD: 12/27/24 STATUS: VINNY HERMAN NUM: [id number] ELIDA: 12/27/24 [facility] DR: Mars Baeza MD ENTERED: 12/27/24 SP [...] Prostate, c 1.5, core biopsy: Prostatic adenocarcinoma, [place] score 3+3=6 (grade group 1), involving <1% of the tissue core. K. Prostate, C 4.0, core biopsy: Prostatic adenocarcinoma, [place] score 3+3=6 (grade group 1), involving 7% [...] biopsy Histologic type: Acinar adenocarcinoma Histologic grade: [place] score: 3+3=6 (G,J,K); 4+3=7(I) % of pattern [...] Andrew Houser Age/Sex: 69/M : 1955 Unit#: [id number] Attend Dr: Mars Baeza MD Re12/27/24 Status: [facility] [place] [place] Location: [facility] Disch: ----- ------- SPEC : [id number] RECD: 12/27/24-1339 STATUS: VINNY HERMAN NUM: [id number] ELIDA: 12/27/24-1310 [facility] DR: Mars Baeza MD ENTERED: 12/27/24-1339 SP TYPE: Surgical OTHR DR: Jennifer Sanchez [...] Andrew Houser Age/Sex: 69/M : 1955 Unit#: [id number] Attend Dr: Mars Baeza MD Re12/27/24 Status: [facility] Location: [facility] Disch: ----- ------- SPEC : [id number] RECD: 12/27/24 STATUS: VINNY HERMAN NUM: [id number] ELIDA: 12/27/24 [facility] DR: Mars Baeza MD ENTERED: 12/27/24 SP [...] Andrew Houser Age/Sex: 69/M : 1955 Unit#: [id number] Attend Dr: Mars Baeza MD Re12/27/24 Status: [facility] Location: [facility] Disch: ----- ------- SPEC : [id number] RECD: 12/27/24 STATUS: VINNY HERMAN NUM: [id number] ELIDA: 12/27/24 [facility] DR: Mars Baeza MD ENTERED: 12/27/24 SP TYPE: Surgical OTHR DR: Jennifer Sanchez MD ORDERED: HE Stain/48, Multiplex IHC, PIN4, Prostate biopsy IHC S/NG Disclaimer NOTE: Unless otherwise stated, all tissue is formalin-fixed and paraffin-embedded. Some or all of the immunohistochemical tests reported herein may have been developed and their performance characteristics determined by [facility]. They have not been cleared or approved by the U.S. Food and Drug Administration (FDA). However, the FDA has determined that such clearance or approval is not necessary. This laboratory is certified under the Clinical Laboratory Improvement Amendments of 1988 (CLIA) as qualified to perform high complexity clinical laboratory testing. Copies To: Mars Baeza MD [facility] [address] [place] [address] [address] [place] [address] Jennifer Sanchez MD [address] [phone] ----- ------- Signed (signature on file) Suzie Garcia MD 12/30/24 0945 ----- ------- END OF REPORT us Generic External Data Provider LAB BLOOD ORDERAB LES Final Result Performing Organization Address City/[facility] Co de Phone Number [facility] [address] [place] [phone] * (ABNORMAL) Lipid Panel with Reflex to Direct LDL (06/09/2024 11:00 AM EST) Triglycerides 68 <150 mg/dL [facility] Comment:Desirable Triglyceri de: less than 150 mg/dLBorderline High Triglyceride 150-199 mg/dLHigh Triglyceride: 200-499 mg/dLVery High Triglyceride: greater than or equal to 5OO mg/dL Cholesterol 175 <200 mg/dL [facility] Comment:Desirable Cholestero l: less than 200 mg/dLBorderline High Cholesterol: 200-239 mg/dLHigh Cholesterol: greater than 239 mg/dL LDL Cholesterol Calculated 111(H) <100 mg/dL [facility] Comment:Desirable LDL: less than 100 mg/dLNear Optimal/Above Optimal LDL: 110- 129 mg/dLBorderline High LDL: 130-159 mg/dLHigh LDL: 160-189 mg/dLVery High LDL: greater than or equal to 190 mg/dL HDL Cholesterol 51 >40 mg/dL [facility] Comment:Desirable HDL: great er than 40 mg/dL Note: This HDL assay may give artificially low results in patients with liver disease. Blood 06/09/2024 11:0 0 AM EST 06/09/2024 11:05 AM EST us Jennifer Sanchez MD LAB BLOOD ORDERABLES Final Resul t Performing Organization Address City/[facility]/ZIP Co de Phone Number [facility] [address] [place] [phone] * Hemoglobin A1c (06/09/2024 11:00 AM EST) Hemoglobin A1c 6.0 <6.0 % [facility] Comment:Hemoglobin A1C Refer ence Range Adults: 4.8 - 6.0 % Non diabetic: < 6.0 % Goal: < 7.0 %Additional Action Suggested: > 8.0 %Note: Hemoglobin A1c results are invalid for patients with abnormal amounts of HbF. Blood transfusions may impact the HbA1c concentration in the patient sample. Estimated Average Glucose 126 mg/dL [facility] Comment:eAG = Estimated ave rage glucose which is %A1C expressed asaverage glucose, using the formula of the [id number] Glucose study (ADAG), Diabetes Care, Vol.31,#8,Dec. 2007 Blood Venous blood specimen / Unknown 06/09/2024 11:00 AM EST 06/09/2024 11:05 AM EST Jennifer Sanchez MD LAB BLOOD ORDERABLES Final Resul t Performing Organization Address [facility]/ZIP Co de Phone Number [facility] [address] [place] [address] [phone] * Hm Colonoscopy (02/04/2020) Colonoscopy Normal Normal 02/04/2020 [facility] HEALTH MAINTENANCE Edited Result - Final * HEPATITIS C ANTIBODY RFLX (07/13/2019 10:35 AM EST) HEPATITIS C ANTIBODY NONREACTIVE NONREACTIVE [facility] Comment: Antibodies to HCV not detected; does not exclude early acute HCV infection. 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
--- OUTSIDE RECORDS SUMMARY | 2025-02-15 10:56 | XMS_ITS | Encounter Summary ---
Author Organization [employer] Address [address] [facility] [facility] [address] [place] [address] Care Team Providers Care Critical Care Nurse Name Role Phone Jennifer Sanchez MD Primary Care Provider [phone] Reason for Visit * Reason Onset Date Comments [employer] [facility] referral 02/09/2025 Per PCP request Encounter Details Date Type Department Care Team ([facility] st Contact Info) Description 02/09/2025 Telephone [facility] [address], [place] [phone] Jennifer Sanchez MD [address], [place] [phone] [employer] [facility] referral (Per PCP request) Social History Tobacco Use Types Packs/Day Years [...] encounter Miscellaneous Notes * Telephone Encounter - Ashly Nolen LPN - 02/09/2025 9:17 AM EDT [employer] referral attempted through Mike; left voicemail with ext. [phone]. Will need clarification if Mike accepts [facility]. * Telephone Encounter - Ashly Nolen LPN - 02/09/2025 9:16 AM EDT ----- Message from Jennifer Sanchez MD sent at 02/08/2025 12:37 PM EDT ----- Patient is requesting [employer] services. Patient spoke with health services information specialist, and was informed that he has [facility] coverage. Patient is anticipating to have inguinal hernia surgery, treatment for prostate cancer, and needs assistance in ADLs/ IADLs because he lives alone. Patient states he has difficulty wearing shoes because of back pain due to spinal stenosis. Patient was told that he does not need to contact [employer] [facility] agency, but needs an order from PCP. Patient would like to have Mike.Please help patient get [employer] service. Thank you. documented in this encounter Plan of Treatment Not on file documented as of this encounter Visit Diagnoses Not on filedocumented in this encounter Additional Health Concerns Assessment Noted Time PHQ-9 Depression Total Score: 0 09/17/19 25 10:25 AM EDT documented as of this encounter Care Teams Critical Care Nurse Relationship Specialty Start Date End Date Jennifer Sanchez MD [address] [place] [address] PCP - General Family Medicine 12/03/13 documented as of this encounter
== END 2025-02-15 10:21 | disposition home or self-care (01) ==
LOC: HO.HGS 09:57
PROVIDERS: PCP Family Medicine; Visit Provider Surgery
DX: K40.90 Unilateral inguinal hernia, without obstruction or gangrene, not specified as recurrent (principal); K40.91 Unilateral inguinal hernia, without obstruction or gangrene, recurrent
CPT/HCPCS: 99214

== ENCOUNTER → 2025-02-15 09:57 | Outpatient (BNVA) | payer MEDICARE, MEDICAID, SELFPAY | PROVIDERS: PCP Family Medicine; Visit Provider Surgery | DX: Z09 Encounter for follow-up examination after completed treatment for conditions other than malignant neoplasm (principal); K40.91 Unilateral inguinal hernia, without obstruction or gangrene, recurrent | CPT/HCPCS: 99212 ==

== ENCOUNTER 2025-02-23 09:42 | Day surgery (SDC) | payer MEDICARE, MEDICAID, SELFPAY ==
[2025-02-21 14:55] VITALS: BMI 33.6
--- NOTE | 2025-02-22 11:28 | HO.ANESPROP2 ---
Documented by User: Miya Johnson NP 02/22/25 11:36 HPI - Anesthesia Eval Consult details Narrative: 69 yr old male for bilateral Hernia Inguinal Reducible Optimized for procedure as low cardiac risk per addendum 02/22/25 on 10/19/24 cardiology note. H/O sinus bradycardia prior to ortho procedure 04/2023: had unremarkable holter, then echo 09/2024, also unremarkable Smokes marijuana on the weekends PMFSH Active Problems Active Problems: All Active Problems (Updated 02/15/25 @ 10:28 by Oliver Kimble MD) Recurrent left inguinal hernia (Acute) Reducible right inguinal hernia (Acute) Prostate cancer (Acute) Sinus bradycardia (Acute) Preop cardiovascular exam (Acute) High grade prostatic intraepithelial neoplasia (Acute) COVID-19 (Acute) Tear of medial meniscus of right knee (Acute) Right knee pain (Acute) BPH w urinary obs/LUTS (Acute) Elevated PSA (Acute) Past Medical History Medical History Depression with anxiety Dyslipidemia Cognitive impairment Tremor High grade prostatic intraepithelial neoplasia Leukopenia Impaired fasting glucose Prostate cancer Elevated blood pressure reading in office with diagnosis of hypertension BPH loc w urin obs/LUTS Elevated PSA Family History Family history of problems with anesthesia: No Surgical History Surgical History Hx of right knee surgery History of surgery History of Problems with Anesthesia: No Social History Social History Are you a primary animal care taker to a significant other at home: No Do you presently have visiting nurse or other home services: No Alcohol intake: current Alcohol intake frequency: a few times a month Patient Tobacco Use Status: Former Tobacco user Use of substances other than those prescribed or required for medical reasons: Yes Substance Use Frequency: Weekly Have you been hit, kicked, punched, or otherwise hurt by someone within the past year? If so, by whom?: No Are you DNR?: No Advance Directives: No Advance Directives Information Provided: Yes Poor oral hygiene: Yes Current occupational status: retired Current occupation: right hand dominant Meds Allergies Allergy/AdvReac Type Severity Reaction Status Date / Time ibuprofen Allergy Mild Swelling Verified 02/23/25 10:15 tamsulosin Allergy Mild low B/P Verified 02/23/25 10:15 Home Medications ?Medication ?Instructions ?Recorded ?Confirmed ?Last Taken ?Type lorazepam 0.5 mg tablet 0.5 mg PO DAILY PRN Anxiety 07/24/22 02/23/25 Unknown History pravastatin 40 mg tablet 40 mg PO DAILY 12/27/24 02/23/25 Unknown History Exam Height,Weight and Vital Signs: Height 5 ft 5 in Weight 91.626 kg Pertinent Lab Results Pertinent Lab Results: Laboratory Tests 01/18/25 07:03 WBC 4.9 RBC 4.18 L Hgb 12.1 L Hct 34.9 L Plt Count 207 Sodium 140 Potassium 3.8 BUN 14 Creatinine 0.79 Narrative Narrative: ECHO 10/15/24 Conclusions: - 1. Normal LV ejection fraction of 60 65% 2. Normal cardiac valvular Dopplers with mild mitral calcific changes noted 3. Upper limits of normal ascending aortic size 4. No gross pericardial effusion EKG 02/18/25 NSR, rate 64 Assessment and Plan Final Anesthetic Review Family History of Problems with Anesthesia: No History of Problems with Anesthesia: No Documented by User: Kirstie Garland MD 02/23/25 10:55 [facility] Past Medical History Medical History Depression with anxiety Dyslipidemia Cognitive impairment Tremor High grade prostatic intraepithelial neoplasia Leukopenia Impaired fasting glucose Prostate cancer Elevated blood pressure reading in office with diagnosis of hypertension BPH loc w urin obs/LUTS Elevated PSA Surgical History Surgical History Hx of right knee surgery History of surgery Social History Social History Are you a primary animal care taker to a significant other at home: No Do you presently have visiting nurse or other home services: No Alcohol intake: current Alcohol intake frequency: a few times a month Patient Tobacco Use Status: Former Tobacco user Use of substances other than those prescribed or required for medical reasons: Yes Substance Use Frequency: Weekly Have you been hit, kicked, punched, or otherwise hurt by someone within the past year? If so, by whom?: No Are you DNR?: No Advance Directives: No Advance Directives Information Provided: Yes Poor oral hygiene: Yes Current occupational status: retired Current occupation: right hand dominant Meds Allergies Allergy/AdvReac Type Severity Reaction Status Date / Time ibuprofen Allergy Mild Swelling Verified 02/23/25 10:15 tamsulosin Allergy Mild low B/P Verified 02/23/25 10:15 Home Medications ?Medication ?Instructions ?Recorded ?Confirmed ?Last Taken ?Type lorazepam 0.5 mg tablet 0.5 mg PO DAILY PRN Anxiety 07/24/22 02/23/25 Unknown History pravastatin 40 mg tablet 40 mg PO DAILY 12/27/24 02/23/25 Unknown History Exam Airway Mallampati Class: II TM Dist: >3cm Neck ROM: Limited Heart: rrr Lungs: cta Assessment and Plan Assessment Anesthesia Assessment: Anesthesia Plan Discussed and Chart Reviewed Final Anesthetic Review NPO: Yes ASA Class: III Final Preanesthetic Review: No Changes in Pt Med Stat, Meds/Allgs Chart Reviewed, Consent Obtained/Reviewed and Anes Risks/Benef Reviewed Patient Risk: Intermediate Procedure Risk: Intermediate Anesthetic Plan Anesthetic Plan: GA and Agree w/ Assess. and Plan Disposition: Standard PACU
[2025-02-23] VITALS (7 sets, daily range): BP systolic 119–134; BP diastolic 68–83; PULSE 60–78; RESP 12–18; TEMP 36.2–36.7; O2SAT 96–100; BMI 32.6
[2025-02-23] MEDS: Lactated Ringers 1,000 ML 100 ML IVCONT (10:44)
--- NOTE | 2025-02-23 11:16 | MHC.SHP ---
Pre-Procedural Eval Section A - 24 Hr Update-Section A only Date of Service: 02/23/25 The patient is an INPATIENT: No Changes since office visit: Yes Patient answered all questions; No Cold of Flu in the past 2 weeks, No New Medical Problems and No Changes in Medication The patient has been examined within 24 hours of the surgical procedure. The History & Physical has been completed within 30 days and I have reviewed it.: Yes Section B - Complete if H&P > 30 days Chief Complaint: Unilateral inguinal hernia, without obstruction or Allergies: Allergies Allergy/AdvReac Type Severity Reaction Status Date / Time ibuprofen Allergy Mild Swelling Verified 02/23/25 10:15 tamsulosin Allergy Mild low B/P Verified 02/23/25 10:15 Plan Diagnosis/Plan: Unchanged I have reviewed the history and physical and performed a pertinent physical examination on my patient. No changes have occurred unless specified. Time Spent With Patient Time: Total time managing care of this patient today ____ minutes.
--- NOTE | 2025-02-23 12:32 | W.PM.OPN ---
Operative Note Operative Note Date of Service: 02/23/25 Narrative: Preoperative diagnosis: Right inguinal hernia, reducible Postoperative diagnosis: Same Procedure: Repair of reducible right inguinal hernia with mesh Surgeon: Oliver Kimble MD Cyber Analyst: Lili Sloan PA-C, ANABELLA Carter Anesthesia: General LMA Indications for procedure: 69-year-old male patient presenting with complaints of pain and swelling in the right groin. He was recently with prostate cancer in his awaiting a procedure with Dr. Baeza later this month. He requested repair of the symptomatic right inguinal hernia prior to this prostate surgery. Operative findings: Combination direct and indirect right inguinal hernia Specimen: Hernia lipoma right side Estimated blood loss: 5 mL Complications: None Procedure details: Patient was brought to the OR and placed in a supine position. After administering general anesthesia the patient's abdomen was prepped with ChloraPrep and draped in a sterile fashion. A surgical time-out was called the consent confirmed. Patient received preoperative antibiotics and Venodyne boots were in place. Local anesthesia consisting of 0.5% Sensorcaine was infiltrated over the right inguinal ligament. Incision was then made with a scalpel and carried out through subcutaneous tissue, past Paul's fashion up to the external oblique aponeurosis. Additional local was infiltrated below the external oblique aponeurosis. This was then incised with a scalpel and widened with the Metzenbaum scissors. The spermatic cord was then dissected free from the surrounding inguinal canal and retracted using a Prasanth drain. A direct and indirect hernia was identified. Fibers of the cremaster muscle were in the indirect lipoma dissected down to the internal ring. No hernia sac could be identified. The lipoma was ligated with a 3-0 Polysorb suture and excised. Attention was then directed to the floor of the inguinal canal. Fibers of the internal oblique and transversalis aponeurosis were then incised with the electrocautery and the preperitoneal space entered. This was then widened using an open Ray-Yoselin sponge. A large extended PHS mesh was then obtained. The circular underlay was deployed within the preperitoneal space. The overlay was then secured to the pubic tubercle, conjoined tendon, and shelving edge of the inguinal ligament using a 0 Polysorb suture. A slit was made in the mesh in the mesh wrapped around the spermatic cord at the internal ring. This was then secured to the shelving edge using the 0 Polysorb suture. This was made tight enough to allow passage of only the index finger. The remainder of the mesh was placed below the external oblique aponeurosis. External oblique aponeurosis was then closed using a running 2-0 Polysorb suture. Approximately 6 mL of Zenrelef was then instilled below the external oblique aponeurosis. Paul's fascia and dermis were then reapproximated using interrupted 3-0 Polysorb sutures. Skin was then closed using a running subcuticular 4-0 Polysorb suture. Steri-Strips, 4 x 4 gauze and Tegaderm were then applied. The patient tolerated the procedure well. Sponge, instrument, and needle counts reported as correct. The patient was transferred to PACU in stable condition.
== END 2025-02-23 14:11 | disposition home or self-care (01) ==
PROVIDERS: PCP Family Medicine; Visit Provider Surgery
PROC: (CPT 49505; principal; 2025-02-23 12:00)
DX: K40.90 Unilateral inguinal hernia, without obstruction or gangrene, not specified as recurrent (principal); D17.6 Benign lipomatous neoplasm of spermatic cord; C61 Malignant neoplasm of prostate; Z88.8 Allergy status to other drugs, medicaments and biological substances
CPT/HCPCS: 49505; 55520; 88304; C1781; J0668; J0690; J2003; J2371; J2704; J3010

== ENCOUNTER → 2025-02-23 09:42 | Outpatient (BNV) | payer MEDICARE, MEDICAID, SELFPAY | PROVIDERS: PCP Family Medicine; Visit Provider Surgery | DX: K40.90 Unilateral inguinal hernia, without obstruction or gangrene, not specified as recurrent (principal) | CPT/HCPCS: 49505 ==

== ENCOUNTER 2025-03-07 09:02 | Outpatient (AMB) | payer MEDICARE, MEDICAID, SELFPAY ==
--- NOTE | 2025-03-07 09:03 | MHC.OFFVIS ---
Vital Signs 03/07/25 09:16 Weight 199 lb BP 134/72 Blood Pressure Location Rt brachial Position Sitting Pulse 73 Intake Visit Reasons: S/P bilateral inguinal hernia w/mesh Intake Note: Patient here s/p Repair of reducible right inguinal hernia with mesh. Patient c/o: tenderness only along incision. Reports normal BM. No longer taking rx pain meds. 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 Reports minimal pain at this point. Initially had some pain postoperatively that was requiring oxycodone however over the past few days has been less reliant on narcotics in his pain has been more manageable. Denies nausea or vomiting, current fevers or chills. He does note that last week he had some fevers (102 temp at home) at home as well as some nausea however he attributes this to a GI bug that he picked up from his grandson who had similar symptoms. He has felt good for the past few days. Initially had some difficulty with diet but now is back to baseline. He is walking around the apartment without any issues. Endorses some mild discomfort at the incision site. Denies any bleeding or discharge, redness. Passing gas and bowel movements. He has been trying to increase fiber and hydration to prevent constipation. He does report he has a small hernia on the left that was previously repaired when he was 18 in the [employer], he has discussed this previously with Dr. Kimble and at this time would like to wait before going ahead with any surgeries in the future [facility] Medical History Depression with anxiety Dyslipidemia Cognitive impairment Tremor High grade prostatic intraepithelial neoplasia Leukopenia Impaired fasting glucose Prostate cancer Elevated blood pressure reading in office with diagnosis of hypertension BPH loc w urin obs/LUTS Elevated PSA Surgical History (Updated 03/07/25 @ 09:55 by Suraj Hernandez PA-C) Hx of right inguinal hernia repair (02/23/25) Hx of right knee surgery History of surgery Social History Are you a primary animal care assistant to a significant other at home: No Do you presently have visiting nurse or other home services: No Alcohol intake: current Alcohol intake frequency: a few times a month Comment: Counts correct Patient Tobacco Use Status: Former Tobacco user Current occupational status: retired Current occupation: right hand dominant Review of Systems Const All systems reviewed & are unremarkable except as noted in HPI and below Physical Exam Vital Signs: Last Vital Signs Pulse 73 03/07/25 09:16 BP 134/72 03/07/25 09:16 Const General: comfortable and no acute distress Orientation/consciousness: patient oriented x3 Resp Effort & Inspection: normal respiratory effort and able to speak in complete sentences GI Other: Right inguinal hernia Incision site: Clean dry and intact, mildly tender to palpation, some deep induration likely postsurgical scarring. No palpable fluid collection, no discharge, no redness Inspection: No distended Palpation (GI): Soft to palpation and Tenderness to palpation present (GI) (Mild incisional RIH) Neuro General: patient oriented x3 Assessment & Plan Assessment & Plan (1) S/P inguinal hernia repair: Comment: Right inguinal hernia Dr. Kimble February 2025 Code(s): Z98.890 - Other specified postprocedural states; Z87.19 - Personal history of other diseases of the digestive system Category: Surgical Plan 69-year-old male s/p right inguinal hernia repair with mesh with Dr. Kimble on 02/23/2025 returning to the office for routine follow up. Overall doing well, initially had some pain postoperatively that is now resolving. Additionally about a week after surgery he experienced some nausea and fevers at home. A family member was sick with a stomach bug, this is likely the cause of his symptoms as these have since resolved. Otherwise he is doing well, diet and appetite at baseline, he is trying to increase fiber and water intake to prevent constipation. He looks well, on exam incision site appears to be healing well, clean dry and intact. There was some mild induration deep to the incision that is likely postsurgical scarring, I recommended that he do warm compresses 2 or 3 times a day to help soften this. Otherwise there was no surrounding erythema, palpable fluid collection or discharge from the incision site suggestive of infection. We will continue with activity restrictions no heavy lifting greater than 15-20 lb for the next 4 weeks. He is agreeable this plan. He will follow up in about 3 weeks, can return sooner as needed with any questions or concerns. Coding Level of Care Code Global (32411) Diagnoses S/P inguinal hernia repair Z98.890; Z87.19
[2025-03-07 09:16] VITALS: BP 134/72; PULSE 73
== END 2025-03-07 09:28 | disposition home or self-care (01) ==
LOC: HO.HGS 09:03
PROVIDERS: PCP Family Medicine
DX: Z98.890 Other specified postprocedural states (principal); Z87.19 Personal history of other diseases of the digestive system
CPT/HCPCS: 99024

== ENCOUNTER → 2025-03-07 09:02 | Outpatient (BNVA) | payer MEDICARE, MEDICAID, SELFPAY | PROVIDERS: PCP Family Medicine | DX: Z48.815 Encounter for surgical aftercare following surgery on the digestive system (principal); Z87.19 Personal history of other diseases of the digestive system; Z98.890 Other specified postprocedural states | CPT/HCPCS: 99212 ==

== ENCOUNTER 2025-03-14 05:51 | Day surgery (SDC) | payer MEDICARE, MEDICAID, SELFPAY ==
--- NOTE | 2025-03-09 14:13 | HO.ANESPROP2 ---
Documented by User: Miya Johnson NP 03/09/25 14:16 HPI - Anesthesia Eval Consult details Narrative: 69 yr old male for Cryosugical Ablation Prostate s/p hernia repair 02/23/25 with GA, LMA 4 Optimized by [facility] [place] for procedure per work load message 02/18/25 H/O sinus bradycardia prior to ortho procedure 04/2023: had unremarkable holter, then echo 09/2024, also unremarkable Smokes marijuana on the weekends PMFSH Active Problems Active Problems: All Active Problems (Updated 02/15/25 @ 10:28 by Oliver Kimble MD) S/P inguinal hernia repair (Acute) Recurrent left inguinal hernia (Acute) Reducible right inguinal hernia (Acute) Prostate cancer (Acute) Sinus bradycardia (Acute) Preop cardiovascular exam (Acute) High grade prostatic intraepithelial neoplasia (Acute) COVID-19 (Acute) Tear of medial meniscus of right knee (Acute) Right knee pain (Acute) BPH w urinary obs/LUTS (Acute) Elevated PSA (Acute) Past Medical History Medical History Depression with anxiety Dyslipidemia Cognitive impairment Tremor High grade prostatic intraepithelial neoplasia Leukopenia Impaired fasting glucose Prostate cancer Elevated blood pressure reading in office with diagnosis of hypertension BPH loc w urin obs/LUTS Elevated PSA Family History Family history of problems with anesthesia: No Surgical History Surgical History (Updated 03/07/25 @ 09:55 by Suraj Hernandez PA-C) Hx of right inguinal hernia repair (02/23/25) Hx of right knee surgery History of surgery History of Problems with Anesthesia: No Social History Social History Are you a primary care director rn to a significant other at home: No Do you presently have visiting nurse or other home services: No Alcohol intake: current Alcohol intake frequency: does not drink Comment: Counts correct Patient Tobacco Use Status: Former Tobacco user Second Hand Smoke Exposure: No Use of substances other than those prescribed or required for medical reasons: No Have you been hit, kicked, punched, or otherwise hurt by someone within the past year? If so, by whom?: No Are you DNR?: No Advance Directives: No Advance Directives Information Provided: Yes Advance Directives on File: No Current occupational status: retired Current occupation: right hand dominant Meds Allergies Allergy/AdvReac Type Severity Reaction Status Date / Time ibuprofen Allergy Mild Swelling Verified 03/07/25 09:16 tamsulosin Allergy Mild low B/P Verified 03/07/25 09:16 Home Medications ?Medication ?Instructions ?Recorded ?Confirmed ?Last Taken ?Type lorazepam 0.5 mg tablet 0.5 mg PO DAILY PRN Anxiety 07/24/22 03/10/25 Unknown History pravastatin 40 mg tablet 40 mg PO DAILY 12/27/24 03/10/25 Unknown History Exam Narrative Narrative: ECHO 10/15/24 Conclusions: - 1. Normal LV ejection fraction of 60 65% 2. Normal cardiac valvular Dopplers with mild mitral calcific changes noted 3. Upper limits of normal ascending aortic size 4. No gross pericardial effusion EKG 02/18/25 NSR, rate 64 Assessment and Plan Final Anesthetic Review Family History of Problems with Anesthesia: No History of Problems with Anesthesia: No Documented by User: Germán Jeffrey MD 03/14/25 07:10 [facility] Past Medical History Medical History Depression with anxiety Dyslipidemia Cognitive impairment Tremor High grade prostatic intraepithelial neoplasia Leukopenia Impaired fasting glucose Prostate cancer Elevated blood pressure reading in office with diagnosis of hypertension BPH loc w urin obs/LUTS Elevated PSA Family History Family history of problems with anesthesia: No Surgical History Surgical History (Updated 03/07/25 @ 09:55 by Suraj Hernandez PA-C) Hx of right inguinal hernia repair (02/23/25) Hx of right knee surgery History of surgery Social History Social History Are you a primary care director rn to a significant other at home: No Do you presently have visiting nurse or other home services: No Alcohol intake: current Alcohol intake frequency: does not drink Comment: Counts correct Patient Tobacco Use Status: Former Tobacco user Second Hand Smoke Exposure: No Use of substances other than those prescribed or required for medical reasons: No Have you been hit, kicked, punched, or otherwise hurt by someone within the past year? If so, by whom?: No Are you DNR?: No Advance Directives: No Advance Directives Information Provided: Yes Advance Directives on File: No Current occupational status: retired Current occupation: right hand dominant Meds Allergies Allergy/AdvReac Type Severity Reaction Status Date / Time ibuprofen Allergy Mild Swelling Verified 03/07/25 09:16 tamsulosin Allergy Mild low B/P Verified 03/07/25 09:16 Home Medications ?Medication ?Instructions ?Recorded ?Confirmed ?Last Taken ?Type lorazepam 0.5 mg tablet 0.5 mg PO DAILY PRN Anxiety 07/24/22 03/10/25 Unknown History pravastatin 40 mg tablet 40 mg PO DAILY 12/27/24 03/10/25 Unknown History Exam Airway Mallampati Class: III TM Dist: >3cm Neck ROM: Full Loose/Missing/Broken Teeth: No Heart: RRR Lungs: CTA Assessment and Plan Assessment Anesthesia Assessment: Anesthesia Plan Discussed and Chart Reviewed Final Anesthetic Review Family History of Problems with Anesthesia: No NPO: Yes ASA Class: II Final Preanesthetic Review: No Changes in Pt Med Stat, Meds/Allgs Chart Reviewed, Consent Obtained/Reviewed and Anes Risks/Benef Reviewed Patient Risk: Low Procedure Risk: Low Anesthetic Plan Anesthetic Plan: GA
[2025-03-10 07:31] VITALS: BMI 33.2
[2025-03-14] VITALS (11 sets, daily range): BP systolic 74–177; BP diastolic 45–95; PULSE 77–91; RESP 16–28; TEMP 36.1–36.3; O2SAT 94–99
[2025-03-14] MEDS: Lactated Ringers 1,000 ML 100 ML IVCONT (06:26)
--- NOTE | 2025-03-14 07:15 | PC.NURSE ---
patient stated before hernia surgery 2 weeks ago, when transferring to the table i felt like was being shocked by something, then i fell asleep shortly after. Dr. Jeffrey, anesthesiologist at bedside and aware.
--- NOTE | 2025-03-14 07:30 | MHC.SHP ---
Pre-Procedural Eval Section A - 24 Hr Update-Section A only Date of Service: 03/14/25 The patient is an INPATIENT: No Changes since office visit: No Cold of Flu in the past 2 weeks, No New Medical Problems, No Changes in Medication and No Patient answered all questions The patient has been examined within 24 hours of the surgical procedure. The History & Physical has been completed within 30 days and I have reviewed it.: Yes Section B - Complete if H&P > 30 days Chief Complaint: Malignant neoplasm of prostate Allergies: Allergies Allergy/AdvReac Type Severity Reaction Status Date / Time ibuprofen Allergy Mild Swelling Verified 03/07/25 09:16 tamsulosin Allergy Mild low B/P Verified 03/07/25 09:16 Plan Diagnosis/Plan: Unchanged (Targeted prostate cryotherapy) I have reviewed the history and physical and performed a pertinent physical examination on my patient. No changes have occurred unless specified. Time Spent With Patient Time: Total time managing care of this patient today ____ minutes.
--- NOTE | 2025-03-14 09:13 | W.PM.OPN ---
Operative Note Operative Note Date of Service: 03/14/25 Narrative: Preoperative diagnosis: Prostate Cancer Postoperative diagnosis: Prostate Cancer Procedure: 1. Canales catheter placement 2. Transrectal Ultrasound prostate 3. Creation of 3D transrectal US model with image registration 4. US-MRI fusion model creation with registration correction including overlap of virtual targeted locations 5. Stereotactic Ultrasound guidance of cryotherapy needle and probe placement - 3 [employer] kimberly needles 6. Cryotherapy of prostate Surgeon: Dr. Mars Baeza Anesthetic: LMA Indications for procedure: Prostate Cancer - 11mm left posterior zone midgland to apex Procedure: After informed consent was verified, the patient was brought into the procedure area. Patient identity confirmed. Perioperative antibiotics confirmed. Safety pause time out performed. Anesthesia performed per protocol. Scrotum taped out of operative area. Iodine prep used. 16 Fr canales catheter placed on the field with catheter cap. Perineal injection of local anesthetic performed. Ultrasound probe was placed per rectum with adequate lubrication. Ultrasound probe stabilized on a prostate stepper with external grid calibration for height and prostate diameter in both the transverse and longitudinal planes. Grid A-C covering right prostate and c-F covering left prostate. Numbers 1.0-2.5 covering posterior prostate and 2.5-4.0 covering anterior prostate. [employer] software and hardware platform was used for ultrasound image acquisition, manual image registration, ultrasound model creation and MRI target overlay. Once grid calibration was confirmed prostate ultrasound data acquisition was performed in stepwise transverse fashion working from prostate base to prostate apex. US prostate image registration was performed using transverse and sagittal generated images. Model boundaries were marked based off acquired images. A three dimensional ultrasound model was created using [employer] software. The model was reviewed against acquired US images. The planned lesion ice ball target, based on prior acquisition of MRI imaging, was overlaid on the ultrasound images and targets confirmed through ultrasound review. Adjustments were then made between real time and projected model targeting locations. Based on pre-planning evaluation the prostate target cryotherapy areas were identified as follows - Left apical 1.1 cm lesion - 2 suspicious areas on right side were also identified Cryotherapy area coverage was achieved with - Three [employer] Ice Kimberly needles The first cryotherapy (E2) needle was advanced under real time ultrasound at the target coordinates so the tip was just visible at the base of the prostate/bladder interface. Images were reviewed to ensure adequate clearance was obtained between both the urethra, with a canales catheter, and the location of the external urethral sphincter. Once in place the needle was quick frozen to stick the prostate to the needle. See cryotherapy report data for needle location (C2, C4) Cryotherapy cycling was performed as follows - Initial cryotherapy -140C for 8:40 mins - Passive thaw 3 min followed by active thaw for 5 min - Second cryotherapy cycle -140 for 7:30 mins Ice ball was monitored in real time through US imaging. Clear demarcation boundary was seen with an appropriate penumbra covering the target lesion area. At the completion of the second cryotherapy cycle passive thaw was performed for 3 minutes followed by 45 seconds of active thaw. The probe was then rotated and carefully withdrawn. The patient tolerated the procedure well and was transferred to stable condition in the PACU. Printed instructions regarding antibiotic use and common side effects such as low-grade temperature, potential infection and bleeding were given CPT codes 51200 - Canales catheter placement 83657: Transrectal ultrasound; this is a diagnostic test for evaluation of the prostate and surrounding structures, looking for abnormalities or suspicious areas worrisome for cancer 50976: 3D rendering with interpretation and reporting of computed tomography (CT), MRI, ultrasound, or other tomographic modality with image postprocessing under concurrent supervision; not requiring image postprocessing on an independent workstation - construction of 3D model with TRUS and ongoing refinement of model positioning during procedure 87625: Ultrasonic guidance for needle placement (eg, biopsy, aspiration, injection, localization device), imaging supervision and interpretation 12419 - Perineal prostate cryotherapy
== END 2025-03-14 11:39 | disposition home or self-care (01) ==
PROVIDERS: PCP Family Medicine; Visit Provider Urology
PROC: (CPT 55873; principal; 2025-03-14 07:30)
DX: C61 Malignant neoplasm of prostate (principal); N42.31 Prostatic intraepithelial neoplasia; N40.1 Benign prostatic hyperplasia with lower urinary tract symptoms; R39.15 Urgency of urination; R39.12 Poor urinary stream; R97.20 Elevated prostate specific antigen [PSA]; E78.5 Hyperlipidemia, unspecified; I10 Essential (primary) hypertension; F41.8 Other specified anxiety disorders; D72.819 Decreased white blood cell count, unspecified; R25.1 Tremor, unspecified; R41.89 Other symptoms and signs involving cognitive functions and awareness; R73.01 Impaired fasting glucose; Z88.6 Allergy status to analgesic agent; Z88.8 Allergy status to other drugs, medicaments and biological substances; Z87.891 Personal history of nicotine dependence
CPT/HCPCS: 55873; C2618; J1100; J1630; J1956; J2003; J2250; J2405; J2704; J2795; J3010

== ENCOUNTER → 2025-03-14 05:51 | Outpatient (BNV) | payer MEDICARE, MEDICAID, SELFPAY | PROVIDERS: PCP Family Medicine; Visit Provider Urology | DX: C61 Malignant neoplasm of prostate (principal) | CPT/HCPCS: 55873; 76376 ==

== ENCOUNTER 2025-03-28 10:56 | Outpatient (AMB) | payer MEDICARE, MEDICAID, SELFPAY ==
--- NOTE | 2025-03-28 10:58 | A.OFFVIS_ITS ---
Vital Signs 03/28/25 10:59 Weight 198 lb BP 137/71 Blood Pressure Location Rt brachial Position Sitting Pulse 73 Intake Visit Reasons: follow up bilateral inguinal hernia w/mesh Intake Note: Patient here for follow up last office visit w/ [facility] on 03-07-2025. S/p Repair of reducible right inguinal hernia with mesh. Patient c/o: reports incisions healed well. 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 Kimble on 02/23/2025. He reports overall doing well. He is asking about driving and lifting. He denies significant pain but occasionally has some twinges of pain with movement. He i s eating ok and moving his bowels without difficulty. He does report some rectal pain. He has prostate CA and had cryotherapy of the prostate late February 2025. He also reports he is due for a colonoscopy and was [place] [facility] [place] [facility] [place] [facility] but no one has called him to schedule it. He has no other concerns. [facility] Medical History Depression with anxiety Dyslipidemia Cognitive impairment Tremor High grade prostatic intraepithelial neoplasia Leukopenia Impaired fasting glucose Prostate cancer Elevated blood pressure reading in office with diagnosis of hypertension BPH loc w urin obs/LUTS Elevated PSA Surgical History (Updated 03/07/25 @ 09:55 by Suraj Hernandez PA-C) Hx of right inguinal hernia repair (02/23/25) Hx of right knee surgery History of surgery Social History Are you a primary home care scheduler to a significant other at home: No Do you presently have visiting nurse or other home services: No Alcohol intake: current Alcohol intake frequency: does not drink Comment: Counts correct Patient Tobacco Use Status: Former Tobacco user Second Hand Smoke Exposure: No Current occupational status: retired Current occupation: right hand dominant Review of Systems Const Denies chills and Denies fever(s) ENT Denies dizziness Card Denies dyspnea Resp Denies dyspnea GI Reports as per HPI Skin/Breast Denies rash Neuro Denies dizziness Physical Exam Vital Signs: Last Vital Signs Pulse 73 03/28/25 10:59 BP 137/71 03/28/25 10:59 Const General: comfortable, no acute distress and alert Orientation/consciousness: patient oriented x3 Resp Effort & Inspection: normal respiratory effort and able to speak in complete sentences GI Other: right inguinal incision- well healed, no edema or erythema or induration, nontender, no evidence of recurrence with valsalva Inspection: No distended Palpation (GI): Soft to palpation, nontender and no guarding Skin General skin exam: no rashes or lesions noted Neuro General: patient oriented x3 and moves all extremities Assessment & Plan Assessment & Plan (1) S/P inguinal hernia repair: Comment: Right inguinal hernia Dr. Kimble February 2025 Code(s): Z98.890 - Other specified postprocedural states; Z87.19 - Personal history of other diseases of the digestive system Category: Surgical Plan 69-year-old male s/p right inguinal hernia repair with mesh with Dr. Kimble on 02/23/2025. He tolerated the procedure well and is overall doing well post operatively. His incision is well healed without evidence of infection or recurrence. He is to continue heavy lifting restrictions for another week. He can resume driving. He can follow up as needed at this point if he develops concerns. He was brought over to the GI project scheduler to get the colonoscopy scheduled at the end of our visit. Coding Level of Care Code Global (54528) Diagnoses S/P inguinal hernia repair Z98.890; Z87.19
[2025-03-28 10:59] VITALS: BP 137/71; PULSE 73
--- OUTSIDE RECORDS SUMMARY | 2025-03-28 13:06 | XMS_ITS | Clinical Summary ---
Author Organization [employer] Address [address] [facility] [address] [place] [address] Care Team Providers Care Chess Instructor Name Role Phone Jennifer Sanchez MD Primary [...] day. 90 tablet 3 09/17/19 25 Active cefuroxime (Ceftin) 500 MG tablet Take 1 tablet by mouth 2 times daily. 01/19/20 25 Active senna (Senokot) 8.6 MG tablet TAKE 2 TABLETS BY MOUTH EVERY DAY AT BEDTIME NEEDED FOR CONSTIPATION 09/08/19 25 Active LORazepam (Ativan) 0.5 MG tabletIndicat ions:Depressi on with anxiety Take 1 tablet (0.5 mg) by mouth Once per day. 30 tablet 03/16/20 25 Active LORazepam (Ativan) 0.5 MG tabletIndicat ions:Depressi on with anxiety TAKE 1 TABLET BY MOUTH EVERY DAY NEEDED 30 tablet 11/26/19 25 025 Discontinued(R eorder (will not trigger notification to Pharmacy)) Active Problems Problem Noted Date Diagnosed Date Health care maintenance 09/15/2024 Assessment & Plan (09/15/2024 5:24 PM EDT): - physical exam on 09/16/24 - cancer screening: --Colonoscopy --Prostate: Dx prostate cancer -IZ up to date -Bone health: continue weight-bearing exercise Sensorineural hearing loss (SNHL) of both ears 1 05/28/2023 Assessment & Plan (02/18/2025 4:00 PM EDT): - audiology testing was cancelled, which will be rescheduled Allergic rhinitis 03/28/2024 Assessment & Plan (02/18/2025 4:01 PM EDT): - continue cetirizine - consider adding nasal spray Assessment & Plan (09/17/2024 1:50 AM EDT): - start cetirizine - consider adding nasal spray Assessment & Plan (03/28/2024 7:07 PM EST): - start cetirizine - consider adding nasal spray Enlarged prostate 02/20/2024 Assessment & Plan (03/13/2024 9:25 AM EDT): Referral to urology Bright red blood per rectum 02/19/2024 Assessment & Plan (09/19/2024 10:21 PM EDT): Following with [facility], last seen on 09/07/24. Dx hemorrhoids. Rx hydrocortisone suppository and senna. Having preop by [facility] [employer] prior to scheduling colonoscopy Assessment & Plan (03/13/2024 9:25 AM EDT): Referral to GI Asymptomatic, trend cbc Avoid nsaids Encouraged fiber and hydration Duodenal diverticulum 02/17/2024 Tear of medial meniscus of right knee 02/17/2024 Assessment & Plan (02/18/2025 4:09 PM EDT): - s/p arthroscopic repair in Apr 2023 Assessment & Plan (09/17/2024 1:48 AM EDT): - s/p arthroscopic repair in Apr 2023 Assessment & Plan (03/28/2024 7:12 PM EST): - s/p arthroscopic repair in Apr 2023 Right knee pain 04/15/2023 Assessment & Plan (02/18/2025 4:09 PM EDT): - tear of posterior horn of medial and lateral menisci - s/p arthroscopic repair in Apr 2023 - follow recommendation per ortho Assessment & Plan (09/17/2024 1:48 AM EDT): - tear of posterior horn of medial and lateral menisci - upcoming knee surgery - follow recommendation per ortho Assessment & Plan (05/02/2023 1:22 PM EST): - tear of posterior horn of medial and lateral menisci - upcoming knee surgery - follow recommendation per ortho Elevated PSA 10/03/2022 Assessment & Plan (05/02/2023 1:20 PM EST): - 07/05/22 PSA 3.06 Assessment & Plan (10/09/2022 6:35 PM EDT): - 07/05/22 PSA 3.06 Essential hypertension 06/13/2022 Assessment & Plan (02/18/2025 3:59 PM EDT): -Goal BP < 130 per ACC/AHA guideline (Treatment threshold >= 130/80) -Treatment Hx: previously on tamsulosin for BPH, which caused hypotension and was switched to doxazosin only -Continue working on lifestyle modifications -Continue Doxazosin 4 mg daily -Follow up in 3-6 mo, sooner if any problem arises Assessment & Plan (09/17/2024 1:47 AM EDT): [...] this time Dyslipidemia 12/26/2015 Assessment & Plan (02/18/2025 3:59 PM EDT): - current medication: pravastatin 20 mg at bedtime, increase to 40 mg qhs - last lipid profile: 06/09/2024 TRIG 68; CHOL 175; LDL 111; HDL 51 - continue working on lifestyle modification - consider intensifying treatment Assessment & Plan (09/19/2024 10:22 PM EDT): [...] intraepithelial neoplasia 0 07/04/2015 Assessment & Plan (02/18/2025 4:07 PM EDT): - Currently following with [facility], Dr. Baeza, last seen on 01/12/2025 - Previously following with [facility] - s/p Prostate biopsy in Feb 2015-> High-grade PIN - s/p KARY volumetric and prostate Bx in October 2015 -> High-grade PIN - s/p prostate biopsy in Dec 2024-> prostate adenocarcinoma, Organ-confined Goup 3 - scheduled for targeted cryotherapy - continue Doxazosin 4mg daily. - continue Finasteride 5mg daily. - having pre-op evaluation by [facility] [employer] [employer] for both colonoscopy and urology procedure Assessment & Plan (09/19/2024 10:20 PM EDT): - Currently following with [facility], Dr. Baeza, last seen on 06/08/24 - Previously following with [facility] - s/p Prostate biopsy in Feb 2015-> High-grade PIN - s/p KARY volumetric and prostate Bx in October 2015 -> High-grade PIN - continue Doxazosin 4mg daily. - continue Finasteride 5mg daily. - having pre-op evaluation by [facility] for both colonoscopy and urology procedure Assessment [...] daily. - he was referred back to [facility] urology; advised to call the office [...] daily. - he was referred back to [facility] urology; advised to call the office [...] daily. - he was referred back to [facility] urology; advised to call the office [...] Depression with anxiety 07/04/2015 Assessment & Plan (02/18/2025 4:08 PM EDT): -continue judicious use of Lorazepam. Assessment & Plan (09/17/2024 1:49 AM EDT): -continue judicious use of Lorazepam. Assessment & Plan (03/28/2024 7:14 PM EST): -continue judicious use of Lorazepam. Assessment & Plan (05/02/2023 1:23 PM EST): -continue judicious use of Lorazepam. -continue Trazadone. Assessment & Plan (06/13/2022 4:44 AM EST): -continue judicious use of Lorazepam. -continue Trazadone. Chronic low back pain 12/15/2014 Assessment & Plan (02/18/2025 4:09 PM EDT): -MRI in 06/2015 showed Lumbar Spinal Stenosis w/ nerve impengment. -Pt is currently taking Naprosyn and Tylenol, as needed -Pt is also Rx Flexeril -Cont judicious use of medications -Rx walker with wheels + seat Assessment & Plan (09/17/2024 1:48 AM EDT): [...] + seat Prediabetes 08/12/2012 Assessment & Plan (02/18/2025 4:01 PM EDT): A1C 6.0% in 06/09/2024 Continue working on life modifications Consider starting metformin Assessment & Plan (09/19/2024 10:23 PM EDT): [...] [facility] Benign prostatic hyperplasia with urinary obstruction 10/03/2022 02/18/2025 Assessment & Plan (10/03/2022 11:03 AM EDT): Seen by Urologist on 07/24/22 -Increased Doxazosin to 4mg daily -Continue Finasteride -f/u as scheduled, if insurance is accepted; If insurance is not accepted, will refer back to previous Urologist at [facility] Leukopenia 08/12/2012 09/15/2024 Encounters Date Type Department Care Team Description 03/16/2025 Refill [facility] [address] [place] [address] Teagan Gibbs, KATTY Depression with anxiety 03/16/2025 Telephone [facility] [address] [place] [address] Jennifer Sanchez MD Med Refill 02/23/2025 Orders Only GENERIC EXTERNAL DATA DEPARTMENT Provider, Generic External Data 02/23/2025 Patient Outreach [facility] MEDICINE [address] [place] [id number] Jennifer Sanchez MD Medicare Annual Wellness Visit Initial (Annual wellness visit unscheduled) 02/09/[address] [address] Jennifer Sanchez MD TESTING [employer]ING [employer]IPPING referral (Per PCP request) 02/08/2025 11:15 AM EDT Office Visit [address] [address] Jennifer Sanchez MD Colon cancer screening (Primary Dx); Encounter for immunization; Essential hypertension; Dyslipidemia; Sensorineural hearing loss (SNHL) of both ears; Allergic rhinitis, unspecified seasonality, unspecified trigger; Prediabetes; Anemia, unspecified type; High grade prostatic intraepithelial neoplasia; Depression with anxiety; Chronic pain of right knee; Tear of medial meniscus of right knee, unspecified tear type, unspecified whether old or current tear, sequela; Chronic low back pain, unspecified back pain laterality, unspecified whether sciatica present; Mild cognitive disorder 02/08/2025 Travel 02/07/[address] [address] Jennifer Sanchez MD chart prep 02/01/2025 Patient Outreach [address] [address] Jennfier Sanchez MD Pre-visit Planning (SDOH screening completed on 09/16/2024) 01/27/2025 1:00 PM EDT Office Visit [facility] OPTOMETRY [address] [place] [address] [place], [place], [place] Combined forms of age-related cataract of both eyes (Primary Dx); Presbyopia 01/27/2025 Travel 01/18/2025 Orders Only GENERIC EXTERNAL DATA DEPARTMENT Provider, Generic External Data 12/27/2024 Orders Only GENERIC EXTERNAL DATA DEPARTMENT Provider, Generic External Data from Last 3 Months Immunizations Immunization Administration [...] your housing situation today? I have loki faraz 09/16/[address] you li [...] t he electric, gas, oil or water [employer] threatened to shut off services in your [...] 25 SDOH Screening 09/16/2025 09/16/2024 Tobacco Screening 02/18/2026 02/18/2025 Lipid Panel 06/09/2029 06/09/2024, 04/0 07/2023, 10/03/2022, [...] Procedure Name Priority Date/Time Associated Diagnosis Comments GROSS AND MICROSCOPIC LEVEL 3 Routine 02/23/2025 12:14 PM EDT URINALYSIS, COMPLETE, WITH REFLEX TO CULTURE Routine [...] Recently Relevant to Health Maintenance Results * Gross and Microscopic Level 3 (02/23/2025 12:14 PM EDT) 02/23/2025 12:1 4 PM EDT 02/23/2025 1:45 PM EDT [facility] - 02/24/2025 3:55 PM EDT ----- ------- Name: Andrew Houser Age/Sex: 69/M : 1955 Unit#: [id number] Attend Dr: lOiver Kimble MD Re02/23/25 Status: [facility] Location: [facility] Disch: ----- ------- SPEC : [id number] RECD: 02/23/25 STATUS: VINNY HERMAN NUM: [id number] ELIDA: 02/23/[address] [facility] [address]: Oliver Kimble MD ENTERED: 02/23/25 SP TYPE: Surgical OTHR DR: Jennifer Sanchez MD ORDERED: Gross Micro L3 Diagnosis Soft tissue, right inguinal region, excision: Mature lobulated adipose tissue consistent with lipoma; no atypia identified. Clinical History Unilateral inguinal hernia without obstruction Microscopic Description Microscopic sections reviewed. Material Received Lipoma of the cord, right inguinal Gross Description Received in formalin labeled lipoma of the cord, right inguinal is an oval mass of yellow pink adipose tissue measuring 5.5 x 2.8 x 1.5 cm. The specimen is partially encapsulated by paper thin transparent membrane. Sectioning reveals a moist, lobulated yellow cut surface with no gross evidence of fat necrosis seen. The specimen is traversed in areas by thin strands of pink-white membranous tissue. No cysts or nodules are identified. Bead Forming Machine Operator sections are submitted for microscopic examination in cassettes A1 and A2, 2 pieces each. ([facility]) IHC S/NG Disclaimer NOTE: Unless otherwise stated, all tissue is formalin-fixed and paraffin-embedded. Some or all of the immunohistochemical tests reported herein may have been developed and their performance characteristics determined by [facility]. They have not been cleared or approved by the U.S. Food and Drug Administration (FDA). However, the FDA has determined that such clearance or approval is not necessary. This laboratory is certified under the Clinical Laboratory Improvement Amendments of 1988 (CLIA) as qualified to perform high complexity clinical laboratory testing. Copies To: Oliver Kimble MD [facility] General Surgeons [address] [place] [id number] CONTINUED ON NEXT PAGE ----- ------- Name: Andrew Houser Age/Sex: 69/M : 1955 Unit#: [id number] Attend Dr: Oliver Kimble MD Re02/23/25 Status: [facility] Location: [facility] Disch: ----- ------- SPEC : [id number] RECD: 02/23/25 STATUS: VINNY HERMAN NUM: [id number] ELIDA: 02/23/[address] [facility] [address]: Oliver Kimble MD ENTERED: 02/23/25 SP TYPE: Surgical OTHR DR: Jennifer Sanchez MD ORDERED: Gross Micro L3 Copies To: (Continued) Jennifer Sanchez MD [address] [address] ----- ------- Signed (signature on file) Isreal Can MD 02/24/25 1724 ----- ------- END OF REPORT Generic External Data Provider LAB CYTOLOGY ORDE RABLES Final Result Performing Organization Address [facility]/ZIP Co de Phone Number [facility] [address] [place] [address] [phone] * (ABNORMAL) Urinalysis, Complete, with Reflex to Culture (01/18/2025 8:32 AM EDT) Color Urine Yellow [facility] Appearance Urine Clear [facility] PH 6.0 5.0 - 9.0 [facility] Glucose Urine UA Negative Negative mg/dL [facility] Urine Blood Moderate (2+)(A) Negative [facility] Specific Lake - Urine 1.015 1.005 - 1.025 [facility] Urine Protein 30 (1+)(A) Neg-Trace mg/dL [facility] Urine Ketones Negative Negative mg/dL [facility] Nitrite Urine Negative Negative [facility] Leukocyte Esterase Urine Large (3+)(A) Negative [facility] RBC Urine 3-5(A) 0 - 2 /HPF [facility] Urine WBC >50(A) 0 - 5 /HPF [facility] Urine Squamous Epithelial Cell 0-2 0 - 2 /HPF [facility] Urine Bacteria None Seen None Seen [facility] Hyaline Casts, Urine 0-2 0 - 2 /LPF [facility] 01/18/2025 8:32 AM EDT 01/18/2025 8:37 AM EDT Narrative [facility] - 01/18/2025 8:52 AM EDT Urine, Clean Catch Generic External Data Provider LAB URINE ORDERAB LES Final Result Performing Organization Address [facility]/ZIP Co de Phone Number [facility] [address] [place] [address] [phone] * CT Abdomen Pelvis w/ Contrast (01/18/2025 7:44 AM EDT) Anatomical Region Laterality Modality Body, Pelvis, Abdomen Computed T omography 01/18/2025 7:44 AM EDT Narrative 01/18/2025 9:21 AM EDT [address] [address] [place] Scan Report Signed Patient: Andrew Houser MR#: [id number] : 1955 Acct:[id number] Age/Sex: 69 / M ADM Date: 01/18/25 Loc: HO.ED Attending Dr: Ordering Physician: Judy Jay Date of Service: 01/18/25 Procedure(s): CT abdomen pelvis w IV con Accession Number(s): [id number] cc: Jennifer Sanchez MD; Judy Jay Report Number: [id number]: Total DLP = 658.00 mGy-cm EXAMINATION: CT [...] 01/18/25 0917 DD/ 0744 TD/TT: 01/18/25 0857 [employer]: Procedure Note Donotuseinterpreter, Image - 01/18/[address] [address] [place] Scan Report Signed Patient: Andrew Houser AMR#: [id number] : 5Acct:[id number] Age/Sex: 69 / MADM Date: 01/18/25 Loc: HO.ED Attending Dr: Ordering Physician: Judy Jay Date of Service: 01/18/25 Procedure(s): CT abdomen pelvis w IV con Accession Number(s): [id number] cc: Jennifer Sanchez MD; Judy Jay Report Number: [id number]: Total DLP = 658.00 mGy-cm EXAMINATION: CT [...] <Electronically signed by Matt Norris MDin OV> 01/18/2517 DD/ 0744 TD/TT: 01/18/25 0857 [employer]: [facility] External Provider IMG CT PROCEDURES Edited Result - Final * (ABNORMAL) CBC auto differential (01/18/2025 7:03 AM EDT) White Blood Count 4.9 4.8 - 10.8 X10*3/uL [facility] Red Blood Count 4.18(L) 4.60 - 5.80 X10*6/uL [facility] Hemoglobin 12.1(L) 14.0 - 18.0 g/dl [facility] Hematocrit 34.9(L) 42.0 - 52.0 % [facility] Mean Corpuscular Volume 83.5 80.0 - 98.0 fL [facility] Mean Corpuscular Hemoglobin 28.9 27.0 - 33.0 pg [facility] Mean Corpuscular HGB Conc 34.7 31.0 - 36.0 g/dl [facility] Red Cell Distribution Width 14.6 11.0 - 16.0 % [facility] Platelet Count 207 160 - 400 X10*3/uL [facility] Mean Platelet Volume 10.4 9.4 - 12.4 fL [facility] Neutrophils Percent Auto 50.4 45 - 73 % [facility] Imm Gran Pct Auto 0.6(H) 0.0 - 0.4 % [facility] Lymphocytes Percent Auto 32.8 20 - 40 % [facility] Monocytes Percent Auto 10.9 2 - 11 % [facility] Eosinophils Percent Auto 4.7(H) 0 - 4 % [facility] Basophils Percent Auto 0.6 0 - 2 % [facility] NRBC Pct Auto 0.0 0.0 - 0.2 /100WBC [facility] Neutrophils Absolute Auto 2.5 2.0 - 8.3 x10*3/uL [facility] Imm Gran Abs Auto 0.03 0.00 - 0.03 X10*3/uL [facility] Lymphocytes Absolute Auto 1.6 1.2 - 4.9 X10*3/uL [facility] Monocytes Absolute Auto 0.5 0.1 - 1.2 X10*3/uL [facility] Eosinophils Absolute Auto 0.2 0.0 - 0.4 X10*3/uL [facility] Basophils Absolute Auto 0.0 0.0 - 0.2 X10*3/uL [facility] NRBC Abs Auto 0.000 0.0 - 0.012 X10*3/uL [facility] 01/18/2025 7:03 AM EDT 01/18/2025 7:12 AM EDT us Generic External Data Provider LAB BLOOD ORDERAB LES Final Result [facility] [address] [place] [address] [phone] * Comprehensive Metabolic Panel (01/18/2025 7:03 AM EDT) Sodium 140 135 - 145 mmol/L [facility] Potassium 3.8 3.3 - 5.1 mmol/L [facility] Chloride 107 96 - 108 mmol/L [facility] Carbon Dioxide 24 22 - 29 mmol/L [facility] Anion Gap 13 12 - 20 [facility] Urea Nitrogen (BUN) 14 9 - 16 mg/dL [facility] Creatinine, Serum 0.79 0.5 - 1.4 mg/dL [facility] Creatinine Clr Calc Pharmacy 95.5 [facility] Comment:eGFR (calculated fro m the MDRD study equation) and eCrCl(calculated from the Cockcroft-Gault equation) are based ondifferent parameters and may not yield comparable results.If eCrCl result is absurd, please check patient'sheight/weight. Estimated Glomerular Filt Rate >60 [facility] Comment:Chronic Kidney Disea se: Estimated GFR < 60 mL/min/1.39o1Bzwesl Kidney Disease: Estimated GFR < 15 mL/min/1.73m2 Glucose 115 60 - 115 mg/dL [facility] Calcium 8.8 8.4 - 10.2 mg/dL [facility] Bilirubin, Total 0.2 0.0 - 1.0 mg/dL [facility] Aspartate Amino Transferase 19 5 - 37 U/L [facility] Alanine Aminotransferase 22 0 - 40 U/L [facility] Total Protein 7.0 6.5 - 8.0 g/dL [facility] Albumin Level 4.2 3.5 - 5.0 g/dL [facility] Alkaline Phosphatase 62 39 - 117 U/L [facility] 01/18/2025 7:03 AM EDT 01/18/2025 7:12 AM EDT Generic External Data Provider LAB BLOOD ORDERAB LES Final Result Performing Organization Address [facility] Co de Phone Number [facility] [address] [place] [phone] * Culture, Urine, Routine (01/18/2025 12:00 AM EDT) Urine Urine specimen obtained by clean catch procedure / Unknown 01/18/2025 01/18/2025 Comment:[facility] - 01/19/2025 10:48 AM EDT Urine Culture No growth. Specimen Source: Urine clean catch Generic External Data Provider LAB MICROBIOLOGY - GENERAL ORDERABLES Final Result Performing Organization Address [facility] de Phone Number [facility] [address] [place] [phone] * Hematoxylin and Eosin Stain (12/27/2024 1:10 PM EDT) 12/27/2024 1:10 PM EDT 12/27/2024 1:40 PM EDT [facility] - 12/30/2024 9:45 AM EDT ----- ------- Name: Andrew Houser Age/Sex: 69/M : 1955 [facility]#: [id number] Unit#: [id number] Attend Dr: Mars Baeza MD Re12/27/24 Status: [facility] Location: [facility] Disch: ----- ------- SPEC : [id number] RECD: 12/27/24 STATUS: VINNY HERMAN NUM: [id number] ELIDA: 12/27/24-[address] [facility] [address]: Mars Baeza MD ENTERED: 12/27/24 [...] Prostate, E 1.5, core biopsy: Prostatic adenocarcinoma, [place] score 3+3=6 (grade group 1), involving 45% [...] Prostate, C 4.0, core biopsy: Prostatic adenocarcinoma, [place] score 3+3=6 (grade group 1), involving 7% [...] Name: Andrew Houser Age/Sex: 69/M : 1955 [id number]#: [id number] Attend Dr: Mars Baeza MD Re12/27/24 Status: [facility] Location: [facility] Disch: ----- ------- SPEC : [id number] RECD: 12/27/24 STATUS: VINNY HERMAN NUM: [id number] ELIDA: 12/27/[address] [facility] [address]: Mars Baeza MD ENTERED: 12/27/24 [...] Name: Andrew Houser Age/Sex: 69/M : 1955 [id number] Unit#: [id number] Attend Dr: Mars Baeza MD Re12/27/24 Status: [facility] Location: [facility] Disch: ----- ------- SPEC : [id number] RECD: 12/27/24 STATUS: SRINIVASATatyana KEBEDELary NUM: [id number] ELIDA: 12/27/[address] [facility] [address]: Mars Baeza MD ENTERED: 12/27/24 [...] NEXT PAGE ----- ------- Name: Andrew Houser A Age/Sex: 69/M : 1955 Unit#: [id number] Attend Dr: Mars Baeza MD Re12/27/24 Status: [facility] Location: [facility] Disch: ----- ------- SPEC : [id number] RECD: 12/27/24 STATUS: VINNY HERMAN NUM: [id number] ELIDA: 12/27/[address] [facility] [address]: Mars Baeza MD ENTERED: 12/27/24 SP TYPE: Surgical OTHR DR: Jennifer Sanchez MD ORDERED: HE Stain/48, Multiplex IHC, PIN4, Prostate biopsy IHC S/NG Disclaimer NOTE: Unless otherwise stated, all tissue is formalin-fixed and paraffin-embedded. Some or all of the immunohistochemical tests reported herein may have been developed and their performance characteristics determined by [facility]. They have not been cleared or approved by the U.S. Food and Drug Administration (FDA). However, the FDA has determined that such clearance or approval is not necessary. This laboratory is certified under the Clinical Laboratory Improvement Amendments of 1988 (CLIA) as qualified to perform high complexity clinical laboratory testing. Copies To: Mars Baeza MD [facility] [address] [place], [place] [phone] Jennifer Sanchez MD [address] [address] ----- ------- Signed (signature on file) Suzie Garcia MD 12/30/24 0945 ----- ------- END OF REPORT us Generic External Data Provider LAB BLOOD ORDERAB LES Final Result Performing Organization Address [facility] Co de Phone Number [facility] [address] [place] [phone] * (ABNORMAL) Lipid Panel with Reflex to Direct LDL (06/09/2024 11:00 AM EST) Triglycerides 68 <150 mg/dL [facility] Comment:Desirable Triglyceri de: less than 150 mg/dLBorderline High Triglyceride 150-199 mg/dLHigh Triglyceride: 200-499 mg/dLVery High Triglyceride: greater than or equal to 5OO mg/dL Cholesterol 175 <200 mg/dL [facility] Comment:Desirable Cholestero l: less than 200 mg/dLBorderline High Cholesterol: 200-239 mg/dLHigh Cholesterol: greater than 239 mg/dL LDL Cholesterol Calculated 111(H) <100 mg/dL [facility] Comment:Desirable LDL: less than 100 mg/dLNear Optimal/Above Optimal LDL: 110- 129 mg/dLBorderline High LDL: 130-159 mg/dLHigh LDL: 160-189 mg/dLVery High LDL: greater than or equal to 190 mg/dL HDL Cholesterol 51 >40 mg/dL [facility] Comment:Desirable HDL: great er than 40 mg/dL Note: This HDL assay may give artificially low results in patients with liver disease. Blood 06/09/2024 11:0 0 AM EST 06/09/2024 11:05 AM EST Jennifer Sanchez MD LAB BLOOD ORDERABLES Final Resul t Performing Organization Address [facility] Co de Phone Number [facility] [address] [place] [phone] * Hemoglobin A1c (06/09/2024 11:00 AM EST) Hemoglobin A1c 6.0 <6.0 % [facility] Comment:Hemoglobin A1C Refer ence Range Adults: 4.8 - 6.0 % Non diabetic: < 6.0 % Goal: < 7.0 %Additional Action Suggested: > 8.0 %Note: Hemoglobin A1c results are invalid for patients with abnormal amounts of HbF. Blood transfusions may impact the HbA1c concentration in the patient sample. Estimated Average Glucose 126 mg/dL [facility] Comment:eAG = Estimated ave rage glucose which is %A1C expressed asaverage glucose, using the formula of the [id number] Glucose study (ADAG), Diabetes Care, Vol.31,#8,Dec. 2007 Blood Venous blood specimen / Unknown 06/09/2024 11:00 AM EST 06/09/2024 11:05 AM EST Jennifer Sanchez MD LAB BLOOD ORDERABLES Final Resul t Performing Organization Address City/[facility]/ZIP Co de Phone Number [facility] [address] [place] [phone] * Hm Colonoscopy (02/04/2020) Pathologist [facility] [place] Colonoscopy Normal Normal 02/04/2020 [facility] HEALTH MAINTENANCE Edited Result - Final * HEPATITIS C ANTIBODY RFLX (07/13/2019 10:35 AM EST) Pathologist [facility] [place] HEPATITIS C ANTIBODY [facility] Comment: Antibodies to HCV not detected; does not exclude early acute HCV infection. 07/13/2019 10:3 5 AM EST Jennifer Sanchez MD HISTORICAL/NON ORDERABLE LABS Fi nal Result [facility] [address] [place] [address], from Last 3 Months or Most Recently Relevant to Health Maintenance Insurance [facility] [employer] MEDICARE Care Teams Chess Instructor Relationship Specialty Start Date End Date Jennifer Sanchez MD [address] [place] [address] PCP - General Family Medicine 12/03/13
== END 2025-03-28 11:14 | disposition home or self-care (01) ==
LOC: HO.HGS 10:57
PROVIDERS: PCP Family Medicine; Visit Provider Physician Assistant Surgical
DX: Z98.890 Other specified postprocedural states (principal); Z87.19 Personal history of other diseases of the digestive system
CPT/HCPCS: 99024

== ENCOUNTER → 2025-03-28 10:56 | Outpatient (BNVA) | payer MEDICARE, MEDICAID, SELFPAY | PROVIDERS: PCP Family Medicine; Visit Provider Physician Assistant Surgical | DX: Z87.19 Personal history of other diseases of the digestive system (principal); Z98.890 Other specified postprocedural states | CPT/HCPCS: 99212 ==

== ENCOUNTER 2025-04-04 09:33 | Outpatient (REF) | payer MEDICAID, SELFPAY ==
[2025-04-04 12:39] LABS: MANUAL DIFF FLAG NO
[2025-04-04 12:47] LABS: Hematocrit 38.2 % (42.0-52.0); Hemoglobin 12.5 g/dl (14.0-18.0); Imm Gran Abs Auto 0.04 X10*3/uL (0.00-0.03); Imm Gran Pct Auto 0.9 % (0.0-0.4); Lymphocytes Absolute Auto 1.1 X10*3/uL (1.2-4.9); Mean Corpuscular HGB Conc 32.7 g/dl (31.0-36.0); Mean Corpuscular Hemoglobin 28.5 pg (27.0-33.0); Mean Corpuscular Volume 87.0 fL (80.0-98.0); NRBC Abs Auto 0.000 X10*3/uL (0.0-0.012); NRBC Pct Auto 0.0 /100WBC (0.0-0.2); Platelet Count 253 X10*3/uL (160-400); Red Blood Count 4.39 X10*6/uL (4.60-5.80); Reticulocytes Absolute 0.073 X10*6/uL (0.026-0.095); White Blood Count 4.6 X10*3/uL (4.8-10.8)
[2025-04-04 12:54] LABS: Alanine Aminotransferase 35 U/L (0-40); Albumin Level 4.6 g/dL (3.5-5.0); Alkaline Phosphatase 68 U/L (39-117); Anion Gap 12 (12-20); Aspartate Amino Transferase 25 U/L (5-37); Blood Urea Nitrogen 14 mg/dL (9-16); Calcium 9.4 mg/dL (8.4-10.2); Carbon Dioxide 25 mmol/L (22-29); Chloride 106 mmol/L (96-108); Estimated Glomerular Filt Rate > 60; Iron 72 mcg/dL (45-160); Magnesium 2.2 mg/dL (1.6-2.6); Percent Iron Saturation 23 % (15-50); Potassium 4.1 mmol/L (3.3-5.1); Sodium 139 mmol/L (135-145); Total Iron Binding Capacity 318 mcg/dL (228-428); Total Protein 7.6 g/dL (6.5-8.0); Unsaturated Iron Binding 246 ug/dL
[2025-04-04 12:56] LABS: Cholesterol 193 mg/dL (<200); HDL Cholesterol 57 mg/dL (>40); Triglycerides 86 mg/dL (<150)
[2025-04-04 13:01] LABS: Ferritin 186 ng/mL (20-250)
[2025-04-04 13:06] LABS: Folate 8.5 ng/mL (> or = 4.0); Vitamin B12 634 pg/mL (200-900)
[2025-04-04 13:34] LABS: Reflex LDLD? No
== END 2025-04-04 09:34 | disposition home or self-care (01) ==
LOC: HO.HHCL 09:33
PROVIDERS: PCP Family Medicine; Visit Provider Emergency Medicine
DX: R31.0 Gross hematuria (principal); R73.03 Prediabetes; R42 Dizziness and giddiness; D64.9 Anemia, unspecified; E78.5 Hyperlipidemia, unspecified
CPT/HCPCS: 36415; 80053; 80061; 82607; 82728; 82746; 83036; 83540; 83735; 84443; 85025; 85045; 87086